=== PATIENT | female | born 1955 | race Caucasian/White ===

== ENCOUNTER 2024-07-10 20:58 | Inpatient (IN) | payer OTHER, SELFPAY ==
[2024-07-10 21:01] VITALS: BP 121/60; PULSE 105; RESP 25; TEMP 37.9; O2SAT 92; BMI 29.0
--- NOTE | 2024-07-10 21:21 | XRR_ITS ---
PROCEDURE INFORMATION: Exam: XR Chest Exam date and time: 07/10/2024 10:03 PM Age: 68 years old Clinical indication: Cough and fever; Patient HX: Cough with fever; Additional info: Cough fever TECHNIQUE: Imaging protocol: Radiologic exam of the chest. Views: 1 view. COMPARISON: No relevant prior studies available. FINDINGS: Lungs: There are symmetric subtle linear opacities in both lungs. The pattern suggests fibrosis. Calcified granuloma in the right mid lung. Pleural spaces: Unremarkable. No pleural effusion. No pneumothorax. Heart/Mediastinum: Unremarkable. No cardiomegaly. Bones/joints: chronic healed right rib fracture. XR/XR chest 1V portable [id number] IMPRESSION: 1. No acute findings 2. Probable mild pulmonary fibrosis
[2024-07-10 21:50] LABS: Basophils # 0.1 10^3/uL (0.0-0.1); Basophils % 0.6 %; Eosinophils % 0.1 %; Lymphocytes # 0.6 10^3/uL (0.8-4.8); Mean Corpuscular HGB Conc 29.1 g/dL (30-55); Mean Corpuscular Hemoglobin 23.5 pg (27-33); Mean Corpuscular Volume 80.6 fl (85-98); Monocytes # 0.8 10^3/uL (0.2-0.9); Neutrophils # 8.09 10^3/uL (1.8-7.7); Neutrophils % 84.7 %; Nucleated Red Blood Cells % 0.2 %; Platelet Count 338 10^3/cmm (157-399); Red Blood Count 2.47 10^6/uL (3.85-5.65); Red Cell Distribution Width 19.3 % (12.1-15.1); White Blood Count 9.55 10^3/uL (3.29-11.43)
[2024-07-10 21:55] LABS: Hematocrit 19.9 % (36-47)
--- NOTE | 2024-07-10 22:05 | W.ED.SOB ---
HPI - SOB/Dyspnea General: Chief Complaint: Shortness of Breath/Dyspnea Stated Complaint: SOB, headache, fever Time Seen by Provider: 07/10/24 22:01 History of Present Illness: HPI Narrative: Patient resents to the ER with complaints of shortness of breath and cough x 1 week. Patient been having a fever the last couple days. There is minimal sputum production. Patient been around no known sick contacts. Patient is on Plavix for history of stroke, has been anemic in the past. Is not actively losing any blood currently. Has had to have blood before in the past. Related Data Allergies Allergy/AdvReac Type Severity Reaction Status Date / Time Cephalosporins Allergy Unknown Verified 07/10/24 21:08 Penicillins Allergy ALGY-Anaphy Verified 07/10/24 21:08 laxis Sulfa (Sulfonamide Allergy Unknown Verified 07/10/24 21:08 Antibiotics) Review of Systems General: Reports: 10 or more systems reviewed and unremarkable except in HPI and below Physical Exam Const: COMMON NORMALS: no acute distress, average body habitus, patient oriented x3, no limitations, healthy appearing, alert and well nourished HENMT: COMMON NORMALS: normocephalic, atraumatic, hearing grossly normal bilaterally, external ears normal, Normal external nose present and moist oral mucous membranes HEAD & SCALP: normocephalic and atraumatic NOSE: Normal external nose present EXTERNAL EAR: Yes external ears normal Neck/C-Spine: COMMON NORMALS: full ROM, no lymphadenopathy, supple, no meningeal signs, no JVD and Thyroid normal THYROID: Thyroid normal Chest: COMMONS NORMALS: normal inspection of the chest and normal palpation of entire chest wall Resp: COMMON NORMALS: normal respiratory effort, No retractions, No use of accessory muscles and clear to auscultation bilaterally AUSCULTATION: clear to auscultation bilaterally Cardio: COMMON NORMALS: no JVD, regular rhythm, S1 normal heart sound present, S2 normal heart sound present, No gallops present (Cardio) and No clicks present (Cardio); negative for regular rate (Slightly tachycardic) and negative for No murmurs present (Cardio) (2/6 systolic ejection murmur) RATE: abnormal rate (Slightly tachycardic) RHYTHM: regular rhythm HEART SOUNDS: S1 normal heart sound present and S2 normal heart sound present GI: COMMON NORMALS: Normal to inspection, nondistended, normoactive bowel sounds present, Soft to palpation, non-tender, No hepatosplenomegaly present and no masses PALPATION: Yes Soft to palpation and Yes No hepatosplenomegaly present Neuro: COMMON NORMALS: patient oriented x3 SENSORIUM/ORIENTATION: Yes alert MENINGEAL SIGNS: Yes no meningeal signs Course Vital Signs: Vital signs: Vital Signs Temperature 100.3 F H 07/10/24 21:01 Pulse Rate 105 H 07/10/24 21:01 Respiratory Rate 25 H 07/10/24 21:01 Blood Pressure 121/60 07/10/24 21:01 Pulse Oximetry 92 07/10/24 21:01 Oxygen Delivery Me thod Room Air 07/10/24 21:01 MDM - SOB/Dyspnea Medical Decision Making Lab work showed patient's hemoglobin is 5.8, chest x-ray showed no acute findings, negative for COVID RSV and influenza, these results was discussed with the patient. Dr. Kerns was consulted who agreed to place patient in observation for blood transfusion. Lab Data I reviewed the patient's lab results. 07/10/24 21:44 07/10/24 21:44 Labs/Radiology: Radiology Impressions Chest X-Ray 07/10/24 21:21 IMPRESSION: 1. No acute findings 2. Probable mild pulmonary fibrosis Laboratory Results WBC 9.55 10^3/uL (3.29-11.43) 07/10/24 21:44 RBC 2.47 10^6/uL (3.85-5.65) L 07/10/24 21:44 Hgb 5.80 g/dL (11.27-16.99) L* 07/10/24 21:44 Hct 19.9 % (36-47) L* 07/10/24 21:44 MCV 80.6 fl (85-98) L 07/10/24 21:44 MCH 23.5 pg (27-33) L 07/10/24 21:44 MCHC 29.1 g/dL (30-55) L 07/10/24 21:44 RDW 19.3 % (12.1-15.1) H 07/10/24 21:44 Plt Count 338 10^3/cmm (157-399) 07/10/24 21:44 MPV 8.0 fL (7.4-10.4) 07/10/24 21:44 Neut % (Auto) 84.7 % 07/10/24 21:44 Lymph % (Auto) 6.0 % 07/10/24 21:44 [place] % (Auto) 8.0 % 07/10/24 21:44 Eos % (Auto) 0.1 % 07/10/24 21:44 Baso % (Auto) 0.6 % 07/10/24 21:44 Neut # (Auto) 8.09 10^3/uL (1.8-7.7) H 07/10/24 21:44 Lymph # (Auto) 0.6 10^3/uL (0.8-4.8) L 07/10/24 21:44 [place] # (Auto) 0.8 10^3/uL (0.2-0.9) 07/10/24 21:44 Eos # (Auto) 0.0 10^3/uL (0.0-0.8) 07/10/24 21:44 Baso # (Auto) 0.1 10^3/uL (0.0-0.1) 07/10/24 21:44 Nucleated RBC % (auto) 0.2 % 07/10/24 21:44 Nucleated RBCs # 0.0 /100WBC 07/10/24 21:44 PT 13.80 SECONDS (12.1-14.9) 07/10/24 21:44 INR 1.02 (0.8-1.2) 07/10/24 21:44 Sodium 136 mmol/L (136-145) 07/10/24 21:44 Potassium 4.5 mmol/L (3.5-5.1) 07/10/24 21:44 Chloride 102 mmol/L (98-107) 07/10/24 21:44 Carbon Dioxide 23 mmol/L (22-29) 07/10/24 21:44 Anion Gap 15.5 (5-19) 07/10/24 21:44 BUN 23 mg/dL (8-23) 07/10/24 21:44 Creatinine 0.9 mg/dL (0.5-0.9) 07/10/24 21:44 GFR Calculation 62.3 mL/min (90-130) L 07/10/24 21:44 Glucose 150 mg/dL (65-115) H 07/10/24 21:44 Calculated Osmolality 289 mOsm/kg (285-295) 07/10/24 21:44 Calcium 9.2 mg/dL (8.5-10.5) 07/10/24 21:44 Total Bilirubin 0.2 mg/dL (0.15-1.2) 07/10/24 21:44 AST 18 U/L (0-32) 07/10/24 21:44 ALT 17 U/L (0-33) 07/10/24 21:44 Alkaline Phosphatase 79 U/L (35-105) 07/10/24 21:44 Total Protein 6.6 g/dL (6.6-8.7) 07/10/24 21:44 Albumin 3.7 g/dL (3.5-5.2) 07/10/24 21:44 Globulin 2.9 g/dL (1.3-4.6) 07/10/24 21:44 Coronavirus (PCR) Negative (Negative) 07/10/24 22:15 Influenza A (PCR) Negative (Negative) 07/10/24 22:15 Influenza Type B (PCR) Negative (Negative) 07/10/24 22:15 RSV (PCR) Negative (Negative) 07/10/24 22:15 All radiology interpretation(s) finalized by discharge Discharge Plan Discharge Patient Disposition: Placed in Observation Clinical Impression: Anemia requiring transfusions Coding Level of Care Code ED Protection Analyst for Sarah Kat
[2024-07-10 22:09] LABS: Alanine Aminotransferase 17 U/L (0-33); Albumin Level 3.7 g/dL (3.5-5.2); Alkaline Phosphatase 79 U/L (35-105); Anion Gap 15.5 (5-19); Aspartate Amino Transferase 18 U/L (0-32); Blood Urea Nitrogen 23 mg/dL (8-23); Calcium 9.2 mg/dL (8.5-10.5); Carbon Dioxide 23 mmol/L (22-29); Chloride 102 mmol/L (98-107); Creatinine Clr Calc Pharmacy 64.4478; Globulin 2.9 g/dL (1.3-4.6); Glomerular Filtration Rate 62.3 mL/min (90-130); Glucose 150 mg/dL (65-115); Osmolality Calculated 289 mOsm/kg (285-295); Potassium 4.5 mmol/L (3.5-5.1); Sodium 136 mmol/L (136-145); Total Bilirubin 0.2 mg/dL (0.15-1.2); Total Protein 6.6 g/dL (6.6-8.7)
[2024-07-10] MEDS: acetaminophen 500 mg Tablet 1000 MG PO (22:30)
[2024-07-10 22:38] LABS: INR 1.02 (0.8-1.2)
[2024-07-10 23:16] LABS: Covid PCR NEGATIVE (Negative); Influenza A NEGATIVE (Negative); Influenza B NEGATIVE (Negative); Respiratory Syncytial Virus Ce NEGATIVE (Negative)
[2024-07-10 23:49] VITALS: BP 98/59; PULSE 96; RESP 24; O2SAT 94
--- NOTE | 2024-07-10 23:55 | P.HP_ITS ---
Providers/Chief Complaint 2 Admitting Physician: Olga Kerns MD Chief Complaint: SOB, headache, fever History of Present Illness Lela Crespo is a 68 year old female with history of chronic anemia requiring blood transfusion in the past had workup done 2021, takes lisinopril for hypertension, statins and Plavix for her previous stroke, ex-smoker, does not use oxygen, presented with chief complaint of cough shortness of breath and low- grade fever for last 2 to 3 days. Patient has been sick for last few weeks but symptoms got worse in last 2 to 3 days. She is endorsing shortness of breath on minimal exertion. She is not endorsing chest pain. No previous history of CHF or [place]. In the ER hemoglobin showed 5.8 BMP unremarkable requested iron level B12, respiratory panel negative, chest x-ray unremarkable. Patient is actively wheezing saturating 90% on room air I have requested RT to put her on 2 L nasal cannula. Patient's blood pressure is fluctuating between systolic 100 -107 mmHg Patient is not endorsing history of hemoptysis hematemesis, vaginal bleed, dark- colored stools, patient is stating that in the past extensive workup was done and no etiology was found, she never had bone marrow biopsy Review of Systems 2 Const: Denies: fever(s) Eyes: Denies: change in vision ENMT: Denies: throat pain Card: Reports: swelling of feet/ankles Resp: Reports: dyspnea and wheezing GI: Denies: abdominal pain Medications/Allergies Allergies Allergy/AdvReac Type Severity Reaction Status Date / Time Cephalosporins Allergy Unknown Verified 07/10/24 21:08 Penicillins Allergy ALGY-Anaphy Verified 07/10/24 21:08 laxis Sulfa (Sulfonamide Allergy Unknown Verified 07/10/24 21:08 Antibiotics) PFSH Acute 2 PFSH: Medical History CVA (cerebral vascular accident) Hypertension Surgical History H/O knee surgery Vitals/I&O/Wt Last Vital Signs Temp 98.2 F 07/11/24 01:16 Pulse 93 07/11/24 01:16 Resp 18 07/11/24 01:16 BP 96/64 07/11/24 01:16 Pulse Ox 95 07/11/24 01:16 O2 Del Method Room Air 07/11/24 00:36 07/10/24 07/10/24 07/11/24 14:59 22:59 06:59 Intake Total 0 / 0 Balance 0 / 0 Weight last 48 hrs Weight 81.647 kg Weight 81.647 kg Physical Exam 2 Narrative: Patient is awake and alert Currently wheezing, coughing, dry cough Systolic murmur Currently on room air saturating 90% Awake and alert Pleasant and cooperative No active chest pain Lower extremity 2+ edema Nonfocal neuroexam Right-sided weakness from previous stroke S1, S2 tachycardia Abdomen soft Data 07/10/24 21:44 07/10/24 21:44 A&P Assessment and plan (1) Anemia requiring transfusions: (2) New onset of congestive heart failure: (3) Hypoxia: Plan New onset CHF Acute on chronic anemia, does not have previous labs to compare As per the patient she had extensive workup done in 2021 at outside hospital, will request records As per the patient she had EGD which did not show any ulcers, no bone marrow biopsy was done 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 Not endorsing dark-colored stools, hematemesis hemoptysis Requested B12, iron level Getting 2 unit PRBC Acute hypoxia: Currently requiring 2 L active wheezing added steroids along DuoNeb treatment Resp panel negative, Patient is stating that she had a low-grade fever at home 100.5 Afebrile here, chest x-ray negative Never developed reaction to blood in the past Acute onset CHF: Request echo, no history of [place] or CHF Will give her Lasix in between blood transfusion, blood pressure is soft, closely monitor Cardiac diet Full code DVT prophylaxis: SCDs Patient is stating that she is not interested in another endoscopic workup since it was done 2 years ago Attestations 2 Medical Necessity Statement*: Anticipating discharge within 48 hours Diagnoses Anemia requiring transfusions D64.9 New onset of congestive heart failure I50.9 Hypoxia R09.02
[2024-07-11] VITALS (23 sets, daily range): BP systolic 90–130; BP diastolic 51–92; PULSE 88–109; RESP 16–21; TEMP 36.5–37; O2SAT 92–98; BMI 29.0
[2024-07-11 01:21] LABS: Bilirubin Urine Negative (Negative); Blood Urine Negative (Negative); Glucose Urine UA Negative (Normal); Ketones Urine Negative (Negative); Leukocyte Esterase Urine 1+ (Negative); Nitrate Urine Negative (Negative); Protein Urine Negative (Negative); Specific Gravity, Urine 1.021 (1.005-1.030); Urine Appearance Clear (CLEAR); Urine Color Yellow (Yellow)
[2024-07-11 01:26] LABS: Add Urine Microscopic? YES; Bacteria Urine 1+ /hpf; Hyaline Casts Urine 8.67 /lpf; RBC Urine 0-2 /hpf (0-2); Universal Test for UA Present (0)
[2024-07-11 01:42] LABS: Add Urine Culture? No; Mucus Urine TRACE /hpf; Renal Epithelial Cells Urine 0-4 /hpf
[2024-07-11] MEDS: ipratropium-albuterol 3 mL Neb INHALATION ×4 (02:18→20:35)
--- NOTE | 2024-07-11 02:35 | USCV_ITS ---
Zak Lela Age: 68 Gender: F : 1955 Exam Date: 07/11/2024 14:02 Ordering Phys: Olga Kerns MD Technologist: Lamonte Cohn Exam Location: [facility] [place] Indication: new onsest chf BP: 196 / 53 HR: 89 Rhythm: Sinus Technical Quality: Adequate MEASUREMENTS (Male / Female) Normal Values 2D ECHO LV Diastolic Diameter PLAX 5.4 cm 4.2 - 5.9 / 3.9 - 5.3 cm IVS Diastolic Thickness 1.2 cm 0.6 - 1.0 / 0.6 - 0.9 cm IVS Systolic Thickness 2.0 cm LVPW Diastolic Thickness 1.5 cm 0.6 - 1.0 / 0.6 - 0.9 cm LVPW Systolic Thickness 1.9 cm LVOT Diameter 2.0 cm LV Ejection Fraction 2D Teich 81.0 % LV Ejection Fraction MOD 4C 67.4 % LV Ejection Fraction MOD 2C 65.8 % LV Ejection Fraction 2C AL 65.8 % LA Diameter 4.9 cm RA Systolic Volume 4C AL 49.0 ml RA Systolic Volume 4C MOD 48.6 ml LA Sys Volume AL 48.5 cm cubed LA Sys Volume Index AL 23.5 cm cubed/m squared Aorta at Sinotubular Diameter 2.2 cm IVC Diameter 1.8 cm M-MODE LA Ao Ratio MM 1.6 AV Cusp Separation MM 0.9 cm DOPPLER AV Peak Velocity 118.0 cm/s LVOT Peak Velocity 111.0 cm/s AV Area Cont Eq vti 2.8 cm squared AV Area Cont Eq pk 3.0 cm squared MV Peak Velocity 144.0 cm/s MV Area PHT 5.8 cm squared Mitral E to A Ratio 1.1 TR Peak Velocity 322.0 cm/s TR Peak Gradient 41.5 mmHg TR Mean Velocity 241.0 cm/s TR Mean Gradient 26.6 mmHg TR Velocity Time Integral 87.8 cm PV Peak Velocity 107.0 cm/s RV Ejection Time 0.3 s FINDINGS Left Ventricle Normal left ventricular size and systolic function, EF 66%. No regional wall motion abnormalities. Grade III/IV diastolic dysfunction (restrictive filling pattern), severely elevated filling pressures. Right Ventricle The right ventricle is normal in size and function. Right Atrium The right atrium is normal in size. Left Atrium Mildly increased left atrial size. Mitral Valve Trace mitral valve regurgitation. Aortic Valve Thickened aortic valve. Tricuspid Valve Trace tricuspid valve regurgitation. Estimated pulmonary artery peak systolic pressure 30 mmHg Pulmonic Valve Pulmonic valve not well visualized. Pericardium Normal pericardium without effusion. Aorta Normal ascending aorta dimension. IVC Inferior vena cava not visualized. CONCLUSIONS Normal left ventricular size and systolic function, EF 66%. No regional wall motion abnormalities. Grade III/IV diastolic dysfunction (restrictive filling pattern), severely elevated filling pressures. Mildly increased left atrial size. Trace mitral valve regurgitation. Thickened aortic valve. Trace tricuspid valve regurgitation. Estimated pulmonary artery peak systolic pressure 30 mmHg. There is no pericardial effusion. No similar previous studies are available for comparison Dr Chasity Marina MD FACC (Electronically Signed) Final Date: 12 July 2024 09:57 S
[2024-07-11] MEDS: acetaminophen 500 mg Tablet PO (02:48)
[2024-07-11] MEDS: guaiFENesin 100 mg/5 mL UDC 10 mL 200 MG PO ×4 (02:48→21:31)
[2024-07-11 02:54] LABS: Reticulocyte % 2.8 % (0.5-2.0)
[2024-07-11] MEDS: benzonatate 100 mg Capsule 200 MG PO ×4 (03:35→21:31)
[2024-07-11 03:39] LABS: Ferritin 26 ng/mL (15-150); Folate Level 11.5 ng/mL (4.8-37.3); Iron 14 ug/dL (37-145); Lactate Dehydrogenase 197 U/L (135-214); NT Pro B Type Natriuretic Pept 1223 pg/mL (0-125); Percent Saturation 4.1 % (20-50); Total Iron Binding Capacity 339 mcg/dl; Unsaturated Iron Binding 325 ug/dL (112-347); Vitamin B12 498 pg/mL (232-1245)
[2024-07-11 04:53] LABS: Basophils # 0.1 10^3/uL (0.0-0.1); Basophils % 0.7 %; Eosinophils % 0.4 %; Lymphocytes % 9.6 %; Mean Corpuscular HGB Conc 29.6 g/dL (30-55); Mean Corpuscular Hemoglobin 24.6 pg (27-33); Mean Platelet Volume 8.2 fL (7.4-10.4); Monocytes # 1.1 10^3/uL (0.2-0.9); Monocytes % 10.5 %; Neutrophils # 7.79 10^3/uL (1.8-7.7); Neutrophils % 78.2 %; Nucleated Red Blood Cells % 0.2 %; Platelet Count 310 10^3/cmm (157-399); Red Blood Count 2.89 10^6/uL (3.85-5.65); Red Cell Distribution Width 18.6 % (12.1-15.1); White Blood Count 9.97 10^3/uL (3.29-11.43)
[2024-07-11] MEDS: methylPREDNISolone sod succ 40 mg/mL INJ 30 MG IVP ×2 (05:08→15:31)
[2024-07-11] MEDS: FUROsemide 10 mg/mL SDV 2mL 20 MG IVP (05:08)
[2024-07-11 05:18] LABS: Anion Gap 15.2 (5-19); Blood Urea Nitrogen 26 mg/dL (8-23); Carbon Dioxide 21 mmol/L (22-29); Chloride 105 mmol/L (98-107); Creatinine Clr Calc Pharmacy 60.4799; Glomerular Filtration Rate 55.1 mL/min (90-130); Glucose 127 mg/dL (65-115); Magnesium 1.9 mg/dL (1.7-2.3); Osmolality Calculated 290 mOsm/kg (285-295); Potassium 4.2 mmol/L (3.5-5.1); Sodium 137 mmol/L (136-145)
--- NOTE | 2024-07-11 05:31 | XRR_ITS ---
PROCEDURE INFORMATION: Exam: XR Chest Exam date and time: 07/11/2024 5:36 AM Age: 68 years old Clinical indication: Cough and wheezing; Patient HX: Worsening cough with new onset of audible rales. ; Additional info: New onset crackles TECHNIQUE: Imaging protocol: Radiologic exam of the chest. Views: 1 view. COMPARISON: CR (CHEST, ) 07/10/2024 10:03 PM FINDINGS: Lungs: Mild interstitial prominence. This is accentuated today by a poor inspiratory effort. Pleural spaces: Unremarkable. No pleural effusion. No pneumothorax. Heart/Mediastinum: See Vasculature finding. Vasculature: Mild cardiomegaly and uncoiling of the thoracic aorta. Bones/joints: Unremarkable. XR/XR chest 1V portable [id number] IMPRESSION: No acute findings. Stable chronic findings.
--- NOTE | 2024-07-11 06:23 | PC.NURSE ---
After first unit of blood finished infusing at 0430 this nurse auscultated lung sounds and a new onset of crackles were present. Notified NOC hospitalist Dr Kerns who advised to hold off on second unit of blood and order a chest x-ray.
[2024-07-11 06:53] LABS: Basophils # 0.1 10^3/uL (0.0-0.1); Basophils % 0.8 %; Eosinophils % 0.3 %; Hematocrit 24.7 % (36-47); Lymphocytes # 0.6 10^3/uL (0.8-4.8); Lymphocytes % 5.1 %; Mean Corpuscular HGB Conc 29.6 g/dL (30-55); Mean Corpuscular Hemoglobin 24.3 pg (27-33); Mean Corpuscular Volume 82.1 fl (85-98); Mean Platelet Volume 8.4 fL (7.4-10.4); Monocytes # 0.8 10^3/uL (0.2-0.9); Monocytes % 7.6 %; Neutrophils # 9.25 10^3/uL (1.8-7.7); Neutrophils % 85.6 %; Nucleated Red Blood Cells % 0 %; Platelet Count 342 10^3/cmm (157-399); Red Blood Count 3.01 10^6/uL (3.85-5.65); Red Cell Distribution Width 18.6 % (12.1-15.1)
--- NOTE | 2024-07-11 07:55 | PC.PHAR ---
Pt is a transplant from [facility]. Pt does take medications and fills at [facility] [phone]. They open at 9am-will follow up with them as soon as they open.
[2024-07-11] MEDS: budesonide 0.5 mg/2 mL Neb INHALATION ×2 (08:08→20:35)
--- NOTE | 2024-07-11 09:07 | PC.PHAR ---
Addendum entered by Radha Raya 07/11/24 09:11: Verified with Janice Rodríguez. Original Note: [facility] [place]. [address] . Pharmacy states pt also had Rosuvastatin 40mg but last fill was in December. Pt states she did take her medications yesterday 07/10/24.
[2024-07-11] MEDS: pantoprazole 40 mg SDV IVP ×2 (09:19→17:34)
[2024-07-11] MEDS: sennosides-docusate Tablet 1 TAB PO (09:19)
--- NOTE | 2024-07-11 15:14 | P.PN_ITS ---
Vitals/I&O/Wt Last Vital Signs Temp 98.0 F 07/11/24 11:33 Pulse 99 07/11/24 11:33 Resp 16 07/11/24 11:33 BP 109/53 07/11/24 11:33 Pulse Ox 97 07/11/24 11:33 O2 Del Method Room Air 07/11/24 11:33 O2 Flow Rate 1.5 07/11/24 09:12 07/11/24 07/11/24 07/11/24 06:59 14:59 22:59 Intake Total 350 / 350 420 / 420 Balance 350 / 350 420 / 420 Weight last 48 hrs Weight 88.932 kg Weight 81.647 kg Weight 81.647 kg Data 07/11/24 06:48 07/11/24 04:42 A&P Assessment and plan (1) Anemia requiring transfusions: (2) New onset of congestive heart failure: (3) Hypoxia: Plan New onset CHF Acute on chronic anemia, does not have previous labs to compare As per the patient she had extensive workup done in 2021 at outside hospital, will request records As per the patient she had EGD which did not show any ulcers, no bone marrow biopsy was done 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 Not endorsing dark-colored stools, hematemesis hemoptysis Requested B12, iron level Getting 2 unit PRBC Acute hypoxia: Currently requiring 2 L active wheezing added steroids along DuoNeb treatment Resp panel negative, Patient is stating that she had a low-grade fever at home 100.5 Afebrile here, chest x-ray negative Never developed reaction to blood in the past Acute onset CHF: Request echo, no history of [place] or CHF Will give her Lasix in between blood transfusion, blood pressure is soft, closely monitor Cardiac diet Full code DVT prophylaxis: SCDs Patient is stating that she is not interested in another endoscopic workup since it was done 2 years ago July 11, 2024. Received blood transfusion overnight. Hemoglobin at 7.3 this morning. Low iron level at 14, low transferrin saturation, normal TIBC. Will check ferritin level with a.m. labs. Normal T. bili and LDH, less likely to be hemolytic anemia. Patient states she has previously had endoscopic evaluation with upper and GI endoscopy 2 years ago. No obvious abnormalities were found. Normal B12 and folate levels currently she has never had a capsule endoscopy in the past. She has never had a bone marrow biopsy results. At the time of discharge will refer her to see hematology as an outpatient to further evaluate the cause of her severe anemia. Tmax 100.3 Fahrenheit overnight. She is currently tachypneic, unable to have a conversation. Noted to have diffuse bilateral wheezing. Patient is currently on scheduled DuoNeb budesonide inhalation and IV steroids which we will continue. Echocardiogram is being done currently at bedside. Increase Lasix from 20 mg IV daily to 40 mg IV daily. Chest x-ray taken this morning showing some interval worsening in bilateral infiltrates likely pulmonary edema. Will check extended respiratory panel as cannot rule out acute viral versus infectious infiltrates. Start levofloxacin 750 mg p.o. daily given interval development of failure. Routine is not a clean-catch. Multiple squamous epithelial cells. Will repeat a clean-catch specimen for liver evaluation. Check blood cultures. Patient states fever was not during blood transfusion. Changed to inpatient admission as requires further evaluation for fever, pending echocardiogram, and ongoing need for IV diuresis and IV steroids. Patient is recently moved here from [facility]. Chest x-ray per radiology report raises concern for possible ILD. Will need serial reassessment in a few weeks with repeat chest x-rays to ascertain chronicity of the issue. This documentation was created by [employer] weight loss centre manager software. Every effort was made to ensure accuracy of weight loss centre manager. Any obvious errors or omissions should be clarified with the author of the document. Attestations 2 Medical Necessity Statement*: Repeat H&H, continue IV steroids, start abx, pending echo Coding Level of Care Code Acute Code for Chg Fwd Diagnoses Anemia requiring transfusions D64.9 New onset of congestive heart failure I50.9 Hypoxia R09.02
--- NOTE | 2024-07-11 15:29 | ECG_ITS ---
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 Measurements Intervals [place] Rate: 94 P: -89 UT: 148 QRS: 53 QRSD: 91 T: -3 QT: 323 QTc: 406 Interpretive Statements ECTOPIC ATRIAL RHYTHM MINIMAL VOLTAGE CRITERIA FOR LVH, CONSIDER NORMAL VARIANT [MEETS CRITERIA IN ONE OF: R(aVL), S(V1), R(V5), R(V5/V6)+S(V1)] NONSPECIFIC ST & T-WAVE ABNORMALITY ABNORMAL RHYTHM ECG No previous ECG available for comparison Electronically Signed On 07-12-2024 22:36:55 WEB UI SOFTWARE ENGINEER by Chasity Marina M.D. [id number]
[2024-07-11] MEDS: FUROsemide 10 mg/mL SDV 4mL 40 MG IVP (15:31)
[2024-07-11 16:14] LABS: Hematocrit 25.4 % (36-47)
[2024-07-11 16:31] LABS: Troponin(5th) Baseline 22 ng/L (0-10)
--- NOTE | 2024-07-11 17:31 | ECG_ITS ---
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 Measurements Intervals [place] Rate: 103 P: 0 PA: 0 QRS: 52 QRSD: 95 T: -4 QT: 322 QTc: 423 Interpretive Statements ATRIAL FIBRILLATION WITH RAPID VENTRICULAR RESPONSE NONSPECIFIC ST & T-WAVE ABNORMALITY ABNORMAL RHYTHM ECG Compared to ECG 07/11/2024 15:29:17 Ectopic atrial rhythm no longer present T-wave abnormality still present Electronically Signed On 07-12-2024 22:43:11 RELIABILITY TECHNOLOGIST by Chasity Marina M.D. [id number]
[2024-07-11 18:07] LABS: Adenovirus Not Detected (NOT DETECT); Chlamydia Pneumoniae Not Detected (NOT DETECT); Coronavirus 229E,HKU1,NL63,OC4 Not Detected (NOT DETECT); Human Metapneumovirus Not Detected (NOT DETECT); Human Rhinovirus/Enterovirus Not Detected (NOT DETECT); Influenza A Not Detected (NOT DETECT); Influenza A H1 Not Detected (NOT DETECT); Influenza A H1-2009 Not Detected (NOT DETECT); Influenza A H3 Not Detected (NOT DETECT); Influenza B Not Detected (NOT DETECT); Mycoplasma Pneumoniae Not Detected (NOT DETECT); Parainfluenza Virus Type 1 Not Detected (NOT DETECT); Parainfluenza Virus Type 2 Not Detected (NOT DETECT); Parainfluenza Virus Type 3 Not Detected (NOT DETECT); Parainfluenza Virus Type 4 Detected (NOT DETECT); Respiratory Syncytial Virus A Not Detected (NOT DETECT); Respiratory Syncytial Virus B Not Detected (NOT DETECT); SARS-COV-2 Not Detected (NOT DETECT)
[2024-07-11 18:53] LABS: Troponin 5 2HR 25.06 ng/L (0-10); Troponin 5 2HR Delta 3.06 ABS# (0-10)
--- NOTE | 2024-07-11 21:19 | ECG_ITS ---
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 Measurements Intervals [place] Rate: 96 P: 37 [place]: 153 QRS: 53 QRSD: 98 T: 28 QT: 333 QTc: 422 Interpretive Statements SINUS RHYTHM WITH OCCASIONAL SUPRAVENTRICULAR PREMATURE COMPLEXES LEFT VENTRICULAR HYPERTROPHY AND ST-T CHANGE [VOLTAGE CRITERIA PLUS ST/T ABNORMALITY] Compared to ECG 07/11/2024 17:31:56 Left ventricular hypertrophy now present ST (T wave) deviation now present Atrial fibrillation no longer present T-wave abnormality no longer present Electronically Signed On 07-12-2024 22:43:25 CLINIC MANAGER by Chasity Marina M.D. [id number]
[2024-07-11 22:24] LABS: Troponin 5 6HR 24.82 ng/L (0-10); Troponin 5 6HR Delta 2.82 ng/L (0-12)
[2024-07-12] VITALS (19 sets, daily range): BP systolic 102–147; BP diastolic 47–69; PULSE 86–107; RESP 16–20; TEMP 36.5–37.2; O2SAT 93–99
[2024-07-12] MEDS: ipratropium-albuterol 3 mL Neb INHALATION ×4 (02:34→21:01)
[2024-07-12 03:32] LABS: Basophils # 0.1 10^3/uL (0.0-0.1); Basophils % 0.5 %; Eosinophils % 0.1 %; Hematocrit 24.1 % (36-47); Mean Corpuscular HGB Conc 29.9 g/dL (30-55); Mean Corpuscular Hemoglobin 24.4 pg (27-33); Mean Corpuscular Volume 81.7 fl (85-98); Mean Platelet Volume 9.2 fL (7.4-10.4); Monocytes # 1.1 10^3/uL (0.2-0.9); Monocytes % 10.4 %; Neutrophils # 8.12 10^3/uL (1.8-7.7); Neutrophils % 78.5 %; Nucleated Red Blood Cells % 0 %; Platelet Count 278 10^3/cmm (157-399); Red Blood Count 2.95 10^6/uL (3.85-5.65); Red Cell Distribution Width 18.7 % (12.1-15.1); White Blood Count 10.33 10^3/uL (3.29-11.43)
[2024-07-12] MEDS: methylPREDNISolone sod succ 40 mg/mL INJ 30 MG IVP (03:41)
[2024-07-12] MEDS: benzonatate 100 mg Capsule 200 MG PO ×3 (03:41→22:26)
[2024-07-12] MEDS: guaiFENesin 100 mg/5 mL UDC 10 mL 200 MG PO ×4 (03:41→20:58)
[2024-07-12 04:01] LABS: Alanine Aminotransferase 23 U/L (0-33); Albumin Level 3.8 g/dL (3.5-5.2); Alkaline Phosphatase 84 U/L (35-105); Aspartate Amino Transferase 21 U/L (0-32); Blood Urea Nitrogen 30 mg/dL (8-23); Carbon Dioxide 24 mmol/L (22-29); Chloride 104 mmol/L (98-107); Creatinine Clr Calc Pharmacy 54.9817; Globulin 2.7 g/dL (1.3-4.6); Glomerular Filtration Rate 49.4 mL/min (90-130); Glucose 100 mg/dL (65-115); Osmolality Calculated 298 mOsm/kg (285-295); Sodium 141 mmol/L (136-145); Total Bilirubin 0.3 mg/dL (0.15-1.2); Total Protein 6.5 g/dL (6.6-8.7)
[2024-07-12] MEDS: budesonide 0.5 mg/2 mL Neb INHALATION ×2 (08:39→21:02)
[2024-07-12] MEDS: sennosides-docusate Tablet 1 TAB PO (09:28)
[2024-07-12] MEDS: levoFLOXacin 750 mg Tablet PO (09:28)
[2024-07-12] MEDS: pantoprazole 40 mg SDV IVP (09:29)
[2024-07-12 13:03] LABS: D Dimer 0.89 ug/mLFEU (0-0.59)
[2024-07-12] MEDS: methylPREDNISolone sod succ 40 mg/mL INJ IVP ×2 (13:54→21:00)
--- NOTE | 2024-07-12 15:53 | PM.PN ---
Subjective Subjective: Hemoglobin 7.2 today. Continues to have diffuse severe wheezing bilaterally. Tested positive for parainfluenza. Vitals/I&O/Wt Last Vital Signs Temp 98.0 F 07/12/24 14:59 Pulse 97 07/12/24 14:59 Resp 20 H 07/12/24 14:59 BP 107/69 07/12/24 14:59 Pulse Ox 97 07/12/24 14:59 O2 Del Method Room Air 07/12/24 13:57 O2 Flow Rate 2 07/12/24 09:36 07/12/24 07/12/24 07/12/24 06:59 14:59 22:59 Intake Total 360 / 1380 840 / 840 Balance 360 / 1380 840 / 840 Weight last 48 hrs Weight 89.176 kg Weight 88.932 kg Weight 81.647 kg Weight 81.647 kg Physical Exam Narrative: General: No acute distress, AO x3 HEENT: PERRLA, pupils bilaterally equal and reactive, pallors not present Chest: Normal vesicular breath sounds, no added sounds, equal good air entry bilaterally CVS: S1-S2 regular, no murmurs, no tachycardia, no gallops, no rubs Abdomen: Soft, nontender, no organomegaly, bowel sounds present Neuro: No focal deficits, no facial deformity, AO x3, power 5/5 in all limbs Data 07/12/24 02:31 07/12/24 02:31 Micro: Microbiology 07/11/24 15:45 Blood Culture - Preliminary Blood SPECIMEN COLLECTED 07/11/24 15:43 Blood Culture - Preliminary Blood SPECIMEN COLLECTED A&P Assessment and plan (1) Anemia requiring transfusions: (2) New onset of congestive heart failure: (3) Hypoxia: Plan New onset CHF Acute on chronic anemia, does not have previous labs to compare As per the patient she had extensive workup done in 2021 at outside hospital, will request records As per the patient she had EGD which did not show any ulcers, no bone marrow biopsy was done she 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 seen a public 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 instructor Not endorsing dark-colored stools, hematemesis hemoptysis Requested B12, iron level Getting 2 unit PRBC Acute hypoxia: Currently requiring 2 L active wheezing added steroids along DuoNeb treatment Resp panel negative, Patient is stating that she had a low-grade fever at home 100.5 Afebrile here, chest x-ray negative Never developed reaction to blood in the past Acute onset CHF: Request echo, no history of OH or CHF Will give her Lasix in between blood transfusion, blood pressure is soft, closely monitor Cardiac diet Full code DVT prophylaxis: SCDs Patient is stating that she is not interested in another endoscopic workup since it was done 2 years ago July 11, 2024. Received blood transfusion overnight. Hemoglobin at 7.3 this morning. Low iron level at 14, low transferrin saturation, normal TIBC. Will check ferritin level with a.m. labs. Normal T. bili and LDH, less likely to be hemolytic anemia. Patient states she has previously had endoscopic evaluation with upper and GI endoscopy 2 years ago. No obvious abnormalities were found. Normal B12 and folate levels currently she has never had a capsule endoscopy in the past. She has never had a bone marrow biopsy results. At the time of discharge will refer her to see hematology as an outpatient to further evaluate the cause of her severe anemia. Tmax 100.3 Fahrenheit overnight. She is currently tachypneic, unable to have a conversation. Noted to have diffuse bilateral wheezing. Patient is currently on scheduled DuoNeb budesonide inhalation and IV steroids which we will continue. Echocardiogram is being done currently at bedside. Increase Lasix from 20 mg IV daily to 40 mg IV daily. Chest x-ray taken this morning showing some interval worsening in bilateral infiltrates likely pulmonary edema. Will check extended respiratory panel as cannot rule out acute viral versus infectious infiltrates. Start levofloxacin 750 mg p.o. daily given interval development of failure. Routine is not a clean-catch. Multiple squamous epithelial cells. Will repeat a clean-catch specimen for liver evaluation. Check blood cultures. Patient states fever was not during blood transfusion. Changed to inpatient admission as requires further evaluation for fever, pending echocardiogram, and ongoing need for IV diuresis and IV steroids. Patient is recently moved here from [facility]. Chest x-ray per radiology report raises concern for possible ILD. Will need serial reassessment in a few weeks with repeat chest x-rays to ascertain chronicity of the issue. This documentation was created by [email or web address] java oracle developer software. Every effort was made to ensure accuracy of java oracle developer. Any obvious errors or omissions should be clarified with the author of the document. July 12, 2024. Hemoglobin at 7.2 today. Echocardiogram was completed which showed grade 3 diastolic dysfunction. Patient denies any known past history of heart failure. CTA was negative for PE. Diffuse bilateral wheezing bilaterally. Tested positive for parainfluenza. Chest x-ray showing bilateral prominent interstitial marking, per radiology interpretation may be interstitial lung disease. Patient states she has never been diagnosed with COPD or ILD before. Has a past history of asthma for which she used to take inhalers but has not taken any in over 10 years. Possible that she may be experiencing an asthma exacerbation related to acute viral infection with parainfluenza. Continue DuoNeb and budesonide scheduled nebulization. Increase steroids to 40 mg IV every 8 hours for asthma exacerbation. Given grade 3 diastolic heart failure noted on echocardiogram, will transfuse with a goal to keep hemoglobin close to 9. Unclear etiology of heart failure at this present time. Will likely need an outpatient stress test to assess for underlying ischemia. Unlikely that patient will be able to tolerate a stress test currently given severe bronchospasm. Continue Lasix 40 mg IV every 24 hours. Urine output is not accurately charted. Screening D-dimer to evaluate for possible PE. Saturating better on room air today therefore less likely. Alternate explanation by way of parainfluenza positive. Attestations Medical Necessity Statement*: Asthma exacerbation, increase IV steroids, continue scheduled nebs, needs further blood transfusion with a goal to keep hemoglobin close to 9. Coding Level of Care Code Acute Code for Chg Fwd High MDM includes number and complexity of problems actively addressed during encounter, amount and/or complexity of data reviewed/ordered and described risk of complication, morbidity or mortality of management as documented Diagnoses Anemia requiring transfusions D64.9 New onset of congestive heart failure I50.9 Hypoxia R09.02
[2024-07-12 20:32] LABS: Hematocrit 30.6 % (36-47)
[2024-07-12] MEDS: hyDROXYzine 25 mg Capsule 100 MG PO (20:59)
[2024-07-12] MEDS: FUROsemide 10 mg/mL SDV 4mL 40 MG IVP (20:59)
[2024-07-13] VITALS (8 sets, daily range): BP systolic 105–158; BP diastolic 48–72; PULSE 81–125; RESP 17–20; TEMP 36.6–37.1; O2SAT 93–97
[2024-07-13] MEDS: ipratropium-albuterol 3 mL Neb INHALATION ×3 (01:13→14:38)
[2024-07-13] MEDS: methylPREDNISolone sod succ 40 mg/mL INJ IVP (05:44)
[2024-07-13 06:41] LABS: Basophils % 0.4 %; Eosinophils % 0.1 %; Hematocrit 32.2 % (36-47); Lymphocytes % 9.3 %; Mean Corpuscular HGB Conc 30.7 g/dL (30-55); Mean Corpuscular Hemoglobin 25.5 pg (27-33); Mean Platelet Volume 8.6 fL (7.4-10.4); Monocytes % 8.8 %; Neutrophils # 8.98 10^3/uL (1.8-7.7); Neutrophils % 80.2 %; Nucleated Red Blood Cells % 0.2 %; Platelet Count 363 10^3/cmm (157-399); Red Blood Count 3.88 10^6/uL (3.85-5.65); Red Cell Distribution Width 18.5 % (12.1-15.1); White Blood Count 11.19 10^3/uL (3.29-11.43)
[2024-07-13] MEDS: guaiFENesin 100 mg/5 mL UDC 10 mL 200 MG PO ×2 (06:51→11:05)
[2024-07-13 07:03] LABS: Alanine Aminotransferase 30 U/L (0-33); Alkaline Phosphatase 94 U/L (35-105); Anion Gap 18.6 (5-19); Aspartate Amino Transferase 26 U/L (0-32); Blood Urea Nitrogen 30 mg/dL (8-23); Calcium 9.8 mg/dL (8.5-10.5); Carbon Dioxide 23 mmol/L (22-29); Chloride 102 mmol/L (98-107); Creatinine Clr Calc Pharmacy 50.5076; Globulin 3.2 g/dL (1.3-4.6); Glomerular Filtration Rate 44.7 mL/min (90-130); Glucose 127 mg/dL (65-115); Osmolality Calculated 296 mOsm/kg (285-295); Potassium 4.6 mmol/L (3.5-5.1); Sodium 139 mmol/L (136-145); Total Bilirubin 0.4 mg/dL (0.15-1.2); Total Protein 7.2 g/dL (6.6-8.7)
[2024-07-13] MEDS: budesonide 0.5 mg/2 mL Neb INHALATION (07:21)
[2024-07-13] MEDS: sennosides-docusate Tablet 1 TAB PO (07:57)
[2024-07-13] MEDS: citalopram 20 mg Tablet PO (07:57)
[2024-07-13] MEDS: levoFLOXacin 750 mg Tablet PO (07:57)
[2024-07-13] MEDS: benzonatate 100 mg Capsule 200 MG PO (07:57)
[2024-07-13] MEDS: pantoprazole DR 40 mg Tablet PO (07:57)
[2024-07-13] MEDS: ezetimibe 10 mg Tablet PO (07:57)
--- NOTE | 2024-07-13 14:46 | PM.DCS ---
Discharge Providers Date of Admission: 07/11/24 15:18 Date of Discharge: July 13, 2024 Attending Provider at Admission: Olga Kerns MD Attending Provider at Discharge: Lorelei Mason MD Diagnoses at Discharge Discharge Diagnosis (1) Anemia requiring transfusions: Status: Acute (2) New onset of congestive heart failure: Status: Acute (3) Hypoxia: Status: Acute (4) Parainfluenza: Status: Acute (5) COPD exacerbation: Status: Acute Reason for Visit Reason for Visit: SOB, headache, fever Hospital Course Hospital Course Patient is a 68-year-old lady with a past history of chronic anemia requiring blood transfusion in the past, hypertension, presented to the hospital with several weeks of worsening shortness of breath. She had increasing lower extremity edema additionally. Her hemoglobin showed a low number of 5.8. Patient has recently moved here from [facility]. She had an extensive workup done in 2021 at an outside hospital with a EGD and colonoscopy which were within normal limits per her description. She has never had a capsule endoscopy before. He had low iron levels, will be added on supplementation at discharge. She has never previously seen hematology. Will provide referral for the same. During the course of admission she had a fever of 100.3 and was also tachypneic. He had severe wheezing to auscultation bilaterally. Patient has a past history of asthma, was on inhalers 20 years ago. She has not formally been diagnosed with COPD, however on review of chest x-ray there was suspicion for possible interstitial lung disease versus COPD. She was diagnosed with a parainfluenza 4 viral infection. Instructed to undergo a chest x-ray with primary care physician in 3 weeks. If continues to have persistent x-ray findings, ILD versus COPD may be a consideration, will need further PFTs. Clinical impression was that of COPD exacerbation as triggered by an acute viral illness. She received high-dose steroids methylprednisolone 40 mg IV every 8 hours and is being discharged with a steroid taper. Protonix and Carafate have been added at discharge for PUD prophylaxis. Additionally echocardiogram was performed which had showngrade 3 diastolic heart failure. She was transfused during this admission with a goal to keep hemoglobin between 8-9 given heart failure. Hemoglobin at the time of discharge is 9.9. She feels much better today and is being discharged in a stable condition. Recommended to undergo a stress test 2 to 3 weeks after having recovered from the acute viral illness. She states she has had a stress test over 24 years ago which was reportedly normal. Physical Exam Narrative: General: No acute distress, AO x3 HEENT: PERRLA, pupils bilaterally equal and reactive, pallors not present Chest: scattered wheezing to auscultation b/L CVS: S1-S2 regular, no murmurs, no tachycardia, no gallops, no rubs Abdomen: Soft, nontender, no organomegaly, bowel sounds present Neuro: No focal deficits, no facial deformity, AO x3, power 5/5 in all limbs Discharge Data Studies Completed and Pending Completed Studies During Hospitalization Category Date Time Status XR chest 1V portable [id number] Stat Exams 07/10/24 21:21 Completed XR chest 1V portable [id number] Stat Exams 07/11/24 05:31 Completed CV. echo complete* [id number] Routine Ultrasound 07/11/24 02:35 Completed Pending at discharge Category Date Time Status Blood Culture Stat Lab 07/11/24 15:45 Results Leukocyte Reduced RBC Stat Lab 07/10/24 22:30 Results Occult Blood Stool [Immunochemical Fecal OCB] Routine Lab 07/11/24 01:49 Uncollected Type and Screen Routine Lab 07/10/24 22:30 Results Radiology Impressions Chest X-Ray 07/11/24 05:31 IMPRESSION: No acute findings. Stable chronic findings. Laboratory Results WBC 11.19 10^3/uL (3.29-11.43) 07/13/24 06:31 RBC 3.88 10^6/uL (3.85-5.65) 07/13/24 06:31 Hgb 9.90 g/dL (11.27-16.99) L 07/13/24 06:31 Hct 32.2 % (36-47) L 07/13/24 06:31 MCV 83.0 fl (85-98) L 07/13/24 06:31 MCH 25.5 pg (27-33) L 07/13/24 06:31 MCHC 30.7 g/dL (30-55) 07/13/24 06:31 RDW 18.5 % (12.1-15.1) H 07/13/24 06:31 Plt Count 363 10^3/cmm (157-399) D 07/13/24 06:31 MPV 8.6 fL (7.4-10.4) 07/13/24 06:31 Neut % (Auto) 80.2 % 07/13/24 06:31 Lymph % (Auto) 9.3 % 07/13/24 06:31 [place] % (Auto) 8.8 % 07/13/24 06:31 Eos % (Auto) 0.1 % 07/13/24 06:31 Baso % (Auto) 0.4 % 07/13/24 06:31 Reticulocyte % (Auto) 2.8 % (0.5-2.0) H 07/10/24 21:44 Neut # (Auto) 8.98 10^3/uL (1.8-7.7) H 07/13/24 06:31 Lymph # (Auto) 1.0 10^3/uL (0.8-4.8) 07/13/24 06:31 [place] # (Auto) 1.0 10^3/uL (0.2-0.9) H 07/13/24 06:31 Eos # (Auto) 0.0 10^3/uL (0.0-0.8) 07/13/24 06:31 Baso # (Auto) 0.0 10^3/uL (0.0-0.1) 07/13/24 06:31 Nucleated RBC % (auto) 0.2 % 07/13/24 06:31 Nucleated RBCs # 0.0 /100WBC 07/13/24 06:31 PT 13.80 SECONDS (12.1-14.9) 07/10/24 21:44 INR 1.02 (0.8-1.2) 07/10/24 21:44 D-Dimer 0.89 ug/mLFEU (0-0.59) H 07/12/24 12:06 Sodium 139 mmol/L (136-145) 07/13/24 06:31 Potassium 4.6 mmol/L (3.5-5.1) 07/13/24 06:31 Chloride 102 mmol/L (98-107) 07/13/24 06:31 Carbon Dioxide 23 mmol/L (22-29) 07/13/24 06:31 Anion Gap 18.6 (5-19) 07/13/24 06:31 BUN 30 mg/dL (8-23) H 07/13/24 06:31 Creatinine 1.2 mg/dL (0.5-0.9) H 07/13/24 06:31 GFR Calculation 44.7 mL/min (90-130) L 07/13/24 06:31 Glucose 127 mg/dL (65-115) H 07/13/24 06:31 Calculated Osmolality 296 mOsm/kg (285-295) H 07/13/24 06:31 Calcium 9.8 mg/dL (8.5-10.5) 07/13/24 06:31 Magnesium 1.9 mg/dL (1.7-2.3) 07/11/24 04:42 Iron 14 ug/dL (37-145) L 07/10/24 21:44 TIBC 339 mcg/dl 07/10/24 21:44 % Saturation 4.1 % (20-50) L 07/10/24 21:44 Unsat Iron Binding 325 ug/dL (112-347) 07/10/24 21:44 Ferritin 26 ng/mL (15-150) 07/10/24 21:44 Total Bilirubin 0.4 mg/dL (0.15-1.2) 07/13/24 06:31 AST 26 U/L (0-32) 07/13/24 06:31 ALT 30 U/L (0-33) 07/13/24 06:31 Alkaline Phosphatase 94 U/L (35-105) 07/13/24 06:31 Lactate Dehydrogenase 197 U/L (135-214) 07/10/24 21:44 Troponin T Baseline 22 ng/L (0-10) H 07/11/24 15:43 Troponin T 120 Minute 25.06 ng/L (0-10) H 07/11/24 17:56 Delta Troponin T 3.06 ABS# (0-10) 07/11/24 17:56 Troponin T Hi Sens 6Hr 24.82 ng/L (0-10) H 07/11/24 21:46 Troponin T Hi Sens 6Hr Delta 2.82 ng/L (0-12) 07/11/24 21:46 NT-Pro-B Natriuret Pep 1223 pg/mL (0-125) H 07/10/24 21:44 Total Protein 7.2 g/dL (6.6-8.7) 07/13/24 06:31 Albumin 4.0 g/dL (3.5-5.2) 07/13/24 06:31 Globulin 3.2 g/dL (1.3-4.6) 07/13/24 06:31 Vitamin B12 498 pg/mL (232-1245) 07/10/24 21:44 Folate 11.5 ng/mL (4.8-37.3) 07/10/24 21:44 Urine Color Yellow (Yellow) 07/11/24 00:47 Urine Appearance Clear (CLEAR) 07/11/24 00:47 Urine pH 5.0 (5-7) 07/11/24 00:47 Ur Specific [place] 1.021 (1.005-1.030) 07/11/24 00:47 Urine Protein Negative (Negative) 07/11/24 00:47 Urine Glucose (UA) Negative (Normal) 07/11/24 00:47 Urine Ketones Negative (Negative) 07/11/24 00:47 Urine Blood Negative (Negative) 07/11/24 00:47 Urine Nitrate Negative (Negative) 07/11/24 00:47 Urine Bilirubin Negative (Negative) 07/11/24 00:47 Urine Urobilinogen 1.0 mg/dL (Negative) 07/11/24 00:47 Ur Leukocyte Esterase 1+ (Negative) A 07/11/24 00:47 Urine RBC 0-2 /hpf (0-2) 07/11/24 00:47 Urine WBC 6-10 /hpf (0-5) 07/11/24 00:47 Ur Squamous Epith Cells 10-15 /hpf (0-5) H 07/11/24 00:47 Ur Renal Epithelial Cell 0-4 /hpf 07/11/24 00:47 Amorphous Sediment Not Reportable 07/11/24 00:47 Urine Bacteria 1+ /hpf (NONE) H 07/11/24 00:47 Hyaline Casts 8.67 /lpf 07/11/24 00:47 Urine Mucus Trace /hpf 07/11/24 00:47 Adenovirus (PCR) Not detected (NOT DETECT) 07/11/24 15:50 C. pneumoniae DNA (PCR) Not detected (NOT DETECT) 07/11/24 15:50 Coronavirus (PCR) Negative (Negative) 07/10/24 22:15 Coronavirus 229E (PCR) Not detected (NOT DETECT) 07/11/24 15:50 Human Metapneumovir PCR Not detected (NOT DETECT) 07/11/24 15:50 Influenza A (H1) PCR Not detected (NOT DETECT) 07/11/24 15:50 Influenza A (PCR) Negative (Negative) 07/10/24 22:15 Influ A (H1/09) PCR Not detected (NOT DETECT) 07/11/24 15:50 Influenza A (H3) PCR Not detected (NOT DETECT) 07/11/24 15:50 Influenza Type A (PCR) Not detected (NOT DETECT) 07/11/24 15:50 Influenza Type B (PCR) Not detected (NOT DETECT) 07/11/24 15:50 M. pneumoniae (PCR) Not detected (NOT DETECT) 07/11/24 15:50 Parainfluenza 1 (PCR) Not detected (NOT DETECT) 07/11/24 15:50 Parainfluenza 2 (PCR) Not detected (NOT DETECT) 07/11/24 15:50 Parainfluenza 3 (PCR) Not detected (NOT DETECT) 07/11/24 15:50 Parainfluenza 4 (PCR) Detected (NOT DETECT) A 07/11/24 15:50 RSV (PCR) Negative (Negative) 07/10/24 22:15 RSV Type A (PCR) Not detected (NOT DETECT) 07/11/24 15:50 RSV Type B (PCR) Not detected (NOT DETECT) 07/11/24 15:50 Entero/Rhino (PCR) Not detected (NOT DETECT) 07/11/24 15:50 SARS-CoV-2 (PCR) Not detected (NOT DETECT) 07/11/24 15:50 Blood Type O Negative 07/10/24 22:30 Rho(D) Type Rh negative 07/10/24 22:30 Antibody Screen Negative 07/10/24 22:30 Crossmatch See Detail 07/10/24 22:30 Vitals Last Vital Signs Temp 97.8 F 07/13/24 11:06 Pulse 99 07/13/24 14:39 Resp 20 H 07/13/24 14:39 BP 134/48 07/13/24 11:06 Pulse Ox 96 07/13/24 14:39 O2 Del Method Room Air 07/13/24 14:39 O2 Flow Rate 2 07/12/24 09:36 Discharge Plan Discharge Patient Disposition: Home Condition: Stable Prescriptions: New benzonatate 100 mg Capsule 200 mg PO Q8H PRN (Reason: Cough) 5 Days Qty: 15 0RF tiotropium bromide [Spiriva with HandiHaler] 18 mcg capsule, w/inhalation device 1 cap inhalation DAILY 30 Days Qty: 30 0RF Rx Instructions: puncture 1 cap using device; one dose = 2 inhalations furosemide [Lasix] 20 mg tablet 20 mg PO QAM 7 Days Qty: 7 0RF sucralfate [Carafate] 1 gram tablet 1 g PO BID 28 Days Qty: 56 0RF tiotropium bromide [Spiriva with HandiHaler] 18 mcg capsule, w/inhalation device 1 cap inhalation DAILY 30 Days Qty: 30 0RF Rx Instructions: puncture 1 cap using device; one dose = 2 inhalations levofloxacin 750 mg Tablet 750 mg PO DAILY 3 Days Qty: 3 0RF fluticasone propion-salmeterol [Advair Diskus] 500-50 mcg/dose blister with device 1 inh inhalation BID 30 Days Qty: 60 0RF prednisone 10 mg tablet See Taper PO BID Qty: 42 0RF Taper: predniSONE 60-10 60 mg Daily for 2 Days and 0 Hour 50 mg Daily for 2 Days and 0 Hour 40 mg Daily for 2 Days and 0 Hour 30 mg Daily for 2 Days and 0 Hour 20 mg Daily for 2 Days and 0 Hour 10 mg Daily for 2 Days and 0 Hour ferrous sulfate 325 mg (65 mg iron) tablet 325 mg PO DAILY 30 Days Qty: 30 0RF Continued hydroxyzine HCl 50 mg Tablet 100 mg PO BEDTIME citalopram [Celexa] 20 mg Tablet 20 mg PO DAILY ezetimibe [Zetia] 10 mg Tablet 10 mg PO DAILY Changed pantoprazole 40 mg Tablet,Delayed Release (Dr/Ec) 40 mg PO BID 30 Days Qty: 60 0RF Discontinued lisinopril 40 mg Tablet 40 mg PO DAILY Discharge Orders: Discharge Order (Routine); Ordered 07/13/24 Ordered By: Lorelei Mason Referrals: Yasmeen Navarro MD [Hospitalist] - (recurrent severe anemia) Discharge Diet: Usual diet Discharge Activity: Resume usual activity Patient Instructions: Opioid Safety Discharge Attestations Time Spent in Discharge Care*: greater than 30 min Quality Metrics Clinical Quality Measures [ No reported AMI, CVA or VTE this stay] Coding Level of Care Code Acute Code for Chg Fwd Diagnoses Anemia requiring transfusions D64.9 New onset of congestive heart failure I50.9 Hypoxia R09.02 Parainfluenza B34.8 COPD exacerbation J44.1
--- NOTE | 2024-07-13 16:51 | PC.NURSE ---
Prescriptions printed and delivered to [facility] in [facility] [place] [facility] pharmacy.
== END 2024-07-13 15:55 | disposition home or self-care (01) | DRG 811 ==
LOC: ER 23:40 → MEDSURG 23:50
PROVIDERS: Admitting Provider Internal Medicine; Emergency Provider Emergency Medicine; Visit Provider Student in an Organized Health Care Education/Training Program
DX: D64.9 Anemia, unspecified (principal); I50.31 Acute diastolic (congestive) heart failure; J44.1 Chronic obstructive pulmonary disease with (acute) exacerbation; I69.951 Hemiplegia and hemiparesis following unspecified cerebrovascular disease affecting right dominant side; I11.0 Hypertensive heart disease with heart failure; R09.02 Hypoxemia; B34.8 Other viral infections of unspecified site; Z79.02 Long term (current) use of antithrombotics/antiplatelets; Z87.891 Personal history of nicotine dependence
CPT/HCPCS: 0241U; 36415; 36430; 71045; 80048; 80053; 81001; 82607; 82728; 82746; 83540; 83550; 83615; 83735; 83880; 84484; 85014; 85018; 85025; 85045; 85378; 85610; 86850; 86900; 86920; 87040; 87486; 87581; 87633; 93005; 93306; 94640; 94664; 99285; G0378; J1940; J2470; J2919; J7626; P9016

== ENCOUNTER 2024-08-26 15:14 | Outpatient (CLI) | payer OTHER, SELFPAY ==
--- NOTE | 2024-08-26 15:15 | MM_ITS ---
WS: [id number] BILATERAL 3D TOMOSYNTHESIS DIGITAL SCREENING MAMMOGRAPHY WITH CAD CLINICAL INFORMATION: SCREENING HISTORY: Screening mammogram. No current complaints. COMPARISON: None. TECHNIQUE: Bilateral CC and MLO views. FINDINGS: Scattered fibroglandular densities bilaterally. No suspicious focal mass, asymmetry, calcifications, or architectural distortion. No evidence of malignancy. A few tiny incidental punctate calcifications . MM/MM scr tomosynthesis [id number] IMPRESSION: DENSITY: There are scattered areas of fibroglandular density. BI-RADS: 2 - Benign. FOLLOW UP: 1 Year Follow-up Recommend return to annual screening mammography.
== END 2024-08-26 15:15 | disposition home or self-care (01) ==
LOC: RAD 15:15
PROVIDERS: PCP Family Medicine; Visit Provider Family Medicine
DX: Z12.31 Encounter for screening mammogram for malignant neoplasm of breast (principal); R92.323 Mammographic fibroglandular density, bilateral breasts
CPT/HCPCS: 77063; 77067

== ENCOUNTER 2024-09-03 15:35 | Oncology outpatient (recurring) (ONCR) | payer OTHER, SELFPAY ==
[2024-09-03 17:02] LABS: Basophils # 0.1 10^3/uL (0.0-0.1); Basophils % 1.1 %; Eosinophils # 0.3 10^3/uL (0.0-0.8); Eosinophils % 2.8 %; Hematocrit 33.8 % (36-47); Lymphocytes # 2.1 10^3/uL (0.8-4.8); Lymphocytes % 22.9 %; Mean Corpuscular HGB Conc 30.8 g/dL (30-55); Mean Corpuscular Hemoglobin 24.1 pg (27-33); Mean Corpuscular Volume 78.2 fl (85-98); Mean Platelet Volume 9.1 fL (7.4-10.4); Monocytes # 0.7 10^3/uL (0.2-0.9); Neutrophils # 6.14 10^3/uL (1.8-7.7); Neutrophils % 65.8 %; Nucleated Red Blood Cells % 0 %; Platelet Count 454 10^3/cmm (157-399); Red Blood Count 4.32 10^6/uL (3.85-5.65); Red Cell Distribution Width 17.4 % (12.1-15.1); Reticulocyte % 1.5 % (0.5-2.0); White Blood Count 9.32 10^3/uL (3.29-11.43)
[2024-09-03 17:04] LABS: Erythrocyte Sedimentation Rate 23 mm/hr (0-15)
[2024-09-03 17:28] LABS: Alanine Aminotransferase 21 U/L (0-33); Albumin Level 4.4 g/dL (3.5-5.2); Alkaline Phosphatase 92 U/L (35-105); Anion Gap 14.3 (5-19); Aspartate Amino Transferase 23 U/L (0-32); Blood Urea Nitrogen 19 mg/dL (8-23); Calcium 10.3 mg/dL (8.5-10.5); Carbon Dioxide 27 mmol/L (22-29); Chloride 101 mmol/L (98-107); Creatinine Clr Calc Pharmacy 65.4112; Ferritin 13 ng/mL (15-150); Globulin 3.2 g/dL (1.3-4.6); Glomerular Filtration Rate 62.1 mL/min (90-130); Glucose 102 mg/dL (65-115); Iron 26 ug/dL (37-145); Lactate Dehydrogenase 177 U/L (135-214); Osmolality Calculated 288 mOsm/kg (285-295); Percent Saturation 6.1 % (20-50); Potassium 4.3 mmol/L (3.5-5.1); Sodium 138 mmol/L (136-145); Total Bilirubin 0.2 mg/dL (0.15-1.2); Total Iron Binding Capacity 421 mcg/dl; Total Protein 7.6 g/dL (6.6-8.7); Unsaturated Iron Binding 395 ug/dL (112-347)
[2024-09-03 17:43] LABS: Vitamin B12 678 pg/mL (232-1245)
[2024-09-03 17:50] LABS: Folate Level 9.4 ng/mL (4.8-37.3)
[2024-09-07 16:40] LABS: Tissue Transglutaminse AB IGA <1.0 U/mL; Tissue Transglutaminse AB IGG <1.0 U/mL
== END 2024-09-25 23:59 | disposition home or self-care (01) ==
PROVIDERS: PCP Family Medicine; Visit Provider Internal Medicine
DX: D64.9 Anemia, unspecified (principal); J44.1 Chronic obstructive pulmonary disease with (acute) exacerbation; R06.02 Shortness of breath; I50.9 Heart failure, unspecified
CPT/HCPCS: 36415; 80053; 82607; 82728; 82746; 83010; 83516; 83540; 83550; 83615; 85025; 85045; 85651; 86880

== ENCOUNTER 2024-09-08 15:33 | Outpatient (CLI) | payer OTHER, SELFPAY ==
--- NOTE | 2024-09-08 15:34 | CT_ITS ---
WS: [id number] LDCT LUNG CANCER SCREENING HISTORY: NICOTINE DEPENDENCE TECHNIQUE: Axial imaging performed from the apices to 1 cm below the costophrenic angles. Coronal and sagittal reformats are submitted with axial MIP series. All CT scans at [facility] use at least one of these dose optimization techniques: automated exposure control; mA and/or kV adjustment per patient size (includes targeted exams where dose is matched to clinical indication); or iterative reconstruction. DLP: 77.71 mGy.cm DIvol: Mean CTDIvol: 1.80 (mGy) COMPARISON: None available. Diagnostic quality: Satisfactory Lungs: Mild pulmonary hyperexpansion and centrilobular emphysema. Benign densely calcified granuloma RIGHT upper lobe. No pulmonary mass or nodule. No endobronchial lesions. Heart: Normal size heart with no pericardial effusion.. Other findings: Densely calcified aorta. Small mediastinal and hilar lymph nodes. Normal size pulmonary artery. No chest wall abnormality. Large hiatal hernia. Prior cholecystectomy. No adrenal mass. Moderate increase in thoracic kyphosis. CT/CT lung screening [id number] IMPRESSION: LUNG-RADS: 1-Negative FOLLOW UP: 12 Month: Continue annual screening with LDCT OTHER FINDINGS (S MODIFIER): None.
== END 2024-09-08 15:34 | disposition home or self-care (01) ==
PROVIDERS: PCP Family Medicine; Visit Provider Family Medicine
DX: Z12.2 Encounter for screening for malignant neoplasm of respiratory organs (principal); F17.210 Nicotine dependence, cigarettes, uncomplicated; R91.8 Other nonspecific abnormal finding of lung field; J43.2 Centrilobular emphysema; J84.10 Pulmonary fibrosis, unspecified; I70.0 Atherosclerosis of aorta; R59.0 Localized enlarged lymph nodes; K44.9 Diaphragmatic hernia without obstruction or gangrene; Z90.49 Acquired absence of other specified parts of digestive tract; M40.294 Other kyphosis, thoracic region
CPT/HCPCS: 71271

== ENCOUNTER 2024-10-29 14:45 | Outpatient (CLI) | payer OTHER, SELFPAY ==
--- NOTE | 2024-10-29 14:51 | XR_ITS ---
WS: [id number] XR chest 2V* [id number] REASON FOR EXAM: COUGH FINDINGS: Mild tortuosity thoracic aorta with moderate aortic arch calcification. Mild cardiomegaly. Compared with the most recent examination of 07/11/2024 there is mild blunting of the right costophrenic angle. Equivocally increase in the reticular interstitial density in in the right lower lung. Moderate degenerative spondylosis in the thoracic spine. XR/XR chest 2V* [id number] IMPRESSION: Apparent new blunting of the right costophrenic angle and equivocal changes in the right lower lung. Potential for early congestive heart failure.
[2024-10-29 15:39] LABS: Basophils # 0.1 10^3/uL (0.0-0.1); Basophils % 0.5 %; Eosinophils # 0.2 10^3/uL (0.0-0.8); Eosinophils % 1.2 %; Lymphocytes # 1.5 10^3/uL (0.8-4.8); Lymphocytes % 11.9 %; Mean Corpuscular Hemoglobin 22.2 pg (27-33); Mean Corpuscular Volume 76.6 fl (85-98); Mean Platelet Volume 8.5 fL (7.4-10.4); Monocytes # 1.1 10^3/uL (0.2-0.9); Monocytes % 8.8 %; Neutrophils # 9.87 10^3/uL (1.8-7.7); Neutrophils % 76.8 %; Nucleated Red Blood Cells # 0.1 /100WBC; Nucleated Red Blood Cells % 0.4 %; Platelet Count 449 10^3/cmm (157-399); Red Blood Count 2.61 10^6/uL (3.85-5.65); Red Cell Distribution Width 16.3 % (12.1-15.1); White Blood Count 12.85 10^3/uL (3.29-11.43)
[2024-10-29 15:58] LABS: Alanine Aminotransferase 17 U/L (0-33); Albumin Level 4.1 g/dL (3.5-5.2); Alkaline Phosphatase 85 U/L (35-105); Anion Gap 18.2 (5-19); Aspartate Amino Transferase 16 U/L (0-32); Blood Urea Nitrogen 22 mg/dL (8-23); Carbon Dioxide 20 mmol/L (22-29); Chloride 102 mmol/L (98-107); Globulin 2.8 g/dL (1.3-4.6); Glucose 135 mg/dL (65-115); Osmolality Calculated 287 mOsm/kg (285-295); Potassium 4.2 mmol/L (3.5-5.1); Sodium 136 mmol/L (136-145); Total Bilirubin 0.2 mg/dL (0.15-1.2); Total Protein 6.9 g/dL (6.6-8.7)
== END 2024-10-29 14:46 | disposition home or self-care (01) ==
LOC: LAB 14:47
PROVIDERS: PCP Family Medicine; Visit Provider Family Medicine
DX: R53.83 Other fatigue (principal); D64.9 Anemia, unspecified; R91.8 Other nonspecific abnormal finding of lung field; I70.0 Atherosclerosis of aorta; I51.7 Cardiomegaly; M47.894 Other spondylosis, thoracic region
CPT/HCPCS: 36415; 71046; 80053; 85025

== ENCOUNTER 2024-10-29 17:25 | Emergency (ER) | payer OTHER, SELFPAY ==
[2024-10-29] VITALS (51 sets, daily range): BP systolic 110–150; BP diastolic 46–99; PULSE 90–111; RESP 14–35; TEMP 36.5–37.1; O2SAT 86–99; BMI 30.7
--- NOTE | 2024-10-29 17:47 | W.ED.RECABL ---
HPI - Recheck/Abnormal Lab/Rx General: Chief Complaint: Recheck/Abnormal Lab/Rx Stated Complaint: Dr Hazel sent for low blood Time Seen by Provider: 10/29/24 17:43 Source: patient and family Mode of arrival: ambulatory Limitations: no limitations History of Present Illness: Patient is a 69-year-old female who was sent to the emergency department by Dr. Hazel due to patient's low hemoglobin of 5.8. This has been a longstanding issue for the patient, requiring numerous blood transfusions in the past. Today patient notes increased fatigue/weakness. Patient notes that she has attempted PO iron in the past, but is unable to tolerate this. Patient states she has previously had endoscopy/colonoscopy in 2021 which were reportedly normal. She has followed up with [facility] hematology Aug 2024 for evaluation as well. complaint: abnormal lab Returns today for: called because of abnormal lab/test Symptoms since prior visit: no new symptoms Context: called for abnormal lab result Associated symptoms: none Related Data Home Medications ?Medication ?Instructions ?Recorded ?Confirmed citalopram 20 mg tablet (Celexa) 20 mg PO DAILY 07/11/24 09/03/24 ezetimibe 10 mg tablet (Zetia) 10 mg PO DAILY 07/11/24 09/03/24 hydroxyzine HCl 50 mg tablet 100 mg PO BEDTIME 07/11/24 09/03/24 Previous Rx's ?Medication ?Instructions ?Recorded pantoprazole 40 mg tablet,delayed 40 mg PO BID 30 days #60 tabs 07/13/24 release Allergies Allergy/AdvReac Type Severity Reaction Status Date / Time Cephalosporins Allergy Unknown Verified 10/29/24 17:34 Penicillins Allergy ALGY-Anaphy Verified 10/29/24 17:34 laxis Sulfa (Sulfonamide Allergy Unknown Verified 10/29/24 17:34 Antibiotics) Review of Systems Const: Reports: fatigue; Denies: fever(s), chills or body aches Card: Denies: chest pain Resp: Reports: productive cough (somewhat chronic-daily smoker), wheezing, chest congestion and other (reports chronic smoker ); Denies: dyspnea GI: Denies: abdominal pain, vomiting, diarrhea, constipation, hematochezia or melena : Denies: flank pain, difficulty voiding, dysuria, urinary frequency, urinary urgency or urinary hesitancy Musc: Denies: neck pain, back pain, extremity pain, extremity swelling, joint swelling or joint redness Skin/Breast: Denies: rash Neuro: Denies: headache(s), numbness in extremities, weakness in extremities, sensory changes or dizziness [facility] PFSH: Medical History CVA (cerebral vascular accident) Hypertension Surgical History H/O knee surgery Social History Smoking and tobacco/nicotine status: current some day tobacco/nicotine user Physical Exam Const: COMMON NORMALS: no acute distress, average body habitus, patient oriented x3, no limitations, healthy appearing, alert and well nourished GENERAL APPEARANCE: cooperative ORIENTATION/CONSCIOUSNESS: Yes awake, Yes oriented to person, Yes oriented to place and Yes oriented to time HENMT: COMMON NORMALS: normocephalic and atraumatic HEAD & SCALP: normal to inspection, normocephalic and atraumatic Eye: COMMON NORMALS: no scleral icterus Neck/C-Spine: COMMON NORMALS: full ROM, no lymphadenopathy, supple and no meningeal signs Chest: COMMONS NORMALS: normal inspection of the chest Resp: COMMON NORMALS: normal respiratory effort OTHER: course lung sounds that improve with coughing Cardio: COMMON NORMALS: regular rate and regular rhythm RATE: regular rate RHYTHM: regular rhythm GI: COMMON NORMALS: Normal to inspection, nondistended, normoactive bowel sounds present, Soft to palpation, non-tender, No hepatosplenomegaly present and no masses PALPATION: Yes Soft to palpation and Yes No hepatosplenomegaly present RECTAL EXAM: heme positive stool and External hemorrhoid(s) present : COMMON NORMALS: Yes no CVA tenderness BLADDER/KIDNEY EXAM: Yes no CVA tenderness Back/Pelvis: COMMON NORMALS: no CVA tenderness and thoracic and lumbar spine normal to inspection Extremity: COMMON NORMALS: normal to inspection Neuro: COMMON NORMALS: patient oriented x3 SENSORIUM/ORIENTATION: Yes alert, Yes oriented to person, Yes oriented to place and Yes oriented to time MENINGEAL SIGNS: Yes no meningeal signs Skin: COMMON NORMALS: no rashes or lesions noted GENERAL SKIN EXAM: no rashes or lesions noted Course Consultations: Consultation #1: Dr. Roberto-given chronicity and history of transfusions and endo/colonoscopy in 2021 he would attempt to see her outpatient and assess; did not feel she needed admission and emergent scope Vital Signs: Vital signs: Vital Signs Temperature 98.5 F 10/29/24 22:55 Pulse Rate 92 10/29/24 23:05 Respiratory Rate 21 H 10/29/24 23:05 Blood Pressure 123/51 10/29/24 23:05 Pulse Oximetry 95 10/29/24 23:05 Oxygen Delivery Me thod Room Air 10/29/24 20:03 MDM - Recheck/Abnormal Lab/Rx Medical Decision Making Patient is a very nice 69-year-old female here after she was told to come here by her primary care provider who had performed labs and called her to inform her that her hemoglobin was 5.8. Patient states she has a longstanding history of anemia and has required multiple previous blood transfusions in the past. She does complain of feeling weak and fatigued. Patient has not had any episodes of hematemesis. She has not noted any dark or tarry stools. Hemoccult was performed here and was faintly positive. I did speak to general surgeon, Dr. Roberto who felt we could transfuse her here and he could see her as an outpatient for further evaluation and possible need for endoscopy/colonoscopy. She has reportedly had these done back in 2021. Patient was transfused 2 units of PRBCs. Recommend she follow-up with her primary care provider tomorrow/early next week to have her hemoglobin rechecked. Strict return to ED precautions discussed. Medical Records I reviewed the patient's medical records. Lab Data I reviewed the patient's lab results. 10/29/24 17:43 10/29/24 17:43 Laboratory Results WBC 13.30 10^3/uL (3.29-11.43) H 10/29/24 17:43 RBC 2.64 10^6/uL (3.85-5.65) L 10/29/24 17:43 Hgb 5.80 g/dL (11.27-16.99) L* 10/29/24 17:43 Hct 19.8 % (36-47) L* 10/29/24 17:43 MCV 75.0 fl (85-98) L 10/29/24 17:43 MCH 22.0 pg (27-33) L 10/29/24 17:43 MCHC 29.3 g/dL (30-55) L 10/29/24 17:43 RDW 16.4 % (12.1-15.1) H 10/29/24 17:43 Plt Count 436 10^3/cmm (157-399) H 10/29/24 17:43 MPV 8.8 fL (7.4-10.4) 10/29/24 17:43 Neut % (Auto) 79.0 % 10/29/24 17:43 Lymph % (Auto) 12.5 % 10/29/24 17:43 [place] % (Auto) 6.5 % 10/29/24 17:43 Eos % (Auto) 0.6 % 10/29/24 17:43 Baso % (Auto) 0.7 % 10/29/24 17:43 Neut # (Auto) 10.51 10^3/uL (1.8-7.7) H 10/29/24 17:43 Lymph # (Auto) 1.7 10^3/uL (0.8-4.8) 10/29/24 17:43 [place] # (Auto) 0.9 10^3/uL (0.2-0.9) 10/29/24 17:43 Eos # (Auto) 0.1 10^3/uL (0.0-0.8) 10/29/24 17:43 Baso # (Auto) 0.1 10^3/uL (0.0-0.1) 10/29/24 17:43 Nucleated RBC % (auto) 0.3 % 10/29/24 17:43 Nucleated RBCs # 0.0 /100WBC 10/29/24 17:43 Sodium 138 mmol/L (136-145) 10/29/24 17:43 Potassium 4.3 mmol/L (3.5-5.1) 10/29/24 17:43 Chloride 102 mmol/L (98-107) 10/29/24 17:43 Carbon Dioxide 20 mmol/L (22-29) L 10/29/24 17:43 Anion Gap 20.3 (5-19) H 10/29/24 17:43 BUN 22 mg/dL (8-23) 10/29/24 17:43 Creatinine 1.0 mg/dL (0.5-0.9) H 10/29/24 17:43 GFR Calculation 55.0 mL/min (90-130) L 10/29/24 17:43 Glucose 208 mg/dL (65-115) H 10/29/24 17:43 Calculated Osmolality 295 mOsm/kg (285-295) 10/29/24 17:43 Calcium 8.8 mg/dL (8.5-10.5) 10/29/24 17:43 Total Bilirubin 0.3 mg/dL (0.15-1.2) 10/29/24 17:43 AST 15 U/L (0-32) 10/29/24 17:43 ALT 16 U/L (0-33) 10/29/24 17:43 Alkaline Phosphatase 86 U/L (35-105) 10/29/24 17:43 Total Protein 6.8 g/dL (6.6-8.7) 10/29/24 17:43 Albumin 4.2 g/dL (3.5-5.2) 10/29/24 17:43 Globulin 2.6 g/dL (1.3-4.6) 10/29/24 17:43 Urine Color Yellow (Yellow) 10/29/24 20:20 Urine Appearance Clear (CLEAR) 10/29/24 20:20 Urine pH 5 (5-7) 10/29/24 20:20 Ur Specific [place] 1.020 (1.005-1.030) 10/29/24 20:20 Urine Protein Neg (Negative) 10/29/24 20:20 Urine Glucose (UA) Norm (Normal) 10/29/24 20:20 Urine Ketones Negative (Negative) 10/29/24 20:20 Urine Blood Neg (Negative) 10/29/24 20:20 Urine Nitrate Negative (Negative) 10/29/24 20:20 Urine Bilirubin Neg (Negative) 10/29/24 20:20 Urine Urobilinogen Norm mg/dL (Negative) 10/29/24 20:20 Ur Leukocyte Esterase Trace (Negative) H 10/29/24 20:20 Urine RBC 0-2 /hpf (0-2) 10/29/24 20:20 Urine WBC 0-5 /hpf (0-5) 10/29/24 20:20 Ur Squamous Epith Cells 0-5 /hpf (0-5) 10/29/24 20:20 Amorphous Sediment Not Reportable 10/29/24 20:20 Urine Bacteria None seen /hpf (NONE) 10/29/24 20:20 Hyaline Casts 1.21 /lpf 10/29/24 20:20 Blood Type O Negative 10/29/24 17:51 Rho(D) Type Rh negative 10/29/24 17:51 Antibody Screen Negative 10/29/24 17:51 Crossmatch See Detail 10/29/24 17:51 No radiology studies performed this visit Discharge Plan Discharge Patient Disposition: Home Clinical Impression: Anemia requiring transfusions Condition: Stable Prescriptions: No Action hydroxyzine HCl 50 mg Tablet 100 mg PO BEDTIME citalopram [Celexa] 20 mg Tablet 20 mg PO DAILY ezetimibe [Zetia] 10 mg Tablet 10 mg PO DAILY pantoprazole 40 mg Tablet,Delayed Release (Dr/Ec) 40 mg PO BID 30 Days Qty: 60 0RF Discharge Orders: Discharge ED (Routine); Ordered 10/29/24 Ordered By: Deepika Mathew Referrals: Sejal Hazel DO [Primary Care Provider] - Activity Restrictions/Additional Instructions: As we discussed, I consulted with general surgery here and they would like to see you as an outpatient for further evaluation and consult for possible need for repeat endoscopy/colonoscopy. Case management should reach out to you shortly to help set you up with this appointment. I would like you to follow-up with your primary care provider tomorrow or early next week to have your hemoglobin rechecked. You need to return to the emergency department for worsening weakness, shortness of breath, difficulty breathing, dizziness, racing heart rate, palpitations, passing out episodes, severe fatigue, or any other concerns you may have.. Print Language: Khmer Coding Level of Care Code ED Group Captain for Sarah Kat
[2024-10-29 18:02] LABS: Basophils # 0.1 10^3/uL (0.0-0.1); Basophils % 0.7 %; Eosinophils # 0.1 10^3/uL (0.0-0.8); Eosinophils % 0.6 %; Lymphocytes # 1.7 10^3/uL (0.8-4.8); Lymphocytes % 12.5 %; Mean Corpuscular HGB Conc 29.3 g/dL (30-55); Mean Platelet Volume 8.8 fL (7.4-10.4); Monocytes # 0.9 10^3/uL (0.2-0.9); Monocytes % 6.5 %; Neutrophils # 10.51 10^3/uL (1.8-7.7); Nucleated Red Blood Cells % 0.3 %; Platelet Count 436 10^3/cmm (157-399); Red Blood Count 2.64 10^6/uL (3.85-5.65); Red Cell Distribution Width 16.4 % (12.1-15.1)
[2024-10-29 18:06] LABS: Hematocrit 19.8 % (36-47)
[2024-10-29 18:17] LABS: Alanine Aminotransferase 16 U/L (0-33); Albumin Level 4.2 g/dL (3.5-5.2); Alkaline Phosphatase 86 U/L (35-105); Anion Gap 20.3 (5-19); Aspartate Amino Transferase 15 U/L (0-32); Blood Urea Nitrogen 22 mg/dL (8-23); Calcium 8.8 mg/dL (8.5-10.5); Carbon Dioxide 20 mmol/L (22-29); Chloride 102 mmol/L (98-107); Creatinine Clr Calc Pharmacy 58.7182; Globulin 2.6 g/dL (1.3-4.6); Glucose 208 mg/dL (65-115); Osmolality Calculated 295 mOsm/kg (285-295); Potassium 4.3 mmol/L (3.5-5.1); Sodium 138 mmol/L (136-145); Total Bilirubin 0.3 mg/dL (0.15-1.2); Total Protein 6.8 g/dL (6.6-8.7)
[2024-10-29] MEDS: sodium chloride 0.9% 100 mL Bag 50 ML IV ×2 (18:59→22:30)
[2024-10-29 20:28] LABS: Bacteria Urine None Seen /hpf; Hyaline Casts Urine 1.21 /lpf; RBC Urine 0-2 /hpf (0-2); Squamous Epithelial Cell Urine 0-5 /hpf (0-5); WBC Urine 0-5 /hpf (0-5)
[2024-10-29 20:30] LABS: Add Urine Microscopic? YES; Bilirubin Urine Neg (Negative); Blood Urine Neg (Negative); Glucose Urine UA Norm (Normal); Ketones Urine Negative (Negative); Leukocyte Esterase Urine Trace (Negative); Nitrate Urine Negative (Negative); Protein Urine Neg (Negative); Urine Appearance Clear (CLEAR); Urine Color Yellow (Yellow); Urobilinogen Urine Norm (Negative); pH Urine 5 (5-7)
[2024-10-30] VITALS (23 sets, daily range): BP systolic 128–157; BP diastolic 49–101; PULSE 90–108; RESP 14–28; TEMP 36.8–37; O2SAT 88–94
--- NOTE | 2024-10-30 07:10 | DCPLANNER ---
messaged gen surg for er f/u
== END 2024-10-30 01:54 | disposition home or self-care (01) ==
PROVIDERS: Emergency Provider Physician Assistant; PCP Family Medicine
DX: D64.9 Anemia, unspecified (principal); Z72.0 Tobacco use; I10 Essential (primary) hypertension; Z86.73 Personal history of transient ischemic attack (TIA), and cerebral infarction without residual deficits
CPT/HCPCS: 36415; 36430; 80053; 81001; 85025; 86850; 86900; 86920; 99284; P9016

== ENCOUNTER 2024-11-29 21:26 | Emergency (ER) | payer OTHER, SELFPAY ==
[2024-11-29 21:30] VITALS: BP 137/81; PULSE 119; RESP 20; TEMP 36.8; O2SAT 96; BMI 30.7
--- NOTE | 2024-11-29 21:35 | XRR_ITS ---
PROCEDURE INFORMATION: Exam: XR Left Knee Exam date and time: 11/29/2024 10:08 PM Age: 69 years old Clinical indication: Pain; Knee; Left; Additional info: Knee pain TECHNIQUE: Imaging protocol: Radiologic exam of the left knee. Views: 3 views. COMPARISON: No relevant prior studies available. FINDINGS: Bones/joints: Diffuse osteopenia. Degenerative changes with narrowing of tricompartmental joint spaces and marginal no osteophyte formation. No acute displaced fracture or dislocation.No significant joint effusion. Soft tissues: Normal. XR/XR knee LT 3V* [id number] IMPRESSION: 1. No acute displaced fracture or dislocation. 2. Moderate osteoarthritis with extensive marginal osteophyte formation.
[2024-11-29 21:48] LABS: Basophils # 0.1 10^3/uL (0.0-0.1); Eosinophils # 0.1 10^3/uL (0.0-0.8); Eosinophils % 0.8 %; Hematocrit 25.2 % (36-47); Lymphocytes # 1.2 10^3/uL (0.8-4.8); Lymphocytes % 9.6 %; Mean Corpuscular Hemoglobin 22.9 pg (27-33); Mean Corpuscular Volume 74.1 fl (85-98); Mean Platelet Volume 9.4 fL (7.4-10.4); Monocytes # 0.8 10^3/uL (0.2-0.9); Monocytes % 6.3 %; Neutrophils # 9.82 10^3/uL (1.8-7.7); Neutrophils % 81.9 %; Nucleated Red Blood Cells % 0.3 %; Platelet Count 573 10^3/cmm (157-399); Red Cell Distribution Width 19.9 % (12.1-15.1); White Blood Count 11.99 10^3/uL (3.29-11.43)
[2024-11-29 22:09] LABS: Alanine Aminotransferase 46 U/L (0-33); Albumin Level 3.7 g/dL (3.5-5.2); Alkaline Phosphatase 126 U/L (35-105); Aspartate Amino Transferase 46 U/L (0-32); Blood Urea Nitrogen 22 mg/dL (8-23); Calcium 9.2 mg/dL (8.5-10.5); Carbon Dioxide 18 mmol/L (22-29); Chloride 102 mmol/L (98-107); Creatinine Clr Calc Pharmacy 58.7182; Globulin 3.4 g/dL (1.3-4.6); Glucose 213 mg/dL (65-115); Osmolality Calculated 294 mOsm/kg (285-295); Sodium 137 mmol/L (136-145); Total Bilirubin 0.6 mg/dL (0.15-1.2); Total Protein 7.1 g/dL (6.6-8.7)
[2024-11-29 22:13] LABS: Anion Gap 21.6 (5-19); Potassium 4.6 mmol/L (3.5-5.1)
--- NOTE | 2024-11-29 22:38 | XRR_ITS ---
PROCEDURE INFORMATION: Exam: XR Chest Exam date and time: 11/29/2024 10:40 PM Age: 69 years old Clinical indication: Shortness of breath; Additional info: SOB TECHNIQUE: Imaging protocol: Radiologic exam of the chest. Views: 1 view. COMPARISON: CR XR chest 2V* [id number] 10/29/2024 3:13 PM FINDINGS: Lungs: No focal consolidation. Pleural spaces: Persistent mild blunting of right costophrenic angle. Heart/Mediastinum: Mild cardiomegaly, stable. Vasculature: Moderate aortic arch calcifications. Bones/joints: Unremarkable. XR/XR chest 1V portable [id number] IMPRESSION: Stable mild cardiomegaly and persistent blunting of right costophrenic angle which may represent atelectasis versus trace pleural effusion.
[2024-11-29 22:46] VITALS: RESP 19; O2SAT 95
[2024-11-29] MEDS: ondansetron 2 mg/ML SDV 2 mL 4 MG IVP (22:46)
[2024-11-29] MEDS: morphine 4 mg/mL SDV 1 mL IVP (22:46)
[2024-11-29] MEDS: methylPREDNISolone sod succ 125 mg/2 mL INJ IVP (22:46)
[2024-11-29 23:04] LABS: Troponin(5th) Baseline 39 ng/L (0-10)
[2024-11-29 23:09] LABS: NT Pro B Type Natriuretic Pept 5907 pg/mL (0-125)
[2024-11-29] MEDS: ipratropium-albuterol 3 mL Neb INHALATION (23:28)
[2024-11-29 23:29] VITALS: O2SAT 99
[2024-11-29 23:31] VITALS: RESP 114; O2SAT 98
--- NOTE | 2024-11-29 23:38 | ED_ITS ---
HPI - SOB/Dyspnea 2 General: Chief Complaint: Shortness of Breath/Dyspnea Stated Complaint: Knee Pain Time Seen by Provider: 11/29/24 21:47 History of Present Illness: HPI Narrative: 69-year-old female with shortness of chip ath, some dizziness, worsening over the last couple of weeks. No cough, no fever. She states that she gets like this when her blood gets low . She has received transfusions in the past... She is also complaining of left knee pain. She says the pain has been keeping her up at night, and it has been hard to get around. Related Data Home Medications ?Medication ?Instructions ?Recorded ?Confirmed citalopram 20 mg tablet (Celexa) 20 mg PO DAILY 11/17/24 ezetimibe 10 mg tablet (Zetia) 10 mg PO DAILY 07/11/24 11/17/24 hydroxyzine HCl 50 mg tablet 100 mg PO BEDTIME 4 11/17/24 clopidogrel 75 mg tablet (Plavix) 75 mg PO DAILY 11/1711/17/24 Previous Rx's ?Medication ?Instructions ?Recorded pantoprazole 40 mg tablet,delayed 40 mg PO BID 30 days #60 tabs 07/13/24 release prednisone 20 mg tablet 20 mg PO DAILY 5 days #5 tab s 11/08/24 furosemide 40 mg tablet 40 mg PO DAILY #7 tabs 11/30 hydrocodone 5 mg-acetaminophen 325 1 tab PO Q8H PRN pa in #7 tabs 25 mg tablet Allergies Allergy/AdvReac Type Severity Reaction Status Date / Time Cephalosporins Allergy Unknown Verified 11/17/24 14:50 Penicillins Allergy ALGY-Anaphy Verified 11/17/24 14:50 laxis Sulfa (Sulfonamide Allergy Unknown Verified 11/17/24 14:50 Antibiotics) PFSH ED 2 PFSH: Medical History CVA (cerebral vascular accident) Hypertension Surgical History H/O knee surgery Social History Smoking and tobacco/nicotine status: current every day tobacco/nicotine user Physical Exam 2 Const: COMMON NORMALS: no acute distress GENERAL APPEARANCE: cooperative; not ill appearing and not frail appearing HENMT: COMMON NORMALS: normocephalic, atraumatic and Normal external nose present HEAD & SCALP: normocephalic and atraumatic FACE & SINUS: normal facial exam and face symmetric NOSE: Normal external nose present Eye: COMMON NORMALS: Equal, round and reactive pupils present and EOMs intact bilaterally PUPIL: Yes Equal, round and reactive pupils present Neck/C-Spine: GENERAL: Yes trachea midline Chest: CHEST: Yes Symmetrical chest wall rise Resp: EFFORT & INSPECTION: Yes symmetric chest movement and Yes tachypneic AUSCULTATION: wheezes and diminished lung sounds Cardio: COMMON NORMALS: regular rhythm RATE: tachycardic RHYTHM: regular rhythm GI: COMMON NORMALS: Normal to inspection, nondistended, normoactive bowel sounds present Extremity: GENERAL: Yes edema Neuro: AALIYAH COMA SCALE: document GCS findings Aaliyah coma scale eye opening: Spontaneous Bluford coma scale verbal response: Orientated [place]ord coma scale motor response: Obey commands Bluford coma scale total score: 15 S ENSORY EXAM: Yes extremities (intact) Psych: COMMON NORMALS: speech normal SPEECH: Yes normal speech Skin: COMMON NORMALS: no rashes or lesions noted GENERAL SKIN EXAM: no rashes or lesions noted Course 2 Vital Signs: Vital signs: Vital Signs Temperature 98.0 F 11/30/24 02:15 Pulse Rate 118 H 11/30/24 02:15 Respiratory Rate 20 H 11/30/24 02:15 Blood Pressure 113/97 11/30/24 02:15 Pulse Oximetry 94 11/30/24 02:15 Oxygen Delivery Me thod Nasal Cannula 11/30/24 01:38 Oxygen Flow Rate 93 11/30/24 01:38 MDM - SOB/Dyspnea Medical Decision Making 69-year-old female. She is significantly short of breath, mildly tachycardic. She is afebrile. Hemoglobin is 7.8. White blood cell 12. Chest x-ray shows cardiomegaly and persistent blunting of the right costophrenic angle which is likely pleural effusion. There is some pulmonary edema changes as well. She is crossmatched and transfused a unit of blood. Her BNP is 5900. She is given Lasix as well and is starting to diurese. Saturations of remain normal on room air. She would like to go home. She will be discharged to outpatient follow- up. Repeat hemoglobin in a couple of days. As for the knee, she has significant osteoarthritic changes of the right knee. She will be treated with a short course of pain medication until she can follow-up for this. Lab Data 11/29/24 21:44 11/29/24 21:44 Labs/Radiology: Radiology Impressions Knee X-Ray 11/29/24 21:35 IMPRESSION: 1. No acute displaced fracture or dislocation. 2. Moderate osteoarthritis with extensive marginal osteophyte formation. Chest X-Ray 11/29/24 22:38 IMPRESSION: Stable mild cardiomegaly and persistent blunting of right costophrenic angle which may represent atelectasis versus trace pleural effusion. Laboratory Results WBC 11.99 10^3/uL (3.29-11.43) H 11/29/24 21:44 RBC 3.40 10^6/uL (3.85-5.65) L 11/29/24 21:44 Hgb 7.80 g/dL (11.27-16.99) L 11/29/24 21:44 Hct 25.2 % (36-47) L 11/29/24 21:44 MCV 74.1 fl (85-98) L 11/29/24 21:44 MCH 22.9 pg (27-33) L 11/29/24 21:44 MCHC 31.0 g/dL (30-55) 11/29/24 21:44 RDW 19.9 % (12.1-15.1) H 11/29/24 21:44 Plt Count 573 10^3/cmm (157-399) H 11/29/24 21:44 MPV 9.4 fL (7.4-10.4) 11/29/24 21:44 Neut % (Auto) 81.9 % 11/29/24 21:44 Lymph % (Auto) 9.6 % 11/29/24 21:44 [place] % (Auto) 6.3 % 11/29/24 21:44 Eos % (Auto) 0.8 % 11/29/24 21:44 Baso % (Auto) 1.0 % 11/29/24 21:44 Neut # (Auto) 9.82 10^3/uL (1.8-7.7) H 11/29/24 21:44 Lymph # (Auto) 1.2 10^3/uL (0.8-4.8) 11/29/24 21:44 [place] # (Auto) 0.8 10^3/uL (0.2-0.9) 11/29/24 21:44 Eos # (Auto) 0.1 10^3/uL (0.0-0.8) 11/29/24 21:44 Baso # (Auto) 0.1 10^3/uL (0.0-0.1) 11/29/24 21:44 Nucleated RBC % (auto) 0.3 % 11/29/24 21:44 Nucleated RBCs # 0.0 /100WBC 11/29/24 21:44 Sodium 137 mmol/L (136-145) 11/29/24 21:44 Potassium 4.6 mmol/L (3.5-5.1) 11/29/24 21:44 Chloride 102 mmol/L (98-107) 11/29/24 21:44 Carbon Dioxide 18 mmol/L (22-29) L 11/29/24 21:44 Anion Gap 21.6 (5-19) H 11/29/24 21:44 BUN 22 mg/dL (8-23) 11/29/24 21:44 Creatinine 1.0 mg/dL (0.5-0.9) H 11/29/24 21:44 GFR Calculation 55.0 mL/min (90-130) L 11/29/24 21:44 Glucose 213 mg/dL (65-115) H 11/29/24 21:44 Calculated Osmolality 294 mOsm/kg (285-295) 11/29/24 21:44 Calcium 9.2 mg/dL (8.5-10.5) 11/29/24 21:44 Total Bilirubin 0.6 mg/dL (0.15-1.2) 11/29/24 21:44 AST 46 U/L (0-32) H 11/29/24 21:44 ALT 46 U/L (0-33) H 11/29/24 21:44 Alkaline Phosphatase 126 U/L (35-105) H 11/29/24 21:44 Troponin T Baseline 39 ng/L (0-10) H 11/29/24 21:44 Troponin T 120 Minute 43.75 ng/L (0-10) H 11/30/24 00:34 Delta Troponin T 4.75 ABS# (0-10) 11/30/24 00:34 NT-Pro-B Natriuret Pep 5907 pg/mL (0-125) H 11/29/24 21:44 Total Protein 7.1 g/dL (6.6-8.7) 11/29/24 21:44 Albumin 3.7 g/dL (3.5-5.2) 11/29/24 21:44 Globulin 3.4 g/dL (1.3-4.6) 11/29/24 21:44 Blood Type O Negative 11/29/24 22:28 Rho(D) Type Rh negative 11/29/24 22:28 Antibody Screen Negative 11/29/24 22:28 Crossmatch See Detail 11/29/24 22:28 All radiology interpretation(s) finalized by discharge Discharge Plan Discharge Patient Disposition: Home Clinical Impression: Anemia requiring transfusions, Pulmonary edema, Osteoarthritis of left knee Condition: Stable Prescriptions: New furosemide 40 mg tablet 40 mg PO DAILY Qty: 7 0RF hydrocodone-acetaminophen 5-325 mg tablet 1 tab PO Q8H PRN (Reason: pain) Qty: 7 0RF No Action prednisone 20 mg tablet 20 mg PO DAILY 5 Days Qty: 5 0RF clopidogrel [Plavix] 75 mg tablet 75 mg PO DAILY hydroxyzine HCl 50 mg Tablet 100 mg PO BEDTIME citalopram [Celexa] 20 mg Tablet 20 mg PO DAILY ezetimibe [Zetia] 10 mg Tablet 10 mg PO DAILY pantoprazole 40 mg Tablet,Delayed Release (Dr/Ec) 40 mg PO BID 30 Days Qty: 60 0RF Discharge Orders: Discharge ED (Routine); Ordered 11/30/24 Ordered By: Gary Peña Referrals: Sejal Hazel DO [Primary Care Provider, INSURANCE FOLLOW UP REPRESENTATIVE] - 1-3 days Patient Instructions: Pulmonary Edema (ED), Osteoarthritis (ED), Anemia (ED), Opioid Safety, Pain Management Activity Restrictions/Additional Instructions: Take the furosemide daily for the next 3 days. Return for worsening shortness of breath despite treatment, fever, cough, chest pain, other concerning symptoms. See your doctor this week. Call in the morning for an appointment. You need to have your blood count rechecked at some point later in the week. Print Language: Upper Sorbian Coding Level of Care Code ED Impregnating Tank Operator for Sarah Kat
[2024-11-30] VITALS (7 sets, daily range): BP systolic 104–128; BP diastolic 75–97; PULSE 113–118; RESP 20–24; TEMP 36.6–36.8; O2SAT 94–96
[2024-11-30 00:56] LABS: Troponin 5 2HR 43.75 ng/L (0-10); Troponin 5 2HR Delta 4.75 ABS# (0-10)
[2024-11-30] MEDS: ipratropium-albuterol 3 mL Neb INHALATION (01:34)
[2024-11-30] MEDS: FUROsemide 10 mg/mL SDV 10mL 60 MG IVP (02:31)
== END 2024-11-30 04:37 | disposition home or self-care (01) ==
PROVIDERS: Emergency Provider Emergency Medicine; PCP Family Medicine
DX: D64.9 Anemia, unspecified (principal); J81.1 Chronic pulmonary edema; M17.11 Unilateral primary osteoarthritis, right knee; Z72.0 Tobacco use; I10 Essential (primary) hypertension; Z86.73 Personal history of transient ischemic attack (TIA), and cerebral infarction without residual deficits
CPT/HCPCS: 36415; 36430; 71045; 73562; 80053; 83880; 84484; 85025; 86850; 86900; 86920; 94640; 96374; 96375; 99285; J1938; J2270; J2405; J2919; J9999; P9058

== ENCOUNTER 2024-12-12 08:52 | Inpatient (IN) | payer OTHER, SELFPAY ==
[2024-12-12] VITALS (14 sets, daily range): BP systolic 93–131; BP diastolic 50–103; PULSE 98–112; RESP 18–26; TEMP 36.6–36.8; O2SAT 91–97; BMI 31.6; BMI 33.6
--- NOTE | 2024-12-12 09:12 | ECG_ITS ---
[facility]: 2024-12[facility]12 Pat Name: eLla Crespo Department: Room: Gender: Female [employer] Mounter: : 1955 Requested By: Yanick Llanos Order Number: [id number] Gerry MD: Kayy Rodriguez M.D. Measurements Intervals [place] Rate: 113 P: 68 ME: 165 QRS: 64 QRSD: 101 T: -19 QT: 328 QTc: 451 Interpretive Statements SINUS TACHYCARDIA NONSPECIFIC ST & T-WAVE ABNORMALITY Compared to ECG 07/11/2024 20:48:11 T-wave abnormality now present Electronically Signed On 12-12-2024 11:51:54 CDT by Kayy Rodriguez M.D. [email or web address]
--- NOTE | 2024-12-12 09:12 | XRR_ITS ---
PROCEDURE INFORMATION: Exam: XR Chest Exam date and time: 12/12/2024 9:34 AM Age: 69 years old Clinical indication: Shortness of breath; Additional info: Chest pain TECHNIQUE: Imaging protocol: Radiologic exam of the chest. Views: 1 view. COMPARISON: CR (CHEST, ) 11/29/2024 10:40 PM FINDINGS: Lungs: Lung volumes are decreased, unchanged. Mild interstitial lung changes present peripherally along the mid to lower lung zones some of which may be secondary to idiopathic interstitial lung disease as well as mild residual interstitial CHF pattern that is overall improved from prior study. There is a stable 1 cm nodule right mid lung zone unchanged demonstrated on prior CT to represent a calcified granuloma. Pleural spaces: Unremarkable. No pleural effusion. No pneumothorax. Heart/Mediastinum: Heart is mildly enlarged, unchanged. Bones/joints: No acute bony abnormalities detected. XR/XR chest 1V portable [id number] IMPRESSION: Mild cardiomegaly with mild residual interstitial markings along the lung periphery overall improved from previous exam as discussed above.
[2024-12-12] MEDS: aspirin 81 mg Chew Tablet 324 MG PO (09:33)
--- NOTE | 2024-12-12 09:34 | USR_ITS ---
PROCEDURE INFORMATION: Exam: US Duplex Left Lower Extremity Veins, Limited Exam date and time: 12/12/2024 10:18 AM Age: 69 years old Clinical indication: Lymphedema; Lower extremity, left; Additional info: Pain swelling, dyspnea TECHNIQUE: Imaging protocol: Real-time duplex ultrasound of the left extremity with 2-D reis scale, color Doppler flow and spectral waveform analysis including responses to compression and other maneuvers (when performed) with image documentation. Limited exam focused on the left lower extremity veins. COMPARISON: CR (LOW EXM, ) 11/29/2024 10:08 PM FINDINGS: Left deep veins: Unremarkable. The common femoral, femoral, proximal profunda femoral and popliteal veins are patent without thrombus. Normal Doppler waveforms. Normal compressibility and/or augmentation response. Superficial veins: Greater saphenous vein at the saphenofemoral junction is patent without thrombus. Soft tissues: Unremarkable. US/[place] [id number] IMPRESSION: No evidence of deep vein thrombosis.
--- NOTE | 2024-12-12 09:36 | W.ED.SOB ---
HPI - SOB/Dyspnea General: Chief Complaint: Shortness of Breath/Dyspnea Stated Complaint: chest conjestion, retaining fluid Time Seen by Provider: 12/12/24 09:12 History of Present Illness: HPI Narrative: 69-year-old female presents to the emergency room with complaints of leg pain and shortness of breath. She is mildly tachypneic and tachycardic on arrival she is also mildly hypotensive. She is complaining of pain in her left knee for couple of weeks she was seen on November 29 had a knee x-ray that was unremarkable chest x-ray on that same day did show some mild congestive heart failure. She has been evaluated for GI bleed she came in with profound anemia With hemoglobin as low as 5.8 in June 2024 and then again in early October 2024. Patient denies any recent medic's melena hematemesis coffee-ground emesis. She is on Plavix she is not on any anticoagulants. Associated symptoms: Reports chest congestion; Deny abdominal pain, chest pain or fever(s) Related Data Home Medications ?Medication ?Instructions ?Recorded ?Confirmed citalopram 20 mg tablet (Celexa) 20 mg PO DAILY 07/11/24 12/12/24 hydroxyzine HCl 50 mg tablet 100 mg PO BEDTIME 07/11/24 12/12/24 clopidogrel 75 mg tablet (Plavix) 75 mg PO DAILY 11/17/24 12/12/24 albuterol sulfate 2.5 mg/3 mL See Rx Instructions .Route .COMPLEX 12/12/24 12/12/24 (0.083 %) solution for nebulization cetirizine 10 mg tablet (Zyrtec) 10 mg PO DAILY 12/12/24 12/12/24 fluticasone 500 mcg-salmeterol 50 1 ea inhalation BID 12/12/24 12/12/24 mcg/dose blistr powdr for inhalation (Wixela Inhub) fluticasone propionate 50 1 spray intranasal BID 12/12/24 12/12/24 mcg/actuation nasal spray,suspension tiotropium bromide 18 mcg capsule See Rx Instructions .Route .COMPLEX 12/12/24 12/12/24 with inhalation device (Spiriva with HandiHaler) tramadol 50 mg tablet 50 mg PO TID 12/12/24 12/12/24 Previous Rx's ?Medication ?Instructions ?Recorded furosemide 40 mg tablet 40 mg PO DAILY #7 tabs 11/30/24 Allergies Allergy/AdvReac Type Severity Reaction Status Date / Time Cephalosporins Allergy Unknown Verified 11/17/24 14:50 Penicillins Allergy ALGY-Anaphy Verified 11/17/24 14:50 laxis Sulfa (Sulfonamide Allergy Unknown Verified 11/17/24 14:50 Antibiotics) Review of Systems Const: Denies: fever(s) or chills Card: Denies: chest pain Resp: Reports: dyspnea, non-productive cough, wheezing and chest congestion GI: Denies: abdominal pain : Denies: dysuria, urinary frequency or urinary urgency Musc: Denies: neck pain or back pain Skin/Breast: Denies: rash PFSH ED PFSH: Medical History CVA (cerebral vascular accident) Hypertension Surgical History H/O knee surgery Social History Smoking and tobacco/nicotine status: current every day tobacco/nicotine user Physical Exam Const: GENERAL APPEARANCE: cooperative ORIENTATION/CONSCIOUSNESS: Yes awake, Yes oriented to person, Yes oriented to place and Yes oriented to time HENMT: COMMON NORMALS: normocephalic, atraumatic and hearing grossly normal bilaterally HEAD & SCALP: normocephalic and atraumatic Resp: AUSCULTATION: rales, wheezes and diminished lung sounds Cardio: COMMON NORMALS: regular rhythm and No murmurs present (Cardio) RATE: tachycardic RHYTHM: regular rhythm GI: COMMON NORMALS: Soft to palpation and No hepatosplenomegaly present AUSCULTATION: Yes normoactive bowel sounds PALPATION: Yes Soft to palpation, No Tenderness to palpation present (GI), No Guarding due to palpation present (GI) and Yes No hepatosplenomegaly present Extremity: COMMON NORMALS: normal to inspection, capillary refill normal, no clubbing, cyanosis or edema, no calf tenderness and no pedal edema Neuro: SENSORIUM/ORIENTATION: Yes oriented to person, Yes oriented to place and Yes oriented to time Skin: COMMON NORMALS: no rashes or lesions noted GENERAL SKIN EXAM: no rashes or lesions noted Course Vital Signs: Vital signs: Vital Signs Temperature 97.9 F 12/12/24 09:05 Pulse Rate 106 H 12/12/24 14:01 Respiratory Rate 26 H 12/12/24 09:05 Blood Pressure 131/62 12/12/24 14:01 Pulse Oximetry 96 12/12/24 14:01 Oxygen Delivery Me thod Nasal Cannula 12/12/24 14:01 Oxygen Flow Rate 1 12/12/24 14:01 MDM - SOB/Dyspnea Medical Decision Making Initial presentation patient was tachycardic and a little bit tachypneic she is not requiring 2 L by nasal cannula is concerned she did have a PE venous duplex was negative and CT of the chest was negative for PE she does both lungs her chest x-ray and your CTA of the chest signs of congestive heart failure with right-sided heart failure also appears to be causing hepatic congestion her liver enzymes are markedly elevated white count is elevated but on ultrasound of the liver there is no sign of dilation in the common bile duct intrahepatic ducts lipase is normal. Urine did not show significant signs of infection she does have some leukocytosis. She was cultured, lactic elevated at 2.9 she has been started on Cipro and Flagyl. Discussed with hospitalist will admit for heart failure leukocytosis elevated liver enzymes. She has not developed a fever to this point. Orders written to CSU. Patient also has lactic acidosis she did have a transient drop in her blood pressure we did not give her the full 30 mL/kg fluid bolus because she is in congestive heart failure and this will be harmful for her. We did give her a small amount of fluid to meet criteria. Medical Records I reviewed the patient's medical records. Lab Data I reviewed the patient's lab results. 12/12/24 09:23 12/12/24 09:23 Labs/Radiology: Radiology Impressions Chest X-Ray 12/12/24 09:12 IMPRESSION: Mild cardiomegaly with mild residual interstitial markings along the lung periphery overall improved from previous exam as discussed above. Venous Duplex 12/12/24 09:34 IMPRESSION: No evidence of deep vein thrombosis. Chest CTA 12/12/24 10:32 IMPRESSION: 1. Technically limited but negative CT angiogram of the chest. No evidence of acute pulmonary embolism to major branches of the pulmonary vascular tree. 2. Cardiomegaly with evidence of right-sided cardiac decompensation and mild CHF. Liver Ultrasound 12/12/24 11:26 IMPRESSION: 1. Borderline hepatomegaly. 2. Limited assessment of the pancreas. 3. Small right renal cyst. 4. Prior cholecystectomy. Laboratory Results WBC 18.10 10^3/uL (3.29-11.43) H 12/12/24 09:23 RBC 4.57 10^6/uL (3.85-5.65) 12/12/24 09:23 Hgb 9.90 g/dL (11.27-16.99) L 12/12/24 09:23 Hct 34.4 % (36-47) L 12/12/24 09:23 MCV 75.3 fl (85-98) L 12/12/24 09:23 MCH 21.7 pg (27-33) L 12/12/24 09: MCHC 28.8 g/dL (30-55) L 12/12/24 09:23 RDW 22.5 % (12.1-15.1) H 12/12/24 09:23 Plt Count 387 10^3/cmm (157-399) 12/12/24 09:23 MPV 9.9 fL (7.4-10.4) 12/12/24 09:23 Neut % (Auto) 85.9 % 12/12/24 09:23 Lymph % (Auto) 5.1 % 12/12/24 09:23 [place] % (Auto) 7.5 % 12/12/24 09:23 Eos % (Auto) 0.1 % 12/12/24 09: Baso % (Auto) 0.4 % 12/12/24 09:23 Neut # (Auto) 15.55 10^3/uL (1.8-7.7) H 12/12/24 09:23 Lymph # (Auto) 0.9 10^3/uL (0.8-4.8) 12/12/24 09:23 [place] # (Auto) 1.4 10^3/uL (0.2-0.9) H 12/12/24 09:23 Eos # (Auto) 0.0 10^3/uL (0.0-0.8) 12/12/24 09:23 Baso # (Auto) 0.1 10^3/uL (0.0-0.1) 05/17/25 09:23 Nucleated RBC % (auto) 0.7 % 12/12/24 09:23 Nucleated RBCs # 0.1 /100WBC 12/12/24 09:23 Sodium 135 mmol/L (136-145) L 12/12/24 09:23 Potassium 4.5 mmol/L (3.5-5.1) 12/12/24 09:23 Chloride 97 mmol/L (98-107) L 12/12/24 09:23 Carbon Dioxide 17 mmol/L (22-29) L 12/12/24 09:23 Anion Gap 25.5 (5-19) H 12/12/24 09:23 BUN 57 mg/dL (8-23) H 12/12/24 09:23 Creatinine 1.3 mg/dL (0.5-0.9) H 12/12/24 09:23 GFR Calculation 40.6 mL/min (90-130) L 12/12/24 09:23 Glucose 180 mg/dL (65-115) H 12/12/24 09:23 Calculated Osmolality 300 mOsm/kg (285-295) H 12/12/24 09:23 Lactic Acid 2.9 mmol/L (0.5-2.2) H 12/12/24 11:24 Calcium 9.4 mg/dL (8.5-10.5) 12/12/24 09:23 Total Bilirubin 2.4 mg/dL (0.15-1.2) H 12/12/24 09:23 AST 1333 U/L (0-32) H 12/12/24 09:23 ALT 1109 U/L (0-33) H 12/12/24 09:23 Alkaline Phosphatase 186 U/L (35-105) H 12/12/24 09:23 Troponin T Baseline 56 ng/L (0-10) H 12/12/24 09:23 Troponin T 120 Minute 48.04 ng/L (0-10) H 12/12/24 11:24 Delta Troponin T -7.96 ABS# (0-10) L 12/12/24 11:24 C-Reactive Protein 116.8 mg/L (0.0-4.9) H 12/12/24 09:23 NT-Pro-B Natriuret Pep 5934 pg/mL (0-125) H 12/12/24 09:23 Total Protein 6.3 g/dL (6.6-8.7) L 12/12/24 09:23 Albumin 3.8 g/dL (3.5-5.2) 12/12/24 09:23 Globulin 2.5 g/dL (1.3-4.6) 12/12/24 09:23 Lipase 25 U/L (13-60) 12/12/24 09:23 Urine Color Yellow (Yellow) 12/12/24 13:57 Urine Appearance Clear (CLEAR) 12/12/24 13:57 Urine pH 5.0 (5-7) 12/12/24 13:57 Ur Specific [place] 1.023 (1.005-1.030) 12/12/24 13:57 Urine Protein Trace (Negative) A 12/12/24 13:57 Urine Glucose (UA) Negative (Normal) 12/12/24 13:57 Urine Ketones Negative (Negative) 12/12/24 13:57 Urine Blood Negative (Negative) 12/12/24 13:57 Urine Nitrate Negative (Negative) 12/12/24 13:57 Urine Bilirubin Negative (Negative) 12/12/24 13:57 Urine Urobilinogen 1.0 mg/dL (Negative) 12/12/24 13:57 Ur Leukocyte Esterase 1+ (Negative) A 12/12/24 13:57 Urine RBC 0-2 /hpf (0-2) 12/12/24 13:57 Urine WBC 0-5 /hpf (0-5) 12/12/24 13:57 Ur Squamous Epith Cells 0-5 /hpf (0-5) 12/12/24 13:57 Amorphous Sediment Not Reportable 12/12/24 13:57 Urine Bacteria 1+ /hpf (NONE) H 12/12/24 13:57 Hyaline Casts 21.48 /lpf 12/12/24 13:57 All radiology interpretation(s) finalized by discharge Discharge Plan Discharge Patient Disposition: Admitted As Inpatient Clinical Impression: Congestive heart failure, Anemia, Leukocytosis, Sepsis Condition: Stable Coding Level of Care Code 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
[2024-12-12 09:44] LABS: Basophils # 0.1 10^3/uL (0.0-0.1); Basophils % 0.4 %; Eosinophils % 0.1 %; Hematocrit 34.4 % (36-47); Lymphocytes # 0.9 10^3/uL (0.8-4.8); Lymphocytes % 5.1 %; Mean Corpuscular HGB Conc 28.8 g/dL (30-55); Mean Corpuscular Hemoglobin 21.7 pg (27-33); Mean Corpuscular Volume 75.3 fl (85-98); Mean Platelet Volume 9.9 fL (7.4-10.4); Monocytes # 1.4 10^3/uL (0.2-0.9); Monocytes % 7.5 %; Neutrophils # 15.55 10^3/uL (1.8-7.7); Neutrophils % 85.9 %; Nucleated Red Blood Cells # 0.1 /100WBC; Nucleated Red Blood Cells % 0.7 %; Platelet Count 387 10^3/cmm (157-399); Red Blood Count 4.57 10^6/uL (3.85-5.65); Red Cell Distribution Width 22.5 % (12.1-15.1)
[2024-12-12 09:58] LABS: Troponin(5th) Baseline 56 ng/L (0-10)
[2024-12-12 10:06] LABS: Albumin Level 3.8 g/dL (3.5-5.2); Alkaline Phosphatase 186 U/L (35-105); Anion Gap 25.5 (5-19); Blood Urea Nitrogen 57 mg/dL (8-23); Calcium 9.4 mg/dL (8.5-10.5); Carbon Dioxide 17 mmol/L (22-29); Chloride 97 mmol/L (98-107); Creatinine Clr Calc Pharmacy 45.8696; Globulin 2.5 g/dL (1.3-4.6); Glomerular Filtration Rate 40.6 mL/min (90-130); Glucose 180 mg/dL (65-115); NT Pro B Type Natriuretic Pept 5934 pg/mL (0-125); Osmolality Calculated 300 mOsm/kg (285-295); Potassium 4.5 mmol/L (3.5-5.1); Sodium 135 mmol/L (136-145); Total Bilirubin 2.4 mg/dL (0.15-1.2); Total Protein 6.3 g/dL (6.6-8.7)
[2024-12-12 10:17] LABS: Alanine Aminotransferase 1109 U/L (0-33)
[2024-12-12 10:19] LABS: Aspartate Amino Transferase 1333 U/L (0-32)
--- NOTE | 2024-12-12 10:32 | CTR_ITS ---
PROCEDURE INFORMATION: Exam: CTA Chest With Contrast Exam date and time: 12/12/2024 10:57 AM Age: 69 years old Clinical indication: Shortness of breath; Additional info: Dypsnea, tachycardia TECHNIQUE: Imaging protocol: Computed tomographic angiography of the chest with contrast. Exam focused on the arteries. 3D rendering (Not supervised by radiologist): MIP and/or 3D reconstructed images were created by the technologist. Radiation optimization: All CT scans at this facility use at least one of these dose optimization techniques: automated exposure control; mA and/or kV adjustment per patient size (includes targeted exams where dose is matched to clinical indication); or iterative reconstruction. Contrast material: OMNI 350; Contrast volume: 68 ml; Contrast route: INTRAVENOUS (IV); COMPARISON: CT lung screening [id number] 09/08/2024 3:37 PM RADIATION DOSE METRICS: Total DLP (mGy-cm): 484.92 FINDINGS: Limitations: Study is technically limited due to motion artifact. Pulmonary arteries: Main pulmonary trunk, right and left pulmonary arteries, interlobar branches and 1st order segmental branches are adequately opacified without filling defects or other evidence of acute pulmonary embolism. However more distal subsegmental branches cannot be adequately assessed due to technical limitations of the study. Aorta: There are diffuse atherosclerotic changes throughout the thoracic aorta. There is no aortic aneurysm. Lungs: There are some scattered ground-glass opacities in dependent portions of the lower lung zones with mild thickening of interlobular septa likely secondary to CHF. Scattered minor atelectatic changes both lung ansari. There is a large calcified granuloma right midlung zone. Pleural spaces: Small bibasilar pleural effusions extending into the fissures that may be cardiogenic in nature. Heart: Heart is mildly enlarged no coronary artery calcifications or pericardial effusion. There is reflux of contrast into the hepatic veins indicating right-sided cardiac decompensation. Lymph nodes: Unremarkable. No enlarged lymph nodes. Bones/joints: Multilevel degenerative changes of the thoracic spine.. No acute fracture. Soft tissues: Unremarkable. CT/CT angio chest PE protcl [id number] IMPRESSION: 1. Technically limited but negative CT angiogram of the chest. No evidence of acute pulmonary embolism to major branches of the pulmonary vascular tree. 2. Cardiomegaly with evidence of right-sided cardiac decompensation and mild CHF.
[2024-12-12 10:51] LABS: C Reactive Protein 116.8 mg/L (0.0-4.9); Lipase 25 U/L (13-60)
[2024-12-12] MEDS: iohexol 350 mg/mL 500 mL Btl (per mL) IV (11:01)
--- NOTE | 2024-12-12 11:12 | ECG_ITS ---
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 Measurements Intervals [place] Rate: 106 P: 70 AR: 167 QRS: 61 QRSD: 104 T: -16 QT: 345 QTc: 458 Interpretive Statements SINUS TACHYCARDIA NONSPECIFIC T-WAVE ABNORMALITY Compared to ECG 12/12/2024 09:00:28 No significant changes Electronically Signed On 12-13-2024 12:42:17 CDT by Kayy Rodriguez M.D. [email or web address]
--- NOTE | 2024-12-12 11:26 | USR_ITS ---
PROCEDURE INFORMATION: Exam: US Abdomen, Limited; Right Upper Quadrant Exam date and time: 12/12/2024 12:18 PM Age: 69 years old Clinical indication: Abnormal findings; Abnormal lab test; Elevated liver enzymes; Prior surgery; Surgery date: 6+ months; Surgery type: Unsure of dates but patient has gb and appendix removed; Additional info: Elevated lfts TECHNIQUE: Imaging protocol: Real time ultrasound of the abdomen with image documentation. Limited exam focused on the right upper quadrant. COMPARISON: CT angio chest PE protcl [id number] 12/12/2024 10:57 AM FINDINGS: Liver: Liver is borderline enlarged.. No masses detected. Gallbladder: Gallbladder has been removed. Bile ducts are not dilated. Biliary ducts: See Gallbladder finding. Pancreas: Pancreas is not well visualized due to obscuring bowel gas. Right kidney: 1.2 cm right renal cyst otherwise right kidney is unremarkable. US/US liver [id number] IMPRESSION: 1. Borderline hepatomegaly. 2. Limited assessment of the pancreas. 3. Small right renal cyst. 4. Prior cholecystectomy.
[2024-12-12] MEDS: FUROsemide 10 mg/mL SDV 10mL 60 MG IVP (11:31)
[2024-12-12 11:45] LABS: Lactic Sepsis W/Reflex 2.9 mmol/L (0.5-2.2)
[2024-12-12 11:47] LABS: Troponin 5 2HR 48.04 ng/L (0-10)
[2024-12-12 11:48] LABS: Troponin 5 2HR Delta -7.96 ABS# (0-10)
[2024-12-12 11:57] LABS: Reflex Lactate Order REFLEX LACTIC ORDERD
--- NOTE | 2024-12-12 12:06 | PC.PHAR ---
Patient states she takes Rosuvastatin but not sure the strength. I do not see it on her fill history for last fill . Patient states she had it mail ordered adn has a lot of it at home and the plavix 75mg.
[2024-12-12] MEDS: morphine 4 mg/mL SDV 1 mL IVP (12:29)
[2024-12-12] MEDS: ondansetron 2 mg/ML SDV 2 mL 4 MG IVP (12:29)
[2024-12-12] MEDS: ciprofloxacin 400 MG/200 ML PREMIX 200 MG IV (13:18)
[2024-12-12] MEDS: sodium chloride 0.9% 250 ML IV (13:20)
--- NOTE | 2024-12-12 14:02 | PC.NURSE ---
PATIENT O2 DROPPED TO 88% ROOM AIR AFTER GIVING PAIN MEDS. PLACED PATIENT ON 1 L NC FOR SHORT TERM USE.
[2024-12-12 14:09] LABS: Bilirubin Urine Negative (Negative); Blood Urine Negative (Negative); Glucose Urine UA Negative (Normal); Ketones Urine Negative (Negative); Leukocyte Esterase Urine 1+ (Negative); Nitrate Urine Negative (Negative); Protein Urine Trace (Negative); Specific Gravity, Urine 1.023 (1.005-1.030); Urine Appearance Clear (CLEAR); Urine Color Yellow (Yellow)
[2024-12-12 14:14] LABS: Add Urine Microscopic? YES; Hyaline Casts Urine 21.48 /lpf; RBC Urine 0-2 /hpf (0-2); Squamous Epithelial Cell Urine 0-5 /hpf (0-5); WBC Urine 0-5 /hpf (0-5)
[2024-12-12 14:25] LABS: Bacteria Urine 1+ /hpf; UA Slide Review UA Slide Review Perf
[2024-12-12] MEDS: metroNIDAZOLE IV 500 MG/100 ML PREMIX 100 MG IV (14:33)
[2024-12-12 14:51] LABS: Lactic Acid level (Lactate) 2.7 mmol/L (0.5-2.2)
[2024-12-12 14:53] LABS: Troponin 5 6HR 54.56 ng/L (0-10)
[2024-12-12 14:55] LABS: Troponin 5 6HR Delta -1.44 ng/L (0-12)
--- NOTE | 2024-12-12 15:12 | ECG_ITS ---
[facility]: 2024-12[facility]12 Pat Name: Lela Crespo Department: Room: EDIP Gender: Female Director Operating Room: : 1955 Requested By: Yanick Llanos Order Number: [id number] Reading MD: Kayy Rodriguez M.D. Measurements Intervals [place] Rate: 105 P: 68 MI: 165 QRS: 56 QRSD: 106 T: -17 QT: 339 QTc: 449 Interpretive Statements SINUS TACHYCARDIA NONSPECIFIC T-WAVE ABNORMALITY Compared to ECG 12/12/2024 13:52:34 No significant changes Electronically Signed On 12-13-2024 12:41:35 CDT by Kayy Rodriguez M.D. [email or web address]
--- NOTE | 2024-12-12 16:10 | PM.HP ---
Providers/Chief Complaint Admitting Physician: Lorelei Mason MD Primary Care Provider: Sejal Hazel DO Chief Complaint: chest conjestion, retaining fluid History of Present Illness Lela Crespo is a 69 year old female 68-year-old lady with a past history of chronic anemia requiring blood transfusion in the past without an obvious cause, hypertension, COPD, history of diastolic CHF Who presented to the hospital with several days of worsening pain over her left knee and shortness of breath. Patient was noted to be tachypneic and tachycardic on arrival and mildly hypotensive. CTA ruled out a PE. There was no DVT on lower extremity Doppler. Chest x-ray showed changes consistent with pulmonary edema. Patient started diuresis with Lasix. On a previous admission in June 2024 she was diagnosed with diastolic CHF, it appears she was unable to make it to her cardiology appointment. In the last admission in June 2024 patient had symptomatic anemia with hemoglobin down to 5.8. Her hemoglobin is currently much better. There is no reported GI losses. Patient reports she has had endoscopy colonoscopy and a capsule endoscopy years ago in [place]. She visited outpatient with heme-onc for evaluation of anemia and was recommended to undergo repeat endoscopic evaluations. She was additionally noted to have deranged LFTs. Liver ultrasound showed borderline hepatomegaly, prior cholecystectomy and no obvious dilatation of the biliary ducts. Pancreas was unable to be visualized due to obscuring bowel gas. Review of Systems General: Reports: 10 or more systems reviewed and unremarkable except in HPI and below Const: Denies: fever(s), chills or body aches Eyes: Denies: change in vision, blurry vision or photophobia ENMT: Reports: hoarseness; Denies: throat pain, enlarged tonsils, odynophagia or nasal congestion Card: Denies: chest pain, palpitations, irregular heart rhythm, edema, swelling of feet/ankles, lightheadedness, pre-syncope, dyspnea on exertion or orthopnea Resp: Denies: dyspnea, productive cough, non-productive cough, wheezing, stridor, pain on inspiration, change in phlegm color, hemoptysis or chest congestion GI: Denies: abdominal pain, nausea, vomiting, hematemesis, coffee ground emesis, dysphagia, heartburn, diarrhea, constipation, GI cramping, change in stool character, hematochezia or melena : Denies: flank pain, difficulty voiding, dysuria, urinary frequency, urinary urgency, urinary hesitancy or hematuria Musc: Denies: neck pain, back pain, extremity pain, joint swelling, joint warmth or deformity Neuro: Denies: headache(s), numbness in extremities, weakness in extremities, sensory changes, difficulty walking, frequent falls, dizziness, vertigo, behavioral changes, Slurred speech present or seizure-like activity Psych: Denies: anxiety, depression, suicidal ideation or homicidal ideation Endo: Denies: polyuria, polydipsia, tired all the time, cold intolerance or hot flashes Gt/Lymph: Denies: easy bruising or easy bleeding Medications/Allergies Home Medications ?Medication ?Instructions ?Recorded ?Confirmed ?Last Taken ?Type citalopram 20 mg tablet (Celexa) 20 mg PO DAILY 07/11/24 12/12/24 12/11/24 History hydroxyzine HCl 50 mg tablet 100 mg PO BEDTIME 07/11/24 12/12/24 12/11/24 History clopidogrel 75 mg tablet (Plavix) 75 mg PO DAILY 11/17/24 12/12/24 12/11/24 History furosemide 40 mg tablet 40 mg PO DAILY #7 tabs 11/30/24 12/12/24 12/11/24 Rx albuterol sulfate 2.5 mg/3 mL See Rx Instructions .Route .COMPLEX 12/12/24 12/12/24 Unknown History (0.083 %) solution for nebulization cetirizine 10 mg tablet (Zyrtec) 10 mg PO DAILY 12/12/24 12/12/24 12/11/24 History fluticasone 500 mcg-salmeterol 50 1 ea inhalation BID 12/12/24 12/12/24 Unknown History mcg/dose blistr powdr for inhalation (Desxela Inhub) fluticasone propionate 50 1 spray intranasal BID 12/12/24 12/12/24 12/11/24 History mcg/actuation nasal spray,suspension tiotropium bromide 18 mcg capsule See Rx Instructions .Route .COMPLEX 12/12/24 12/12/24 12/11/24 History with inhalation device (Spiriva with HandiHaler) tramadol 50 mg tablet 50 mg PO TID 12/12/24 12/12/24 12/11/24 History Allergies Allergy/AdvReac Type Severity Reaction Status Date / Time Cephalosporins Allergy Unknown Verified 11/17/24 14:50 Penicillins Allergy ALGY-Anaphy Verified 11/17/24 14:50 laxis Sulfa (Sulfonamide Allergy Unknown Verified 11/17/24 14:50 Antibiotics) PFSH Acute PFSH: Medical History CVA (cerebral vascular accident) Hypertension Surgical History H/O knee surgery Social History Smoking and tobacco/nicotine status: current every day tobacco/nicotine user Vitals/I&O/Wt Last Vital Signs Temp 97.9 F 12/12/24 09:05 Pulse 102 H 12/12/24 16:01 Resp 26 H 12/12/24 09:05 BP 118/55 12/12/24 16:01 Pulse Ox 93 12/12/24 16:01 O2 Del Method Room Air 12/12/24 16:01 O2 Flow Rate 1 12/12/24 14:01 12/12/24 12/12/24 12/12/24 06:59 14:59 22:59 Intake Total 450 / 450 Balance 450 / 450 Weight last 48 hrs Weight 88.904 kg Physical Exam Narrative: General: No acute distress, AO x3 HEENT: PERRLA, pupils bilaterally equal and reactive, pallors not present Chest: crackles to auscultation B/L CVS: S1-S2 regular, no murmurs, no tachycardia, no gallops, no rubs Abdomen: Soft, nontender, no organomegaly, bowel sounds present Neuro: No focal deficits, no facial deformity, AO x3, power 5/5 in all limbs Data 12/13/24 05:23 12/13/24 05:23 Micro: Microbiology 12/12/24 10:42 Blood Culture - Preliminary Blood SPECIMEN COLLECTED 12/12/24 09:23 Blood Culture - Preliminary Blood SPECIMEN COLLECTED A&P Assessment and plan (1) Congestive heart failure: 69-year-old lady presenting today with shortness of breath. Over several weeks. She has noted to have CTA chest showing cardiomegaly with evidence of right-sided cardiac decompensation and mild CHF. No signs of PE. BNP elevated at 5900. Bilateral lower extremity pitting edema. Overall clinical picture concerning for acute on chronic diastolic CHF exacerbation. Reviewed echocardiogram from June 2024 which had shown grade 3 diastolic dysfunction. LVEF 60%. There was evidence of pulmonary hypertension with estimated PASP of 30 mmHg at that time with trace tricuspid regurgitation. Patient was recommended to follow-up with cardiology however it appears she was unable to make this appointment. Troponins today mildly elevated in the 40s range without significant delta at 2 or 6 hours. EKG without any significant ST-T wave changes. Patient denies any current chest pain. Overall clinical picture consistent with acute on chronic diastolic CHF exacerbation. Admit to CSU Lasix 40 mg IV every 12 hours Closely monitor urine output and kidney function with initiation of IV diuresis (2) Transaminitis: Noted to have elevated liver enzymes today. AST at 1400, up from 46 on 04/01/2025. ALT at 1100, up from 46 on November 29, 2024. Alkaline phosphatase mildly elevated at 186, up from 126. T. bili at 2.4. Check hepatitis serology Check salicylate and acetaminophen level No history of alcohol consumption. Medication list reviewed for hepatotoxic medications, no obvious medication noted to be a culprit of the hepatotoxicity. Liver ultrasound was performed in the emergency room which showed borderline hepatomegaly. Status post prior cholecystectomy. Bile ducts were not noted to be dilated. Pancreas was not well-visualized due to obscuring bowel gas. Lipase was normal. Potentially transaminitis may be related to hepatic congestion from CHF. Will trend with serial labs and assess if improving with IV diuresis. Check INR Other differentials to consider include autoimmune hepatitis, check LAWANDA screen, dsDNA screen. (3) Acute kidney injury: Acute kidney injury, creatinine at 1.3 today, previous baseline is between 0.9-1.2. Check UA, urine protein and urine creatinine. Lasix 40 mg IV every 12 hours for now. Closely monitor renal function with aggressive diuresis Given the constellation of renal dysfunction, persisting leukocytosis since October 2024, and chronic anemia, concerned about unifying process such as multiple myeloma. Will check serum and urine protein electrophoresis. (4) Anemia: Hemoglobin today is at 9.7. Patient has a known history of iron deficiency anemia for which she is on oral iron supplementation. Previously in June 2024 hemoglobin was at 5.8. Currently the hemoglobin is improved over previous. (5) Leukocytosis: Reviewed that patient has had mild leukocytosis slowly trending up since at least October 2024. On October 29, 2024 white blood cell count was at 12.8, currently trending up to 18,000 on this current admission. Will check peripheral smear. Blood culture ordered from the emergency room. PDMP PDMP Reviewed: Not Reviewed Attestations Medical Necessity Statement*: Greater than 2 midnight stays currently anticipated. Coding Level of Care Code Acute Code for Chg Fwd High MDM includes number and complexity of problems actively addressed during encounter, amount and/or complexity of data reviewed/ordered and described risk of complication, morbidity or mortality of management as documented Diagnoses Acute on chronic diastolic congestive heart failure I50.33 Heart failure type: diastolic Heart failure chronicity: acute on chronic Transaminitis R74.01 Acute kidney injury N17.9 Anemia, unspecified type D64.9 Anemia type: unspecified type Leukocytosis D72.829
[2024-12-12 16:22] LABS: INR 1.57 (0.8-1.2)
[2024-12-12 16:30] LABS: Acetaminophen < 5.0 ug/mL (10-30); Salicylate < 0.3 mg/dL (3-10)
[2024-12-12 16:47] LABS: Hepatitis A Antibody IgM Non-Reactive (Nonreactive); Hepatitis B Core AB, Total Non-Reactive (Nonreactive); Hepatitis B Surface AB 8.8 (11.5-1000); Hepatitis B Surface Antigen Non-Reactive (Nonreactive); Hepatitis C Virus Antibody Non-Reactive (Nonreactive)
[2024-12-12] MEDS: TRAMadol 50 mg Tablet PO (19:07)
[2024-12-12 20:27] LABS: Thyroid Stimulating Hormone 2.79 uIU/mL (0.27-4.20)
[2024-12-12] MEDS: hyDROXYzine 25 mg Capsule 100 MG PO (20:47)
[2024-12-12] MEDS: enoxaparin 30 mg/0.3 mL Syringe SUBCUT (20:49)
[2024-12-12] MEDS: FUROsemide 10 mg/mL SDV 4mL 40 MG IVP (20:49)
[2024-12-12] MEDS: ipratropium-albuterol 3 mL Neb INHALATION (22:10)
[2024-12-13] VITALS (16 sets, daily range): BP systolic 113–127; BP diastolic 47–87; PULSE 83–112; RESP 15–26; TEMP 36.1–36.9; O2SAT 92–98
[2024-12-13] MEDS: ipratropium-albuterol 3 mL Neb INHALATION ×4 (02:17→21:02)
[2024-12-13 06:06] LABS: Basophils # 0.1 10^3/uL (0.0-0.1); Basophils % 0.3 %; Hematocrit 33.8 % (36-47); Lymphocytes # 0.8 10^3/uL (0.8-4.8); Lymphocytes % 3.4 %; Mean Corpuscular HGB Conc 28.7 g/dL (30-55); Mean Corpuscular Hemoglobin 21.7 pg (27-33); Mean Corpuscular Volume 75.6 fl (85-98); Mean Platelet Volume 9.9 fL (7.4-10.4); Monocytes # 1.6 10^3/uL (0.2-0.9); Monocytes % 7.1 %; Neutrophils # 19.94 10^3/uL (1.8-7.7); Neutrophils % 87.5 %; Nucleated Red Blood Cells # 0.1 /100WBC; Nucleated Red Blood Cells % 0.4 %; Platelet Count 376 10^3/cmm (157-399); Red Blood Count 4.47 10^6/uL (3.85-5.65); Red Cell Distribution Width 22.5 % (12.1-15.1); White Blood Count 22.79 10^3/uL (3.29-11.43)
[2024-12-13 06:27] LABS: Albumin Level 3.7 g/dL (3.5-5.2); Alkaline Phosphatase 209 U/L (35-105); Anion Gap 23.6 (5-19); Blood Urea Nitrogen 74 mg/dL (8-23); Calcium 8.9 mg/dL (8.5-10.5); Carbon Dioxide 20 mmol/L (22-29); Chloride 96 mmol/L (98-107); Creatinine Clr Calc Pharmacy 34.0067; Glomerular Filtration Rate 27.9 mL/min (90-130); Glucose 154 mg/dL (65-115); Osmolality Calculated 305 mOsm/kg (285-295); Potassium 4.6 mmol/L (3.5-5.1); Sodium 135 mmol/L (136-145); Total Bilirubin 2.5 mg/dL (0.15-1.2); Total Protein 6.7 g/dL (6.6-8.7)
[2024-12-13] MEDS: morphine 4 mg/mL SDV 1 mL 2 MG IVP (07:22)
[2024-12-13] MEDS: citalopram 20 mg Tablet PO (07:23)
[2024-12-13] MEDS: clopidogrel 75 mg Tablet PO (07:23)
[2024-12-13] MEDS: pantoprazole DR 40 mg Tablet PO (07:23)
[2024-12-13] MEDS: FUROsemide 10 mg/mL SDV 4mL 40 MG IVP (07:23)
[2024-12-13 08:48] LABS: Alanine Aminotransferase 2047 U/L (0-33)
[2024-12-13 08:49] LABS: Aspartate Amino Transferase > 2499 U/L (0-32)
--- NOTE | 2024-12-13 11:44 | MRR_ITS ---
PROCEDURE INFORMATION: Exam: MR Abdomen Without Contrast, Biliary System Exam date and time: 12/13/2024 2:26 PM Age: 69 years old Clinical indication: Condition or disease; Bile duct condition; Other: Cholangitis; Prior surgery; Surgery date: 6+ months; Surgery type: Gallbladder, appendectomy, hysterectomy; Additional info: Assess for cholangitis TECHNIQUE: Imaging protocol: MR of the abdomen without contrast. Exam focused on the biliary system and pancreatic ducts. Routine 3D-MRCP images were acquired and processed without radiologist supervision. COMPARISON: [place] liver [id number] 12/12/2024 12:18 PM FINDINGS: Limitations: Significant respiratory motion artifact on exam which limits fine detailed evaluation of the abdominal viscera. Liver: Hepatic steatosis. No evident mass. Gallbladder and biliary ducts: Cholecystectomy. No ductal dilation. No filling defects seen within the common bile duct. Pancreas: Unremarkable. No ductal dilation. Kidneys: A couple small cysts noted in the right kidney measuring up to 1.4 cm in size. Intraperitoneal space: No fluid collection. MR/MR MRCP [id number] IMPRESSION: 1. Motion limited examination. No signs of biliary obstruction. 2. Hepatic steatosis. COMMENTS: Consistent with the [employer]'s Incidental Findings Committee white paper (J Am Emmanuel Radiol 2018): Any incidental renal lesion less than 1 cm or classified as too small to characterize, or any incidental cystic renal lesion characterized as simple-appearing, is likely benign. No follow-up imaging is recommended for these lesions per consensus recommendations based on imaging criteria.
[2024-12-13] MEDS: methylPREDNISolone sod succ 40 mg/mL INJ IVP ×2 (11:55→20:21)
[2024-12-13] MEDS: ciprofloxacin 400 MG/200 ML PREMIX 200 MG IV ×2 (11:56→23:15)
--- NOTE | 2024-12-13 12:01 | P.PN_ITS ---
Subjective 2 Subjective: Patient is mainly complaining of pain in her lower extremity, particularly around the knee on the left osteoarthritic left knee joint. Medications: Reviewed: Yes Vitals/I&O/Wt Last Vital Signs Temp 97.4 F L 12/13/24 11:55 Pulse 105 H 12/13/24 11:55 Resp 20 H 12/13/24 11:55 BP 122/69 12/13/24 11:55 Pulse Ox 96 12/13/24 11:55 O2 Del Method Room Air 12/13/24 11:55 O2 Flow Rate 1 12/12/24 14:01 12/12/24 12/13/24 12/13/24 22:59 06:59 14:59 Intake Total 200 / 650 480 / 1130 120 / 120 Balance 200 / 650 480 / 1130 120 / 120 Weight last 48 hrs Weight 93.621 kg Weight 94.619 kg Weight 94.574 kg Weight 88.904 kg Physical Exam 2 Narrative: General: No acute distress, AO x3 HEENT: PERRLA, pupils bilaterally equal and reactive, pallors not present Chest: crackles to auscultation B/L CVS: S1-S2 regular, no murmurs, no tachycardia, no gallops, no rubs Abdomen: Soft, nontender, no organomegaly, bowel sounds present Neuro: No focal deficits, no facial deformity, AO x3, power 5/5 in all limbs Data 12/13/24 05:23 12/13/24 05:23 Micro: Microbiology 12/12/24 10:42 Blood Culture - Preliminary Blood NEGATIVE TO DATE 12/12/24 09:23 Blood Culture - Preliminary Blood NEGATIVE TO DATE A&P Assessment and plan (1) Congestive heart failure: 69-year-old lady presenting today with shortness of breath. Over several weeks. She has noted to have CTA chest showing cardiomegaly with evidence of right- sided cardiac decompensation and mild CHF. No signs of PE. BNP elevated at 5900. Bilateral lower extremity pitting edema. Overall clinical picture concerning for acute on chronic diastolic CHF exacerbation. Reviewed echocardiogram from June 2024 which had shown grade 3 diastolic dysfunction. LVEF 60%. There was evidence of pulmonary hypertension with estimated PASP of 30 mmHg at that time with trace tricuspid regurgitation. Patient was recommended to follow-up with cardiology however it appears she was unable to make this appointment. Troponins today mildly elevated in the 40s range without significant delta at 2 or 6 hours. EKG without any significant ST-T wave changes. Patient denies any current chest pain. Overall clinical picture consistent with acute on chronic diastolic CHF exacerbation. Admit to CSU Lasix 40 mg IV every 12 hours Closely monitor urine output and kidney function with initiation of IV diuresis (2) Transaminitis: Noted to have elevated liver enzymes today. AST at 1400, up from 46 on 04/01/2025. ALT at 1100, up from 46 on November 29, 2024. Alkaline phosphatase mildly elevated at 186, up from 126. T. bili at 2.4. Check hepatitis serology Check salicylate and acetaminophen level No history of alcohol consumption. Medication list reviewed for hepatotoxic medications, no obvious medication noted to be a culprit of the hepatotoxicity. Liver ultrasound was performed in the emergency room which showed borderline hepatomegaly. Status post prior cholecystectomy. Bile ducts were not noted to be dilated. Pancreas was not well-visualized due to obscuring bowel gas. Lipase was normal. Potentially transaminitis may be related to hepatic congestion from CHF. Will trend with serial labs and assess if improving with IV diuresis. Check INR Other differentials to consider include autoimmune hepatitis, check LAWANDA screen, dsDNA screen. (3) Acute kidney injury: Acute kidney injury, creatinine at 1.3 today, previous baseline is between 0.9- 1.2. Check UA, urine protein and urine creatinine. Lasix 40 mg IV every 12 hours for now. Closely monitor renal function with aggressive diuresis Given the constellation of renal dysfunction, persisting leukocytosis since October 2024, and chronic anemia, concerned about unifying process such as multiple myeloma. Will check serum and urine protein electrophoresis. (4) Anemia: Hemoglobin today is at 9.7. Patient has a known history of iron deficiency anemia for which she is on oral iron supplementation. Previously in June 2024 hemoglobin was at 5.8. Currently the hemoglobin is improved over previous. (5) Leukocytosis: Reviewed that patient has had mild leukocytosis slowly trending up since at least October 2024. On October 29, 2024 white blood cell count was at 12.8, currently trending up to 18,000 on this current admission. Will check peripheral smear. Blood culture ordered from the emergency room. Plan DVT prophylaxis: Lovenox 30 mg subcutaneously daily Full code 12/13/2024 Worsening transaminitis today. AST now up to greater than 2500, ALT 2000, alkaline phosphatase 219, T. bili at 2.5. Leukocytosis additionally going up to 22,000. She is afebrile today. Start ciprofloxacin and metronidazole due to possibility of cholangitis. Stat MRCP ordered to further assess. TSH returned within normal limit at 2.79. Salicylate and acetaminophen level within range. INR noted to be elevated at 1.57. Concern for acute liver failure. Uncertain etiology at this point. Workup pending as ordered yesterday.Check Ammonia level. Noted to have wheezing over left chest diffusely. Add steroids for, COPD exacerbation, possible autoimmune hepatitis. Creatinine trending up to 1.8 today. Hold Lasix. PDMP PDMP Reviewed: Not Reviewed Attestations 2 Medical Necessity Statement*: Needs MRCP today for worsening liver function. Start antibiotics for suspected cholangitis. Evaluation ongoing for acute liver failure. Coding Level of Care Code Acute Code for Chg Fwd Diagnoses Acute on chronic diastolic congestive heart failure I50.33 Heart failure chronicity: acute on chronic Heart failure type: diastolic Transaminitis R74.01 Acute kidney injury N17.9 Anemia, unspecified type D64.9 Anemia type: unspecified type Leukocytosis D72.829
[2024-12-13 12:33] LABS: Gamma Glutamyl Transferase 180 U/L (5-36)
[2024-12-13 12:39] LABS: HIV 1 & 2 Antibody Non-Reactive (Non-Reactiv); HIV 1 & 2 Antigen Non-Reactive (Non-Reactiv)
[2024-12-13 12:45] LABS: Lactate Dehydrogenase 2186 U/L (135-214)
[2024-12-13] MEDS: ondansetron 2 mg/ML SDV 2 mL 4 MG IVP ×2 (13:24→21:33)
[2024-12-13] MEDS: metroNIDAZOLE IV 500 MG/100 ML PREMIX 100 MG IV ×2 (13:24→20:21)
[2024-12-13 14:01] LABS: LAB Peripheral Smear Sent for Review
[2024-12-13 14:13] LABS: Ammonia 19 umol/L (11-51)
--- NOTE | 2024-12-13 14:20 | PC.NURSE ---
patient refused, says it doesn't work.
[2024-12-13 17:16] LABS: Creatine Phosphokinase 108 U/L (26-192)
[2024-12-13] MEDS: diclofenac 1% Topical Gel 100 gm 1 APPLIC TOPICAL (17:23)
[2024-12-13 18:41] LABS: Adenovirus Not Detected (NOT DETECT); Chlamydia Pneumoniae Not Detected (NOT DETECT); Coronavirus 229E,HKU1,NL63,OC4 Not Detected (NOT DETECT); Human Metapneumovirus Not Detected (NOT DETECT); Human Rhinovirus/Enterovirus Detected (NOT DETECT); Influenza A Not Detected (NOT DETECT); Influenza A H1 Not Detected (NOT DETECT); Influenza A H1-2009 Not Detected (NOT DETECT); Influenza A H3 Not Detected (NOT DETECT); Influenza B Not Detected (NOT DETECT); Mycoplasma Pneumoniae Not Detected (NOT DETECT); Parainfluenza Virus Type 1 Not Detected (NOT DETECT); Parainfluenza Virus Type 2 Not Detected (NOT DETECT); Parainfluenza Virus Type 3 Not Detected (NOT DETECT); Parainfluenza Virus Type 4 Not Detected (NOT DETECT); Respiratory Syncytial Virus A Not Detected (NOT DETECT); Respiratory Syncytial Virus B Not Detected (NOT DETECT); SARS-COV-2 Not Detected (NOT DETECT)
--- NOTE | 2024-12-13 19:39 | USCV_ITS ---
Lela Crespo Age: 69 Gender: F : 1955 Exam Date: 12/13/2024 09:13 Ordering Phys: Lorelei Mason MD Technologist: Lamonte Cohn [place] [facility] [place]: chf suspected BP: 118 / 73 HR: 102 Rhythm: Sinus Technical Quality: Adequate MEASUREMENTS (Male / Female) Normal Values 2D ECHO LV Diastolic Diameter PLAX 5.0 cm 4.2 - 5.9 / 3.9 - 5.3 cm IVS Diastolic Thickness 1.2 cm 0.6 - 1.0 / 0.6 - 0.9 cm IVS Systolic Thickness 1.1 cm LVPW Diastolic Thickness 1.3 cm 0.6 - 1.0 / 0.6 - 0.9 cm LVPW Systolic Thickness 1.4 cm LVOT Diameter 2.0 cm LV Ejection Fraction 2D Teich 37.2 % LV Ejection Fraction MOD 4C 26.4 % LV Ejection Fraction MOD 2C 37.6 % LV Ejection Fraction 2C AL 37.0 % LA Diameter 3.9 cm RA Systolic Volume 4C AL 45.4 ml RA Systolic Volume 4C MOD 43.9 ml LA Sys Volume AL 53.0 cm cubed LA Sys Volume Index AL 25.0 cm cubed/m squared Aorta at Sinotubular Diameter 1.7 cm IVC Diameter 2.0 cm M-MODE LA Ao Ratio MM 1.6 AV Cusp Separation MM 0.8 cm DOPPLER AV Peak Velocity 354.0 cm/s LVOT Peak Velocity 75.0 cm/s AV Area Cont Eq vti 0.7 cm squared AV Area Cont Eq pk 0.7 cm squared MV Peak Velocity 133.0 cm/s MV Area PHT 5.2 cm squared Mitral E to A Ratio 1.4 TV Peak Velocity 313.5 cm/s TR Peak Velocity 317.0 cm/s TR Peak Gradient 40.2 mmHg TR Mean Velocity 223.0 cm/s TR Mean Gradient 23.4 mmHg TR Velocity Time Integral 84.2 cm PV Peak Velocity 87.0 cm/s RV Ejection Time 0.3 s FINDINGS Left Ventricle Severe global hypokinesis with severely reduced LV systolic function. Estimated LVEF 30%. Grade 2 diastolic dysfunction. Right Ventricle Normal right ventricular size withfair RV systolic function. Right Atrium Normal right atrial size. Left Atrium Moderately increased left atrial size. Mitral Valve Mildly thickened mitral valve. Moderate mitral regurgitation. Aortic Valve Thickened calcified aortic valve with reduced opening. Mild aortic regurgitation. There is at moderate aortic stenosis (AV max >3 m/sec, Mean gradient 30 mmHg, and peak gradient 55 mmHg). Tricuspid Valve Structurally normal tricuspid valve. Trace tricuspid valve regurgitation. Peak TR gradient 35 mmHg. Pulmonic Valve Pulmonic valve not well visualized. Trace pulmonary valve regurgitation. Pericardium No pericardial effusion. Aorta Normal size aortic root and proximal ascending aorta. IVC Mildly dilated IVC with blunt respiratory response CONCLUSIONS Severe global hypokinesis with severely reduced LV systolic function. Estimated LVEF 30%. Moderately dilated left atrium with moderate mitral regurgitation. Thickened calcified aortic valve with reduced opening. Mild aortic regurgitation and moderate aortic stenosis. Elevated right heart and pulmonary pressure 40-45 mmHg. Compared to last echo report (07/21), LVEF has significantly reduced. Kayy Rodriguez MD (Electronically Signed) Final Date: 13 Dec 2024 12:21 S
[2024-12-13] MEDS: hyDROXYzine 25 mg Capsule 100 MG PO (20:22)
[2024-12-13] MEDS: enoxaparin 30 mg/0.3 mL Syringe SUBCUT (20:22)
[2024-12-13] MEDS: TRAMadol 50 mg Tablet PO (20:30)
[2024-12-13] MEDS: budesonide 0.5 mg/2 mL Neb INHALATION (21:03)
[2024-12-14] VITALS (13 sets, daily range): BP systolic 105–127; BP diastolic 52–92; PULSE 89–100; RESP 14–20; TEMP 36.3–37.2; O2SAT 93–99
[2024-12-14] MEDS: ipratropium-albuterol 3 mL Neb INHALATION ×4 (02:03→21:24)
[2024-12-14] MEDS: methylPREDNISolone sod succ 40 mg/mL INJ IVP ×3 (03:07→20:34)
[2024-12-14] MEDS: metroNIDAZOLE IV 500 MG/100 ML PREMIX 100 MG IV ×2 (03:07→20:34)
[2024-12-14 05:59] LABS: Basophils % 0.2 %; Hematocrit 33.7 % (36-47); Lymphocytes # 0.2 10^3/uL (0.8-4.8); Lymphocytes % 1.5 %; Mean Corpuscular HGB Conc 28.8 g/dL (30-55); Mean Corpuscular Hemoglobin 21.4 pg (27-33); Mean Corpuscular Volume 74.4 fl (85-98); Mean Platelet Volume 9.9 fL (7.4-10.4); Monocytes # 0.7 10^3/uL (0.2-0.9); Monocytes % 5.2 %; Nucleated Red Blood Cells # 0.3 /100WBC; Nucleated Red Blood Cells % 2.4 %; Platelet Count 299 10^3/cmm (157-399); Red Blood Count 4.53 10^6/uL (3.85-5.65); Red Cell Distribution Width 22.5 % (12.1-15.1); White Blood Count 13.19 10^3/uL (3.29-11.43)
[2024-12-14 06:09] LABS: INR 2.22 (0.8-1.2)
[2024-12-14 06:22] LABS: Albumin Level 3.6 g/dL (3.5-5.2); Alkaline Phosphatase 235 U/L (35-105); Anion Gap 27.9 (5-19); Calcium 7.9 mg/dL (8.5-10.5); Carbon Dioxide 16 mmol/L (22-29); Chloride 94 mmol/L (98-107); Creatinine Clr Calc Pharmacy 22.5642; Globulin 2.9 g/dL (1.3-4.6); Glomerular Filtration Rate 17.5 mL/min (90-130); Glucose 193 mg/dL (65-115); Osmolality Calculated 309 mOsm/kg (285-295); Potassium 4.9 mmol/L (3.5-5.1); Sodium 133 mmol/L (136-145); Total Bilirubin 2.3 mg/dL (0.15-1.2); Total Protein 6.5 g/dL (6.6-8.7)
[2024-12-14 06:34] LABS: Alanine Aminotransferase 2450 U/L (0-33)
[2024-12-14 06:48] LABS: Aspartate Amino Transferase 2426 U/L (0-32); Blood Urea Nitrogen 90 mg/dL (8-23)
[2024-12-14] MEDS: clopidogrel 75 mg Tablet PO (07:14)
[2024-12-14] MEDS: ondansetron 2 mg/ML SDV 2 mL 4 MG IVP ×3 (07:14→20:35)
[2024-12-14] MEDS: pantoprazole DR 40 mg Tablet PO (07:14)
[2024-12-14] MEDS: citalopram 20 mg Tablet PO (07:15)
[2024-12-14] MEDS: budesonide 0.5 mg/2 mL Neb INHALATION ×2 (07:57→21:24)
--- NOTE | 2024-12-14 10:05 | PC.CHAP ---
Pastoral Care Encounter/Spiritual Assessment Type of Contact [] Declined inclusion specialist visit [] Patient/Family/Request visit [] Outpatient visit [] Follow-up visit [] Physician referral [] Code/Alert [x] Routine visit [] Staff referral [] Actively dying [] Patient sleeping [] Family support [] [] Out of room [] Palliative care [] [] Receiving care in room [] Pre-surgical visit [] Trauma [] Long length of stay [] ICU visit [] Other: Relational/Emotional Strength [] Patient feels connected with others/family/visitors/staff [] Distress [] Loneliness/isolation [] Abandonment Spirituality of Patient [x] Person of Keyla [] Attends Scientologist of their Keyla [x] Believes in Prayer [] Reads Bible or Sabianist materials [] There are Spiritual issues to be addressed Neon Installer Interventions [x] Prayer [x] Active listening [] Non-anxious presence [] Spiritual/emotional support [] Crisis/trauma care [] Spiritual counseling [] Bereavement support [] Provided bereavement packet [x] Provided Bible/devotional materials [] Provided toy/stuffed animal, coloring book to patient or family member [] Provided Communion [] Anointing/[place] [] Salvation [x] Completed spiritual assessment [] Other: Impact on Illness or Injury [] Angry [] Fearful [] Anxious [] Often cries [] Exhaustion [] Unable to work [] Unable to attend hindu [] Unable to walk/stand [] Unable to read [] Unable to drive [] Unable to eat/drink [] Unable to sleep [] Unable to be with family [] Patient intubated [] Other: Summary Time spent with patient 10 min
[2024-12-14] MEDS: HYDROmorphone 0.5 MG/0.5 ML INJ IVP ×2 (10:08→20:35)
--- NOTE | 2024-12-14 11:14 | P.PN_ITS ---
Subjective 2 Subjective: Worsening creatinine at 2.7. Liver enzymes elevated at AST ALT of 2400, increasing alkaline phosphatase. T. bili is stable. Increasing INR to 2.2. Medications: Reviewed: Yes Vitals/I&O/Wt Last Vital Signs Temp 97.3 F L 12/14/24 08:00 Pulse 92 12/14/24 08:00 Resp 16 12/14/24 08:00 BP 105/82 12/14/24 08:00 Pulse Ox 97 12/14/24 08:00 O2 Del Method Room Air 12/14/24 08:00 O2 Flow Rate 2 12/13/24 13:33 12/13/24 12/14/24 12/14/24 22:59 06:59 14:59 Intake Total 320 / 640 300 / 940 240 / 240 Balance 320 / 640 300 / 940 240 / 240 Weight last 48 hrs Weight 92.76 kg Weight 92.76 kg Weight 93.621 kg Weight 94.619 kg Weight 94.574 kg Physical Exam 2 Narrative: General: No acute distress, AO x3 HEENT: PERRLA, pupils bilaterally equal and reactive, pallors not present Chest: crackles to auscultation B/L CVS: S1-S2 regular, no murmurs, no tachycardia, no gallops, no rubs Abdomen: Soft, nontender, no organomegaly, bowel sounds present Neuro: No focal deficits, no facial deformity, AO x3, power 5/5 in all limbs Data 12/14/24 05:17 12/14/24 05:17 Micro: Microbiology 12/12/24 10:42 Blood Culture - Preliminary Blood NEGATIVE TO DATE 12/12/24 09:23 Blood Culture - Preliminary Blood NEGATIVE TO DATE A&P Assessment and plan (1) Congestive heart failure: 69-year-old lady presenting today with shortness of breath. Over several weeks. She has noted to have CTA chest showing cardiomegaly with evidence of right- sided cardiac decompensation and mild CHF. No signs of PE. BNP elevated at 5900. Bilateral lower extremity pitting edema. Overall clinical picture concerning for acute on chronic diastolic CHF exacerbation. Reviewed echocardiogram from June 2024 which had shown grade 3 diastolic dysfunction. LVEF 60%. There was evidence of pulmonary hypertension with estimated PASP of 30 mmHg at that time with trace tricuspid regurgitation. Patient was recommended to follow-up with cardiology however it appears she was unable to make this appointment. Troponins today mildly elevated in the 40s range without significant delta at 2 or 6 hours. EKG without any significant ST-T wave changes. Patient denies any current chest pain. Overall clinical picture consistent with acute on chronic diastolic CHF exacerbation. Admit to [facility]SU Lasix 40 mg IV every 12 hours Closely monitor urine output and kidney function with initiation of IV diuresis (2) Transaminitis: Noted to have elevated liver enzymes today. AST at 1400, up from 46 on 04/01/2025. ALT at 1100, up from 46 on November 29, 2024. Alkaline phosphatase mildly elevated at 186, up from 126. T. bili at 2.4. Check hepatitis serology Check salicylate and acetaminophen level No history of alcohol consumption. Medication list reviewed for hepatotoxic medications, no obvious medication noted to be a culprit of the hepatotoxicity. Liver ultrasound was performed in the emergency room which showed borderline hepatomegaly. Status post prior cholecystectomy. Bile ducts were not noted to be dilated. Pancreas was not well-visualized due to obscuring bowel gas. Lipase was normal. Potentially transaminitis may be related to hepatic congestion from CHF. Will trend with serial labs and assess if improving with IV diuresis. Check INR Other differentials to consider include autoimmune hepatitis, check LAWANDA screen, dsDNA screen. (3) Acute kidney injury: Acute kidney injury, creatinine at 1.3 today, previous baseline is between 0.9- 1.2. Check UA, urine protein and urine creatinine. Lasix 40 mg IV every 12 hours for now. Closely monitor renal function with aggressive diuresis Given the constellation of renal dysfunction, persisting leukocytosis since October 2024, and chronic anemia, concerned about unifying process such as multiple myeloma. Will check serum and urine protein electrophoresis. (4) Anemia: Hemoglobin today is at 9.7. Patient has a known history of iron deficiency anemia for which she is on oral iron supplementation. Previously in June 2024 hemoglobin was at 5.8. Currently the hemoglobin is improved over previous. (5) Leukocytosis: Reviewed that patient has had mild leukocytosis slowly trending up since at least October 2024. On October 29, 2024 white blood cell count was at 12.8, currently trending up to 18,000 on this current admission. Will check peripheral smear. Blood culture ordered from the emergency room. Plan DVT prophylaxis: Lovenox 30 mg subcutaneously daily Full code 12/13/2024 Worsening transaminitis today. AST now up to greater than 2500, ALT 2000, alkaline phosphatase 219, T. bili at 2.5. Leukocytosis additionally going up to 22,000. She is afebrile today. Start ciprofloxacin and metronidazole due to possibility of cholangitis. Stat MRCP ordered to further assess. TSH returned within normal limit at 2.79. Salicylate and acetaminophen level within range. INR noted to be elevated at 1.57. Concern for acute liver failure. Uncertain etiology at this point. Workup pending as ordered yesterday.Check Ammonia level. Noted to have wheezing over left chest diffusely. Add steroids for, COPD exacerbation, possible autoimmune hepatitis. Creatinine trending up to 1.8 today. Hold Lasix. December 14, 2024 Patient showing signs of acute liver failure with AST ALT now climbing up to 2400 range, alkaline phosphatase increased, T. bili stable, elevated LDH and elevated GGT. INR also increasing up to 2.2 today. Differentials for the acute liver failure include acute viral hepatitis from rhinovirus/enterovirus positivity as seen on respiratory viral panel. MRCP was negative for any ductal dilatation or overt biliary obstruction. Autoimmune hepatitis remains a consideration for which patient was started on methylprednisolone 40 mg IV every 8 hours Consulting with [facility] hepatology service today for additional recommendations. Awaiting callback. Concern for hepatorenal syndrome possibly, however patient does not have known cirrhosis or portal hypertension previously. Liver imaging on this current admission shows hepatomegaly and hepatic steatosis without any overt signs of cirrhosis. Will wait to discuss case with hepatology prior to initiating midodrine and octreotide Ultimately deranged LFTs may be related to hepatic congestion from CHF vs ?heptorenal syndrome. Echocardiogram showing an ejection fraction of 30% with global LV hypokinesia. This is a drop from previously known ejection fraction of 65% in June 2024. Acute viral nonischemic cardiomyopathy may be the culprit here however patient would likely eventually need ischemic evaluation, perhaps with a stress test since her creatinine is on an uptrend and angiogram is not feasible at this time. Cardiology service has been consulted. Creatinine trending up to 2.7. Again this may be related to CHF, however patient today is not showing any signs of worsening decompensation with holding the Lasix over the last 24 hours. She continues to have mild lower extremity edema, however not tachypneic, saturating 97% on room air. No crackles on exam, scattered wheezing is encountered for which she is continuing on scheduled nebs and systemic steroids. Consult nephrology for worsening creatinine. Ordred renal US. Bladder scan reveals no residual urine. urine output charted at 200 cc last 24 hrs PDMP PDMP Reviewed: Not Reviewed Attestations 2 Medical Necessity Statement*: worsening creat and liver enzymes, evaluation ongoing Coding Level of Care Code Acute Code for [facility] Fwd Diagnoses Acute on chronic diastolic congestive heart failure I50.33 Heart failure chronicity: acute on chronic Heart failure type: diastolic Transaminitis R74.01 Acute kidney injury N17.9 Anemia, unspecified type D64.9 Anemia type: unspecified type Leukocytosis D72.829
[2024-12-14] MEDS: ciprofloxacin 400 MG/200 ML PREMIX 200 MG IV (11:47)
[2024-12-14] MEDS: sodium chloride 0.9% 1,000 ML 50 ML IV (11:52)
--- NOTE | 2024-12-14 12:03 | PM.CONSULT ---
Providers/Reason For Consult Consulting Physician/Specialty*: yolie cox md / telenephrology Reason for Consult*: [employer] Requesting Physician: Dr Mason Attending Physician: Lorelei Mason MD Primary Care Provider: Sejal Hazel DO History of Present Illness History of Present Illness Lela Crespo is a 69 year old female with a past history of chronic anemia requiring blood transfusion, hypertension, COPD, diastolic CHF. she was admitted on 12/12/24 with several days of worsening pain over her left knee and shortness of breath. Patient was noted to be tachypneic and tachycardic on arrival and mildly hypotensive. CTA ruled out a PE. There was no DVT on lower extremity Doppler. Chest x-ray showed changes consistent with pulmonary edema. Patient started diuresis with Lasix. She was noted to have elevated LFTs. ast, alt and ldh all over 1999. her Echo revleaed grade 2/4 diastolic dysfunction and new low EF of 30 % on admission she was in [employer]. baseline cr is 1 mg/dl. on 12/12 her cr was 1.3 mg/dl, on 12/13 cr was 1.8 mg/dl and today cr is 2.7 mg/dl Liver ultrasound showed borderline hepatomegaly, prior cholecystectomy and no obvious dilatation of the biliary ducts. Pancreas was unable to be visualized due to obscuring bowel gas. MRI revealed fatty liver. imaging revealed no hydronephrosis. renal consult called for [employer], and poor uop Review of Systems Narrative: The patient states that she has been weak for the last couple weeks. The patient states she has had knee pains denies taking NSAIDs. Patient has some confusion. The patient states she has seen a urologist over 40 years ago when she had a hysterectomy and then she had a problem with her kidney. The patient had nausea not eating well no headaches no chest pain. Positive shortness of breath no diarrhea no constipation no significant edema. Medications/Allergies Home Medications ?Medication ?Instructions ?Recorded ?Confirmed ?Last Taken ?Type citalopram 20 mg tablet (Celexa) 20 mg PO DAILY 07/11/24 12/12/24 12/11/24 History hydroxyzine HCl 50 mg tablet 100 mg PO BEDTIME 07/11/24 12/12/24 12/11/24 History clopidogrel 75 mg tablet (Plavix) 75 mg PO DAILY 11/17/24 12/12/24 12/11/24 History furosemide 40 mg tablet 40 mg PO DAILY #7 tabs 11/30/24 12/12/24 12/11/24 Rx albuterol sulfate 2.5 mg/3 mL See Rx Instructions .Route .COMPLEX 12/12/24 12/12/24 Unknown History (0.083 %) solution for nebulization cetirizine 10 mg tablet (Zyrtec) 10 mg PO DAILY 12/12/24 12/12/24 12/11/24 History fluticasone 500 mcg-salmeterol 50 1 ea inhalation BID 12/12/24 12/12/24 Unknown History mcg/dose blistr powdr for inhalation (Ailin Inhandrew) fluticasone propionate 50 1 spray intranasal BID 12/12/24 12/12/24 12/11/24 History mcg/actuation nasal spray,suspension tiotropium bromide 18 mcg capsule See Rx Instructions .Route .COMPLEX 12/12/24 12/12/24 12/11/24 History with inhalation device (Spiriva with HandiHaler) tramadol 50 mg tablet 50 mg PO TID 12/12/24 12/12/24 12/11/24 History Allergies Allergy/AdvReac Type Severity Reaction Status Date / Time Cephalosporins Allergy Unknown Verified 11/17/24 14:50 Penicillins Allergy ALGY-Anaphy Verified 11/17/24 14:50 laxis Sulfa (Sulfonamide Allergy Unknown Verified 11/17/24 14:50 Antibiotics) Current Medications Generic Name Dose Route Start Last Admin Trade Name Freq PRN Reason Stop Dose Admin Albuterol/Ipratropium 3 ml 12/12/24 20:00 12/14/24 07:57 Ipratropium-Albuterol 3 Ml Neb INHALATION 3 ml Q6H.RESP SABINO Administration Budesonide 0.5 mg 12/13/24 20:00 12/14/24 07:57 Budesonide 0.5 Mg/2 Ml Neb INHALATION 0.5 mg BID.RESPIRATORY SABINO Administration Citalopram Hydrobromide 20 mg 12/13/24 09:00 12/14/24 07:15 Citalopram 20 Mg Tablet PO 20 mg DAILY SABINO Administration Clopidogrel Bisulfate 75 mg 12/13/24 09:00 12/14/24 07:14 Clopidogrel 75 Mg Tablet PO 75 mg DAILY SABINO Administration Diclofenac Sodium 1 applic 12/13/24 13:00 12/14/24 07:16 Diclofenac 1% Topical Gel 100 Gm TOPICAL Not Given QID SABINO Enoxaparin Sodium 30 mg 12/12/24 21:00 12/13/24 20:22 Enoxaparin 30 Mg/0.3 Ml Syringe SUBCUT 30 mg Q24H SABINO Administration Hydromorphone HCl 0.5 mg 12/13/24 11:32 12/14/24 10:08 Hydromorphone 0.5 Mg/0.5 Ml Inj IVP 0.5 mg Q4H PRN Administration PAIN Hydroxyzine Pamoate 100 mg 12/12/24 21:00 12/13/24 20:22 Hydroxyzine 25 Mg Capsule PO 100 mg BEDTIME SABINO Administration Ciprofloxacin/Dextrose 400 mg in 200 mls @ 200 mls/hr 12/13/24 11:30 12/14/24 11:47 Cipro IV 200 mls/hr Q12H [facility] Administration Protocol Metronidazole 500 mg in 100 mls @ 100 mls/hr 12/13/24 11:30 12/14/24 04:56 Flagyl Iv IV Infused Q8H [facility] Infusion Protocol Sodium Chloride 1,000 mls @ 50 mls/hr 12/14/24 11:30 12/14/24 11:52 Sodium Chloride 0.9% IV 50 mls/hr .Q20H SABINO Administration Methylprednisolone Sodium Succinate 40 mg 12/13/24 11:30 12/14/24 03:07 Methylprednisolone Sod Succ 40 Mg/Ml Inj IVP 40 mg Q8H SABINO Administration Ondansetron HCl 4 mg 12/12/24 19:39 12/14/24 07:14 Ondansetron 2 Mg/Ml Sdv 2 Ml IVP 4 mg Q8H PRN Administration vomiting, or N/V if npo Pantoprazole Sodium 40 mg 12/13/24 09:00 12/14/24 07:[address] 40 Mg Tablet PO 40 mg DAILY SABINO Administration Tramadol HCl 50 mg 12/12/24 17:04 12/13/24 20:30 Tramadol 50 Mg Tablet PO 50 mg TID PRN Administration pain PFSH Acute PFSH: Medical History CVA (cerebral vascular accident) Hypertension Surgical History H/O knee surgery Social History Smoking and tobacco/nicotine status: current every day tobacco/nicotine user Vitals/I&O/Wt Last Vital Signs Temp 97.3 F L 12/14/24 08:00 Pulse 92 12/14/24 08:00 Resp 16 12/14/24 08:00 BP 105/82 12/14/24 08:00 Pulse Ox 97 12/14/24 08:00 O2 Del Method Room Air 12/14/24 08:00 O2 Flow Rate 2 12/13/24 13:33 12/13/24 12/14/24 12/14/24 22:59 06:59 14:59 Intake Total 320 / 640 300 / 940 240 / 240 Output Total 80 / 80 Balance 320 / 640 300 / 940 160 / 160 Weight last 48 hrs Weight 92.76 kg Weight 92.76 kg Weight 93.621 kg Weight 94.619 kg Weight 94.574 kg Physical Exam Narrative: The patient is sitting up comfortably. Vital signs noted. Patient is oxygenating well on room air. HEENT normocephalic atraumatic. She is not icteric. Neck is supple without JVP. Lungs have some basal dullness. Heart regular positive S1-S2. Soft positive bowel sounds. Extremities no edema. Neuro awake alert oriented x 2+ follows commands and interactive. Data 12/14/24 05:17 12/14/24 05:17 Micro: Microbiology 12/12/24 10:42 Blood Culture - Preliminary Blood NEGATIVE TO DATE 12/12/24 09:23 Blood Culture - Preliminary Blood NEGATIVE TO DATE A&P Assessment and plan (1) Acute kidney injury: Plan 69-year-old lady history of hypertension COPD obesity anemia and heart failure preserved EF. Patient presents with weakness new increased LFTs, decreased EF of 30%, chronic diastolic dysfunction. Patient also has acute kidney injury and increased anion gap metabolic acidosis. 1. Acute kidney injury will send urine electrolytes. The patient received furosemide yesterday. Differential diagnosis is prerenal azotemia versus ATN versus cardiorenal syndrome versus hepatorenal syndrome. At this time blood pressure stable. Can use midodrine for hypotension. Patient is getting IV fluids from medicine. Will check blood gas. Would consider changing fluids to bicarbonate as patient has an increase in negative metabolic acidosis most likely from poor perfusion. Will check lactic acid. Also renal failure, requesting metabolic acidosis. Patient salicylate levels was negative. -Viral induced or Q ischemis or takostsubo casrdiomyopthy agree w/ amyloid evaluation Mild hyponatremia will check electrolytes and free water restrict. Patient does not have hydronephrosis on any imaging. Normal TSH. Will repeat CPK. Renal dose medications. Monitor urine output monitor chemistries. The patient was seen and examined using audiovisual cart with the aid of a nurse. The patient consented to telehealth. Will follow the patient along with you. Chart reviewed. Regarding anemia send iron studies B12 folate and agree with sending SPEP and immunofixation. Hospitalist was called with these recommendations. PDMP PDMP Reviewed: Not Reviewed Consult Attestations Medical Necessity Statement: Acute kidney injury, increased LFTs, new acute systolic heart failure in the setting of chronic diastolic dysfunction. Increased anion gap metabolic acidosis, mild hyponatremia Time Spent in Patient Care: Greater than 35 minutes (>than 50% of time spent in counselling and/or direct pt care on unit). Coding Level of Care Code Acute Code for [facility] Diagnoses Acute kidney injury N17.9
[2024-12-14 12:55] LABS: Complement C3 58 mg/dL (90-180)
[2024-12-14 13:15] LABS: Hepatitis B Core AB, Total Non-Reactive (Nonreactive); Hepatitis B Surface AB 8.5 (11.5-1000); Hepatitis B Surface Antigen Non-Reactive (Nonreactive)
[2024-12-14] MEDS: sodium bicarbonate 150 MEQ in dextrose 5% 1,000 ML 60 MEQ IV (13:20)
[2024-12-14] MEDS: metroNIDAZOLE IV 500 MG/100 ML PREMIX 200 MG IV (13:21)
[2024-12-14 13:24] LABS: Blood Gas Sample Site LR; Blood Gas Sample Type VENOUS
[2024-12-14 13:25] LABS: Base Excess VBG -12.2 mmol/L (-3.0-3.0); Blood Gas Drawn By MONRO; Blood Gas Operator Identificat MONRO; HCO3 VBG 14.5 mmol/L (24-28); Oxygen Device RA; PCO2 VBG 35.1 mmHg (41-51); PO2 VBG 44.7 mmHg (25-40); pH VBG 7.23 (7.32-7.42)
[2024-12-14 13:36] LABS: Hepatitis C Virus Antibody Non-Reactive (Nonreactive)
--- NOTE | 2024-12-14 13:39 | PM.CONSULT ---
Providers/Reason For Consult Consulting Physician/Specialty*: CHINTAN Marina MD/ cardiology Reason for Consult*: patient with congestive heart failure and drop in the LV ejection fraction Requesting Physician: Dr Netta Mason Attending Physician: Lorelei Mason MD Primary Care Provider: Sejal Hazel DO History of Present Illness History of Present Illness Lela Crespo is a 69 year old female is admitted to hospital through the emergency room, where she presented with complaints of progressive shortness of breath and a cough. Bilateral lower extremity swelling. She was found to have features of congestive heart failure and echocardiograph evidence of cardiomyopathy with an ejection fraction around 30%. She also was found to have markedly elevated liver enzymes and abnormal kidney functions. Cardiology consult is requested for further cardiac evaluation and recommendations. This patient has a history of hypertension, chronic anemia, diastolic heart failure and COPD. She required multiple blood transfusions in the past. She also has a history of CVA for which she is taking Plavix. Apparently she has been in her baseline state of health up until a week ago when she started getting progressively short of breath. Prior to this, she been having a cough for a week or so. Denies any fever or chills. No abdominal pain or dysuria. No significant chest pain, palpitations or syncopal episode. She also has been noticing swelling of the lower extremities for the last more than a week. She been having episodes of dizziness for a while. Most of her symptoms were thought to be related to the anemia. Her dizziness, weakness and shortness of breath usually improves with the blood transfusion. Her LV ejection fraction was found to be in the normal range in June of last year. But the echocardiogram during this hospital admission revealed ejection fraction around 30%. She has no previous history of coronary coronary disease or myocardial infarction. She had episodes of decompensated diastolic heart failure thought to be related to the severe anemia. The etiology of anemia has not been found out yet. She has no relevant family history. Remote history of smoking, less than half pack a day for 15 years or so. No alcohol abuse or any other substance abuse. Review of Systems Narrative: CONSTITUTIONAL: No fever or chills. EYES: No blurring of vision or other visual disturbances lately. ENT: No hoarseness of voice, auditory disturbances or sore throat. CARDIOVASCULAR: As mentioned above. RESPIRATORY: History of COPD GASTROINTESTINAL: No hematemesis or melena. GENITOURINARY: No dysuria or hematuria. INTEGUMENTARY: No skin rashes or history of skin cancer. NEURO: History of CVA PSYCHIATRIC: No history of psychosis or major depression. HEMATOLOGIC: Chronic anemia requiring multiple blood transfusion ENDOCRINE: No history of polyuria or polydipsia. MUSCULOSKELETAL: No recent joint pain or swelling. ALLERGY/IMMUNOLOGY: As mentioned above. Medications/Allergies Home Medications ?Medication ?Instructions ?Recorded ?Confirmed ?Last Taken ?Type citalopram 20 mg tablet (Celexa) 20 mg PO DAILY 07/11/24 12/12/24 12/11/24 History hydroxyzine HCl 50 mg tablet 100 mg PO BEDTIME 07/11/24 12/12/24 12/11/24 History clopidogrel 75 mg tablet (Plavix) 75 mg PO DAILY 11/17/24 12/12/24 12/11/24 History furosemide 40 mg tablet 40 mg PO DAILY #7 tabs 11/30/24 12/12/24 12/11/24 Rx albuterol sulfate 2.5 mg/3 mL See Rx Instructions .Route .COMPLEX 12/12/24 12/12/24 Unknown History (0.083 %) solution for nebulization cetirizine 10 mg tablet (Zyrtec) 10 mg PO DAILY 12/12/24 12/12/24 12/11/24 History fluticasone 500 mcg-salmeterol 50 1 ea inhalation BID 12/12/24 12/12/24 Unknown History mcg/dose blistr powdr for inhalation (Sumanthela Inhub) fluticasone propionate 50 1 spray intranasal BID 12/12/24 12/12/24 12/11/24 History mcg/actuation nasal spray,suspension tiotropium bromide 18 mcg capsule See Rx Instructions .Route .COMPLEX 12/12/24 12/12/24 12/11/24 History with inhalation device (Spiriva with HandiHaler) tramadol 50 mg tablet 50 mg PO TID 12/12/24 12/12/24 12/11/24 History Allergies Allergy/AdvReac Type Severity Reaction Status Date / Time Cephalosporins Allergy Unknown Verified 11/17/24 14:50 Penicillins Allergy ALGY-Anaphy Verified 11/17/24 14:50 laxis Sulfa (Sulfonamide Allergy Unknown Verified 11/17/24 14:50 Antibiotics) Current Medications Generic Name Dose Route Start Last Admin Trade Name Freq PRN Reason Stop Dose Admin Albuterol/Ipratropium 3 ml 12/12/24 20:00 12/14/24 07:57 Ipratropium-Albuterol 3 Ml Neb INHALATION 3 ml Q6H.RESP SABINO Administration Budesonide 0.5 mg 12/13/24 20:00 12/14/24 07:57 Budesonide 0.5 Mg/2 Ml Neb INHALATION 0.5 mg BID.RESPIRATORY SABINO Administration Citalopram Hydrobromide 20 mg 12/13/24 09:00 12/14/24 07:15 Citalopram 20 Mg Tablet PO 20 mg DAILY SABINO Administration Clopidogrel Bisulfate 75 mg 12/13/24 09:00 12/14/24 07:14 Clopidogrel 75 Mg Tablet PO 75 mg DAILY SABINO Administration Diclofenac Sodium 1 applic 12/13/24 13:00 12/14/24 07:16 Diclofenac 1% Topical Gel 100 Gm TOPICAL Not Given QID SABINO Enoxaparin Sodium 30 mg 12/12/24 21:00 12/13/24 20:22 Enoxaparin 30 Mg/0.3 Ml Syringe SUBCUT 30 mg Q24H SABINO Administration Hydromorphone HCl 0.5 mg 12/13/24 11:32 12/14/24 10:08 Hydromorphone 0.5 Mg/0.5 Ml Inj IVP 0.5 mg Q4H PRN Administration PAIN Hydroxyzine Pamoate 100 mg 12/12/24 21:00 12/13/24 20:22 Hydroxyzine 25 Mg Capsule PO 100 mg BEDTIME SABINO Administration Ciprofloxacin/Dextrose 400 mg in 200 mls @ 200 mls/hr 12/13/24 11:30 12/14/24 11:47 Cipro IV 200 mls/hr Q12H SABINO Administration Protocol Metronidazole 500 mg in 100 mls @ 100 mls/hr 12/13/24 11:30 12/14/24 13:21 Flagyl Iv IV 200 mls/hr Q8H SABINO Administration Protocol Sodium Bicarbonate 150 meq/ 1,150 mls @ 60 mls/hr 12/14/24 12:30 12/14/24 13:20 Dextrose IV 60 mls/hr .[id number] SABINO Administration Methylprednisolone Sodium Succinate 40 mg 12/13/24 11:30 12/14/24 13:21 Methylprednisolone Sod Succ 40 Mg/Ml Inj IVP 40 mg Q8H SABINO Administration Ondansetron HCl 4 mg 12/12/24 19:39 12/14/24 07:14 Ondansetron 2 Mg/Ml Sdv 2 Ml IVP 4 mg Q8H PRN Administration vomiting, or N/V if npo Pantoprazole Sodium 40 mg 12/13/24 09:00 12/14/24 07:[address] 40 Mg Tablet PO 40 mg DAILY SABINO Administration Tramadol HCl 50 mg 12/12/24 17:04 12/13/24 20:30 Tramadol 50 Mg Tablet PO 50 mg TID PRN Administration pain PFSH Acute PFSH: Medical History CVA (cerebral vascular accident) Hypertension Surgical History H/O knee surgery Social History Smoking and tobacco/nicotine status: current every day tobacco/nicotine user Vitals/I&O/Wt Last Vital Signs Temp 97.7 F 12/14/24 12:00 Pulse 95 12/14/24 12:00 Resp 18 12/14/24 12:00 BP 122/52 12/14/24 12:00 Pulse Ox 96 12/14/24 12:00 O2 Del Method Room Air 12/14/24 12:00 O2 Flow Rate 2 12/13/24 13:33 12/13/24 12/14/24 12/14/24 22:59 06:59 14:59 Intake Total 320 / 640 300 / 940 360 / 360 Output Total 80 / 80 Balance 320 / 640 300 / 940 280 / 280 Weight last 48 hrs Weight 204 lb 8 oz Weight 204 lb 8 oz Weight 206 lb 6.4 oz Weight 208 lb 9.6 oz Weight 208 lb 8 oz Physical Exam Narrative: GENERAL: The patient is alert and oriented times three. Not in any acute distress. HEENT: No significant pallor, icterus or lymphadenopathy.Oral cavity: There are no mucous membrane lesions. NECK: Trachea appears to be central. No masses noted. No JVD or thyromegaly appreciated. RESPIRATORY: Chest is symmetrical. No intercostals muscle retraction or any accessory muscle activation. There is no chest wall tenderness. Breath sounds are heard bilaterally. Bilateral expiratory wheezing. No evidence of consolidation. BREASTS: Deferred. HEART: The heart sounds are normal. No S3 or S4. No significant murmurs. No pericardial rub ABDOMEN: No vessel pulsations or distention. No tenderness. No organomegaly appreciated. Bowel sounds are normally heard. : Deferred. RECTAL: Deferred. LYMPHATIC: No lymphadenopathy noted in the neck. EXTREMITIES: No edema or cyanosis. No clubbing. MUSCULOSKELETAL: No acute joint deformities or swelling SKIN: There are no significant rashes or ecchymosis NEUROPSYCHIATRIC: The patient is alert and oriented x3. Appears to be in a good mood. No tremors or rigidity noted. Data 12/14/24 05:17 12/14/24 05:17 Other Labs: Laboratory Last Values WBC 13.19 10^3/uL (3.29-11.43) H 12/14/24 05:17 RBC 4.53 10^6/uL (3.85-5.65) 12/14/24 05:17 Hgb 9.70 g/dL (11.27-16.99) L 12/14/24 05:17 Hct 33.7 % (36-47) L 12/14/24 05:17 MCV 74.4 fl (85-98) L 12/14/24 05:17 MCH 21.4 pg (27-33) L 12/14/24 05:17 MCHC 28.8 g/dL (30-55) L 12/14/24 05:17 RDW 22.5 % (12.1-15.1) H 12/14/24 05:17 Plt Count 299 10^3/cmm (157-399) 12/14/24 05:17 MPV 9.9 fL (7.4-10.4) 12/14/24 05:17 Neut % (Auto) 91.0 % 12/14/24 05:17 Lymph % (Auto) 1.5 % 12/14/24 05:17 Crisp % (Auto) 5.2 % 12/14/24 05:17 Eos % (Auto) 0.0 % 12/14/24 05:17 Baso % (Auto) 0.2 % 12/14/24 05:17 Neut # (Auto) 12.00 10^3/uL (1.8-7.7) H 12/14/24 05:17 Lymph # (Auto) 0.2 10^3/uL (0.8-4.8) L 12/14/24 05:17 Crisp # (Auto) 0.7 10^3/uL (0.2-0.9) 12/14/24 05:17 Eos # (Auto) 0.0 10^3/uL (0.0-0.8) 12/14/24 05:17 Baso # (Auto) 0.0 10^3/uL (0.0-0.1) 12/14/24 05:17 Nucleated RBC % (auto) 2.4 % 12/14/24 05:17 Nucleated RBCs # 0.3 /100WBC 12/14/24 05:17 Peripher Smr Path Cons Sent for review 12/13/24 05:23 PT 25.90 SECONDS (12.1-14.9) H 12/14/24 05:17 INR 2.22 (0.8-1.2) H 12/14/24 05:17 Specimen Type Venous 12/14/24 12:25 Sample Site Lr 12/14/24 12:25 Arnaldo Test Na 12/14/24 12:25 VBG pH 7.23 (7.32-7.42) L 12/14/24 12:25 VBG pCO2 35.1 mmHg (41-51) L 12/14/24 12:25 VBG pO2 44.7 mmHg (25-40) H 12/14/24 12:25 VBG HCO3 14.5 mmol/L (24-28) L 12/14/24 12:25 VBG Base Excess -12.2 mmol/L (-3.0-3.0) L 12/14/24 12:25 O2 Delivery Device Ra 12/14/24 12:25 FiO2 21.0 % 12/14/24 12:25 Specimen Drawn By Jonathan 12/14/24 12:25 Pressure Testing Technician ID Jonathan 12/14/24 12:25 Sodium 133 mmol/L (136-145) L 12/14/24 05:17 Potassium 4.9 mmol/L (3.5-5.1) 12/14/24 05:17 Chloride 94 mmol/L (98-107) L 12/14/24 05:17 Carbon Dioxide 16 mmol/L (22-29) L 12/14/24 05:17 Anion Gap 27.9 (5-19) H 12/14/24 05:17 BUN 90 mg/dL (8-23) H* 12/14/24 05:17 Creatinine 2.7 mg/dL (0.5-0.9) H 12/14/24 05:17 GFR Calculation 17.5 mL/min (90-130) L 12/14/24 05:17 Glucose 193 mg/dL (65-115) H 12/14/24 05:17 Calculated Osmolality 309 mOsm/kg (285-295) H 12/14/24 05:17 Lactic Acid 2.9 mmol/L (0.5-2.2) H 12/12/24 11:24 Lactic Acid (Sepsis) 2.7 mmol/L (0.5-2.2) H 12/12/24 14:30 Calcium 7.9 mg/dL (8.5-10.5) L 12/14/24 05:17 Total Bilirubin 2.3 mg/dL (0.15-1.2) H 12/14/24 05:17 GGT 180 U/L (5-36) H 12/13/24 05:29 AST 2426 U/L (0-32) H 12/14/24 05:17 ALT 2450 U/L (0-33) H 12/14/24 05:17 Alkaline Phosphatase 235 U/L (35-105) H 12/14/24 05:17 Ammonia 19 umol/L (11-51) 12/13/24 13:37 Lactate Dehydrogenase 2186 U/L (135-214) H 12/13/24 05:29 Creatine Kinase 108 U/L (26-192) 12/13/24 13:37 Troponin T Baseline 56 ng/L (0-10) H 12/12/24 09:23 Troponin T 120 Minute 48.04 ng/L (0-10) H 12/12/24 11:24 Delta Troponin T -7.96 ABS# (0-10) L 12/12/24 11:24 Troponin T Hi Sens 6Hr 54.56 ng/L (0-10) H 12/12/24 14:30 Troponin T Hi Sens 6Hr Delta -1.44 ng/L (0-12) L 12/12/24 14:30 C-Reactive Protein 116.8 mg/L (0.0-4.9) H 12/12/24 09:23 NT-Pro-B Natriuret Pep 5934 pg/mL (0-125) H 12/12/24 09:23 Total Protein 6.5 g/dL (6.6-8.7) L 12/14/24 05:17 Albumin 3.6 g/dL (3.5-5.2) 12/14/24 05:17 Globulin 2.9 g/dL (1.3-4.6) 12/14/24 05: Lipase 25 U/L (13-60) 12/12/24 09:23 TSH 2.79 uIU/mL (0.27-4.20) 12/12/24 14:30 Urine Color Yellow (Yellow) 12/12/24 13:57 Urine Appearance Clear (CLEAR) 12/12/24 13:57 Urine pH 5.0 (5-7) 12/12/24 13:57 Ur Specific [place] 1.023 (1.005-1.030) 12/12/24 13:57 Urine Protein Trace (Negative) A 12/12/24 13:57 Urine Glucose (UA) Negative (Normal) 12/12/24 13:57 Urine Ketones Negative (Negative) 12/12/24 13:57 Urine Blood Negative (Negative) 12/12/24 13:57 Urine Nitrate Negative (Negative) 12/12/24 13:57 Urine Bilirubin Negative (Negative) 12/12/24 13:57 Urine Urobilinogen 1.0 mg/dL (Negative) 12/12/24 13:57 Ur Leukocyte Esterase 1+ (Negative) A 12/12/24 13:57 Urine RBC 0-2 /hpf (0-2) 12/12/24 13:57 Urine WBC 0-5 /hpf (0-5) 12/12/24 13:57 Ur Squamous Epith Cells 0-5 /hpf (0-5) 12/12/24 13:57 Amorphous Sediment Not Reportable 12/12/24 13:57 Urine Bacteria 1+ /hpf (NONE) H 12/12/24 13:57 Hyaline Casts 21.48 /lpf 12/12/24 13:57 Salicylates < 0.3 mg/dL (3-10) L 12/12/24 09:23 Acetaminophen < 5.0 ug/mL (10-30) L 12/12/24 09:23 Complement C3 58 mg/dL (90-180) L 12/13/24 17:28 Complement C4 11 mg/dL (10-40) 12/13/24 17:28 Adenovirus (PCR) Not detected (NOT DETECT) 12/13/24 16:24 C. pneumoniae DNA (PCR) Not detected (NOT DETECT) 12/13/24 16:24 Coronavirus 229E (PCR) Not detected (NOT DETECT) 12/13/24 16:24 Hepatitis A IgM Ab Non-reactive (Nonreactive) 12/12/24 09:23 Hep Bs Antigen Non-reactive (Nonreactive) 12/13/24 17:28 Hep Bs Antibody 8.5 (11.5-1000) L 12/13/24 17:28 Hep B Core Total Ab Non-reactive (Nonreactive) 12/13/24 17:28 Hepatitis C Antibody Non-reactive (Nonreactive) 12/13/24 17:28 HIV 1&2 Ab & HIV 1 Ag Non-reactive (Non-Reactiv) 12/13/24 05:29 HIV 1&2 Antibody Non-reactive (Non-Reactiv) 12/13/24 05:29 Human Metapneumovir PCR Not detected (NOT DETECT) 12/13/24 16:24 Influenza A (H1) PCR Not detected (NOT DETECT) 12/13/24 16:24 Influ A (H1/09) PCR Not detected (NOT DETECT) 12/13/24 16:24 Influenza A (H3) PCR Not detected (NOT DETECT) 12/13/24 16:24 Influenza Type A (PCR) Not detected (NOT DETECT) 12/13/24 16:24 Influenza Type B (PCR) Not detected (NOT DETECT) 12/13/24 16:24 M. pneumoniae (PCR) Not detected (NOT DETECT) 12/13/24 16:24 Parainfluenza 1 (PCR) Not detected (NOT DETECT) 12/13/24 16:24 Parainfluenza 2 (PCR) Not detected (NOT DETECT) 12/13/24 16:24 Parainfluenza 3 (PCR) Not detected (NOT DETECT) 12/13/24 16:24 Parainfluenza 4 (PCR) Not detected (NOT DETECT) 12/13/24 16:24 RSV Type A (PCR) Not detected (NOT DETECT) 12/13/24 16:24 RSV Type B (PCR) Not detected (NOT DETECT) 12/13/24 16:24 Entero/Rhino (PCR) Detected (NOT DETECT) A 12/13/24 16:24 SARS-CoV-2 (PCR) Not detected (NOT DETECT) 12/13/24 16:24 TREY, Poly Interpret Negative 12/13/24 05:23 Micro: Microbiology 12/12/24 10:42 Blood Culture - Preliminary Blood NEGATIVE TO DATE 12/12/24 09:23 Blood Culture - Preliminary Blood NEGATIVE TO DATE EKG 1: My Interpretation: The EKG showed a sinus tachycardia with a rate of 108 bpm. Diffuse nonspecific T wave changes. Nonspecific ST changes in the leads V2 and V3 Other data: Echocardiogram on 12/13/2024 Severe global hypokinesis with severely reduced LV systolic function. Estimated LVEF 30%. Moderately dilated left atrium with moderate mitral regurgitation. Thickened calcified aortic valve with reduced opening. Mild aortic regurgitation and moderate aortic stenosis. Elevated right heart and pulmonary pressure 40-45 mmHg. Compared to last echo report (07/21), LVEF has significantly reduced. Chest CTA 1. Technically limited but negative CT angiogram of the chest. No evidence of acute pulmonary embolism to major branches of the pulmonary vascular tree. 2. Cardiomegaly with evidence of right-sided cardiac decompensation and mild CHF. A&P Assessment and plan (1) New onset of congestive heart failure: The heart failure seems to be getting compensated. Patient seems to have significant wheezing in the lung. Need to optimize a bronchodilator treatment. Considering the possibility of a low output failure, it might be appropriate to try IV Dobutrex for 48 hours. I may start with the 2.5 mics per KG per minute and go to 5 mics per KG per minute (2) Cardiomyopathy: The etiology of the cardiomyopathy is not clear. Possibility of underlying coronary artery disease causes cannot be excluded. To further evaluate , a myocardial perfusion imaging would be appropriate (3) Acute kidney injury: The etiology is not clear. Possibility of hypotension induced hepatorenal injury is a consideration. Possibility of sepsis causing this also need to be considered (4) Transaminitis: As mentioned above. Ischemic liver injury versus infective etiology are considerations. (5) Parainfluenza: Clinically seems to be improving. Management as per the primary (6) Iron deficiency: He is on iron supplements. (7) Anemia requiring transfusions: Hemoglobin seems to be stable. Plan Consider Myocardial perfusion imaging to further evaluate the coronary status, once the kidney function and the liver functions are stable Optimize the bronchodilator therapy Based on the clinical progress on the results of the above, further recommendations will be made. Thank you for the opportunity to evaluate this patient and make these recommendations PDMP PDMP Reviewed: Not Reviewed Consult Attestations Medical Necessity Statement: Referred to the primary Coding Level of Care Code 51266 Diagnoses New onset of congestive heart failure I50.9 Cardiomyopathy, unspecified type I42.9 Cardiomyopathy type: unspecified Acute kidney injury N17.9 Transaminitis R74.01 Parainfluenza B34.8 Iron deficiency E61.1 Anemia requiring transfusions D64.9
[2024-12-14 13:43] LABS: Ferritin 86 ng/mL (15-150); Iron 13 ug/dL (37-145)
[2024-12-14 17:51] LABS: Bilirubin Urine 1+ (Negative); Blood Urine Negative (Negative); Glucose Urine UA Negative (Normal); Ketones Urine Negative (Negative); Leukocyte Esterase Urine 2+ (Negative); Nitrate Urine Negative (Negative); Protein Urine 1+ (Negative); Specific Gravity, Urine 1.026 (1.005-1.030); Urine Appearance Cloudy (CLEAR); Urine Color Dark Yellow (Yellow)
[2024-12-14 17:56] LABS: Bacteria Urine 2+ /hpf; Hyaline Casts Urine 36.39 /lpf; RBC Urine 0-2 /hpf (0-2); Squamous Epithelial Cell Urine 21-50 /hpf (0-5); WBC Urine 51-100 /hpf (0-5)
[2024-12-14 18:11] LABS: Creatinine Urine, Random 91 mg/dL (28-217); Microalbumin Random Urine 25 ug/dL (0-20); Potassium, Radom Urine 49 mmol/L; Urine Creatinine 93 mg/dL (28-217)
[2024-12-14 18:12] LABS: Microalbum Creatinine Ratio Ur 275 mg/dL (0-20); Urine Protein Random 46 mg/dL; Urine Random Chloride 10 mmol/L
[2024-12-14 18:44] LABS: Urine Random Sodium < 10 mmol/L
[2024-12-14] MEDS: hyDROXYzine 25 mg Capsule 100 MG PO (20:34)
[2024-12-14] MEDS: enoxaparin 30 mg/0.3 mL Syringe SUBCUT (20:35)
[2024-12-14] MEDS: DOBUTamine drip 500 MG/250 ML PREMIX 7 MG IV (23:08)
[2024-12-15] VITALS (134 sets, daily range): BP systolic 67–127; BP diastolic 34–93; PULSE 89–105; RESP 6–22; TEMP 35.5–37.2; O2SAT 74–98
[2024-12-15] MEDS: ipratropium-albuterol 3 mL Neb INHALATION ×4 (01:51→20:45)
[2024-12-15] MEDS: HYDROmorphone 0.5 MG/0.5 ML INJ IVP ×3 (03:18→20:11)
[2024-12-15] MEDS: methylPREDNISolone sod succ 40 mg/mL INJ IVP ×3 (03:18→20:09)
[2024-12-15 07:54] LABS: Smith Antibody <1.0 NEG AI (<1.0 NEG)
[2024-12-15] MEDS: clopidogrel 75 mg Tablet PO ×2 (08:04→08:05)
[2024-12-15] MEDS: pantoprazole DR 40 mg Tablet PO ×2 (08:04→08:05)
[2024-12-15] MEDS: citalopram 20 mg Tablet PO ×2 (08:04→08:05)
[2024-12-15 08:43] LABS: Basophils % 0.2 %; Hematocrit 32.7 % (36-47); Lymphocytes # 0.3 10^3/uL (0.8-4.8); Lymphocytes % 1.5 %; Mean Corpuscular HGB Conc 28.7 g/dL (30-55); Mean Corpuscular Hemoglobin 21.3 pg (27-33); Mean Platelet Volume 9.9 fL (7.4-10.4); Monocytes # 1.3 10^3/uL (0.2-0.9); Monocytes % 7.3 %; Neutrophils # 16.21 10^3/uL (1.8-7.7); Neutrophils % 88.3 %; Nucleated Red Blood Cells # 0.5 /100WBC; Nucleated Red Blood Cells % 2.9 %; Platelet Count 354 10^3/cmm (157-399); Red Blood Count 4.42 10^6/uL (3.85-5.65); Red Cell Distribution Width 22.6 % (12.1-15.1); White Blood Count 18.34 10^3/uL (3.29-11.43)
[2024-12-15 08:55] LABS: EBV IGG TEST >750.00 U/mL
--- NOTE | 2024-12-15 09:05 | PM.PN ---
Subjective Subjective: The patient was seen and examined. The patient has no shortness of breath at rest. The patient has significant edema. Patient is oliguric. Episodes of confusion. No nausea vomiting or diarrhea. Positive leg pains. Anxious and concerned about her situation. Medications: Reviewed: Yes Medication Review Details: Current Medications Albuterol Sulfate (Albuterol 2.5 Mg/3 Ml Neb) 2.5 mg INHALATION Q4H PRN PRN Reason: SHORTNESS OF BREATH Albuterol/Ipratropium (Ipratropium-Albuterol 3 Ml Neb) 3 ml INHALATION Q6H.RESP SABINO Last Admin: 12/15/24 09:05 Dose: 3 ml Budesonide (Budesonide 0.5 Mg/2 Ml Neb) 0.5 mg INHALATION BID.RESPIRATORY [facility] Last Admin: 12/15/24 09:06 Dose: 0.5 mg Citalopram Hydrobromide (Citalopram 20 Mg Tablet) 20 mg PO DAILY [facility] Last Admin: 12/15/24 08:05 Dose: 20 mg Clopidogrel Bisulfate (Clopidogrel 75 Mg Tablet) 75 mg PO DAILY [facility] Last Admin: 12/15/24 08:05 Dose: 75 mg Diclofenac Sodium (Diclofenac 1% Topical Gel 100 Gm) 1 applic TOPICAL QID [facility] Last Admin: 12/15/24 08:04 Dose: Not Given Enoxaparin Sodium (Enoxaparin 30 Mg/0.3 Ml Syringe) 30 mg SUBCUT Q24H [facility] Last Admin: 12/14/24 20:35 Dose: 30 mg Hydromorphone HCl (Hydromorphone 0.5 Mg/0.5 Ml Inj) 0.5 mg IVP Q4H PRN PRN Reason: PAIN Last Admin: 12/15/24 03:18 Dose: 0.5 mg Hydroxyzine Pamoate (Hydroxyzine 25 Mg Capsule) 100 mg PO BEDTIME [facility] Last Admin: 12/14/24 20:34 Dose: 100 mg Sodium Bicarbonate 150 meq/ (Dextrose) 1,150 mls @ 60 mls/hr IV .[id number] [facility] Last Titration: 12/15/24 09:05 Dose: 0 mls/hr Dobutamine HCl/Dextrose (Dobutamine Drip) 500 mg in 250 mls @ 6.957 mls/hr IV .Q24H [facility] Last Admin: 12/14/24 23:08 Dose: 2.52 mcg/kg/min, 7 mls/hr Methylprednisolone Sodium Succinate (Methylprednisolone Sod Succ 40 Mg/Ml Inj) 40 mg IVP Q8H [facility] Last Admin: 12/15/24 03:18 Dose: 40 mg Naloxone HCl (Naloxone 0.4 Mg/Ml Sdv) 0.1 mg IVP Q2M PRN PRN Reason: OPIATERV Ondansetron HCl (Ondansetron 2 Mg/Ml Sdv 2 Ml) 4 mg IVP Q8H PRN PRN Reason: vomiting, or N/V if npo Last Admin: 12/14/24 20:35 Dose: 4 mg Pantoprazole Sodium (Pantoprazole Dr 40 Mg Tablet) 40 mg PO DAILY [facility] Last Admin: 12/15/24 08:05 Dose: 40 mg Vitals/I&O/Wt Last Vital Signs Temp 98.3 F 12/15/24 07:40 Pulse 95 12/15/24 07:40 Resp 12 12/15/24 07:40 BP 100/68 12/15/24 07:40 Pulse Ox 97 12/15/24 07:40 O2 Del Method Room Air 12/15/24 07:40 O2 Flow Rate 2 12/13/24 13:33 12/14/24 12/15/24 12/15/24 22:59 06:59 14:59 Intake Total 686.667 / 1346.667 0 / 1346.667 Output Total 80 / 160 125 / 285 Balance 606.667 / 1186.667 -125 / 1061.667 Weight last 48 hrs Weight 95.345 kg Weight 92.76 kg Weight 92.76 kg Physical Exam Narrative: The patient is sitting up comfortably in bed. Vital signs noted. Patient is oxygenating well on room air. HEENT normocephalic atraumatic. She is not icteric. Neck is supple without JVP. Lungs have wheezing and dullness. Heart regular positive S1-S2. Soft positive bowel sounds. Extremities 2+ bilateral leg edema. Neuro awake alert oriented x 3, moves all extremities follows commands and interactive. Data 12/15/24 08:15 12/14/24 05:17 A&P Assessment and plan (1) Acute kidney injury: Plan 69-year-old lady history of hypertension COPD obesity anemia and heart failure preserved EF. Patient presents with weakness new increased LFTs, decreased EF of 30%, chronic diastolic dysfunction. Patient also has acute kidney injury and increased anion gap metabolic acidosis. 1. Acute kidney injury in the setting of diastolic dysfunction with new acute decreased EF. The patient was started on Dobutrex yesterday. -Renal ultrasound reviewed without any hemodynamically significant renal artery stenosis no hydronephrosis in either kidney. -Urinalysis reviewed dark yellow cloudy 1+ protein 1+ bilirubin 2+ leuk esterase no ketones no blood. Of note she has 51-100 white cells with squamous epis 21-50. Urine bacteria 2+. Looking at her urine electrolytes urine sodium is low with a value of 110. Urine chloride is low at 10 urine microalbumin 25 microalbumin creatinine ratio was 375 urine proteins pending. Today's blood tests are pending. Yes his creatinine was 2.7 -Patient's urine output did not improve with fluids. Current differential diagnosis is ATN versus cardiorenal syndrome versus hepatorenal syndrome. Blood pressure is at low side. Albumin is okay. -Will stop IV fluids. Will give furosemide. Low C3 Depending on how patient does renal biopsy may be considered however I am more concerned that this is due to cardiorenal or hepatorenal. 1B. Enterra rhinovirus as per hospitalist. 2. Patient venous blood gas with significant metabolic acidosis Salicylate levels were negative. Will check lactic acid. 3. Patient has decreased EF which can be viral induced. 4. Agree with amyloid evaluation. 5. Mild hyponatremia with a low urine sodium likely due to heart failure exacerbation. Will monitor repeat electrolytes. Will start diuretics again - free water restrict. Normal TSH. 6. Combined diastolic dysfunction and new acute systolic heart failure. As per cardiology 7. Monitor increased transaminitis. 8. Leukocytosis. 9. Full anemia evaluation. Please note that hemoglobin was as low as 5.8 last month. Consider may be right heart catheter will help with her care. Strict I's and O's Renal dose medications. Monitor urine output monitor chemistries. The patient was seen and examined using audiovisual cart with the aid of a nurse. The patient consented to telehealth. Will follow the patient along with you. Chart reviewed. PDMP PDMP Reviewed: Not Reviewed Attestations Medical Necessity Statement*: Anemia acute kidney injury. Heart failure reduced EF diastolic dysfunction. viral syndrome. Time Spent in Patient Care: Greater than 35 minutes (>than 50% of time spent in counselling and/or direct pt care on unit). Coding Level of Care Code Acute Code for Chg Fwd Diagnoses Acute kidney injury N17.9
[2024-12-15] MEDS: budesonide 0.5 mg/2 mL Neb INHALATION ×2 (09:06→20:45)
--- NOTE | 2024-12-15 09:13 | PM.PN ---
Subjective Subjective: Patient seems to be tolerating the Dobutrex so far well. She is currently on 2.5 mics per KG per minute. No side effect so far. The urine output is still low. Denies any chest pain or palpitations. No fever, chills or cough. Medications: Medication Review Details: Current Medications Albuterol Sulfate (Albuterol 2.5 Mg/3 Ml Neb) 2.5 mg INHALATION Q4H PRN PRN Reason: SHORTNESS OF BREATH Albuterol/Ipratropium (Ipratropium-Albuterol 3 Ml Neb) 3 ml INHALATION Q6H.RESP SABINO Last Admin: 12/15/24 09:05 Dose: 3 ml Budesonide (Budesonide 0.5 Mg/2 Ml Neb) 0.5 mg INHALATION BID.RESPIRATORY [facility] Last Admin: 12/15/24 09:06 Dose: 0.5 mg Citalopram Hydrobromide (Citalopram 20 Mg Tablet) 20 mg PO DAILY [facility] Last Admin: 12/15/24 08:05 Dose: 20 mg Clopidogrel Bisulfate (Clopidogrel 75 Mg Tablet) 75 mg PO DAILY [facility] Last Admin: 12/15/24 08:05 Dose: 75 mg Diclofenac Sodium (Diclofenac 1% Topical Gel 100 Gm) 1 applic TOPICAL QID [facility] Last Admin: 12/15/24 08:04 Dose: Not Given Enoxaparin Sodium (Enoxaparin 30 Mg/0.3 Ml Syringe) 30 mg SUBCUT Q24H [facility] Last Admin: 12/14/24 20:35 Dose: 30 mg Hydromorphone HCl (Hydromorphone 0.5 Mg/0.5 Ml Inj) 0.5 mg IVP Q4H PRN PRN Reason: PAIN Last Admin: 12/15/24 03:18 Dose: 0.5 mg Hydroxyzine Pamoate (Hydroxyzine 25 Mg Capsule) 100 mg PO BEDTIME [facility] Last Admin: 12/14/24 20:34 Dose: 100 mg Sodium Bicarbonate 150 meq/ (Dextrose) 1,150 mls @ 60 mls/hr IV .[id number] [facility] Last Infusion: 12/15/24 09:05 Dose: Infused Dobutamine HCl/Dextrose (Dobutamine Drip) 500 mg in 250 mls @ 6.957 mls/hr IV .Q24H [facility] Last Admin: 12/14/24 23:08 Dose: 2.52 mcg/kg/min, 7 mls/hr Methylprednisolone Sodium Succinate (Methylprednisolone Sod Succ 40 Mg/Ml Inj) 40 mg IVP Q8H [facility] Last Admin: 12/15/24 03:18 Dose: 40 mg Naloxone HCl (Naloxone 0.4 Mg/Ml Sdv) 0.1 mg IVP Q2M PRN PRN Reason: OPIATERV Ondansetron HCl (Ondansetron 2 Mg/Ml Sdv 2 Ml) 4 mg IVP Q8H PRN PRN Reason: vomiting, or N/V if npo Last Admin: 12/14/24 20:35 Dose: 4 mg Pantoprazole Sodium (Pantoprazole Dr 40 Mg Tablet) 40 mg PO DAILY [facility] Last Admin: 12/15/24 08:05 Dose: 40 mg Vitals/I&O/Wt Last Vital Signs Temp 98.3 F 12/15/24 07:40 Pulse 95 12/15/24 07:40 Resp 12 12/15/24 07:40 BP 100/68 12/15/24 07:40 Pulse Ox 97 12/15/24 07:40 O2 Del Method Room Air 12/15/24 07:40 O2 Flow Rate 2 12/13/24 13:33 12/14/24 12/15/24 12/15/24 22:59 06:59 14:59 Intake Total 686.667 / 1346.667 0 / 1895.848 8254 / 1150 Output Total 80 / 160 125 / 285 Balance 606.667 / 1186.667 -125 / 1469.372 8513 / 1150 Weight last 48 hrs Weight 210 lb 3.2 oz Weight 204 lb 8 oz Weight 204 lb 8 oz Physical Exam Narrative: GENERAL: The patient is alert and oriented times three. Not in any acute distress. HEENT: No significant pallor, icterus or lymphadenopathy.Oral cavity: There are no mucous membrane lesions. NECK: Trachea appears to be central. No masses noted. No JVD or thyromegaly appreciated. RESPIRATORY: Chest is symmetrical. No intercostals muscle retraction or any accessory muscle activation. There is no chest wall tenderness. Breath sounds are heard bilaterally. Bilateral expiratory wheezing. No evidence of consolidation. BREASTS: Deferred. HEART: The heart sounds are normal. No S3 or S4. No significant murmurs. No pericardial rub ABDOMEN: No vessel pulsations or distention. No tenderness. No organomegaly appreciated. Bowel sounds are normally heard. : Deferred. RECTAL: Deferred. LYMPHATIC: No lymphadenopathy noted in the neck. EXTREMITIES: 2-3+ edema bilaterally MUSCULOSKELETAL: No acute joint deformities or swelling SKIN: There are no significant rashes or ecchymosis NEUROPSYCHIATRIC: The patient is alert and oriented x3. Appears to be in a good mood. No tremors or rigidity noted. Data 12/15/24 08:15 12/15/24 08:15 Other Labs: Laboratory Last Values WBC 18.34 10^3/uL (3.29-11.43) H 12/15/24 08:15 RBC 4.42 10^6/uL (3.85-5.65) 12/15/24 08:15 Hgb 9.40 g/dL (11.27-16.99) L 12/15/24 08:15 Hct 32.7 % (36-47) L 12/15/24 08:15 MCV 74.0 fl (85-98) L 12/15/24 08:15 MCH 21.3 pg (27-33) L 12/15/24 08:15 MCHC 28.7 g/dL (30-55) L 12/15/24 08:15 RDW 22.6 % (12.1-15.1) H 12/15/24 08:15 Plt Count 354 10^3/cmm (157-399) 12/15/24 08:15 MPV 9.9 fL (7.4-10.4) 12/15/24 08:15 Neut % (Auto) 88.3 % 12/15/24 08:15 Lymph % (Auto) 1.5 % 12/15/24 08:15 [place] % (Auto) 7.3 % 12/15/24 08:15 Eos % (Auto) 0.0 % 12/15/24 08:15 Baso % (Auto) 0.2 % 12/15/24 08:15 Neut # (Auto) 16.21 10^3/uL (1.8-7.7) H 12/15/24 08:15 Lymph # (Auto) 0.3 10^3/uL (0.8-4.8) L 12/15/24 08:15 [place] # (Auto) 1.3 10^3/uL (0.2-0.9) H 12/15/24 08:15 Eos # (Auto) 0.0 10^3/uL (0.0-0.8) 12/15/24 08:15 Baso # (Auto) 0.0 10^3/uL (0.0-0.1) 12/15/24 08:15 Nucleated RBC % (auto) 2.9 % 12/15/24 08:15 Nucleated RBCs # 0.5 /100WBC 12/15/24 08:15 Peripher Smr Path Cons Sent for review 12/13/24 05:23 PT 25.90 SECONDS (12.1-14.9) H 12/14/24 05:17 INR 2.22 (0.8-1.2) H 12/14/24 05:17 Specimen Type Venous 12/14/24 12:25 Sample Site Lr 12/14/24 12:25 Arnaldo Test Na 12/14/24 12:25 VBG pH 7.23 (7.32-7.42) L 12/14/24 12:25 VBG pCO2 35.1 mmHg (41-51) L 12/14/24 12:25 VBG pO2 44.7 mmHg (25-40) H 12/14/24 12:25 VBG HCO3 14.5 mmol/L (24-28) L 12/14/24 12:25 VBG Base Excess -12.2 mmol/L (-3.0-3.0) L 12/14/24 12:25 O2 Delivery Device Ra 12/14/24 12:25 FiO2 21.0 % 12/14/24 12:25 Specimen Drawn By Jonathan 12/14/24 12:25 Sexologist ID Jonathan 12/14/24 12:25 Sodium Cancelled 12/15/24 08:15 Potassium Cancelled 12/15/24 08:15 Chloride Cancelled 12/15/24 08:15 Carbon Dioxide Cancelled 12/15/24 08:15 Anion Gap Cancelled 12/15/24 08:15 BUN Cancelled 12/15/24 08:15 Creatinine Cancelled 12/15/24 08:15 GFR Calculation Cancelled 12/15/24 08:15 Glucose Cancelled 12/15/24 08:15 Calculated Osmolality Cancelled 12/15/24 08:15 Lactic Acid 2.9 mmol/L (0.5-2.2) H 12/12/24 11:24 Lactic Acid (Sepsis) 2.7 mmol/L (0.5-2.2) H 12/12/24 14:30 Calcium Cancelled 12/15/24 08:15 Iron 13 ug/dL (37-145) L 12/13/24 17:28 Ferritin 86 ng/mL (15-150) 12/13/24 17:28 Total Bilirubin Cancelled 12/15/24 08:15 GGT 180 U/L (5-36) H 12/13/24 05:29 AST Cancelled 12/15/24 08:15 ALT Cancelled 12/15/24 08:15 Alkaline Phosphatase Cancelled 12/15/24 08:15 Ammonia 19 umol/L (11-51) 12/13/24 13:37 Lactate Dehydrogenase 2186 U/L (135-214) H 12/13/24 05:29 Creatine Kinase 108 U/L (26-192) 12/13/24 13:37 Troponin T Baseline 56 ng/L (0-10) H 12/12/24 09:23 Troponin T 120 Minute 48.04 ng/L (0-10) H 12/12/24 11:24 Delta Troponin T -7.96 ABS# (0-10) L 12/12/24 11:24 Troponin T Hi Sens 6Hr 54.56 ng/L (0-10) H 12/12/24 14:30 Troponin T Hi Sens 6Hr Delta -1.44 ng/L (0-12) L 12/12/24 14:30 C-Reactive Protein 116.8 mg/L (0.0-4.9) H 12/12/24 09:23 NT-Pro-B Natriuret Pep 5934 pg/mL (0-125) H 12/12/24 09:23 Total Protein Cancelled 12/15/24 08:15 Albumin Cancelled 12/15/24 08:15 Globulin Cancelled 12/15/24 08:15 Lipase 25 U/L (13-60) 12/12/24 09:23 TSH 2.79 uIU/mL (0.27-4.20) 12/12/24 14:30 Urine Color Dark yellow (Yellow) A 12/14/24 17:39 Urine Appearance Cloudy (CLEAR) A 12/14/24 17:39 Urine pH 5.0 (5-7) 12/14/24 17:39 Ur Specific [place] 1.026 (1.005-1.030) 12/14/24 17:39 Urine Protein 1+ (Negative) A 12/14/24 17:39 Urine Glucose (UA) Negative (Normal) 12/14/24 17:39 Urine Ketones Negative (Negative) 12/14/24 17:39 Urine Blood Negative (Negative) 12/14/24 17:39 Urine Nitrate Negative (Negative) 12/14/24 17:39 Urine Bilirubin 1+ (Negative) H 12/14/24 17:39 Urine Urobilinogen 1.0 mg/dL (Negative) 12/14/24 17:39 Ur Leukocyte Esterase 2+ (Negative) A 12/14/24 17:39 Urine RBC 0-2 /hpf (0-2) 12/14/24 17:39 Urine WBC 51-100 /hpf (0-5) H 12/14/24 17:39 Ur Squamous Epith Cells 21-50 /hpf (0-5) H 12/14/24 17:39 Amorphous Sediment Not Reportable 12/14/24 17:39 Urine Bacteria 2+ /hpf (NONE) H 12/14/24 17:39 Hyaline Casts 36.39 /lpf 12/14/24 17:39 Ur Random Microalbumin 25 ug/dL (0-20) H 12/14/24 17:39 U Random Total Protein 46 mg/dL 12/14/24 17:39 Ur Random Sodium < 10 mmol/L 12/14/24 17:39 Ur Random Potassium 49 mmol/L 12/14/24 17:39 Ur Random Chloride 10 mmol/L 12/14/24 17:39 Urine Creatinine 91 mg/dL (28-217) 12/14/24 17:39 Urine Creatinine 93 mg/dL (28-217) 12/14/24 17:39 Microalb/Creat Ratio 275 mg/dL (0-20) H 12/14/24 17:39 Salicylates < 0.3 mg/dL (3-10) L 12/12/24 09:23 Acetaminophen < 5.0 ug/mL (10-30) L 12/12/24 09:23 Sm ([place]) Antibody <1.0 neg AI (<1.0 NEG) 12/13/24 17:28 Complement C3 58 mg/dL (90-180) L 12/13/24 17:28 Complement C4 11 mg/dL (10-40) 12/13/24 17:28 Adenovirus (PCR) Not detected (NOT DETECT) 12/13/24 16:24 C. pneumoniae DNA (PCR) Not detected (NOT DETECT) 12/13/24 16:24 Coronavirus 229E (PCR) Not detected (NOT DETECT) 12/13/24 16:24 EBV IgG Ab >750.00 U/mL H 12/13/24 17:28 EBV IgM Ab 46.10 U/mL H 12/13/24 17:28 EBV Nuclear Antigen 238.00 U/mL H 12/13/24 17:28 EBV Interpretation See note 12/13/24 17:28 Hepatitis A IgM Ab Non-reactive (Nonreactive) 12/12/24 09:23 Hep Bs Antigen Non-reactive (Nonreactive) 12/13/24 17:28 Hep Bs Antibody 8.5 (11.5-1000) L 12/13/24 17:28 Hep B Core Total Ab Non-reactive (Nonreactive) 12/13/24 17:28 Hepatitis C Antibody Non-reactive (Nonreactive) 12/13/24 17:28 HIV 1&2 Ab & HIV 1 Ag Non-reactive (Non-Reactiv) 12/13/24 05:29 HIV 1&2 Antibody Non-reactive (Non-Reactiv) 12/13/24 05:29 Human Metapneumovir PCR Not detected (NOT DETECT) 12/13/24 16:24 Influenza A (H1) PCR Not detected (NOT DETECT) 12/13/24 16:24 Influ A (H1/09) PCR Not detected (NOT DETECT) 12/13/24 16:24 Influenza A (H3) PCR Not detected (NOT DETECT) 12/13/24 16:24 Influenza Type A (PCR) Not detected (NOT DETECT) 12/13/24 16:24 Influenza Type B (PCR) Not detected (NOT DETECT) 12/13/24 16:24 M. pneumoniae (PCR) Not detected (NOT DETECT) 12/13/24 16:24 Parainfluenza 1 (PCR) Not detected (NOT DETECT) 12/13/24 16:24 Parainfluenza 2 (PCR) Not detected (NOT DETECT) 12/13/24 16:24 Parainfluenza 3 (PCR) Not detected (NOT DETECT) 12/13/24 16:24 Parainfluenza 4 (PCR) Not detected (NOT DETECT) 12/13/24 16:24 RSV Type A (PCR) Not detected (NOT DETECT) 12/13/24 16:24 RSV Type B (PCR) Not detected (NOT DETECT) 12/13/24 16:24 Entero/Rhino (PCR) Detected (NOT DETECT) A 12/13/24 16:24 SARS-CoV-2 (PCR) Not detected (NOT DETECT) 12/13/24 16:24 TREY, Poly Interpret Negative 12/13/24 05:23 A&P Assessment and plan (1) New onset of congestive heart failure: The heart failure seems to be getting compensated. Patient seems to have significant wheezing in the lung. Need to optimize a bronchodilator treatment. Considering the possibility of a low output failure, it might be appropriate to try IV Dobutrex for 48 hours. I may go up on the dose to 5 mics per KG per minute. The intake output will be closely monitored. Also will be watching for any arrhythmia. (2) Cardiomyopathy: The etiology of the cardiomyopathy is not clear. Possibility of underlying coronary artery disease causes cannot be excluded. To further evaluate , a myocardial perfusion imaging would be appropriate. However we may hold off on this for the time till the liver and the kidney functions are stabilized. (3) Acute kidney injury: The etiology is not clear. Possibility of hypotension induced hepatorenal injury is a consideration. Possibility of sepsis causing this also need to be considered (4) Transaminitis: As mentioned above. Ischemic liver injury versus infective etiology are considerations. (5) Parainfluenza: Clinically seems to be improving. Management as per the primary (6) Iron deficiency: He is on iron supplements. (7) Anemia requiring transfusions: Hemoglobin seems to be stable. Plan Based on the clinical progress, further recommendations will be made. I discussed the patient's condition with the her cousin, as per patient's request she is apprised of the patient's current cardiovascular status and the further treatment options. All her questions were answered to her satisfaction. PDMP PDMP Reviewed: Not Reviewed Attestations Medical Necessity Statement*: Patient requires continued hospital stay for close monitoring and further management Coding Level of Care Code 21441 Diagnoses New onset of congestive heart failure I50.9 Cardiomyopathy, unspecified type I42.9 Cardiomyopathy type: unspecified Acute kidney injury N17.9 Transaminitis R74.01 Parainfluenza B34.8 Iron deficiency E61.1 Anemia requiring transfusions D64.9
[2024-12-15 09:15] LABS: Albumin Level 3.5 g/dL (3.5-5.2); Alkaline Phosphatase 253 U/L (35-105); Anion Gap 29.1 (5-19); Calcium 7.1 mg/dL (8.5-10.5); Carbon Dioxide 16 mmol/L (22-29); Chloride 89 mmol/L (98-107); Cortisol Random 48.13 ug/dL (2.47-19.5); Creatinine Clr Calc Pharmacy 15.4475; Globulin 2.9 g/dL (1.3-4.6); Glomerular Filtration Rate 11.1 mL/min (90-130); Glucose 249 mg/dL (65-115); Magnesium 2.3 mg/dL (1.7-2.3); Potassium 6.1 mmol/L (3.5-5.1); Sodium 128 mmol/L (136-145); Total Bilirubin 2.5 mg/dL (0.15-1.2); Total Protein 6.4 g/dL (6.6-8.7)
[2024-12-15 09:26] LABS: Alanine Aminotransferase 2211 U/L (0-33)
[2024-12-15 09:31] LABS: Aspartate Amino Transferase 1420 U/L (0-32); Blood Urea Nitrogen 119 mg/dL (8-23); Osmolality Calculated 312 mOsm/kg (285-295); Phosphorus 9.7 mg/dL (2.5-4.5)
[2024-12-15] MEDS: bumetanide 0.25 mg/mL SDV 4 mL 1 MG IVP ×2 (09:33→21:51)
--- NOTE | 2024-12-15 09:34 | ECG_ITS ---
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 Measurements Intervals [place] Rate: 99 P: 37 [place]: 172 QRS: 30 QRSD: 110 T: 88 QT: 359 QTc: 462 Interpretive Statements SINUS RHYTHM NONSPECIFIC T-WAVE ABNORMALITY Compared to ECG 12/12/2024 15:49:57 Sinus tachycardia no longer present T-wave abnormality still present Electronically Signed On 12-15-2024 17:44:51 CDT by Chasity Marina M.D. [email or web address]
[2024-12-15 09:44] LABS: Ferritin 99 ng/mL (15-150); Iron 14 ug/dL (37-145); Percent Saturation 3.8 % (20-50); Total Iron Binding Capacity 363 mcg/dl; Unsaturated Iron Binding 349 ug/dL (112-347)
[2024-12-15 09:59] LABS: LAB Peripheral Smear Sent for Review
[2024-12-15 10:03] LABS: Erythrocyte Sedimentation Rate 8 mm/hr (0-15)
[2024-12-15 10:12] LABS: NT Pro B Type Natriuretic Pept 7597 pg/mL (0-125); Procalcitonin 1.34 ng/mL (0-0.5)
[2024-12-15 10:22] LABS: C Reactive Protein 91.3 mg/L (0.0-4.9); Creatine Phosphokinase 185 U/L (26-192)
[2024-12-15 10:39] LABS: Estmated Average Glucose 163; Hemoglobin A1C 7.3 % (4.0-6.0)
--- NOTE | 2024-12-15 11:23 | US_ITS ---
WS: [id number] Complete ABDOMINAL ULTRASOUND HISTORY: worsening creat and liver enzymes COMPARISON: Liver ultrasound 12/12/2024 Liver: 15.2 cm in length. Liver is normal size. Coarse echotexture throughout the liver. No masses identified. No abnormality was noted on the recent MRCP. Portal Vein: Normal hepatopetal flow with monophasic waveform. Gallbladder: Prior cholecystectomy. CBD: Not visualized. Pancreas: Not visualized. Right kidney: 9.9 cm x 4.1 x 3.8 cm. Cortex:1.3 cm. Limited by body habitus. No obstruction. Left kidney: 10.8 cm x 5.2 cm x 5.3 cm. Cortex: 1.4 cm. Limited by body habitus. No obstruction. Spleen: 8.6 cm. Normal size and echogenicity. Aorta and IVC: Limited. US/US abdomen complete* [id number] Impression: 1. Technically very difficult and limited abdominal ultrasound. 2. Prior cholecystectomy. 3. Normal size liver but poorly visualized in its entirety. 4. No renal obstruction. 5. Common bile duct is not identified.
[2024-12-15] MEDS: insulin regular-human 100 units/1 mL 10 UNIT IVP (11:38)
[2024-12-15] MEDS: ciprofloxacin 400 MG/200 ML PREMIX 200 MG IV (11:38)
[2024-12-15] MEDS: calcium gluconate 0.9% NaCL 1 GM/50 ML PREMIX IV (11:39)
[2024-12-15] MEDS: dextrose 10% 125 ML 750 ML IV (11:39)
--- NOTE | 2024-12-15 11:55 | PM.CONSULT ---
Providers/Reason For Consult Consulting Physician/Specialty*: Dr. Jones general surgery Reason for Consult*: Temporary dialysis access Attending Physician: Jerman Carbajal MD Primary Care Provider: Sejal Hazel DO History of Present Illness History of Present Illness Lela Crespo is a 69 year old female who presents in acute renal failure. Multiple other medical problems. Hospitalist consulted for placement of temporary dialysis catheter. Medications/Allergies Home Medications ?Medication ?Instructions ?Recorded ?Confirmed ?Last Taken ?Type citalopram 20 mg tablet (Celexa) 20 mg PO DAILY 07/11/24 12/12/24 12/11/24 History hydroxyzine HCl 50 mg tablet 100 mg PO BEDTIME 07/11/24 12/12/24 12/11/24 History clopidogrel 75 mg tablet (Plavix) 75 mg PO DAILY 11/17/24 12/12/24 12/11/24 History furosemide 40 mg tablet 40 mg PO DAILY #7 tabs 11/30/24 12/12/24 12/11/24 Rx albuterol sulfate 2.5 mg/3 mL See Rx Instructions .Route .COMPLEX 12/12/24 12/12/24 Unknown History (0.083 %) solution for nebulization cetirizine 10 mg tablet (Zyrtec) 10 mg PO DAILY 12/12/24 12/12/24 12/11/24 History fluticasone 500 mcg-salmeterol 50 1 ea inhalation BID 12/12/24 12/12/24 Unknown History mcg/dose blistr powdr for inhalation (Wixela Inhub) fluticasone propionate 50 1 spray intranasal BID 12/12/24 12/12/24 12/11/24 History mcg/actuation nasal spray,suspension tiotropium bromide 18 mcg capsule See Rx Instructions .Route .COMPLEX 12/12/24 12/12/24 12/11/24 History with inhalation device (Spiriva with HandiHaler) tramadol 50 mg tablet 50 mg PO TID 12/12/24 12/12/24 12/11/24 History Allergies Allergy/AdvReac Type Severity Reaction Status Date / Time Cephalosporins Allergy Unknown Verified 11/17/24 14:50 Penicillins Allergy ALGY-Anaphy Verified 11/17/24 14:50 laxis Sulfa (Sulfonamide Allergy Unknown Verified 11/17/24 14:50 Antibiotics) Current Medications Generic Name Dose Route Start Last Admin Trade Name Freq PRN Reason Stop Dose Admin Albuterol/Ipratropium 3 ml 12/12/24 20:00 12/15/24 09:05 Ipratropium-Albuterol 3 Ml Neb INHALATION 3 ml Q6H.RESP SABINO Administration Budesonide 0.5 mg 12/13/24 20:00 12/15/24 09:06 Budesonide 0.5 Mg/2 Ml Neb INHALATION 0.5 mg BID.RESPIRATORY SABINO Administration Bumetanide 1 mg 12/15/24 09:30 12/15/24 09:33 Bumetanide 0.25 Mg/Ml Sdv 4 Ml IVP 1 mg Q12H SABINO Administration Citalopram Hydrobromide 20 mg 12/13/24 09:00 12/15/24 08:05 Citalopram 20 Mg Tablet PO 20 mg DAILY SABINO Administration Clopidogrel Bisulfate 75 mg 12/13/24 09:00 12/15/24 08:05 Clopidogrel 75 Mg Tablet PO 75 mg DAILY SABINO Administration Enoxaparin Sodium 30 mg 12/12/24 21:00 12/14/24 20:35 Enoxaparin 30 Mg/0.3 Ml Syringe SUBCUT 30 mg Q24H SABINO Administration Hydromorphone HCl 0.5 mg 12/13/24 11:32 12/15/24 09:33 Hydromorphone 0.5 Mg/0.5 Ml Inj IVP 0.5 mg Q4H PRN Administration PAIN Hydroxyzine Pamoate 100 mg 12/12/24 21:00 12/14/24 20:34 Hydroxyzine 25 Mg Capsule PO 100 mg BEDTIME SABINO Administration Dobutamine HCl/Dextrose 500 mg in 250 mls @ 6.957 mls/hr 12/14/24 21:45 12/15/24 09:48 Dobutamine Drip IV 5 mcg/kg/min .Q24H SABINO 13.91 mls/hr 2.5 MCG/KG/MIN Infusion Ciprofloxacin/Dextrose 400 mg in 200 mls @ 200 mls/hr 12/15/24 09:30 12/15/24 11:38 Cipro IV 200 mls/hr Q12H SABINO Administration Protocol Methylprednisolone Sodium Succinate 40 mg 12/13/24 11:30 12/15/24 11:49 Methylprednisolone Sod Succ 40 Mg/Ml Inj IVP 40 mg Q8H SABINO Administration Ondansetron HCl 4 mg 12/12/24 19:39 12/14/24 20:35 Ondansetron 2 Mg/Ml Sdv 2 Ml IVP 4 mg Q8H PRN Administration vomiting, or N/V if npo Pantoprazole Sodium 40 mg 12/13/24 09:00 12/15/24 08:[address] 40 Mg Tablet PO 40 mg DAILY SABINO Administration PFSH Acute PFSH: Medical History CVA (cerebral vascular accident) Hypertension Surgical History H/O knee surgery Social History Smoking and tobacco/nicotine status: current every day tobacco/nicotine user Vitals/I&O/Wt Last Vital Signs Temp 98.3 F 12/15/24 07:40 Pulse 94 12/15/24 09:07 Resp 16 12/15/24 09:07 BP 100/68 12/15/24 07:40 Pulse Ox 96 12/15/24 09:07 O2 Del Method Room Air 12/15/24 09:07 O2 Flow Rate 2 12/13/24 13:33 12/14/24 12/15/24 12/15/24 22:59 06:59 14:59 Intake Total 686.667 / 1346.667 0 / 9699.519 4661.667 / 1224.667 Output Total 80 / 160 125 / 285 Balance 606.667 / 1186.667 -125 / 2059.626 9330.667 / 1224.667 Weight last 48 hrs Weight 210 lb 3.2 oz Weight 204 lb 8 oz Weight 204 lb 8 oz Physical Exam Narrative: Chest: Unlabored breathing room air. No lymphadenopathy. Heart: Regular rate and rhythm. Abdomen: Soft, nontender, nondistended. No masses or lymphadenopathy. Palpable pulses bilateral groins Data 12/15/24 08:15 12/15/24 08:15 A&P Assessment and plan (1) Acute renal failure: Plan 69-year-old female who presents in acute renal failure. Discussed risk and benefits and patient's POA agreed to proceed with temporary dialysis catheter placement. PDMP PDMP Reviewed: Not Reviewed Coding Level of Care Code 92035 Diagnoses Acute renal failure N17.9
[2024-12-15 12:05] LABS: PROTEIN, TOTAL 6.3 g/dL (6.1-8.1)
--- NOTE | 2024-12-15 12:33 | PC.NURSE ---
Patient arrived to ICU at 1230.
--- NOTE | 2024-12-15 13:01 | XR_ITS ---
WS: [id number] PORTABLE CHEST HISTORY: Post PICC insertion, LEFT COMPARISON: 12/12/2024 Left-sided PICC line is been placed with tip terminating near the cavoatrial junction. No complications. Diffuse interstitial edema is mild and unchanged. The interstitial thickening may also be from pulmonary fibrosis. Calcified pulmonary nodule RIGHT upper lobe. No pleural effusion or pneumothorax. Cardiac size: Mildly enlarged cardiac silhouette. Mediastinum/Aorta: Normal mediastinum. No osseous abnormality seen. XR/XR chest 1V portable [id number] IMPRESSION: Satisfactory placement left-sided PICC line.
[2024-12-15 13:20] LABS: Reflex Lactate Order REFLEX LACTIC ORDERD
[2024-12-15 13:29] LABS: Anti-streptolysin O <20 IU/mL (<200)
[2024-12-15 13:29] LABS: COMPLEMENT COMPONENT C3C 71 mg/dL (83-193); COMPLEMENT COMPONENT C4C 15 mg/dL (15-57)
[2024-12-15] MEDS: aztreonam 1,000 MG in sodium chloride 0.9% (plus) 50 ML 100 MG IV (13:45)
--- NOTE | 2024-12-15 14:05 | PICC.NOTE ---
Triple lumen PICC placed to left brachial vein. Referred to vascular access nurse for PICC placement due to poor access and transfer to ICU. Risks and benefits discussed with pt and cousin and informed consent obtained from cousin at bedside. Left arm assessed with left brachial vein measuring 4.4 mm, straight, and apparent best choice for placement. Using sterile technique and MST, left brachial vein accessed x 1 stick. Mid-arm circumference measured 10 cm from left AC 33 cm. Trimmed cath 40 cm with 0 cm external length noted. CXR shows tip in cavoatrial junction, in good position for use per radiologist. Line secured with stat-lock. Insertion site covered with Biopatch and TSM. Report given to bedside nurse, EDWIGE Pacheco.
--- NOTE | 2024-12-15 14:17 | USCV_ITS ---
Lela Crespo Age: 69 Gender: F : 1955 Exam Date: 12/15/2024 06:28 Ordering Phys: Lorelei Mason MD Technologist: Exam Location: [facility] [place] Indication: abnormal renal labs Aortic Velocity @ SMA (cm/s) 44.9 RIGHT KIDNEY LEFT KIDNEY Velocity (cm/s) Velocity (cm/s) Sys/Zavala Sys/Zavala Resistive Index Resistive Index 35.0 / 6.0 0.82 Proximal Renal Artery 55.0 / 18.0 0.66 34.0 / 8.0 0.71 Mid Renal Artery 52.0 / 12.0 0.76 39.0 / 10.0 0.64 Distal Renal Artery 48.0 / 13.0 0.71 18.0 / 8.0 0.64 Hilar 56.0 / 22.0 0.60 14.0 / 5.0 0.64 Upper Pole 54.0 / 22.0 0.60 11.0 / 3.0 0.71 Mid Pole 59.0 / 12.0 0.79 16.0 / 6.0 0.64 Lower Pole 39.0 / 11.0 0.71 0.90 Renal Aortic Ratio 1.10 10.3 Kidney Length (cm) 10.0 FINDINGS ? resistive inter renal arteries very difficult exam CONCLUSIONS Technically difficult study due to bowel gas and body habitus No sonographic evidence of hemodynamically significant renal artery stenosis bilaterally. Slightly increased RI bilaterally can be seen with medical renal disease No hydronephrosis in either kidney Ajith Amin MD (Electronically Signed) Final Date: 15 Dec 2024 08:41 S
[2024-12-15 14:43] LABS: COMPLEMENT, TOTAL (CH50) 36 U/mL (31-60)
[2024-12-15 15:40] LABS: Cytomegalovirus Antibody (IGM) <30.00 AU/mL
--- NOTE | 2024-12-15 16:01 | P.PN_ITS ---
Subjective 2 Subjective: - Patient was examined this morning - She is alert oriented x 3, follows all commands, her family member, who is patient's cousin is at bedside, who helps in the decision making - She does report edema, shortness of br eath, no cough, no abdominal pain, no diarrhea, no lightheadedness, dizziness, no chest pain - I had a detailed discussion with gricelda taylor and her cousin about her multiorgan failure - Discussed her acute heart failure, car diology consultation, medical management for now, but consideration of further investigative testing to determine etiology, currently on a dobutamine drip - Discussed patient's acute liver failur e - Discussed patient's acute renal failur e, with hyperkalemia, discussed possible need for dialysis due to worsening uremia, decreasing urine output, evidence of respiratory failure, fluid overload - Discussed with patient the risks and b enefits of dialysis, patient voiced understanding, all questions answered, - Agreed to proceed - Discussed dialysis catheter placement, discussed risk and benefits, she voiced understanding, all questions answered, agreed to proceed - Spoke to nephrology, spoke to general surgery about dialysis catheter placement - Will move patient to ICU - Patient's lactic acid is 4, elevated C RP, Pro-Black with evidence of UTI - Antibiotic coverage expanded to vancom ycin, aztreonam patient has anaphylactic allergy to penicillins Vitals/I&O/Wt Last Vital Signs Temp 97.7 F 12/15/24 12:30 Pulse 98 12/15/24 14:00 Resp 14 12/15/24 13:00 BP 110/71 12/15/24 12:30 Pulse Ox 95 12/15/24 13:00 O2 Del Method Room Air 12/15/24 13:00 O2 Flow Rate 2 12/13/24 13:33 12/15/24 12/15/24 12/15/24 06:59 14:59 22:59 Intake Total 0 / 8040.906 2973.667 / 1649.667 Output Total 125 / 285 Balance -125 / 4523.319 5059.667 / 1624.667 Weight last 48 hrs Weight 95.345 kg Weight 92.76 kg Weight 92.76 kg Physical Exam 2 Const: COMMON NORMALS: no acute distress and patient oriented x3 Resp: COMMON NORMALS: normal respiratory effort, No retractions, No use of accessory muscles and clear to auscultation bilaterally AUSCULTATION: clear to auscultation bilaterally Cardio: COMMON NORMALS: regular rate, regular rhythm, S1 normal heart sound present and S2 normal heart sound present RATE: regular rate RHYTHM: r egular rhythm HEART SOUNDS: S1 normal heart sound present and S2 normal heart sound present GI: COMMON NORMALS: Normal to inspection, nondistended, normoactive bowel sounds present and non-tender Neuro: COMMON NORMALS: patient oriented x3 Psych: COMMON NORMALS: mental status grossly normal Skin: NARRATIVE SKIN EXAM: Sepsis examination, DP PT pulses palpable, cap refill greater than 2 seconds, no mottling, time done 9 AM 12/15/2024 Urinary Catheter Management: Martin: Cath Placed During This Visit: yes Urinary Catheter Date of Insertion: 12/15/24 Data 12/15/24 08:15 12/15/24 08:15 Micro: Microbiology 12/12/24 10:42 Blood Culture - Final Blood A&P Assessment and plan (1) New onset of congestive heart failure: (2) Cardiomyopathy: (3) Acute liver failure: (4) Acute renal failure: (5) Sepsis: (6) Parainfluenza: (7) Anemia: (8) Transaminitis: Plan Acute renal failure -Urine output lackluster - Etiology unclear? - Potentially component of cardiogenic shock - Component of septic shock - Renal ultrasound no acute findings Plan - Currently on dobutamine drip - Was on bicarb drip, switched to Bumex - Nephrology consulted - General Surgery consulted on dialysis today, - Dialysis catheter placement Increased anion gap metabolic acidosis - Likely secondary to acute renal failure Hyperkalemia - Insulin, D10,, calcium gluconate, EKG - Recheck BMP at 11 AM Hyperglycemia, possible type 2 diabetes mellitus - A1c - Low-dose sliding scale Pseudohyponatremia, secondary to hyperglycemia Urinary tract infection, with sepsis -Sepsis features met given leukocytosis, elevated CRP, elevated Pro-Black, elevated lactic acid - Elevated lactic acid, lactic acidosis - Follow blood cultures - Follow urine cultures - Vancomycin, aztreonam Acute liver failure - Acute hep panel within normal limits - Tylenol levels within normal limits - Ferritin within normal limits -Liver ultrasound within normal limits - Potentially congestive hepatopathy - Monitor LFTs closely Acute systolic heart failure CONCLUSIONS Severe global hypokinesis with severely reduced LV systolic function. Estimated LVEF 30%. Moderately dilated left atrium with moderate mitral regurgitation. Thickened calcified aortic valve with reduced opening. Mild aortic regurgitation and moderate aortic stenosis. Elevated right heart and pulmonary pressure 40-45 mmHg. Compared to last echo report (07/21), LVEF has significantly reduced. -Potentially stress-induced cardiomyopathy, associated with rhinovirus - Currently on dobutamine drip - Cardiology consulted - Continue to medically manage PDMP PDMP Reviewed: Not Reviewed Attestations 2 Medical Necessity Statement*: Patient requires hospitalization, inpatient, greater than 2 midnights for acute renal failure, acute liver failure, acute heart failure, UTI, sepsis, lactic acidosis, metabolic acidosis Diagnoses New onset of congestive heart failure I50.9 Cardiomyopathy, unspecified type I42.9 Cardiomyopathy type: unspecified Acute liver failure K72.00 Acute renal failure N17.9 Sepsis A41.9 Parainfluenza B34.8 Anemia, unspecified type D64.9 Anemia type: unspecified type Transaminitis R74.01
--- NOTE | 2024-12-15 16:17 | PM.ACPR ---
Procedure/Consent Consent: Consent for Procedure: Consent obtained from other (indicate) (POA Sister) Procedure Narrative: Left groin was prepped and draped in the usual sterile fashion. The left common femoral vein was identified using ultrasound. Local infiltration with 5 cc of 1% lidocaine was carried out. Under ultrasound guidance the left common femoral vein was accessed using a finder needle. I was able to draw venous blood. I threaded a guidewire through the finder needle into the left common femoral vein. Finder needle was removed. Placement of wire was confirmed in the common femoral vein using ultrasound. The tract was dilated in a serial fashion. A 20 cm temporary dialysis catheter dual-lumen was placed using the Seldinger technique. I was able to draw blood and flush both lumens easily. Caps were applied. Dialysis catheter was sutured in place. A sterile dressing was applied. Catheter is ready for immediate use.
[2024-12-15 17:31] LABS: Glucose Point of Care 188 mg/dL (70-110)
--- NOTE | 2024-12-15 17:44 | PC.NURSE ---
1800 insulin not given to due patients declining condition and unable to keep up oral intake, currently receiving dialysis as well.
[2024-12-15] MEDS: vancomycin 2,000 MG/400 ML PIGGYBACK 200 MG IV (20:09)
[2024-12-15] MEDS: enoxaparin 30 mg/0.3 mL Syringe SUBCUT (20:12)
[2024-12-15] MEDS: DOBUTamine drip 500 MG/250 ML PREMIX 13.91 MG IV (21:51)
[2024-12-16] VITALS (102 sets, daily range): BP systolic 92–130; BP diastolic 43–94; PULSE 80–107; RESP 6–27; TEMP 36.2–37.2; O2SAT 91–99
[2024-12-16] MEDS: ipratropium-albuterol 3 mL Neb INHALATION ×4 (01:03→19:52)
[2024-12-16] MEDS: aztreonam 1,000 MG in sodium chloride 0.9% (plus) 50 ML 100 MG IV ×2 (02:43→16:10)
[2024-12-16] MEDS: methylPREDNISolone sod succ 40 mg/mL INJ IVP ×3 (02:43→20:47)
[2024-12-16 03:26] LABS: Basophils % 0.1 %; Hematocrit 28.5 % (36-47); Lymphocytes # 0.2 10^3/uL (0.8-4.8); Lymphocytes % 0.9 %; Mean Corpuscular HGB Conc 28.4 g/dL (30-55); Mean Corpuscular Hemoglobin 21.5 pg (27-33); Mean Corpuscular Volume 75.8 fl (85-98); Mean Platelet Volume 10.1 fL (7.4-10.4); Monocytes # 1.3 10^3/uL (0.2-0.9); Monocytes % 6.6 %; Neutrophils # 18.24 10^3/uL (1.8-7.7); Neutrophils % 89.6 %; Nucleated Red Blood Cells # 0.3 /100WBC; Nucleated Red Blood Cells % 1.5 %; Platelet Count 832 10^3/cmm (157-399); Red Blood Count 3.76 10^6/uL (3.85-5.65); Red Cell Distribution Width 22.9 % (12.1-15.1); White Blood Count 20.38 10^3/uL (3.29-11.43)
[2024-12-16 03:45] LABS: C Reactive Protein 68.7 mg/L (0.0-4.9); Lactate (Lactic Acid level) 1.6 mmol/L (0.5-2.2)
[2024-12-16 03:56] LABS: NT Pro B Type Natriuretic Pept 6035 pg/mL (0-125); Procalcitonin 1.41 ng/mL (0-0.5)
[2024-12-16 03:57] LABS: Hepatitis B Surface AB 10.4 (11.5-1000); Hepatitis B Surface Antigen Non-Reactive (Nonreactive)
[2024-12-16 03:58] LABS: Hepatitis C Virus Antibody Non-Reactive (Nonreactive)
[2024-12-16 03:59] LABS: CENTROMERE B ANTIBODY <1.0 NEG AI (<1.0 NEG); JO-1 ANTIBODY <1.0 NEG AI (<1.0 NEG); RNP ANTIBODY <1.0 NEG AI (<1.0 NEG); SCL-70 ANTIBODY <1.0 NEG AI (<1.0 NEG); SJOGREN'S ANTIBODY (SS-A) <1.0 NEG AI (<1.0 NEG); SM ANTIBODY <1.0 NEG AI (<1.0 NEG); SS-B <1.0 NEG AI (<1.0 NEG)
[2024-12-16 04:03] LABS: Sm/RNP Antibody <1.0 NEG AI (<1.0 NEG)
[2024-12-16 04:03] LABS: Anti-Double Strand DNA AB <1 IU/mL
[2024-12-16 04:05] LABS: Slide Review Slide Review Perform
[2024-12-16 04:06] LABS: Albumin Level 3.1 g/dL (3.5-5.2); Alkaline Phosphatase 234 U/L (35-105); Calcium 7.3 mg/dL (8.5-10.5); Carbon Dioxide 16 mmol/L (22-29); Chloride 90 mmol/L (98-107); Creatinine Clr Calc Pharmacy 17.9817; Globulin 2.7 g/dL (1.3-4.6); Glomerular Filtration Rate 13.4 mL/min (90-130); Glucose 234 mg/dL (65-115); Magnesium 2.2 mg/dL (1.7-2.3); Osmolality Calculated 304 mOsm/kg (285-295); Sodium 128 mmol/L (136-145); Total Bilirubin 2.9 mg/dL (0.15-1.2); Total Protein 5.8 g/dL (6.6-8.7)
[2024-12-16 04:18] LABS: Alanine Aminotransferase 1666 U/L (0-33)
[2024-12-16 04:27] LABS: Anion Gap 27.8 (5-19); Aspartate Amino Transferase 631 U/L (0-32); Potassium 5.8 mmol/L (3.5-5.1)
[2024-12-16 04:29] LABS: Blood Urea Nitrogen 97 mg/dL (8-23); Phosphorus 8.7 mg/dL (2.5-4.5)
--- NOTE | 2024-12-16 06:29 | PC.NURSE ---
EDWIGE oliver notified DR. Maite Caballero about patients potassium level 5.8 and morning labs. RN awaiting for response on voalte
--- NOTE | 2024-12-16 06:59 | P.PN_ITS ---
Subjective 2 Subjective: Dialysis catheter working Vitals/I&O/Wt Last Vital Signs Temp 98.4 F 12/16/24 04:00 Pulse 99 12/16/24 06:45 Resp 10 L 12/16/24 06:45 BP 117/53 12/16/24 06:45 Pulse Ox 97 12/16/24 06:45 O2 Del Method Nasal Cannula 12/16/24 01:03 O2 Flow Rate 2 12/16/24 01:03 FiO2 2 12/15/24 20:00 12/15/24 12/15/24 12/16/24 14:59 22:59 06:59 Intake Total 1649.667 / 7874.994 7322.616 / 2717.283 50 / 2767.283 Output Total 1750 / 1775 125 / 1900 Balance 1624.667 / 1624.667 -682.384 / 942.283 -75 / 867.283 Weight last 48 hrs Weight 205 lb 6.4 oz Weight 205 lb 14.588 oz Weight 210 lb 3.2 oz Physical Exam 2 Narrative: Chest: Unlabored breathing room air. No lymphadenopathy. Heart: Regular rate and rhythm. Abdomen: Soft, nontender, nondistended. No masses or lymphadenopathy. Dialysis catheter is working Urinary Catheter Management: Martin: Cath Placed During This Visit: yes Reason for Continuing Indwelling Catheter: Accurate Measurement of Urinary Output in Critically Ill Patients Urinary Catheter Date of Insertion: 12/15/24 Data 12/19/24 04:17 12/19/24 04:17 Micro: Microbiology 12/16/24 03:16 Blood Culture - Preliminary Blood SPECIMEN COLLECTED 12/16/24 03:14 Blood Culture - Preliminary Blood SPECIMEN COLLECTED 12/12/24 10:42 Blood Culture - Final Blood A&P Assessment and plan (1) Acute renal failure: Plan 69-year-old female who required a dialysis catheter. Dialysis catheter is working. PDMP PDMP Reviewed: Not Reviewed Attestations 2 Medical Necessity Statement*: N/A Coding Level of Care Code 91953 Diagnoses Acute renal failure N17.9
[2024-12-16 07:24] LABS: Glucose Point of Care 227 mg/dL (70-110)
[2024-12-16 07:24] LABS: Glucose Point of Care 269 mg/dL (70-110)
[2024-12-16] MEDS: insulin lispro 100 unit/1 mL SUBCUT (07:38)
[2024-12-16 08:04] LABS: Creatinine, Random Urine 88 mg/dL (20-275); Protein, Total, Random 59 mg/dL (5-24); Protein/Creatinine Ratio 670 mg/g creat (24-184)
[2024-12-16] MEDS: budesonide 0.5 mg/2 mL Neb INHALATION ×2 (08:14→19:51)
[2024-12-16] MEDS: HYDROmorphone 0.5 MG/0.5 ML INJ IVP (08:47)
[2024-12-16] MEDS: bumetanide 0.25 mg/mL SDV 4 mL 1 MG IVP ×2 (08:50→20:47)
--- NOTE | 2024-12-16 11:25 | PHA.VACGOAL ---
Vancomycin Goal - Goal Vancomycin Goal:: 15-20 mg/L Vancomycin Indication:: Other (SEPSIS) - Therapy Current therapy:: Other Antibiotic (AZTREONAM) Day of therpy:: Day []of [] . Actual body weight (kg): 93.168 kg - Data Labs: WBC 20.38 10^3/uL (3.29-11.43) H 12/16/24 03:14 RBC 3.76 10^6/uL (3.85-5.65) L 12/16/24 03:14 Hgb 8.10 g/dL (11.27-16.99) L 12/16/24 03:14 Hct 28.5 % (36-47) L 12/16/24 03:14 MCV 75.8 fl (85-98) L 12/16/24 03:14 MCH 21.5 pg (27-33) L 12/16/24 03:14 MCHC 28.4 g/dL (30-55) L 12/16/24 03:14 RDW 22.9 % (12.1-15.1) H 12/16/24 03:14 Sodium 128 mmol/L (136-145) L 12/16/24 03:14 Potassium 5.8 mmol/L (3.5-5.1) H 12/16/24 03:14 Chloride 90 mmol/L (98-107) L 12/16/24 03:14 Carbon Dioxide 16 mmol/L (22-29) L 12/16/24 03:14 Anion Gap 27.8 (5-19) H 12/16/24 03:14 BUN 97 mg/dL (8-23) H* 12/16/24 03:14 Creatinine 3.4 mg/dL (0.5-0.9) H 12/16/24 03:14 GFR Calculation 13.4 mL/min (90-130) L 12/16/24 03:14 Treatment plan:: new consult Regimen:: New start vancomycin for sepsis. Load dose of 2000 mg given yesterday 12/15. Patient receiving dialysis today 12/16. 500 mg dose ordered x1.
[2024-12-16] MEDS: heparin, porcine 1,000 unit/mL INJ 10 mL 1000 UNIT IV (12:09)
--- NOTE | 2024-12-16 12:50 | PM.PN ---
Subjective Subjective: Patient was started on hemodialysis last evening. She was getting oliguric with no significant urine output with IV Lasix. Got 1 L of fluid yesterday at the dialysis. Planning to take on the 3 L today. So far she seems to be doing okay. Denies any chest pain or shortness of breath. No fever, chills or cough. Still on a dobutamine drip of 5 mics per KG per minute the blood pressure seems to be Medications: Medication Review Details: Current Medications Albuterol Sulfate (Albuterol 2.5 Mg/3 Ml Neb) 2.5 mg INHALATION Q4H PRN PRN Reason: SHORTNESS OF BREATH Albuterol/Ipratropium (Ipratropium-Albuterol 3 Ml Neb) 3 ml INHALATION Q6H.RESP SABINO Last Admin: 12/16/24 08:14 Dose: 3 ml Budesonide (Budesonide 0.5 Mg/2 Ml Neb) 0.5 mg INHALATION BID.RESPIRATORY SABINO Last Admin: 12/16/24 08:14 Dose: 0.5 mg Bumetanide (Bumetanide 0.25 Mg/Ml Sdv 4 Ml) 1 mg IVP Q12H SABINO Last Admin: 12/16/24 08:50 Dose: 1 mg Citalopram Hydrobromide (Citalopram 20 Mg Tablet) 20 mg PO DAILY SABINO Last Admin: 12/15/24 08:05 Dose: 20 mg Clopidogrel Bisulfate (Clopidogrel 75 Mg Tablet) 75 mg PO DAILY SABINO Last Admin: 12/15/24 08:05 Dose: 75 mg Enoxaparin Sodium (Enoxaparin 30 Mg/0.3 Ml Syringe) 30 mg SUBCUT Q24H SABINO Last Admin: 12/15/24 20:12 Dose: 30 mg Glucagon (Glucagon 1 Mg/Ml Kit 1 Ml) 1 mg IM ONCE PRN; Protocol PRN Reason: Adult Acute Hypoglycemia Nursing Prot. Glucagon (Glucagon 1 Mg/Ml Kit 1 Ml) 1 mg IM ONCE PRN; Protocol PRN Reason: Adult Acute Hypoglycemia Nursing Prot. Hydromorphone HCl (Hydromorphone 0.5 Mg/0.5 Ml Inj) 0.5 mg IVP Q4H PRN PRN Reason: PAIN Last Admin: 12/16/24 08:47 Dose: 0.5 mg Hydroxyzine Pamoate (Hydroxyzine 25 Mg Capsule) 100 mg PO BEDTIME [facility] [place] Last Admin: 12/15/24 23:07 Dose: Not Given Dobutamine HCl/Dextrose (Dobutamine Drip) 500 mg in 250 mls @ 6.957 mls/hr IV .Q24H SABINO Last Admin: 12/15/24 21:51 Dose: 5 mcg/kg/min, 13.91 mls/hr Dextrose (D5w) 500 mls @ 0 mls/hr IV ONCE PRN; Protocol PRN Reason: Adult Acute Hypoglycemia Prot Dextrose (D10w) 125 mls @ 750 mls/hr IV PRN PRN; Protocol PRN Reason: Adult Acute Hypoglycemia Nursing Protocol Dextrose (D10w) 250 mls @ 1,000 mls/hr IV PRN PRN; Protocol PRN Reason: Adult Acute Hypoglycemia Nursing Protocol Aztreonam 1,000 mg/ Sodium (Chloride) 50 mls @ 100 mls/hr IV Q12H [facility] [place]; Protocol Last Infusion: 12/16/24 03:13 Dose: Infused Dextrose (D5w) 500 mls @ 0 mls/hr IV ONCE PRN; Protocol PRN Reason: Adult Acute Hypoglycemia Prot Dextrose (D10w) 125 mls @ 750 mls/hr IV PRN PRN; Protocol PRN Reason: Adult Acute Hypoglycemia Nursing Protocol Dextrose (D10w) 250 mls @ 1,000 mls/hr IV PRN PRN; Protocol PRN Reason: Adult Acute Hypoglycemia Nursing Protocol Sodium Chloride (Sodium Chloride 0.9%) 1,000 mls @ 0 mls/hr IV .Q0M PRN PRN Reason: hypotension or symptomatic Albumin Human (Albumin) 12.5 gm in 50 mls @ 60 mls/hr IV PRN PRN PRN Reason: Hypotension and/or symptomatic Vancomycin HCl 500 mg/ Sodium (Chloride) 100 mls @ 200 mls/hr IV ONCE ONE Stop: 12/16/24 20:29 Insulin Human Lispro (Insulin Lispro 100 Unit/1 Ml) 0 unit SUBCUT TIDWM [facility] [place]; Protocol Last Admin: 12/16/24 12:41 Dose: Not Given Methylprednisolone Sodium Succinate (Methylprednisolone Sod Succ 40 Mg/Ml Inj) 40 mg IVP Q8H [facility] [place] Last Admin: 12/16/24 10:46 Dose: 40 mg Naloxone HCl (Naloxone 0.4 Mg/Ml Sdv) 0.1 mg IVP Q2M PRN PRN Reason: OPIATERV Ondansetron HCl (Ondansetron 2 Mg/Ml Sdv 2 Ml) 4 mg IVP Q8H PRN PRN Reason: vomiting, or N/V if npo Last Admin: 12/14/24 20:35 Dose: 4 mg Pantoprazole Sodium (Pantoprazole Dr 40 Mg Tablet) 40 mg PO DAILY SABINO Last Admin: 12/15/24 08:05 Dose: 40 mg Vancomycin HCl (Vancomycin 1,000 Mg Sdv (Pharmacy Mix)) 0 mg XX PRN PRN PRN Reason: Pharmacy to Dose Vitals/I&O/Wt Last Vital Signs Temp 98.4 F 12/16/24 12:21 Pulse 102 H 12/16/24 12:21 Resp 19 H 12/16/24 12:21 BP 92/48 12/16/24 12:21 Pulse Ox 97 12/16/24 12:00 O2 Del Method Nasal Cannula 12/16/24 08:14 O2 Flow Rate 2 12/16/24 08:14 FiO2 2 12/15/24 20:00 12/15/24 12/16/24 12/16/24 22:59 06:59 14:59 Intake Total 1067.616 / 2717.283 50 / 2767.283 100 / 100 Output Total 1750 / 1775 125 / 1900 Balance -682.384 / 942.283 -75 / 867.283 100 / 100 Weight last 48 hrs Weight 205 lb 6.4 oz Weight 205 lb 14.588 oz Weight 210 lb 3.2 oz Physical Exam Narrative: GENERAL: The patient is alert and oriented times three. Not in any acute distress. HEENT: No significant pallor, icterus or lymphadenopathy.Oral cavity: There are no mucous membrane lesions. NECK: Trachea appears to be central. No masses noted. No JVD or thyromegaly appreciated. RESPIRATORY: Chest is symmetrical. No intercostals muscle retraction or any accessory muscle activation. There is no chest wall tenderness. Breath sounds are heard bilaterally. Bilateral expiratory wheezing. No evidence of consolidation. BREASTS: Deferred. HEART: The heart sounds are normal. No S3 or S4. No significant murmurs. No pericardial rub ABDOMEN: No vessel pulsations or distention. No tenderness. No organomegaly appreciated. Bowel sounds are normally heard. : Deferred. RECTAL: Deferred. LYMPHATIC: No lymphadenopathy noted in the neck. EXTREMITIES: 2-3+ edema bilaterally MUSCULOSKELETAL: No acute joint deformities or swelling SKIN: There are no significant rashes or ecchymosis NEUROPSYCHIATRIC: The patient is alert and oriented x3. Appears to be in a good mood. No tremors or rigidity noted. Urinary Catheter Management: Martin: Cath Placed During This Visit: yes Reason for Continuing Indwelling Catheter: Accurate Measurement of Urinary Output in Critically Ill Patients Urinary Catheter Date of Insertion: 12/15/24 Data 12/16/24 03:14 12/16/24 03:14 Other Labs: Laboratory Last Values WBC 20.38 10^3/uL (3.29-11.43) H 12/16/24 03:14 RBC 3.76 10^6/uL (3.85-5.65) L 12/16/24 03:14 Hgb 8.10 g/dL (11.27-16.99) L 12/16/24 03:14 Hct 28.5 % (36-47) L 12/16/24 03:14 MCV 75.8 fl (85-98) L 12/16/24 03:14 MCH 21.5 pg (27-33) L 12/16/24 03:14 MCHC 28.4 g/dL (30-55) L 12/16/24 03:14 RDW 22.9 % (12.1-15.1) H 12/16/24 03:14 Plt Count 832 10^3/cmm (157-399) H D 12/16/24 03:14 MPV 10.1 fL (7.4-10.4) 12/16/24 03:14 Neut % (Auto) 89.6 % 12/16/24 03:14 Lymph % (Auto) 0.9 % 12/16/24 03:14 [place] % (Auto) 6.6 % 12/16/24 03:14 Eos % (Auto) 0.0 % 12/16/24 03:14 Baso % (Auto) 0.1 % 12/16/24 03:14 Neut # (Auto) 18.24 10^3/uL (1.8-7.7) H 12/16/24 03:14 Lymph # (Auto) 0.2 10^3/uL (0.8-4.8) L 12/16/24 03:14 [place] # (Auto) 1.3 10^3/uL (0.2-0.9) H 12/16/24 03:14 Eos # (Auto) 0.0 10^3/uL (0.0-0.8) 12/16/24 03:14 Baso # (Auto) 0.0 10^3/uL (0.0-0.1) 12/16/24 03:14 Nucleated RBC % (auto) 1.5 % 12/16/24 03:14 Nucleated RBCs # 0.3 /100WBC 12/16/24 03:14 Peripher Smr Path Cons Sent for review 12/15/24 08:15 ESR 8 mm/hr (0-15) 12/15/24 08:15 PT 25.90 SECONDS (12.1-14.9) H 12/14/24 05:17 INR 2.22 (0.8-1.2) H 12/14/24 05:17 Specimen Type Venous 12/14/24 12:25 Sample Site Lr 12/14/24 12:25 Arnaldo Test Na 12/14/24 12:25 VBG pH 7.23 (7.32-7.42) L 12/14/24 12:25 VBG pCO2 35.1 mmHg (41-51) L 12/14/24 12:25 VBG pO2 44.7 mmHg (25-40) H 12/14/24 12:25 VBG HCO3 14.5 mmol/L (24-28) L 12/14/24 12:25 VBG Base Excess -12.2 mmol/L (-3.0-3.0) L 12/14/24 12:25 O2 Delivery Device Ra 12/14/24 12:25 FiO2 21.0 % 12/14/24 12:25 Specimen Drawn By Jonathan 12/14/24 12:25 Captain Assistant ID Jonathan 12/14/24 12:25 Sodium 128 mmol/L (136-145) L 12/16/24 03:14 Potassium 5.8 mmol/L (3.5-5.1) H 12/16/24 03:14 Chloride 90 mmol/L (98-107) L 12/16/24 03:14 Carbon Dioxide 16 mmol/L (22-29) L 12/16/24 03:14 Anion Gap 27.8 (5-19) H 12/16/24 03:14 BUN 97 mg/dL (8-23) H* 12/16/24 03:14 Creatinine 3.4 mg/dL (0.5-0.9) H 12/16/24 03:14 GFR Calculation 13.4 mL/min (90-130) L 12/16/24 03:14 Glucose 234 mg/dL (65-115) H 12/16/24 03:14 POC Glucose 269 mg/dL (70-110) H 12/16/24 07:19 Estimat Average Glucose Cancelled 12/16/24 03:14 Hemoglobin A1c Cancelled 12/16/24 03:14 Calculated Osmolality 304 mOsm/kg (285-295) H 12/16/24 03:14 Lactic Acid 4.0 mmol/L (0.5-2.2) H 12/15/24 11:27 Lactic Acid (Sepsis) 2.7 mmol/L (0.5-2.2) H 12/12/24 14:30 Lactate 1.6 mmol/L (0.5-2.2) 12/16/24 03:14 Calcium 7.3 mg/dL (8.5-10.5) L 12/16/24 03:14 Phosphorus 8.7 mg/dL (2.5-4.5) H* 12/16/24 03:14 Magnesium 2.2 mg/dL (1.7-2.3) 12/16/24 03:14 Iron 14 ug/dL (37-145) L 12/15/24 08:15 TIBC 363 mcg/dl 12/15/24 08:15 % Saturation 3.8 % (20-50) L 12/15/24 08:15 Unsat Iron Binding 349 ug/dL (112-347) H 12/15/24 08:15 Ferritin 99 ng/mL (15-150) 12/15/24 08:15 Total Bilirubin 2.9 mg/dL (0.15-1.2) H 12/16/24 03:14 GGT 180 U/L (5-36) H 12/13/24 05:29 AST 631 U/L (0-32) H 12/16/24 03:14 ALT 1666 U/L (0-33) H 12/16/24 03:14 Alkaline Phosphatase 234 U/L (35-105) H 12/16/24 03:14 Ammonia 19 umol/L (11-51) 12/13/24 13:37 Lactate Dehydrogenase 2186 U/L (135-214) H 12/13/24 05:29 Creatine Kinase 185 U/L (26-192) 12/15/24 08:15 Troponin T Baseline 56 ng/L (0-10) H 12/12/24 09:23 Troponin T 120 Minute 48.04 ng/L (0-10) H 12/12/24 11:24 Delta Troponin T -7.96 ABS# (0-10) L 12/12/24 11:24 Troponin T Hi Sens 6Hr 54.56 ng/L (0-10) H 12/12/24 14:30 Troponin T Hi Sens 6Hr Delta -1.44 ng/L (0-12) L 12/12/24 14:30 C-Reactive Protein 68.7 mg/L (0.0-4.9) H 12/16/24 03:14 NT-Pro-B Natriuret Pep 6035 pg/mL (0-125) H 12/16/24 03:14 Total Protein 5.8 g/dL (6.6-8.7) L 12/16/24 03:14 Albumin 3.1 g/dL (3.5-5.2) L 12/16/24 03:14 Globulin 2.7 g/dL (1.3-4.6) 12/16/24 03:14 Lipase 25 U/L (13-60) 12/12/24 09:23 Procalcitonin 1.41 ng/mL (0-0.5) H 12/16/24 03:14 TSH 2.79 uIU/mL (0.27-4.20) 12/12/24 14:30 Random Cortisol 48.13 ug/dL (2.47-19.5) H 12/15/24 08:15 Urine Color Dark yellow (Yellow) A 12/14/24 17:39 Urine Appearance Cloudy (CLEAR) A 12/14/24 17:39 Urine pH 5.0 (5-7) 12/14/24 17:39 Ur Specific [place] 1.026 (1.005-1.030) 12/14/24 17:39 Urine Protein 1+ (Negative) A 12/14/24 17:39 Urine Glucose (UA) Negative (Normal) 12/14/24 17:39 Urine Ketones Negative (Negative) 12/14/24 17:39 Urine Blood Negative (Negative) 12/14/24 17:39 Urine Nitrate Negative (Negative) 12/14/24 17:39 Urine Bilirubin 1+ (Negative) H 12/14/24 17:39 Urine Urobilinogen 1.0 mg/dL (Negative) 12/14/24 17:39 Ur Leukocyte Esterase 2+ (Negative) A 12/14/24 17:39 Urine RBC 0-2 /hpf (0-2) 12/14/24 17:39 Urine WBC 51-100 /hpf (0-5) H 12/14/24 17:39 Ur Squamous Epith Cells 21-50 /hpf (0-5) H 12/14/24 17:39 Amorphous Sediment Not Reportable 12/14/24 17:39 Urine Bacteria 2+ /hpf (NONE) H 12/14/24 17:39 Hyaline Casts 36.39 /lpf 12/14/24 17:39 Ur Random Creatinine 88 mg/dL (20-275) 12/14/24 17:39 Ur Random Microalbumin 25 ug/dL (0-20) H 12/14/24 17:39 U Random Total Protein 46 mg/dL 12/14/24 17:39 U Random Total Protein 59 mg/dL (5-24) H 12/14/24 17:39 Ur Random Sodium < 10 mmol/L 12/14/24 17:39 Ur Random Potassium 49 mmol/L 12/14/24 17:39 Ur Random Chloride 10 mmol/L 12/14/24 17:39 Urine Creatinine 91 mg/dL (28-217) 12/14/24 17:39 Urine Creatinine 93 mg/dL (28-217) 12/14/24 17:39 Microalb/Creat Ratio 275 mg/dL (0-20) H 12/14/24 17:39 Protein/Creatinin Ratio 670 mg/g creat (24-184) H 12/14/24 17:39 Protein/Creat Ratio 24h 0.670 (0.024-0.184) H 12/14/24 17:39 Salicylates < 0.3 mg/dL (3-10) L 12/12/24 09:23 Acetaminophen < 5.0 ug/mL (10-30) L 12/12/24 09:23 MANUEL-1 Antibody <1.0 neg AI (<1.0 NEG) 12/13/24 05:23 SS-A Antibody <1.0 neg AI (<1.0 NEG) 12/13/24 05:23 SS-B Antibody <1.0 neg AI (<1.0 NEG) 12/13/24 05:23 Sm ([place]) Antibody <1.0 neg AI (<1.0 NEG) 12/13/24 17:28 S[employer]IOR [employer] Antibody <1.0 neg AI (<1.0 NEG) 12/13/24 05:23 SM/S[employer]IOR [employer] UI DEVELOPER IgG Antibody <1.0 neg AI (<1.0 NEG) 12/13/24 17:28 Scl-70 Antibody <1.0 neg AI (<1.0 NEG) 12/13/24 05:23 Anti-ds DNA IgG Ab <1 IU/mL 12/13/24 05:23 Centromere B Antibody <1.0 neg AI (<1.0 NEG) 12/13/24 05:23 Complement C3 58 mg/dL (90-180) L 12/13/24 17:28 Complement C3c 71 mg/dL (83-193) L 12/13/24 05:23 Complement C4 11 mg/dL (10-40) 12/13/24 17:28 Complement C4c 15 mg/dL (15-57) 12/13/24 05:23 CH50 Classical Pathway 36 U/mL (31-60) 12/13/24 05:23 Adenovirus (PCR) Not detected (NOT DETECT) 12/13/24 16:24 C. pneumoniae DNA (PCR) Not detected (NOT DETECT) 12/13/24 16:24 Coronavirus 229E (PCR) Not detected (NOT DETECT) 12/13/24 16:24 CMV IgG Ab 0.80 U/mL H 12/13/24 17:28 CMV IgM Ab <30.00 AU/mL 12/13/24 17:28 EBV IgG Ab >750.00 U/mL H 12/13/24 17:28 EBV IgM Ab 46.10 U/mL H 12/13/24 17:28 EBV Nuclear Antigen 238.00 U/mL H 12/13/24 17:28 EBV Interpretation See note 12/13/24 17:28 Hepatitis A IgM Ab Non-reactive (Nonreactive) 12/12/24 09:23 Hep Bs Antigen Non-reactive (Nonreactive) 12/16/24 03:14 Hep Bs Antibody 10.4 (11.5-1000) L 12/16/24 03:14 Hep B Core Total Ab Non-reactive (Nonreactive) 12/13/24 17:28 Hepatitis C Antibody Non-reactive (Nonreactive) 12/16/24 03:14 HIV 1&2 Ab & HIV 1 Ag Non-reactive (Non-Reactiv) 12/13/24 05:29 HIV 1&2 Antibody Non-reactive (Non-Reactiv) 12/13/24 05:29 Human Metapneumovir PCR Not detected (NOT DETECT) 12/13/24 16:24 Influenza A (H1) PCR Not detected (NOT DETECT) 12/13/24 16:24 Influ A (H1/09) PCR Not detected (NOT DETECT) 12/13/24 16:24 Influenza A (H3) PCR Not detected (NOT DETECT) 12/13/24 16:24 Influenza Type A (PCR) Not detected (NOT DETECT) 12/13/24 16:24 Influenza Type B (PCR) Not detected (NOT DETECT) 12/13/24 16:24 M. pneumoniae (PCR) Not detected (NOT DETECT) 12/13/24 16:24 Parainfluenza 1 (PCR) Not detected (NOT DETECT) 12/13/24 16:24 Parainfluenza 2 (PCR) Not detected (NOT DETECT) 12/13/24 16:24 Parainfluenza 3 (PCR) Not detected (NOT DETECT) 12/13/24 16:24 Parainfluenza 4 (PCR) Not detected (NOT DETECT) 12/13/24 16:24 RSV Type A (PCR) Not detected (NOT DETECT) 12/13/24 16:24 RSV Type B (PCR) Not detected (NOT DETECT) 12/13/24 16:24 Entero/Rhino (PCR) Detected (NOT DETECT) A 12/13/24 16:24 SARS-CoV-2 (PCR) Not detected (NOT DETECT) 12/13/24 16:24 Anti-Streptolysin O Ab <20 IU/mL (<200) 12/13/24 17:28 TREY, Poly Interpret Negative 12/13/24 05:23 Micro: Microbiology 12/16/24 03:16 Blood Culture - Preliminary Blood SPECIMEN COLLECTED 12/16/24 03:14 Blood Culture - Preliminary Blood SPECIMEN COLLECTED 12/12/24 10:42 Blood Culture - Final Blood A&P Assessment and plan (1) New onset of congestive heart failure: May continue the Dobutrex of 5 mics per KG per minute for a total of 48 hours. It may be discontinued in the morning (2) Cardiomyopathy: The etiology of the cardiomyopathy is not clear. Possibility of underlying coronary artery disease causes cannot be excluded. To further evaluate , a myocardial perfusion imaging would be appropriate. However we may hold off on this for the time being till the kidney function is stabilized. (3) Acute kidney injury: The etiology is not clear. Possibility of hypotension induced hepatorenal injury is a consideration. Possibility of sepsis causing this also need to be considered (4) Transaminitis: As mentioned above. Ischemic liver injury versus infective etiology are considerations. The liver enzymes are coming down. (5) Parainfluenza: Clinically seems to be improving. Management as per the primary (6) Iron deficiency: He is on iron supplements. (7) Anemia requiring transfusions: Hemoglobin seems to be stable. Plan May continue on the current management. Discontinue Dobutrex in the morning Consider afterload reducing agents, if the blood pressure tolerates PDMP PDMP Reviewed: Not Reviewed Attestations Medical Necessity Statement*: Patient requires continued hospital stay for close monitoring and further management Coding Level of Care Code 99230 Diagnoses New onset of congestive heart failure I50.9 Cardiomyopathy, unspecified type I42.9 Cardiomyopathy type: unspecified Acute kidney injury N17.9 Transaminitis R74.01 Parainfluenza B34.8 Iron deficiency E61.1 Anemia requiring transfusions D64.9
--- NOTE | 2024-12-16 13:30 | P.PN_ITS ---
Subjective 2 Subjective: no new complaints Medications: Reviewed: Yes Vitals/I&O/Wt Last Vital Signs Temp 98.4 F 12/16/24 12:21 Pulse 102 H 12/16/24 12:21 Resp 19 H 12/16/24 12:21 BP 92/48 12/16/24 12:21 Pulse Ox 97 12/16/24 12:00 O2 Del Method Nasal Cannula 12/16/24 08:14 O2 Flow Rate 2 12/16/24 08:14 FiO2 2 12/15/24 20:00 12/15/24 12/16/24 12/16/24 22:59 06:59 14:59 Intake Total 1067.616 / 2717.283 50 / 2767.283 100 / 100 Output Total 1750 / 1775 125 / 1900 Balance -682.384 / 942.283 -75 / 867.283 100 / 100 Weight last 48 hrs Weight 93.168 kg Weight 93.4 kg Weight 95.345 kg Physical Exam 2 Narrative: The patient is sitting up comfortably in bed. Vital signs noted. Patient is oxygenating well on room air. HEENT normocephalic atraumatic. She is not icteric. Neck is supple without JVP. Lungs have wheezing and dullness. Heart regular positive S1-S2. Soft positive bowel sounds. Extremities 2+ bilateral leg edema. Neuro awake alert oriented x 3, moves all extremities follows commands and interactive. Urinary Catheter Management: Martin: Cath Placed During This Visit: yes Reason for Continuing Indwelling Catheter: Accurate Measurement of Urinary Output in Critically Ill Patients Urinary Catheter Date of Insertion: 12/15/24 Data 12/16/24 03:14 12/16/24 03:14 Micro: Microbiology 12/16/24 03:16 Blood Culture - Preliminary Blood SPECIMEN COLLECTED 12/16/24 03:14 Blood Culture - Preliminary Blood SPECIMEN COLLECTED 12/12/24 10:42 Blood Culture - Final Blood A&P Assessment and plan (1) Acute kidney injury: Plan 69-year-old lady history of hypertension COPD obesity anemia and heart failure preserved EF. Patient presents with weakness new increased LFTs, decreased EF of 30%, chronic diastolic dysfunction. Patient also has acute kidney injury and increased anion gap metabolic acidosis. 1. Acute kidney injury in the setting of diastolic dysfunction with new acute decreased EF. The patient was started on Dobutrex -Renal ultrasound reviewed without any hemodynamically significant renal artery stenosis no hydronephrosis in either kidney. -Urinalysis reviewed dark yellow cloudy 1+ protein 1+ bilirubin 2+ leuk esterase no ketones no blood. Of note she has 51-100 white cells with squamous epis 21- 50. -Agree with amyloid evaluation. - HD started yesterday , hD again today 2. metabolic acidosis, HD as above 3. Mild hyponatremia with a low urine sodium likely due to heart failure exacerbation. 6. Combined diastolic dysfunction and new acute systolic heart failure. As per cardiology 7. Monitor increased transaminitis. Renal dose medications. Monitor urine output monitor chemistries. The patient was seen and examined using audiovisual cart with the aid of a nurse. The patient consented to telehealth. PDMP PDMP Reviewed: Not Reviewed Attestations 2 Medical Necessity Statement*: per margarita Coding Level of Care Code Acute Code for g Fwd Diagnoses Acute kidney injury N17.9
[2024-12-16] MEDS: DOBUTamine drip 500 MG/250 ML PREMIX 13.91 MG IV (13:33)
[2024-12-16 13:43] LABS: KAPPA/LAMBDA LIGHT CHAINS FREE 1.88 (0.26-1.65); LAMBDA LIGHT CHAIN, FREE, SERU 30.3 mg/L (5.7-26.3)
--- NOTE | 2024-12-16 17:25 | P.PN_ITS ---
Subjective 2 Subjective: - Patient was seen this morning - She is alert oriented x 3, following a ll commands - She tells me that she did well with di alysis yesterday, she is breathing better and her edema is improving - She continues to have generalized anas arca - We discussed her multiple organ failur e, her LFTs are improving, she has had about 300 urine output, remains afebrile, normotensive overnight on 2 L - I reviewed her records in detail she h as been complaining of left knee pain she was in the emergency room November 29, for left knee pain, had dizziness, had shortness of breath, at that time her BNP was noted to be 5900, hemoglobin 7.8, x-ray showed no fracture or dislocation but did show mildly osteoarthritis chest x-ray did show stable mild cardiomegaly - Thus I think she likely has been deali ng with his heart failure, but she has been also complaining of diffuse joint pains, especially left knee pain - Perhaps her acute heart failure could be viral in etiology, potentially stress-induced cardiomyopathy, resulting in cardiorenal syndrome, and congestive hepatopathy, and some component of hepatorenal syndrome - Nonetheless plan on PT OT today, dialy sis today - Also spoke to patient's cousin in [place], patient's family member from [facility] - Discussed with patient family the poss ibility of dialysis being short-term versus long-term, risks and benefits discussed, they voiced understanding, all questions answered Vitals/I&O/Wt Last Vital Signs Temp 97.9 F 12/16/24 16:15 Pulse 103 H 12/16/24 16:15 Resp 13 12/16/24 16:15 BP 101/52 12/16/24 16:15 Pulse Ox 93 12/16/24 16:00 O2 Del Method Nasal Cannula 12/16/24 13:30 O2 Flow Rate 2 12/16/24 13:30 FiO2 2 12/15/24 20:00 12/16/24 12/16/24 12/16/24 06:59 14:59 22:59 Intake Total 50 / 2767.283 318.387 / 318.387 650 / 968.387 Output Total 125 / 1900 3600 / 3600 Balance -75 / 867.283 318.387 / 318.387 -2950 / -2631.613 Weight last 48 hrs Weight 91.1 kg Weight 93.168 kg Weight 93.4 kg Weight 95.345 kg Physical Exam 2 Const: COMMON NORMALS: no acute distress and patient oriented x3 Resp: COMMON NORMALS: normal respiratory effort, No retractions and No use of accessory muscles AUSCULTATION: crackles and wheezes Cardio: COMMON NORMALS: regular rate, regular rhythm, S1 normal heart sound present and S2 normal heart sound present RATE: regular rate RHYTHM: r egular rhythm HEART SOUNDS: S1 normal heart sound present and S2 normal heart sound present GI: COMMON NORMALS: Normal to inspection, nondistended, normoactive bowel sounds present and non-tender Extremity: OTHER: 2+ pitting edema, generalized anasarca Neuro: COMMON NORMALS: patient oriented x3 Psych: COMMON NORMALS: mental status grossly normal Urinary Catheter Management: Martin: Cath Placed During This Visit: yes Reason for Continuing Indwelling Catheter: Accurate Measurement of Urinary Output in Critically Ill Patients Urinary Catheter Date of Insertion: 12/15/24 Data 12/16/24 03:14 12/16/24 03:14 Micro: Microbiology 12/16/24 03:16 Blood Culture - Preliminary Blood SPECIMEN COLLECTED 12/16/24 03:14 Blood Culture - Preliminary Blood SPECIMEN COLLECTED 12/12/24 10:42 Blood Culture - Final Blood A&P Assessment and plan (1) New onset of congestive heart failure: (2) Cardiomyopathy: (3) Acute liver failure: (4) Acute renal failure: (5) Sepsis: (6) Parainfluenza: (7) Anemia: (8) Transaminitis: Plan Acute renal failure -Urine output lackluster - Etiology unclear? - Potentially component of cardiogenic shock, cardiorenal syndrome, hepatorenal syndrome - Component of septic shock - Renal ultrasound no acute findings Plan - Currently on dobutamine drip - Currently on dialysis - Nephrology consulted Increased anion gap metabolic acidosis - Likely secondary to acute renal failure Hyperkalemia - Insulin, D10,, calcium gluconate, EKG - Received hemodialysis today Hyperglycemia, possible type 2 diabetes mellitus - A1c 7.3 - Low-dose sliding scale Pseudohyponatremia, secondary to hyperglycemia Urinary tract infection, with sepsis -Sepsis features met given leukocytosis, elevated CRP, elevated Pro-Black, elevated lactic acid - Elevated lactic acid, lactic acidosis - Follow blood cultures - Follow urine cultures - Vancomycin, aztreonam Acute liver failure - Acute hep panel within normal limits - Tylenol levels within normal limits - Ferritin within normal limits -Liver ultrasound within normal limits - Potentially congestive hepatopathy, - Monitor LFTs closely Acute systolic heart failure CONCLUSIONS Severe global hypokinesis with severely reduced LV systolic function. Estimated LVEF 30%. Moderately dilated left atrium with moderate mitral regurgitation. Thickened calcified aortic valve with reduced opening. Mild aortic regurgitation and moderate aortic stenosis. Elevated right heart and pulmonary pressure 40-45 mmHg. Compared to last echo report (07/21), LVEF has significantly reduced. -Potentially stress-induced cardiomyopathy, associated with rhinovirus, viral infection - Currently on dobutamine drip - Cardiology consulted - Continue to medically manage Has leukocytosis today, with thrombocytosis - Is on antibiotics as above - CRP 68.7, Pro-Black 1.41, lactic within normal limits - Peripheral smear shows leukocytosis with microcytic anemia, no blasts PDMP PDMP Reviewed: Not Reviewed Attestations 2 Medical Necessity Statement*: Patient requires hospitalization for acute renal failure, acute liver failure, acute heart failure, requiring dialysis,uti, sepsis, cardiogenic shock Diagnoses New onset of congestive heart failure I50.9 Cardiomyopathy, unspecified type I42.9 Cardiomyopathy type: unspecified Acute liver failure K72.00 Acute renal failure N17.9 Sepsis A41.9 Parainfluenza B34.8 Anemia, unspecified type D64.9 Anemia type: unspecified type Transaminitis R74.01
[2024-12-16 19:03] LABS: ANA SCREEN, IFA NEGATIVE (NEGATIVE)
[2024-12-16 20:09] LABS: Glomerular Bsmt Membrane IGG <1.0 AI
[2024-12-16] MEDS: enoxaparin 30 mg/0.3 mL Syringe SUBCUT (20:46)
[2024-12-16] MEDS: hyDROXYzine 25 mg Capsule 100 MG PO (20:47)
[2024-12-16] MEDS: vancomycin 500 MG in sodium chloride 0.9% (plus) 100 ML 200 MG IV (20:47)
[2024-12-17] VITALS (74 sets, daily range): BP systolic 86–129; BP diastolic 38–112; PULSE 96–112; RESP 10–28; TEMP 36.6–37.2; O2SAT 88–98
[2024-12-17] MEDS: aztreonam 1,000 MG in sodium chloride 0.9% (plus) 50 ML 100 MG IV ×3 (00:22→12:39)
[2024-12-17] MEDS: ipratropium-albuterol 3 mL Neb INHALATION ×4 (02:17→19:41)
[2024-12-17] MEDS: methylPREDNISolone sod succ 40 mg/mL INJ IVP (03:46)
[2024-12-17 05:19] LABS: Basophils % 0.1 %; Hematocrit 29.1 % (36-47); Lymphocytes # 0.2 10^3/uL (0.8-4.8); Lymphocytes % 1.2 %; Mean Corpuscular HGB Conc 29.6 g/dL (30-55); Mean Corpuscular Hemoglobin 21.1 pg (27-33); Mean Corpuscular Volume 71.5 fl (85-98); Mean Platelet Volume 10.2 fL (7.4-10.4); Monocytes # 0.6 10^3/uL (0.2-0.9); Monocytes % 4.7 %; Neutrophils # 11.43 10^3/uL (1.8-7.7); Neutrophils % 91.7 %; Nucleated Red Blood Cells # 0.1 /100WBC; Nucleated Red Blood Cells % 1.1 %; Platelet Count 192 10^3/cmm (157-399); Red Blood Count 4.07 10^6/uL (3.85-5.65); Red Cell Distribution Width 22.6 % (12.1-15.1); White Blood Count 12.47 10^3/uL (3.29-11.43)
[2024-12-17 05:33] LABS: Vancomycin Random 23.6 ug/mL (20.0-40.0)
[2024-12-17 05:34] LABS: C Reactive Protein 49.1 mg/L (0.0-4.9); Lactate (Lactic Acid level) 1.2 mmol/L (0.5-2.2)
[2024-12-17 05:41] LABS: Slide Review Slide Review Perform
[2024-12-17 05:44] LABS: NT Pro B Type Natriuretic Pept 8459 pg/mL (0-125); Procalcitonin 1.38 ng/mL (0-0.5)
[2024-12-17 05:55] LABS: Albumin Level 3.1 g/dL (3.5-5.2); Alkaline Phosphatase 255 U/L (35-105); Blood Urea Nitrogen 77 mg/dL (8-23); Calcium 7.8 mg/dL (8.5-10.5); Carbon Dioxide 21 mmol/L (22-29); Chloride 95 mmol/L (98-107); Creatinine Clr Calc Pharmacy 18.8009; Globulin 2.1 g/dL (1.3-4.6); Glomerular Filtration Rate 14.4 mL/min (90-130); Glucose 243 mg/dL (65-115); Magnesium 2.4 mg/dL (1.7-2.3); Osmolality Calculated 309 mOsm/kg (285-295); Phosphorus 7.5 mg/dL (2.5-4.5); Sodium 134 mmol/L (136-145); Total Bilirubin 2.6 mg/dL (0.15-1.2); Total Protein 5.2 g/dL (6.6-8.7)
[2024-12-17 06:09] LABS: Alanine Aminotransferase 1164 U/L (0-33); Anion Gap 23.2 (5-19); Potassium 5.2 mmol/L (3.5-5.1)
[2024-12-17 06:10] LABS: Aspartate Amino Transferase 291 U/L (0-32)
[2024-12-17] MEDS: HYDROmorphone 0.5 MG/0.5 ML INJ IVP ×3 (07:17→17:39)
[2024-12-17 07:37] LABS: Glucose Point of Care 203 mg/dL (70-110)
[2024-12-17 07:37] LABS: Glucose Point of Care 326 mg/dL (70-110)
[2024-12-17 07:55] LABS: Glucose Point of Care 265 mg/dL (70-110)
[2024-12-17] MEDS: budesonide 0.5 mg/2 mL Neb INHALATION ×2 (08:06→19:41)
[2024-12-17 08:21] LABS: Ceruloplasmin 42 mg/dL (14-48)
[2024-12-17 08:49] LABS: ALBUMIN 3.5 g/dL (3.8-4.8); ALPHA 1 GLOBULIN 0.5 g/dL (0.2-0.3); ALPHA 2 GLOBULIN 0.8 g/dL (0.5-0.9); BETA 1 GLOBULIN 0.4 g/dL (0.4-0.6); BETA 2 GLOBULIN 0.3 g/dL (0.2-0.5); GAMMA GLOBULIN 0.8 g/dL (0.8-1.7); THYROID PEROXIDASE ANTIBODIES 1 IU/mL (<9)
[2024-12-17] MEDS: citalopram 20 mg Tablet PO (09:09)
[2024-12-17] MEDS: bumetanide 0.25 mg/mL SDV 4 mL 1 MG IVP ×2 (09:09→20:52)
[2024-12-17] MEDS: pantoprazole DR 40 mg Tablet PO (09:09)
[2024-12-17] MEDS: clopidogrel 75 mg Tablet PO (09:09)
[2024-12-17] MEDS: insulin lispro 100 unit/1 mL SUBCUT ×3 (09:10→17:42)
--- NOTE | 2024-12-17 09:17 | PC.NURSE ---
Discussed patients pain level after dilaudid with Dr. Carbajal. Verbal order received for one time dose of 0.5 dilaudid.
[2024-12-17] MEDS: DOBUTamine drip 500 MG/250 ML PREMIX 13.91 MG IV (10:07)
[2024-12-17 12:46] LABS: ANCA Screen NEGATIVE (NEGATIVE)
--- NOTE | 2024-12-17 12:53 | P.PN_ITS ---
Subjective 2 Subjective: Patient was seen this morning, patient's cousin is at bedside, she is alert to person, to place, not to time she is a bit drowsy this morning, she can follow commands, she is tired and fatigued she tells me, she is especially tired after dialysis yesterday, she is received 2 sessions so far, does report poor appetite, does report decreased energy, her she does tell me her swelling and her shortness of breath is improving with dialysis, no nausea, no vomiting, no abdominal pain Vitals/I&O/Wt Last Vital Signs Temp 99 F 12/17/24 04:00 Pulse 108 H 12/17/24 12:00 Resp 15 12/17/24 12:00 BP 114/55 12/17/24 12:00 Pulse Ox 96 12/17/24 12:00 O2 Del Method Nasal Cannula 12/17/24 10:45 O2 Flow Rate 2 12/17/24 08:07 FiO2 2 12/15/24 20:00 12/16/24 12/17/24 12/17/24 22:59 06:59 14:59 Intake Total 750 / 1068.387 400 / 1468.387 450 / 450 Output Total 3600 / 3600 400 / 4000 Balance -2850 / -2531.613 0 / -2531.613 450 / 450 Weight last 48 hrs Weight 90.492 kg Weight 91.1 kg Weight 93.168 kg Weight 93.4 kg Physical Exam 2 Const: COMMON NORMALS: no acute distress ORIENTATION/CONSCIOUSNESS: Yes awake, Yes oriented to person and Yes oriented to place; not oriented to time Resp: COMMON NORMALS: normal respiratory effort, No retractions and No use of accessory muscles AUSCULTATION: crackles and wheezes Cardio: COMMON NORMALS: regular rate, regular rhythm, S1 normal heart sound present and S2 normal heart sound present RATE: regular rate RHYTHM: r egular rhythm HEART SOUNDS: S1 normal heart sound present and S2 normal heart sound present GI: COMMON NORMALS: Normal to inspection, nondistended, normoactive bowel sounds present and non-tender Extremity: NARRATIVE EXTREMITY EXAM: 1+edema, anasarca Neuro: SENSORIUM/ORIENTATION: Yes oriented to person, Yes oriented to place and No oriented to time Psych: COMMON NORMALS: mental status grossly normal Urinary Catheter Management: Martin: Cath Placed During This Visit: yes Reason for Continuing Indwelling Catheter: Accurate Measurement of Urinary Output in Critically Ill Patients Urinary Catheter Date of Insertion: 12/15/24 Data 12/17/24 04:55 12/17/24 04:55 Micro: Microbiology 12/12/24 09:23 Blood Culture - Final Blood NO GROWTH AFTER 5 DAYS 12/16/24 03:16 Blood Culture - Preliminary Blood NEGATIVE TO DATE 12/16/24 03:14 Blood Culture - Preliminary Blood NEGATIVE TO DATE A&P Assessment and plan (1) New onset of congestive heart failure: (2) Cardiomyopathy: (3) Acute liver failure: (4) Acute renal failure: (5) Sepsis: (6) Parainfluenza: (7) Anemia: (8) Transaminitis: Plan Acute renal failure -Status post 2 sessions of dialysis so far -Urine output 300 mL, dialysis 3600 mL urine output - Etiology unclear? - Potentially component of cardiogenic shock, cardiorenal syndrome, hepatorenal syndrome -Free kappa light chain 57 -Lambda light chain 30.3 -[place] lambda at 1.88 -SPEP and UPEP ordered for consideration of amyloidosis -Leukocytosis with mild microcytic anemia, no blasts -Calcium 7.8 - Component of septic shock - Renal ultrasound no acute findings Plan - Currently on dobutamine drip - Currently on dialysis - Nephrology consulted Increased anion gap metabolic acidosis - Likely secondary to acute renal failure Hyperkalemia - Insulin, D10,, calcium gluconate, EKG - Receiving hemodialysis today Hyperglycemia, possible type 2 diabetes mellitus - A1c 7.3 - Low-dose sliding scale Pseudohyponatremia, secondary to hyperglycemia Urinary tract infection, with sepsis -Sepsis features met given leukocytosis, elevated CRP, elevated Pro-Black, elevated lactic acid - Elevated lactic acid, lactic acidosis - Follow blood cultures - Follow urine cultures - Vancomycin, aztreonam Acute liver failure - Acute hep panel within normal limits - Tylenol levels within normal limits - Ferritin within normal limits -Liver ultrasound within normal limits - Potentially congestive hepatopathy, - Monitor LFTs closely Acute systolic heart failure CONCLUSIONS Severe global hypokinesis with severely reduced LV systolic function. Estimated LVEF 30%. Moderately dilated left atrium with moderate mitral regurgitation. Thickened calcified aortic valve with reduced opening. Mild aortic regurgitation and moderate aortic stenosis. Elevated right heart and pulmonary pressure 40-45 mmHg. Compared to last echo report (07/21), LVEF has significantly reduced. -Potentially stress-induced cardiomyopathy, associated with rhinovirus, viral infection -Could be a component of amyloidosis, patient's SPEP and UPEP pending - Currently on dobutamine drip - Cardiology consulted - Continue to medically manage Has leukocytosis today, with thrombocytosis, improving - Is on antibiotics as above - CRP 68.7, Pro-Black 1.41, lactic within normal limits - Peripheral smear shows leukocytosis with microcytic anemia, no blasts EBV - EBV IgM antibody 46.1 - EBV nuclear antigen 238 - DNA PCR pending - Etiology unclear - Could be a component of patient's transaminitis Positive rhinovirus PDMP PDMP Reviewed: Not Reviewed Attestations 2 Medical Necessity Statement*: Patient requires hospitalization for acute renal failure, acute liver failure, acute heart failure, requiring dialysis, dobutamine drip Diagnoses New onset of congestive heart failure I50.9 Cardiomyopathy, unspecified type I42.9 Cardiomyopathy type: unspecified Acute liver failure K72.00 Acute renal failure N17.9 Sepsis A41.9 Parainfluenza B34.8 Anemia, unspecified type D64.9 Anemia type: unspecified type Transaminitis R74.01
--- NOTE | 2024-12-17 14:29 | PM.PN ---
Subjective Subjective: remains anuric Medications: Reviewed: Yes Vitals/I&O/Wt Last Vital Signs Temp 97.9 F 12/17/24 13:45 Pulse 103 H 12/17/24 13:50 Resp 12 12/17/24 13:50 BP 107/50 12/17/24 13:45 Pulse Ox 97 12/17/24 13:50 O2 Del Method Nasal Cannula 12/17/24 13:50 O2 Flow Rate 2 12/17/24 13:50 FiO2 2 12/15/24 20:00 12/16/24 12/17/24 12/17/24 22:59 06:59 14:59 Intake Total 750 / 1068.387 400 / 1468.387 600 / 600 Output Total 3600 / 3600 400 / 4000 Balance -2850 / -2531.613 0 / -2531.613 600 / 600 Weight last 48 hrs Weight 90.492 kg Weight 91.1 kg Weight 93.168 kg Weight 93.4 kg Physical Exam Narrative: The patient is sitting up comfortably in bed. Vital signs noted. Patient is oxygenating well on room air. HEENT normocephalic atraumatic. She is not icteric. Neck is supple without JVP. Lungs have wheezing and dullness. Heart regular positive S1-S2. Soft positive bowel sounds. Extremities 2+ bilateral leg edema. Neuro awake alert oriented x 3, moves all extremities follows commands and interactive. Urinary Catheter Management: Martin: Cath Placed During This Visit: yes Reason for Continuing Indwelling Catheter: Accurate Measurement of Urinary Output in Critically Ill Patients Urinary Catheter Date of Insertion: 12/15/24 Data 12/17/24 04:55 12/17/24 04:55 Micro: Microbiology 12/12/24 09:23 Blood Culture - Final Blood NO GROWTH AFTER 5 DAYS 12/16/24 03:16 Blood Culture - Preliminary Blood NEGATIVE TO DATE 12/16/24 03:14 Blood Culture - Preliminary Blood NEGATIVE TO DATE A&P Assessment and plan (1) Acute kidney injury: Plan 69-year-old lady history of hypertension COPD obesity anemia and heart failure preserved EF. Patient presents with weakness new increased LFTs, decreased EF of 30%, chronic diastolic dysfunction. Patient also has acute kidney injury and increased anion gap metabolic acidosis. 1. Acute kidney injury in the setting of diastolic dysfunction with new acute decreased EF. The patient was started on Dobutrex -Renal ultrasound reviewed without any hemodynamically significant renal artery stenosis no hydronephrosis in either kidney. -Urinalysis reviewed dark yellow cloudy 1+ protein 1+ bilirubin 2+ leuk esterase no ketones no blood. Of note she has 51-100 white cells with squamous epis 21-50. -Agree with amyloid evaluation. - HD yesterday , hD again today , remains anuric 2. metabolic acidosis, HD as above 3. Mild hyponatremia with a low urine sodium likely due to heart failure exacerbation. 6. Combined diastolic dysfunction and new acute systolic heart failure. As per cardiology 7. Monitor increased transaminitis. Renal dose medications. Monitor urine output monitor chemistries. The patient was seen and examined using audiovisual cart with the aid of a nurse. The patient consented to telehealth. PDMP PDMP Reviewed: Not Reviewed Attestations Medical Necessity Statement*: per margarita Coding Level of Care Code Acute Code for [facility] Fwd Diagnoses Acute kidney injury N17.9
--- NOTE | 2024-12-17 16:08 | PM.PN ---
Subjective Subjective: Patient had a Myocardial perfusion imaging yesterday, taking out 3 L of fluid. She seems to be feeling better. No chest pain or palpitations. No unusual shortness of breath. The leg swelling seems to be improving. Medications: Medication Review Details: Current Medications Albuterol Sulfate (Albuterol 2.5 Mg/3 Ml Neb) 2.5 mg INHALATION Q4H PRN PRN Reason: SHORTNESS OF BREATH Albuterol/Ipratropium (Ipratropium-Albuterol 3 Ml Neb) 3 ml INHALATION Q6H.RESP SABINO Last Admin: 12/17/24 13:50 Dose: 3 ml Budesonide (Budesonide 0.5 Mg/2 Ml Neb) 0.5 mg INHALATION BID.RESPIRATORY [facility] Last Admin: 12/17/24 08:06 Dose: 0.5 mg Bumetanide (Bumetanide 0.25 Mg/Ml Sdv 4 Ml) 1 mg IVP Q12H [facility] Last Admin: 12/17/24 09:09 Dose: 1 mg Citalopram Hydrobromide (Citalopram 20 Mg Tablet) 20 mg PO DAILY SABINO Last Admin: 12/17/24 09:09 Dose: 20 mg Clopidogrel Bisulfate (Clopidogrel 75 Mg Tablet) 75 mg PO DAILY [facility] Last Admin: 12/17/24 09:09 Dose: 75 mg Enoxaparin Sodium (Enoxaparin 30 Mg/0.3 Ml Syringe) 30 mg SUBCUT Q24H [facility] Last Admin: 12/16/24 20:46 Dose: 30 mg Glucagon (Glucagon 1 Mg/Ml Kit 1 Ml) 1 mg IM ONCE PRN; Protocol PRN Reason: Adult Acute Hypoglycemia Nursing Prot. Hydromorphone HCl (Hydromorphone 0.5 Mg/0.5 Ml Inj) 0.5 mg IVP Q4H PRN PRN Reason: PAIN Last Admin: 12/17/24 07:17 Dose: 0.5 mg Hydroxyzine Pamoate (Hydroxyzine 25 Mg Capsule) 100 mg PO BEDTIME [facility] Last Admin: 12/16/24 20:47 Dose: 100 mg Dobutamine HCl/Dextrose (Dobutamine Drip) 500 mg in 250 mls @ 6.957 mls/hr IV .Q24H [facility] Last Admin: 12/17/24 10:07 Dose: 5 mcg/kg/min, 13.91 mls/hr Aztreonam 1,000 mg/ Sodium (Chloride) 50 mls @ 100 mls/hr IV Q12H [facility]; Protocol Last Infusion: 12/17/24 13:20 Dose: Infused Dextrose (D5w) 500 mls @ 0 mls/hr IV ONCE PRN; Protocol PRN Reason: Adult Acute Hypoglycemia Prot Dextrose (D10w) 125 mls @ 750 mls/hr IV PRN PRN; Protocol PRN Reason: Adult Acute Hypoglycemia Nursing Protocol Dextrose (D10w) 250 mls @ 1,000 mls/hr IV PRN PRN; Protocol PRN Reason: Adult Acute Hypoglycemia Nursing Protocol Sodium Chloride (Sodium Chloride 0.9%) 1,000 mls @ 0 mls/hr IV .Q0M PRN PRN Reason: hypotension or symptomatic Albumin Human (Albumin) 12.5 gm in 50 mls @ 60 mls/hr IV PRN PRN PRN Reason: Hypotension and/or symptomatic Vancomycin HCl 500 mg/ Sodium (Chloride) 100 mls @ 200 mls/hr IV ONCE ONE Stop: 12/17/24 21:29 Insulin Human Lispro (Insulin Lispro 100 Unit/1 Ml) 0 unit SUBCUT TIDWM SABINO; Protocol Last Admin: 12/17/24 12:39 Dose: 8 unit Naloxone HCl (Naloxone 0.4 Mg/Ml Sdv) 0.1 mg IVP Q2M PRN PRN Reason: OPIATERV Ondansetron HCl (Ondansetron 2 Mg/Ml Sdv 2 Ml) 4 mg IVP Q8H PRN PRN Reason: vomiting, or N/V if npo Last Admin: 12/14/24 20:35 Dose: 4 mg Pantoprazole Sodium (Pantoprazole Dr 40 Mg Tablet) 40 mg PO DAILY [facility] Last Admin: 12/17/24 09:09 Dose: 40 mg Prednisone (Prednisone 20 Mg Tablet) 40 mg PO DAILY SABINO Vancomycin HCl (Vancomycin 1,000 Mg Sdv (Pharmacy Mix)) 0 mg XX PRN PRN PRN Reason: Pharmacy to Dose Vitals/I&O/Wt Last Vital Signs Temp 97.9 F 12/17/24 13:45 Pulse 99 12/17/24 14:42 Resp 12 12/17/24 13:50 BP 107/50 12/17/24 13:45 Pulse Ox 97 12/17/24 13:50 O2 Del Method Nasal Cannula 12/17/24 13:50 O2 Flow Rate 2 12/17/24 13:50 FiO2 2 12/15/24 20:00 12/17/24 12/17/24 12/17/24 06:59 14:59 22:59 Intake Total 400 / 1468.387 600 / 600 Output Total 400 / 4000 Balance 0 / -2531.613 600 / 600 Weight last 48 hrs Weight 199 lb 8 oz Weight 200 lb 13.458 oz Weight 205 lb 6.4 oz Weight 205 lb 14.588 oz Physical Exam Narrative: GENERAL: The patient is alert and oriented times three. Not in any acute distress. Patient is somewhat drowsy HEENT: No significant pallor, icterus or lymphadenopathy.Oral cavity: There are no mucous membrane lesions. NECK: Trachea appears to be central. No masses noted. No JVD or thyromegaly appreciated. RESPIRATORY: Chest is symmetrical. No intercostals muscle retraction or any accessory muscle activation. There is no chest wall tenderness. Breath sounds are heard bilaterally. Bilateral expiratory wheezing. No evidence of consolidation. BREASTS: Deferred. HEART: The heart sounds are normal. No S3 or S4. No significant murmurs. No pericardial rub ABDOMEN: No vessel pulsations or distention. No tenderness. No organomegaly appreciated. Bowel sounds are normally heard. : Deferred. RECTAL: Deferred. LYMPHATIC: No lymphadenopathy noted in the neck. EXTREMITIES: 2-+ edema bilaterally MUSCULOSKELETAL: No acute joint deformities or swelling SKIN: There are no significant rashes or ecchymosis NEUROPSYCHIATRIC: The patient is alert and oriented x3. Appears to be in a good mood. No tremors or rigidity noted. Urinary Catheter Management: Martin: Cath Placed During This Visit: yes Reason for Continuing Indwelling Catheter: Accurate Measurement of Urinary Output in Critically Ill Patients Urinary Catheter Date of Insertion: 12/15/24 Data 12/17/24 04:55 12/17/24 04:55 Other Labs: Laboratory Last Values WBC 12.47 10^3/uL (3.29-11.43) H 12/17/24 04:55 RBC 4.07 10^6/uL (3.85-5.65) 12/17/24 04:55 Hgb 8.60 g/dL (11.27-16.99) L 12/17/24 04:55 Hct 29.1 % (36-47) L 12/17/24 04:55 MCV 71.5 fl (85-98) L 12/17/24 04:55 MCH 21.1 pg (27-33) L 12/17/24 04:55 MCHC 29.6 g/dL (30-55) L 12/17/24 04:55 RDW 22.6 % (12.1-15.1) H 12/17/24 04:55 Plt Count 192 10^3/cmm (157-399) D 12/17/24 04:55 MPV 10.2 fL (7.4-10.4) 12/17/24 04:55 Neut % (Auto) 91.7 % 12/17/24 04:55 Lymph % (Auto) 1.2 % 12/17/24 04:55 [place] % (Auto) 4.7 % 12/17/24 04:55 Eos % (Auto) 0.0 % 12/17/24 04:55 Baso % (Auto) 0.1 % 12/17/24 04:55 Neut # (Auto) 11.43 10^3/uL (1.8-7.7) H 12/17/24 04:55 Lymph # (Auto) 0.2 10^3/uL (0.8-4.8) L 12/17/24 04:55 [place] # (Auto) 0.6 10^3/uL (0.2-0.9) 12/17/24 04:55 Eos # (Auto) 0.0 10^3/uL (0.0-0.8) 12/17/24 04:55 Baso # (Auto) 0.0 10^3/uL (0.0-0.1) 12/17/24 04:55 Nucleated RBC % (auto) 1.1 % 12/17/24 04:55 Nucleated RBCs # 0.1 /100WBC 12/17/24 04:55 Peripher Smr Path Cons Sent for review 12/15/24 08:15 ESR 8 mm/hr (0-15) 12/15/24 08:15 PT 25.90 SECONDS (12.1-14.9) H 12/14/24 05:17 INR 2.22 (0.8-1.2) H 12/14/24 05:17 Specimen Type Venous 12/14/24 12:25 Sample Site Lr 12/14/24 12:25 Arnaldo Test Na 12/14/24 12:25 VBG pH 7.23 (7.32-7.42) L 12/14/24 12:25 VBG pCO2 35.1 mmHg (41-51) L 12/14/24 12:25 VBG pO2 44.7 mmHg (25-40) H 12/14/24 12:25 VBG HCO3 14.5 mmol/L (24-28) L 12/14/24 12:25 VBG Base Excess -12.2 mmol/L (-3.0-3.0) L 12/14/24 12:25 O2 Delivery Device Ra 12/14/24 12:25 FiO2 21.0 % 12/14/24 12:25 Specimen Drawn By Jonathan 12/14/24 12:25 Wheelchair Rental Clerk ID Jonathan 12/14/24 12:25 Sodium 134 mmol/L (136-145) L 12/17/24 04:55 Potassium 5.2 mmol/L (3.5-5.1) H 12/17/24 04:55 Chloride 95 mmol/L (98-107) L 12/17/24 04:55 Carbon Dioxide 21 mmol/L (22-29) L 12/17/24 04:55 Anion Gap 23.2 (5-19) H 12/17/24 04:55 BUN 77 mg/dL (8-23) H 12/17/24 04:55 Creatinine 3.2 mg/dL (0.5-0.9) H 12/17/24 04:55 GFR Calculation 14.4 mL/min (90-130) L 12/17/24 04:55 Glucose 243 mg/dL (65-115) H 12/17/24 04:55 POC Glucose 265 mg/dL (70-110) H 12/17/24 07:43 Estimat Average Glucose Cancelled 12/16/24 03:14 Hemoglobin A1c Cancelled 12/16/24 03:14 Calculated Osmolality 309 mOsm/kg (285-295) H 12/17/24 04:55 Lactic Acid 4.0 mmol/L (0.5-2.2) H 12/15/24 11:27 Lactic Acid (Sepsis) 2.7 mmol/L (0.5-2.2) H 12/12/24 14:30 Lactate 1.2 mmol/L (0.5-2.2) 12/17/24 04:55 Calcium 7.8 mg/dL (8.5-10.5) L 12/17/24 04:55 Phosphorus 7.5 mg/dL (2.5-4.5) H 12/17/24 04:55 Magnesium 2.4 mg/dL (1.7-2.3) H 12/17/24 04:55 Iron 14 ug/dL (37-145) L 12/15/24 08:15 TIBC 363 mcg/dl 12/15/24 08:15 % Saturation 3.8 % (20-50) L 12/15/24 08:15 Unsat Iron Binding 349 ug/dL (112-347) H 12/15/24 08:15 Ferritin 99 ng/mL (15-150) 12/15/24 08:15 Total Bilirubin 2.6 mg/dL (0.15-1.2) H 12/17/24 04:55 GGT 180 U/L (5-36) H 12/13/24 05:29 AST 291 U/L (0-32) H 12/17/24 04:55 ALT 1164 U/L (0-33) H 12/17/24 04:55 Alkaline Phosphatase 255 U/L (35-105) H 12/17/24 04:55 Ammonia 19 umol/L (11-51) 12/13/24 13:37 Lactate Dehydrogenase 2186 U/L (135-214) H 12/13/24 05:29 Creatine Kinase 185 U/L (26-192) 12/15/24 08:15 Troponin T Baseline 56 ng/L (0-10) H 12/12/24 09:23 Troponin T 120 Minute 48.04 ng/L (0-10) H 12/12/24 11:24 Delta Troponin T -7.96 ABS# (0-10) L 12/12/24 11:24 Troponin T Hi Sens 6Hr 54.56 ng/L (0-10) H 12/12/24 14:30 Troponin T Hi Sens 6Hr Delta -1.44 ng/L (0-12) L 12/12/24 14:30 C-Reactive Protein 49.1 mg/L (0.0-4.9) H 12/17/24 04:55 NT-Pro-B Natriuret Pep 8459 pg/mL (0-125) H 12/17/24 04:55 Total Protein 5.2 g/dL (6.6-8.7) L 12/17/24 04:55 Albumin 3.1 g/dL (3.5-5.2) L 12/17/24 04:55 Globulin 2.1 g/dL (1.3-4.6) 12/17/24 04:55 Swaxl-9-Xbxzhkgxk 0.5 g/dL (0.2-0.3) H 12/13/24 05:23 Dafwf-2-Uriopjuuy 0.8 g/dL (0.5-0.9) 12/13/24 05:23 Wrnp-4-Xoxbqfti 0.4 g/dL (0.4-0.6) 12/13/24 05:23 Ovhq-7-Ieopjego 0.3 g/dL (0.2-0.5) 12/13/24 05:23 Gamma Globulins 0.8 g/dL (0.8-1.7) 12/13/24 05:23 Abnorm Protein Band 1 Not Reportable 12/13/24 05:23 Ceruloplasmin 42 mg/dL (14-48) 12/16/24 03:14 Lipase 25 U/L (13-60) 12/12/24 09:23 Procalcitonin 1.38 ng/mL (0-0.5) H 12/17/24 04:55 TSH 2.79 uIU/mL (0.27-4.20) 12/12/24 14:30 Random Cortisol 48.13 ug/dL (2.47-19.5) H 12/15/24 08:15 Urine Color Dark yellow (Yellow) A 12/14/24 17:39 Urine Appearance Cloudy (CLEAR) A 12/14/24 17:39 Urine pH 5.0 (5-7) 12/14/24 17:39 Ur Specific [place] 1.026 (1.005-1.030) 12/14/24 17:39 Urine Protein 1+ (Negative) A 12/14/24 17:39 Urine Glucose (UA) Negative (Normal) 12/14/24 17:39 Urine Ketones Negative (Negative) 12/14/24 17:39 Urine Blood Negative (Negative) 12/14/24 17:39 Urine Nitrate Negative (Negative) 12/14/24 17:39 Urine Bilirubin 1+ (Negative) H 12/14/24 17:39 Urine Urobilinogen 1.0 mg/dL (Negative) 12/14/24 17:39 Ur Leukocyte Esterase 2+ (Negative) A 12/14/24 17:39 Urine RBC 0-2 /hpf (0-2) 12/14/24 17:39 Urine WBC 51-100 /hpf (0-5) H 12/14/24 17:39 Ur Squamous Epith Cells 21-50 /hpf (0-5) H 12/14/24 17:39 Amorphous Sediment Not Reportable 12/14/24 17:39 Urine Bacteria 2+ /hpf (NONE) H 12/14/24 17:39 Hyaline Casts 36.39 /lpf 12/14/24 17:39 Ur Random Creatinine 88 mg/dL (20-275) 12/14/24 17:39 Ur Random Microalbumin 25 ug/dL (0-20) H 12/14/24 17:39 U Random Total Protein 46 mg/dL 12/14/24 17:39 U Random Total Protein 59 mg/dL (5-24) H 12/14/24 17:39 Ur Random Sodium < 10 mmol/L 12/14/24 17:39 Ur Random Potassium 49 mmol/L 12/14/24 17:39 Ur Random Chloride 10 mmol/L 12/14/24 17:39 Urine Creatinine 91 mg/dL (28-217) 12/14/24 17:39 Urine Creatinine 93 mg/dL (28-217) 12/14/24 17:39 Microalb/Creat Ratio 275 mg/dL (0-20) H 12/14/24 17:39 Protein/Creatinin Ratio 670 mg/g creat (24-184) H 12/14/24 17:39 Protein/Creat Ratio 24h 0.670 (0.024-0.184) H 12/14/24 17:39 U Abnormal Prot Band 2 Not Reportable 12/13/24 05:23 U Abnormal Prot Band 3 Not Reportable 12/13/24 05:23 Random Vancomycin 23.6 ug/mL (20.0-40.0) 12/17/24 04:55 Salicylates < 0.3 mg/dL (3-10) L 12/12/24 09:23 Acetaminophen < 5.0 ug/mL (10-30) L 12/12/24 09:23 Pro Electrophoresis Int See note 12/13/24 05:23 LAWANDA IFA Animal Tis Res Negative (NEGATIVE) 12/13/24 05:23 ANCA Screen Negative (NEGATIVE) 12/13/24 17:28 ANCA Titer Not Reportable 12/13/24 17:28 MANUEL-1 Antibody <1.0 neg AI (<1.0 NEG) 12/13/24 05:23 SS-A Antibody <1.0 neg AI (<1.0 NEG) 12/13/24 05:23 SS-B Antibody <1.0 neg AI (<1.0 NEG) 12/13/24 05:23 Sm ([place]) Antibody <1.0 neg AI (<1.0 NEG) 12/13/24 17:28 CERTIFIED FAMILY MEDIATOR Antibody <1.0 neg AI (<1.0 NEG) 12/13/24 05:23 SM/CERTIFIED FAMILY MEDIATOR IgG Antibody <1.0 neg AI (<1.0 NEG) 12/13/24 17:28 Scl-70 Antibody <1.0 neg AI (<1.0 NEG) 12/13/24 05:23 Anti-ds DNA IgG Ab <1 IU/mL 12/13/24 05:23 Centromere B Antibody <1.0 neg AI (<1.0 NEG) 12/13/24 05:23 Thyroid Peroxidase Ab 1 IU/mL (<9) 12/13/24 05:23 Glomerular Base Mem IgG <1.0 AI 12/13/24 17:28 Complement C3 58 mg/dL (90-180) L 12/13/24 17:28 Complement C3c 71 mg/dL (83-193) L 12/13/24 05:23 Complement C4 11 mg/dL (10-40) 12/13/24 17: Complement C4c 15 mg/dL (15-57) 12/13/24 05:23 CH50 Classical Pathway 36 U/mL (31-60) 12/13/24 05:23 Free [place] Light Chains 57.0 mg/L (3.3-19.4) H 12/13/24 17:28 Free Lambda Light Chain 30.3 mg/L (5.7-26.3) H 12/13/24 17:28 Free [place]/Lambda Ratio 1.88 (0.26-1.65) H 12/13/24 17:28 Adenovirus (PCR) Not detected (NOT DETECT) 12/13/24 16:24 C. pneumoniae DNA (PCR) Not detected (NOT DETECT) 12/13/24 16:24 Coronavirus 229E (PCR) Not detected (NOT DETECT) 12/13/24 16:24 CMV IgG Ab 0.80 U/mL H 12/13/24 17:28 CMV IgM Ab <30.00 AU/mL 12/13/24 17:28 EBV IgG Ab >750.00 U/mL H 12/13/24 17:28 EBV IgM Ab 46.10 U/mL H 12/13/24 17:28 EBV Nuclear Antigen 238.00 U/mL H 12/13/24 17:28 EBV Interpretation See note 12/13/24 17:28 Hepatitis A IgM Ab Non-reactive (Nonreactive) 12/12/24 09:23 Hep Bs Antigen Non-reactive (Nonreactive) 12/16/24 03:14 Hep Bs Antibody 10.4 (11.5-1000) L 12/16/24 03:14 Hep B Core Total Ab Non-reactive (Nonreactive) 12/13/24 17:28 Hepatitis C Antibody Non-reactive (Nonreactive) 12/16/24 03:14 HIV 1&2 Ab & HIV 1 Ag Non-reactive (Non-Reactiv) 12/13/24 05:29 HIV 1&2 Antibody Non-reactive (Non-Reactiv) 12/13/24 05:29 Human Metapneumovir PCR Not detected (NOT DETECT) 12/13/24 16:24 Influenza A (H1) PCR Not detected (NOT DETECT) 12/13/24 16:24 Influ A (H1/09) PCR Not detected (NOT DETECT) 12/13/24 16:24 Influenza A (H3) PCR Not detected (NOT DETECT) 12/13/24 16:24 Influenza Type A (PCR) Not detected (NOT DETECT) 12/13/24 16:24 Influenza Type B (PCR) Not detected (NOT DETECT) 12/13/24 16:24 M. pneumoniae (PCR) Not detected (NOT DETECT) 12/13/24 16:24 Parainfluenza 1 (PCR) Not detected (NOT DETECT) 12/13/24 16:24 Parainfluenza 2 (PCR) Not detected (NOT DETECT) 12/13/24 16:24 Parainfluenza 3 (PCR) Not detected (NOT DETECT) 12/13/24 16:24 Parainfluenza 4 (PCR) Not detected (NOT DETECT) 12/13/24 16:24 RSV Type A (PCR) Not detected (NOT DETECT) 12/13/24 16:24 RSV Type B (PCR) Not detected (NOT DETECT) 12/13/24 16:24 Entero/Rhino (PCR) Detected (NOT DETECT) A 12/13/24 16:24 SARS-CoV-2 (PCR) Not detected (NOT DETECT) 12/13/24 16:24 Anti-Streptolysin O Ab <20 IU/mL (<200) 12/13/24 17:28 TREY, Poly Interpret Negative 12/13/24 05:23 Micro: Microbiology 12/12/24 09:23 Blood Culture - Final Blood NO GROWTH AFTER 5 DAYS 12/16/24 03:16 Blood Culture - Preliminary Blood NEGATIVE TO DATE 12/16/24 03:14 Blood Culture - Preliminary Blood NEGATIVE TO DATE A&P Assessment and plan (1) New onset of congestive heart failure: Taper off the Dobutrex (2) Cardiomyopathy: The etiology of the cardiomyopathy is not clear. Possibility of underlying coronary artery disease causes cannot be excluded. To further evaluate , a myocardial perfusion imaging would be appropriate. However we may hold off on this for the time being till the kidney function is stabilized. (3) Acute kidney injury: The etiology is not clear. Possibility of hypotension induced hepatorenal injury is a consideration. Possibility of sepsis causing this also need to be considered. BUN/creatinine levels are slowly coming down (4) Transaminitis: As mentioned above. Ischemic liver injury versus infective etiology are considerations. The liver enzymes are coming down. (5) Parainfluenza: Clinically seems to be improving. Management as per the primary (6) Iron deficiency: He is on iron supplements. (7) Anemia requiring transfusions: Hemoglobin seems to be stable. Plan Discontinue the Dobutrex today. Continue on the other treatment measures. Consider starting on hydralazine, if the blood pressure improves. Based on her clinical progress, further recommendations will be made PDMP PDMP Reviewed: Not Reviewed Attestations Medical Necessity Statement*: Deferred to the primary primary Coding Level of Care Code 26129 Diagnoses New onset of congestive heart failure I50.9 Cardiomyopathy, unspecified type I42.9 Cardiomyopathy type: unspecified Acute kidney injury N17.9 Transaminitis R74.01 Parainfluenza B34.8 Iron deficiency E61.1 Anemia requiring transfusions D64.9
--- NOTE | 2024-12-17 16:18 | PC.HD ---
Patient's BP dropped, with SBP in the 70s. Dialysate temperature lowered and UF goal reduced to 300 per hypotension dialysis orders. It was too late in the treatment to administer albumin in an attempt to support her BP. Contacted Dr. Santa and was instructed to terminate treatment early. Treatment terminated 36 minutes early, with a net fluid removal of 2077 mL (goal was 3000 mL0. Patient lying quietly with eyes open. Once HD terminated and blood was rinsed back to patient, BP uriah to 106/52.
[2024-12-17 17:32] LABS: Glucose Point of Care 198 mg/dL (70-110)
[2024-12-17] MEDS: vancomycin 500 MG in sodium chloride 0.9% (plus) 100 ML 200 MG IV (20:51)
[2024-12-17] MEDS: enoxaparin 30 mg/0.3 mL Syringe SUBCUT (20:51)
[2024-12-17] MEDS: hyDROXYzine 25 mg Capsule 100 MG PO (20:52)
[2024-12-17 21:08] LABS: Glucose Point of Care 329 mg/dL (70-110)
[2024-12-17] MEDS: insulin lispro 100 unit/1 mL 10 UNIT SUBCUT (21:38)
[2024-12-17 23:35] LABS: Immunofixation Serum Normal pattern.
[2024-12-18] VITALS (29 sets, daily range): BP systolic 108–133; BP diastolic 46–69; PULSE 90–112; RESP 11–24; TEMP 36.1–36.7; O2SAT 91–98
[2024-12-18] MEDS: ipratropium-albuterol 3 mL Neb INHALATION ×4 (01:05→19:53)
[2024-12-18] MEDS: DOBUTamine drip 500 MG/250 ML PREMIX 13.91 MG IV (01:51)
[2024-12-18] MEDS: aztreonam 1,000 MG in sodium chloride 0.9% (plus) 50 ML 100 MG IV ×2 (01:51→12:16)
[2024-12-18 04:48] LABS: Glucose Point of Care 269 mg/dL (70-110)
[2024-12-18 05:36] LABS: Basophils % 0.1 %; Hematocrit 29.4 % (36-47); Lymphocytes # 0.2 10^3/uL (0.8-4.8); Lymphocytes % 1.1 %; Mean Corpuscular HGB Conc 29.9 g/dL (30-55); Mean Corpuscular Hemoglobin 21.5 pg (27-33); Mean Corpuscular Volume 71.9 fl (85-98); Mean Platelet Volume 9.8 fL (7.4-10.4); Monocytes % 6.3 %; Neutrophils # 14.01 10^3/uL (1.8-7.7); Neutrophils % 89.4 %; Nucleated Red Blood Cells # 0.2 /100WBC; Nucleated Red Blood Cells % 1.1 %; Platelet Count 188 10^3/cmm (157-399); Red Blood Count 4.09 10^6/uL (3.85-5.65); Red Cell Distribution Width 22.5 % (12.1-15.1); White Blood Count 15.67 10^3/uL (3.29-11.43)
[2024-12-18 06:06] LABS: Albumin Level 3.1 g/dL (3.5-5.2); Alkaline Phosphatase 241 U/L (35-105); Anion Gap 18.8 (5-19); Aspartate Amino Transferase 171 U/L (0-32); Blood Urea Nitrogen 73 mg/dL (8-23); C Reactive Protein 26.4 mg/L (0.0-4.9); Carbon Dioxide 23 mmol/L (22-29); Chloride 97 mmol/L (98-107); Creatinine Clr Calc Pharmacy 19.2014; Globulin 2.5 g/dL (1.3-4.6); Glomerular Filtration Rate 14.9 mL/min (90-130); Glucose 212 mg/dL (65-115); Osmolality Calculated 306 mOsm/kg (285-295); Potassium 4.8 mmol/L (3.5-5.1); Sodium 134 mmol/L (136-145); Total Bilirubin 1.9 mg/dL (0.15-1.2); Total Protein 5.6 g/dL (6.6-8.7)
[2024-12-18 06:07] LABS: Lactate (Lactic Acid level) 1.5 mmol/L (0.5-2.2); NT Pro B Type Natriuretic Pept 12613 pg/mL (0-125); Procalcitonin 0.95 ng/mL (0-0.5)
[2024-12-18 06:19] LABS: Alanine Aminotransferase 855 U/L (0-33)
[2024-12-18 07:30] LABS: Glucose Point of Care 230 mg/dL (70-110)
[2024-12-18] MEDS: predniSONE 20 mg Tablet 40 MG PO (07:47)
[2024-12-18] MEDS: pantoprazole DR 40 mg Tablet PO (07:47)
[2024-12-18] MEDS: clopidogrel 75 mg Tablet PO (07:47)
[2024-12-18] MEDS: citalopram 20 mg Tablet PO (07:47)
[2024-12-18] MEDS: insulin lispro 100 unit/1 mL SUBCUT ×3 (07:48→16:59)
[2024-12-18] MEDS: bumetanide 0.25 mg/mL SDV 4 mL 1 MG IVP ×2 (07:48→21:07)
[2024-12-18] MEDS: budesonide 0.5 mg/2 mL Neb INHALATION ×2 (09:04→19:53)
--- NOTE | 2024-12-18 09:49 | P.PN_ITS ---
Subjective 2 Subjective: no new complaints Medications: Reviewed: Yes Vitals/I&O/Wt Last Vital Signs Temp 97.0 F L 12/18/24 04:00 Pulse 107 H 12/18/24 09:00 Resp 18 12/18/24 09:00 BP 108/54 12/18/24 08:00 Pulse Ox 97 12/18/24 09:00 O2 Del Method Nasal Cannula 12/18/24 09:00 O2 Flow Rate 2 12/18/24 09:00 FiO2 2 12/15/24 20:00 12/17/24 12/18/24 12/18/24 22:59 06:59 14:59 Intake Total 820 / 1420 468.851 / 1888.851 Output Total 2727 / 2727 125 / 2852 Balance -1907 / -1307 343.851 / -963.149 Weight last 48 hrs Weight 88.587 kg Weight 89.4 kg Weight 90.492 kg Weight 91.1 kg Physical Exam 2 Narrative: The patient is sitting up comfortably in bed. Vital signs noted. Patient is oxygenating well on room air. HEENT normocephalic atraumatic. She is not icteric. Neck is supple without JVP. Lungs have wheezing and dullness. Heart regular positive S1-S2. Soft positive bowel sounds. Extremities 2+ bilateral leg edema. Neuro awake alert oriented x 3, moves all extremities follows commands and interactive. Urinary Catheter Management: Martin: Cath Placed During This Visit: yes Reason for Continuing Indwelling Catheter: Accurate Measurement of Urinary Output in Critically Ill Patients Urinary Catheter Date of Insertion: 12/15/24 Data 12/18/24 05:06 12/18/24 05:06 Micro: Microbiology 12/12/24 09:23 Blood Culture - Final Blood NO GROWTH AFTER 5 DAYS A&P Assessment and plan (1) Acute kidney injury: Plan 69-year-old lady history of hypertension COPD obesity anemia and heart failure preserved EF. Patient presents with weakness new increased LFTs, decreased EF of 30%, chronic diastolic dysfunction. Patient also has acute kidney injury and increased anion gap metabolic acidosis. 1. Acute kidney injury in the setting of diastolic dysfunction with new acute decreased EF. The patient was started on Dobutrex - off now -Renal ultrasound reviewed without any hemodynamically significant renal artery stenosis no hydronephrosis in either kidney. -Urinalysis reviewed dark yellow cloudy 1+ protein 1+ bilirubin 2+ leuk esterase no ketones no blood. Of note she has 51-100 white cells with squamous epis 21- 50. -HD started , HD done yesterday - Hold off hD today 2. metabolic acidosis, HD as above 3. Mild hyponatremia with a low urine sodium likely due to heart failure exacerbation. 6. Combined diastolic dysfunction and new acute systolic heart failure. As per cardiology 7. Monitor increased transaminitis. Renal dose medications. Monitor urine output monitor chemistries. The patient was seen and examined using audiovisual cart with the aid of a nurse. The patient consented to telehealth. PDMP PDMP Reviewed: Not Reviewed Attestations 2 Medical Necessity Statement*: per [facility] Coding Level of Care Code Acute Code for [facility] Diagnoses Acute kidney injury N17.9
--- NOTE | 2024-12-18 10:19 | P.PN_ITS ---
Subjective 2 Subjective: Patient seems to be stable from a hemodynamic standpoint. Appears to be drowsy and weak. No chest pain or palpitations. Telemetry shows sinus tachycardia/sinus rhythm. Medications: Medication Review Details: Current Medications Albuterol Sulfate (Albuterol 2.5 Mg/3 Ml Neb) 2.5 mg INHALATION Q4H PRN PRN Reason: SHORTNESS OF BREATH Albuterol/Ipratropium (Ipratropium-Albuterol 3 Ml Neb) 3 ml INHALATION Q6H.RESP SABINO Last Admin: 12/18/24 09:04 Dose: 3 ml Budesonide (Budesonide 0.5 Mg/2 Ml Neb) 0.5 mg INHALATION BID.RESPIRATORY SABINO Last Admin: 12/18/24 09:04 Dose: 0.5 mg Bumetanide (Bumetanide 0.25 Mg/Ml Sdv 4 Ml) 1 mg IVP Q12H SABINO Last Admin: 12/18/24 07:48 Dose: 1 mg Citalopram Hydrobromide (Citalopram 20 Mg Tablet) 20 mg PO DAILY SABINO Last Admin: 12/18/24 07:47 Dose: 20 mg Clopidogrel Bisulfate (Clopidogrel 75 Mg Tablet) 75 mg PO DAILY SABINO Last Admin: 12/18/24 07:47 Dose: 75 mg Enoxaparin Sodium (Enoxaparin 30 Mg/0.3 Ml Syringe) 30 mg SUBCUT Q24H SABINO Last Admin: 12/17/24 20:51 Dose: 30 mg Glucagon (Glucagon 1 Mg/Ml Kit 1 Ml) 1 mg IM ONCE PRN; Protocol PRN Reason: Adult Acute Hypoglycemia Nursing Prot. Hydroxyzine Pamoate (Hydroxyzine 25 Mg Capsule) 100 mg PO BEDTIME SABINO Last Admin: 12/17/24 20:52 Dose: 100 mg Dobutamine HCl/Dextrose (Dobutamine Drip) 500 mg in 250 mls @ 6.957 mls/hr IV .Q24H [facility] Last Admin: 12/18/24 01:51 Dose: 5 mcg/kg/min, 13.91 mls/hr Aztreonam 1,000 mg/ Sodium (Chloride) 50 mls @ 100 mls/hr IV Q12H SABINO; Protocol Last Infusion: 12/18/24 02:23 Dose: Infused Dextrose (D5w) 500 mls @ 0 mls/hr IV ONCE PRN; Protocol PRN Reason: Adult Acute Hypoglycemia Prot Dextrose (D10w) 125 mls @ 750 mls/hr IV PRN PRN; Protocol PRN Reason: Adult Acute Hypoglycemia Nursing Protocol Dextrose (D10w) 250 mls @ 1,000 mls/hr IV PRN PRN; Protocol PRN Reason: Adult Acute Hypoglycemia Nursing Protocol Sodium Chloride (Sodium Chloride 0.9%) 1,000 mls @ 0 mls/hr IV .Q0M PRN PRN Reason: hypotension or symptomatic Albumin Human (Albumin) 12.5 gm in 50 mls @ 60 mls/hr IV PRN PRN PRN Reason: Hypotension and/or symptomatic Insulin Human Lispro (Insulin Lispro 100 Unit/1 Ml) 0 unit SUBCUT TIDWM SABINO; Protocol Last Admin: 12/18/24 07:48 Dose: 6 unit Morphine Sulfate (Morphine 4 Mg/Ml Sdv 1 Ml) 2 mg IVP Q4H PRN PRN Reason: SEVERE PAIN Naloxone HCl (Naloxone 0.4 Mg/Ml Sdv) 0.1 mg IVP Q2M PRN PRN Reason: OPIATERV Nystatin (Nystatin 100,000 Unit/Ml Udc 5 Ml) 100,000 unit PO QID SABINO Ondansetron HCl (Ondansetron 2 Mg/Ml Sdv 2 Ml) 4 mg IVP Q8H PRN PRN Reason: vomiting, or N/V if npo Last Admin: 12/14/24 20:35 Dose: 4 mg Pantoprazole Sodium (Pantoprazole Dr 40 Mg Tablet) 40 mg PO DAILY [facility] Last Admin: 12/18/24 07:47 Dose: 40 mg Prednisone (Prednisone 20 Mg Tablet) 40 mg PO DAILY [facility] Last Admin: 12/18/24 07:47 Dose: 40 mg Vancomycin HCl (Vancomycin 1,000 Mg Sdv (Pharmacy Mix)) 0 mg XX PRN PRN PRN Reason: Pharmacy to Dose Vitals/I&O/Wt Last Vital Signs Temp 97.0 F L 12/18/24 04:00 Pulse 107 H 12/18/24 09:00 Resp 18 12/18/24 09:00 BP 108/54 12/18/24 08:00 Pulse Ox 97 12/18/24 09:00 O2 Del Method Nasal Cannula 12/18/24 09:00 O2 Flow Rate 2 12/18/24 09:00 FiO2 2 12/15/24 20:00 12/17/24 12/18/24 12/18/24 22:59 06:59 14:59 Intake Total 820 / 1420 468.851 / 1888.851 Output Total 2727 / 2727 125 / 2852 Balance -1907 / -1307 343.851 / -963.149 Weight last 48 hrs Weight 195 lb 4.8 oz Weight 197 lb 1.492 oz Weight 199 lb 8 oz Weight 200 lb 13.458 oz Physical Exam 2 Narrative: GENERAL: The patient is alert and oriented times three. Not in any acute distress. Patient is somewhat drowsy HEENT: No significant pallor, icterus or lymphadenopathy.Oral cavity: There are no mucous membrane lesions. NECK: Trachea appears to be central. No masses noted. No JVD or thyromegaly appreciated. RESPIRATORY: Chest is symmetrical. No intercostals muscle retraction or any accessory muscle activation. There is no chest wall tenderness. Breath sounds are heard bilaterally. Bilateral expiratory wheezing. No evidence of consolidation. BREASTS: Deferred. HEART: The heart sounds are normal. No S3 or S4. Ejection systolic murmur of grade 4/6 in the aortic area. No pericardial rub ABDOMEN: No vessel pulsations or distention. No tenderness. No organomegaly appreciated. Bowel sounds are normally heard. : Deferred. RECTAL: Deferred. LYMPHATIC: No lymphadenopathy noted in the neck. EXTREMITIES: 2-+ edema bilaterally MUSCULOSKELETAL: No acute joint deformities or swelling SKIN: There are no significant rashes or ecchymosis NEUROPSYCHIATRIC: The patient is alert and oriented x3. Appears to be in a good mood. No tremors or rigidity noted. Urinary Catheter Management: Martin: Cath Placed During This Visit: yes Reason for Continuing Indwelling Catheter: Accurate Measurement of Urinary Output in Critically Ill Patients Urinary Catheter Date of Insertion: 12/15/24 Data 12/18/24 05:06 12/18/24 05:06 Other Labs: Laboratory Last Values WBC 15.67 10^3/uL (3.29-11.43) H 12/18/24 05:06 RBC 4.09 10^6/uL (3.85-5.65) 12/18/24 05:06 Hgb 8.80 g/dL (11.27-16.99) L 12/18/24 05:06 Hct 29.4 % (36-47) L 12/18/24 05:06 MCV 71.9 fl (85-98) L 12/18/24 05:06 MCH 21.5 pg (27-33) L 12/18/24 05:06 MCHC 29.9 g/dL (30-55) L 12/18/24 05:06 RDW 22.5 % (12.1-15.1) H 12/18/24 05:06 Plt Count 188 10^3/cmm (157-399) 12/18/24 05:06 MPV 9.8 fL (7.4-10.4) 12/18/24 05:06 Neut % (Auto) 89.4 % 12/18/24 05:06 Lymph % (Auto) 1.1 % 12/18/24 05:06 [place] % (Auto) 6.3 % 12/18/24 05:06 Eos % (Auto) 0.0 % 12/18/24 05:06 Baso % (Auto) 0.1 % 12/18/24 05:06 Neut # (Auto) 14.01 10^3/uL (1.8-7.7) H 12/18/24 05:06 Lymph # (Auto) 0.2 10^3/uL (0.8-4.8) L 12/18/24 05:06 [place] # (Auto) 1.0 10^3/uL (0.2-0.9) H 12/18/24 05:06 Eos # (Auto) 0.0 10^3/uL (0.0-0.8) 12/18/24 05:06 Baso # (Auto) 0.0 10^3/uL (0.0-0.1) 12/18/24 05:06 Nucleated RBC % (auto) 1.1 % 12/18/24 05:06 Nucleated RBCs # 0.2 /100WBC 12/18/24 05:06 Peripher Smr Path Cons Sent for review 12/15/24 08:15 ESR 8 mm/hr (0-15) 12/15/24 08:15 PT 25.90 SECONDS (12.1-14.9) H 12/14/24 05:17 INR 2.22 (0.8-1.2) H 12/14/24 05:17 Specimen Type Venous 12/14/24 12:25 Sample Site Lr 12/14/24 12:25 Arnaldo Test Na 12/14/24 12:25 VBG pH 7.23 (7.32-7.42) L 12/14/24 12:25 VBG pCO2 35.1 mmHg (41-51) L 12/14/24 12:25 VBG pO2 44.7 mmHg (25-40) H 12/14/24 12:25 VBG HCO3 14.5 mmol/L (24-28) L 12/14/24 12:25 VBG Base Excess -12.2 mmol/L (-3.0-3.0) L 12/14/24 12:25 O2 Delivery Device Ra 12/14/24 12:25 FiO2 21.0 % 12/14/24 12:25 Specimen Drawn By Jonathan 12/14/24 12:25 Sheet Metal Fabricator ID Jonathan 12/14/24 12:25 Sodium 134 mmol/L (136-145) L 12/18/24 05:06 Potassium 4.8 mmol/L (3.5-5.1) 12/18/24 05:06 Chloride 97 mmol/L (98-107) L 12/18/24 05:06 Carbon Dioxide 23 mmol/L (22-29) 12/18/24 05:06 Anion Gap 18.8 (5-19) 12/18/24 05:06 BUN 73 mg/dL (8-23) H 12/18/24 05:06 Creatinine 3.1 mg/dL (0.5-0.9) H 12/18/24 05:06 GFR Calculation 14.9 mL/min (90-130) L 12/18/24 05:06 Glucose 212 mg/dL (65-115) H 12/18/24 05:06 POC Glucose 230 mg/dL (70-110) H 12/18/24 07:26 Estimat Average Glucose Cancelled 12/16/24 03:14 Hemoglobin A1c Cancelled 12/16/24 03:14 Calculated Osmolality 306 mOsm/kg (285-295) H 12/18/24 05:06 Lactic Acid 4.0 mmol/L (0.5-2.2) H 12/15/24 11:27 Lactic Acid (Sepsis) 2.7 mmol/L (0.5-2.2) H 12/12/24 14:30 Lactate 1.5 mmol/L (0.5-2.2) 12/18/24 05:06 Calcium 8.0 mg/dL (8.5-10.5) L 12/18/24 05:06 Phosphorus 7.5 mg/dL (2.5-4.5) H 12/17/24 04:55 Magnesium 2.4 mg/dL (1.7-2.3) H 12/17/24 04:55 Iron 14 ug/dL (37-145) L 12/15/24 08:15 TIBC 363 mcg/dl 12/15/24 08:15 % Saturation 3.8 % (20-50) L 12/15/24 08:15 Unsat Iron Binding 349 ug/dL (112-347) H 12/15/24 08:15 Ferritin 99 ng/mL (15-150) 12/15/24 08:15 Total Bilirubin 1.9 mg/dL (0.15-1.2) H 12/18/24 05:06 GGT 180 U/L (5-36) H 12/13/24 05:29 AST 171 U/L (0-32) H 12/18/24 05:06 ALT 855 U/L (0-33) H 12/18/24 05:06 Alkaline Phosphatase 241 U/L (35-105) H 12/18/24 05:06 Ammonia 19 umol/L (11-51) 12/13/24 13:37 Lactate Dehydrogenase 2186 U/L (135-214) H 12/13/24 05:29 Creatine Kinase 185 U/L (26-192) 12/15/24 08:15 Troponin T Baseline 56 ng/L (0-10) H 12/12/24 09:23 Troponin T 120 Minute 48.04 ng/L (0-10) H 12/12/24 11:24 Delta Troponin T -7.96 ABS# (0-10) L 12/12/24 11:24 Troponin T Hi Sens 6Hr 54.56 ng/L (0-10) H 12/12/24 14:30 Troponin T Hi Sens 6Hr Delta -1.44 ng/L (0-12) L 12/12/24 14:30 C-Reactive Protein 26.4 mg/L (0.0-4.9) H 12/18/24 05:06 NT-Pro-B Natriuret Pep 55738 pg/mL (0-125) H 12/18/24 05:06 Total Protein 5.6 g/dL (6.6-8.7) L 12/18/24 05:06 Albumin 3.1 g/dL (3.5-5.2) L 12/18/24 05:06 Globulin 2.5 g/dL (1.3-4.6) 12/18/24 05:06 Teafq-7-Opfqemhyb 0.5 g/dL (0.2-0.3) H 12/13/24 05:23 Yreyr-3-Lenhsvnyn 0.8 g/dL (0.5-0.9) 12/13/24 05:23 Fvxh-2-Bgxumifl 0.4 g/dL (0.4-0.6) 12/13/24 05:23 Ejof-1-Npcgqqgb 0.3 g/dL (0.2-0.5) 12/13/24 05:23 Gamma Globulins 0.8 g/dL (0.8-1.7) 12/13/24 05:23 Abnorm Protein Band 1 Not Reportable 12/13/24 05:23 Ceruloplasmin 42 mg/dL (14-48) 12/16/24 03:14 Lipase 25 U/L (13-60) 12/12/24 09:23 Procalcitonin 0.95 ng/mL (0-0.5) H 12/18/24 05:06 TSH 2.79 uIU/mL (0.27-4.20) 12/12/24 14:30 Random Cortisol 48.13 ug/dL (2.47-19.5) H 12/15/24 08:15 Urine Color Dark yellow (Yellow) A 12/14/24 17:39 Urine Appearance Cloudy (CLEAR) A 12/14/24 17:39 Urine pH 5.0 (5-7) 12/14/24 17:39 Ur Specific [place] 1.026 (1.005-1.030) 12/14/24 17:39 Urine Protein 1+ (Negative) A 12/14/24 17:39 Urine Glucose (UA) Negative (Normal) 12/14/24 17:39 Urine Ketones Negative (Negative) 12/14/24 17:39 Urine Blood Negative (Negative) 12/14/24 17:39 Urine Nitrate Negative (Negative) 12/14/24 17:39 Urine Bilirubin 1+ (Negative) H 12/14/24 17:39 Urine Urobilinogen 1.0 mg/dL (Negative) 12/14/24 17:39 Ur Leukocyte Esterase 2+ (Negative) A 12/14/24 17:39 Urine RBC 0-2 /hpf (0-2) 12/14/24 17:39 Urine WBC 51-100 /hpf (0-5) H 12/14/24 17:39 Ur Squamous Epith Cells 21-50 /hpf (0-5) H 12/14/24 17:39 Amorphous Sediment Not Reportable 12/14/24 17:39 Urine Bacteria 2+ /hpf (NONE) H 12/14/24 17:39 Hyaline Casts 36.39 /lpf 12/14/24 17:39 Ur Random Creatinine 88 mg/dL (20-275) 12/14/24 17:39 Ur Random Microalbumin 25 ug/dL (0-20) H 12/14/24 17:39 U Random Total Protein 46 mg/dL 12/14/24 17:39 U Random Total Protein 59 mg/dL (5-24) H 12/14/24 17:39 Ur Random Sodium < 10 mmol/L 12/14/24 17:39 Ur Random Potassium 49 mmol/L 12/14/24 17:39 Ur Random Chloride 10 mmol/L 12/14/24 17:39 Urine Creatinine 91 mg/dL (28-217) 12/14/24 17:39 Urine Creatinine 93 mg/dL (28-217) 12/14/24 17:39 Microalb/Creat Ratio 275 mg/dL (0-20) H 12/14/24 17:39 Protein/Creatinin Ratio 670 mg/g creat (24-184) H 12/14/24 17:39 Protein/Creat Ratio 24h 0.670 (0.024-0.184) H 12/14/24 17:39 U Abnormal Prot Band 2 Not Reportable 12/13/24 05:23 U Abnormal Prot Band 3 Not Reportable 12/13/24 05:23 Random Vancomycin 23.6 ug/mL (20.0-40.0) 12/17/24 04:55 Salicylates < 0.3 mg/dL (3-10) L 12/12/24 09:23 Acetaminophen < 5.0 ug/mL (10-30) L 12/12/24 09:23 Pro Electrophoresis Int See note 12/13/24 05:23 Serum Immunofixation Normal pattern. 12/13/24 05:23 LAWANDA IFA Animal Tis Res Negative (NEGATIVE) 12/13/24 05:23 ANCA Screen Negative (NEGATIVE) 12/13/24 17:28 ANCA Titer Not Reportable 12/13/24 17:28 MANUEL-1 Antibody <1.0 neg AI (<1.0 NEG) 12/13/24 05:23 SS-A Antibody <1.0 neg AI (<1.0 NEG) 12/13/24 05:23 SS-B Antibody <1.0 neg AI (<1.0 NEG) 12/13/24 05:23 Sm ([place]) Antibody <1.0 neg AI (<1.0 NEG) 12/13/24 17:28 FLAT KNITTER HELPER Antibody <1.0 neg AI (<1.0 NEG) 12/13/24 05:23 SM/FLAT KNITTER HELPER IgG Antibody <1.0 neg AI (<1.0 NEG) 12/13/24 17:28 Scl-70 Antibody <1.0 neg AI (<1.0 NEG) 12/13/24 05:23 Anti-ds DNA IgG Ab <1 IU/mL 12/13/24 05:23 Centromere B Antibody <1.0 neg AI (<1.0 NEG) 12/13/24 05:23 Thyroid Peroxidase Ab 1 IU/mL (<9) 12/13/24 05:23 Glomerular Base Mem IgG <1.0 AI 12/13/24 17:28 Complement C3 58 mg/dL (90-180) L 12/13/24 17:28 Complement C3c 71 mg/dL (83-193) L 12/13/24 05:23 Complement C4 11 mg/dL (10-40) 12/13/24 17: Complement C4c 15 mg/dL (15-57) 12/13/24 05:23 CH50 Classical Pathway 36 U/mL (31-60) 12/13/24 05:23 Free [place] I[place] Light Chains 57.0 mg/L (3.3-19.4) H 12/13/24 17:28 Free Lambda Light Chain 30.3 mg/L (5.7-26.3) H 12/13/24 17:28 Free [place] Ii/Lambda Ratio 1.88 (0.26-1.65) H 12/13/24 17:28 Adenovirus (PCR) Not detected (NOT DETECT) 12/13/24 16:24 C. pneumoniae DNA (PCR) Not detected (NOT DETECT) 12/13/24 16:24 Coronavirus 229E (PCR) Not detected (NOT DETECT) 12/13/24 16:24 CMV IgG Ab 0.80 U/mL H 12/13/24 17:28 CMV IgM Ab <30.00 AU/mL 12/13/24 17:28 EBV IgG Ab >750.00 U/mL H 12/13/24 17:28 EBV IgM Ab 46.10 U/mL H 12/13/24 17:28 EBV Nuclear Antigen 238.00 U/mL H 12/13/24 17:28 EBV Interpretation See note 12/13/24 17:28 Hepatitis A IgM Ab Non-reactive (Nonreactive) 12/12/24 09:23 Hep Bs Antigen Non-reactive (Nonreactive) 12/16/24 03:14 Hep Bs Antibody 10.4 (11.5-1000) L 12/16/24 03:14 Hep B Core Total Ab Non-reactive (Nonreactive) 12/13/24 17:28 Hepatitis C Antibody Non-reactive (Nonreactive) 12/16/24 03:14 HIV 1&2 Ab & HIV 1 Ag Non-reactive (Non-Reactiv) 12/13/24 05:29 HIV 1&2 Antibody Non-reactive (Non-Reactiv) 12/13/24 05:29 Human Metapneumovir PCR Not detected (NOT DETECT) 12/13/24 16:24 Influenza A (H1) PCR Not detected (NOT DETECT) 12/13/24 16:24 Influ A (H1/09) PCR Not detected (NOT DETECT) 12/13/24 16:24 Influenza A (H3) PCR Not detected (NOT DETECT) 12/13/24 16:24 Influenza Type A (PCR) Not detected (NOT DETECT) 12/13/24 16:24 Influenza Type B (PCR) Not detected (NOT DETECT) 12/13/24 16:24 M. pneumoniae (PCR) Not detected (NOT DETECT) 12/13/24 16:24 Parainfluenza 1 (PCR) Not detected (NOT DETECT) 12/13/24 16:24 Parainfluenza 2 (PCR) Not detected (NOT DETECT) 12/13/24 16:24 Parainfluenza 3 (PCR) Not detected (NOT DETECT) 12/13/24 16:24 Parainfluenza 4 (PCR) Not detected (NOT DETECT) 12/13/24 16:24 RSV Type A (PCR) Not detected (NOT DETECT) 12/13/24 16:24 RSV Type B (PCR) Not detected (NOT DETECT) 12/13/24 16:24 Entero/Rhino (PCR) Detected (NOT DETECT) A 12/13/24 16:24 SARS-CoV-2 (PCR) Not detected (NOT DETECT) 12/13/24 16:24 Anti-Streptolysin O Ab <20 IU/mL (<200) 12/13/24 17:28 TREY, Poly Interpret Negative 12/13/24 05:23 Micro: Microbiology 12/12/24 09:23 Blood Culture - Final Blood NO GROWTH AFTER 5 DAYS A&P Assessment and plan (1) New onset of congestive heart failure: The IV Dobutrex is discontinued. May continue with all current measures. Consider starting hydralazine, small dose, once the blood pressure is stable (2) Cardiomyopathy: The etiology of the cardiomyopathy is not clear. Possibility of underlying coronary artery disease causes cannot be excluded. To further evaluate , a myocardial perfusion imaging would be appropriate. However we may hold off on this for the time being till the kidney function is stabilized. (3) Severe calcific aortic valve stenosis: Patient has features of a severe low gradient aortic valve stenosis. May need to do a dobutamine echocardiogram to rule out pseudo low gradient aortic valve stenosis (4) Acute kidney injury: Patient is on hemodialysis. Kidney function does not seem to be improving much. (5) Transaminitis: As mentioned above. Ischemic liver injury versus infective etiology are considerations. The liver enzymes are coming down. (6) Parainfluenza: Clinically seems to be improving. Management as per the primary (7) Iron deficiency: He is on iron supplements. (8) Anemia requiring transfusions: Hemoglobin seems to be stable. Plan Consider starting the patient on hydralazine at a low dose, when the blood pressure is stable Also consider dobutamine stress echo to rule out pseudo aortic valve stenosis, once the clinical status is stable Continue on the current measures PDMP PDMP Reviewed: Not Reviewed Attestations 2 Medical Necessity Statement*: Deferred to the primary Coding Level of Care Code 59489 Diagnoses New onset of congestive heart failure I50.9 Cardiomyopathy, unspecified type I42.9 Cardiomyopathy type: unspecified Severe calcific aortic valve stenosis I35.0 Acute kidney injury N17.9 Transaminitis R74.01 Parainfluenza B34.8 Iron deficiency E61.1 Anemia requiring transfusions D64.9
[2024-12-18 11:10] LABS: Glucose Point of Care 303 mg/dL (70-110)
[2024-12-18] MEDS: nystatin 100,000 unit/mL UDC 5 mL 100000 UNIT PO ×3 (12:16→21:07)
--- NOTE | 2024-12-18 13:58 | P.PN_ITS ---
Subjective 2 Subjective: - Patient was seen this morning, current ly alert oriented x 3, following all commands, she does report generalized weakness, fatigue, poor appetite, she reports she has a rubberytongue, Vitals/I&O/Wt Last Vital Signs Temp 97.0 F L 12/18/24 04:00 Pulse 99 12/18/24 13:23 Resp 18 12/18/24 13:20 BP 130/64 12/18/24 12:00 Pulse Ox 96 12/18/24 13:20 O2 Del Method Nasal Cannula 12/18/24 13:20 O2 Flow Rate 2 12/18/24 13:20 FiO2 2 12/15/24 20:00 12/17/24 12/18/24 12/18/24 22:59 06:59 14:59 Intake Total 820 / 1420 468.851 / 1888.851 120 / 120 Output Total 2727 / 2727 125 / 2852 Balance -1907 / -1307 343.851 / -963.149 120 / 120 Weight last 48 hrs Weight 88.587 kg Weight 89.4 kg Weight 90.492 kg Weight 91.1 kg Physical Exam 2 Const: COMMON NORMALS: no acute distress and patient oriented x3 Resp: COMMON NORMALS: normal respiratory effort, No retractions, No use of accessory muscles and clear to auscultation bilaterally AUSCULTATION: clear to auscultation bilaterally Cardio: COMMON NORMALS: regular rate, regular rhythm, S1 normal heart sound present and S2 normal heart sound present RATE: regular rate RHYTHM: r egular rhythm HEART SOUNDS: S1 normal heart sound present and S2 normal heart sound present GI: COMMON NORMALS: Normal to inspection, nondistended, normoactive bowel sounds present and non-tender Extremity: COMMON NORMALS: no pedal edema Neuro: COMMON NORMALS: patient oriented x3 Psych: COMMON NORMALS: mental status grossly normal Urinary Catheter Management: Martin: Cath Placed During This Visit: yes Reason for Continuing Indwelling Catheter: Accurate Measurement of Urinary Output in Critically Ill Patients Urinary Catheter Date of Insertion: 12/15/24 Data 12/18/24 05:06 12/18/24 05:06 Micro: Microbiology 12/12/24 09:23 Blood Culture - Final Blood NO GROWTH AFTER 5 DAYS A&P Assessment and plan (1) New onset of congestive heart failure: (2) Cardiomyopathy: (3) Acute liver failure: (4) Acute renal failure: (5) Sepsis: (6) Parainfluenza: (7) Anemia: (8) Transaminitis: Plan Acute renal failure -Status post 2 sessions of dialysis so far -Urine output 300 mL, dialysis 3600 mL urine output - Etiology unclear? - Potentially component of cardiogenic shock, cardiorenal syndrome, hepatorenal syndrome -Free kappa light chain 57 -Lambda light chain 30.3 -[place] lambda at 1.88 -SPEP and UPEP ordered for consideration of amyloidosis -Leukocytosis with mild microcytic anemia, no blasts -Calcium 7.8 - Component of septic shock - Renal ultrasound no acute findings Plan - Currently on dobutamine drip, will be weaned off today - Currently on dialysis, status post 3 sessions, will hold off for today - Nephrology consulted Increased anion gap metabolic acidosis - Likely secondary to acute renal failure Hyperkalemia - Insulin, D10,, calcium gluconate, EKG - Receiving hemodialysis today Hyperglycemia, possible type 2 diabetes mellitus - A1c 7.3 - Low-dose sliding scale Pseudohyponatremia, secondary to hyperglycemia Urinary tract infection, with sepsis -Sepsis features met given leukocytosis, elevated CRP, elevated Pro-Black, elevated lactic acid - Elevated lactic acid, lactic acidosis - Follow blood cultures - Follow urine cultures - Vancomycin, aztreonam Acute liver failure - Acute hep panel within normal limits - Tylenol levels within normal limits - Ferritin within normal limits -Liver ultrasound within normal limits - Potentially congestive hepatopathy, - Monitor LFTs closely Acute systolic heart failure CONCLUSIONS Severe global hypokinesis with severely reduced LV systolic function. Estimated LVEF 30%. Moderately dilated left atrium with moderate mitral regurgitation. Thickened calcified aortic valve with reduced opening. Mild aortic regurgitation and moderate aortic stenosis. Elevated right heart and pulmonary pressure 40-45 mmHg. Compared to last echo report (07/21), LVEF has significantly reduced. -Potentially stress-induced cardiomyopathy, associated with rhinovirus, viral infection -Could be a component of amyloidosis, patient's SPEP and UPEP pending - Currently on dobutamine drip - Cardiology consulted - Continue to medically manage Has leukocytosis today, with thrombocytosis, improving - Is on antibiotics as above - CRP 68.7, Pro-Black 1.41, lactic within normal limits - Peripheral smear shows leukocytosis with microcytic anemia, no blasts EBV - EBV IgM antibody 46.1 - EBV nuclear antigen 238 - DNA PCR pending - Etiology unclear - Could be a component of patient's transaminitis Positive rhinovirus Plan for today up out of bed, Miriam lift to a chair, start nystatin swish and swallow PDMP PDMP Reviewed: Not Reviewed Attestations 2 Medical Necessity Statement*: Patient requires hospitalization for acute heart failure, acute liver failure, acute renal failure Diagnoses New onset of congestive heart failure I50.9 Cardiomyopathy, unspecified type I42.9 Cardiomyopathy type: unspecified Acute liver failure K72.00 Acute renal failure N17.9 Sepsis A41.9 Parainfluenza B34.8 Anemia, unspecified type D64.9 Anemia type: unspecified type Transaminitis R74.01
[2024-12-18] MEDS: morphine 4 mg/mL SDV 1 mL 2 MG IVP (14:20)
[2024-12-18 16:19] LABS: Vit D 1,25 (Oh)2, Total 17 pg/mL (18-72); Vit D2 1,25 (Oh)2 <8 pg/mL; Vit D3 1,25 (Oh)2 17 pg/mL
[2024-12-18 16:57] LABS: Glucose Point of Care 195 mg/dL (70-110)
--- NOTE | 2024-12-18 18:40 | PC.NURSE ---
Received report from day shift patient's dobutamine turned off by day shift. Not infusing at shift change- instructed to leave off.
[2024-12-18 20:26] LABS: Epstein Barr Virus DNA PCR Not Detected log IU/mL (Not Detected); Epstein Barr Virus DNA QN PCR Not Detected (Not Detected)
[2024-12-18] MEDS: hyDROXYzine 25 mg Capsule 100 MG PO (21:07)
[2024-12-18] MEDS: enoxaparin 30 mg/0.3 mL Syringe SUBCUT (21:08)
[2024-12-18 21:28] LABS: Glucose Point of Care 186 mg/dL (70-110)
[2024-12-19] VITALS (29 sets, daily range): BP systolic 106–117; BP diastolic 45–63; PULSE 89–105; RESP 12–22; TEMP 36.3–37; O2SAT 91–95
[2024-12-19] MEDS: aztreonam 1,000 MG in sodium chloride 0.9% (plus) 50 ML 100 MG IV ×2 (01:06→12:37)
[2024-12-19] MEDS: ondansetron 2 mg/ML SDV 2 mL 4 MG IVP ×2 (01:06→09:07)
[2024-12-19 01:44] LABS: DNA AB (DS) CRITHIDIA,IFA NEGATIVE (NEGATIVE)
[2024-12-19 05:06] LABS: Basophils % 0.1 %; Eosinophils % 0.1 %; Hematocrit 30.6 % (36-47); Lymphocytes # 0.3 10^3/uL (0.8-4.8); Lymphocytes % 1.6 %; Mean Corpuscular HGB Conc 29.7 g/dL (30-55); Mean Corpuscular Hemoglobin 21.6 pg (27-33); Mean Corpuscular Volume 72.7 fl (85-98); Mean Platelet Volume 10.1 fL (7.4-10.4); Monocytes # 0.9 10^3/uL (0.2-0.9); Neutrophils # 15.95 10^3/uL (1.8-7.7); Neutrophils % 90.3 %; Nucleated Red Blood Cells # 0.2 /100WBC; Nucleated Red Blood Cells % 1.1 %; Platelet Count 186 10^3/cmm (157-399); Red Blood Count 4.21 10^6/uL (3.85-5.65); White Blood Count 17.67 10^3/uL (3.29-11.43)
[2024-12-19 05:29] LABS: Vancomycin Random 16.4 ug/mL (20.0-40.0)
[2024-12-19 05:30] LABS: Alanine Aminotransferase 601 U/L (0-33); Albumin Level 3.2 g/dL (3.5-5.2); Alkaline Phosphatase 243 U/L (35-105); Aspartate Amino Transferase 112 U/L (0-32); Carbon Dioxide 23 mmol/L (22-29); Chloride 95 mmol/L (98-107); Creatinine Clr Calc Pharmacy 18.5965; Globulin 2.2 g/dL (1.3-4.6); Glomerular Filtration Rate 14.4 mL/min (90-130); Glucose 164 mg/dL (65-115); Osmolality Calculated 311 mOsm/kg (285-295); Sodium 135 mmol/L (136-145); Total Protein 5.4 g/dL (6.6-8.7)
[2024-12-19 05:34] LABS: Blood Urea Nitrogen 89 mg/dL (8-23)
[2024-12-19 05:36] LABS: Anion Gap 21.7 (5-19); Potassium 4.7 mmol/L (3.5-5.1)
[2024-12-19 05:47] LABS: C Reactive Protein 15.5 mg/L (0.0-4.9); Magnesium 2.2 mg/dL (1.7-2.3); NT Pro B Type Natriuretic Pept 14311 pg/mL (0-125); Phosphorus 6.6 mg/dL (2.5-4.5)
[2024-12-19] MEDS: clopidogrel 75 mg Tablet PO (08:14)
[2024-12-19] MEDS: predniSONE 20 mg Tablet 40 MG PO (08:14)
[2024-12-19] MEDS: pantoprazole DR 40 mg Tablet PO (08:14)
[2024-12-19] MEDS: citalopram 20 mg Tablet PO (08:14)
[2024-12-19] MEDS: insulin lispro 100 unit/1 mL SUBCUT ×4 (08:30→21:20)
[2024-12-19] MEDS: nystatin 100,000 unit/mL UDC 5 mL 100000 UNIT PO ×4 (08:31→20:52)
[2024-12-19] MEDS: bumetanide 0.25 mg/mL SDV 4 mL 1 MG IVP ×2 (08:32→20:52)
[2024-12-19 08:41] LABS: Glucose Point of Care 233 mg/dL (70-110)
[2024-12-19] MEDS: morphine 4 mg/mL SDV 1 mL 2 MG IVP ×3 (11:09→21:16)
--- NOTE | 2024-12-19 12:27 | P.PN_ITS ---
Subjective 2 Subjective: No overnight event I am seeing patient for the first time for Dr. Marina as a cross coverage over the weekend. Patient says she is breathing better as compared to yesterday she is sitting in the recliner. She has 2+ edema though lungs are clear Medications: Reviewed: Yes Medication Review Details: Current Medications Albuterol Sulfate (Albuterol 2.5 Mg/3 Ml Neb) 2.5 mg INHALATION Q4H PRN PRN Reason: SHORTNESS OF BREATH Albuterol/Ipratropium (Ipratropium-Albuterol 3 Ml Neb) 3 ml INHALATION Q6H.RESP SABINO Last Admin: 12/18/24 09:04 Dose: 3 ml Budesonide (Budesonide 0.5 Mg/2 Ml Neb) 0.5 mg INHALATION BID.RESPIRATORY SABINO Last Admin: 12/18/24 09:04 Dose: 0.5 mg Bumetanide (Bumetanide 0.25 Mg/Ml Sdv 4 Ml) 1 mg IVP Q12H SABINO Last Admin: 12/18/24 07:48 Dose: 1 mg Citalopram Hydrobromide (Citalopram 20 Mg Tablet) 20 mg PO DAILY SABINO Last Admin: 12/18/24 07:47 Dose: 20 mg Clopidogrel Bisulfate (Clopidogrel 75 Mg Tablet) 75 mg PO DAILY SABINO Last Admin: 12/18/24 07:47 Dose: 75 mg Enoxaparin Sodium (Enoxaparin 30 Mg/0.3 Ml Syringe) 30 mg SUBCUT Q24H SABINO Last Admin: 12/17/24 20:51 Dose: 30 mg Glucagon (Glucagon 1 Mg/Ml Kit 1 Ml) 1 mg IM ONCE PRN; Protocol PRN Reason: Adult Acute Hypoglycemia Nursing Prot. Hydroxyzine Pamoate (Hydroxyzine 25 Mg Capsule) 100 mg PO BEDTIME SABINO Last Admin: 12/17/24 20:52 Dose: 100 mg Dobutamine HCl/Dextrose (Dobutamine Drip) 500 mg in 250 mls @ 6.957 mls/hr IV .Q24H SABINO Last Admin: 12/18/24 01:51 Dose: 5 mcg/kg/min, 13.91 mls/hr Aztreonam 1,000 mg/ Sodium (Chloride) 50 mls @ 100 mls/hr IV Q12H SABINO; Protocol Last Infusion: 12/18/24 02:23 Dose: Infused Dextrose (D5w) 500 mls @ 0 mls/hr IV ONCE PRN; Protocol PRN Reason: Adult Acute Hypoglycemia Prot Dextrose (D10w) 125 mls @ 750 mls/hr IV PRN PRN; Protocol PRN Reason: Adult Acute Hypoglycemia Nursing Protocol Dextrose (D10w) 250 mls @ 1,000 mls/hr IV PRN PRN; Protocol PRN Reason: Adult Acute Hypoglycemia Nursing Protocol Sodium Chloride (Sodium Chloride 0.9%) 1,000 mls @ 0 mls/hr IV .Q0M PRN PRN Reason: hypotension or symptomatic Albumin Human (Albumin) 12.5 gm in 50 mls @ 60 mls/hr IV PRN PRN PRN Reason: Hypotension and/or symptomatic Insulin Human Lispro (Insulin Lispro 100 Unit/1 Ml) 0 unit SUBCUT TIDWM SABINO; Protocol Last Admin: 12/18/24 07:48 Dose: 6 unit Morphine Sulfate (Morphine 4 Mg/Ml Sdv 1 Ml) 2 mg IVP Q4H PRN PRN Reason: SEVERE PAIN Naloxone HCl (Naloxone 0.4 Mg/Ml Sdv) 0.1 mg IVP Q2M PRN PRN Reason: OPIATERV Nystatin (Nystatin 100,000 Unit/Ml Udc 5 Ml) 100,000 unit PO QID SABINO Ondansetron HCl (Ondansetron 2 Mg/Ml Sdv 2 Ml) 4 mg IVP Q8H PRN PRN Reason: vomiting, or N/V if npo Last Admin: 12/14/24 20:35 Dose: 4 mg Pantoprazole Sodium (Pantoprazole Dr 40 Mg Tablet) 40 mg PO DAILY [facility] Last Admin: 12/18/24 07:47 Dose: 40 mg Prednisone (Prednisone 20 Mg Tablet) 40 mg PO DAILY [facility] Last Admin: 12/18/24 07:47 Dose: 40 mg Vancomycin HCl (Vancomycin 1,000 Mg Sdv (Pharmacy Mix)) 0 mg XX PRN PRN PRN Reason: Pharmacy to Dose Vitals/I&O/Wt Last Vital Signs Temp 98.6 F 12/19/24 08:00 Pulse 92 12/19/24 10:00 Resp 22 H 12/19/24 11:09 BP 106/47 12/19/24 10:00 Pulse Ox 95 12/19/24 11:09 O2 Del Method Room Air 05/24/25 08:00 O2 Flow Rate 2 12/18/24 13:20 FiO2 2 12/15/24 20:00 12/18/24 12/19/24 12/19/24 22:59 06:59 14:59 Intake Total 390 / 750 170 / 920 400 / 400 Output Total 400 / 400 500 / 900 250 / 250 Balance -10 / 350 -330 / 20 150 / 150 Weight last 48 hrs Weight 195 lb 3.2 oz Weight 195 lb 4.8 oz Weight 197 lb 1.492 oz Physical Exam 2 Const: OTHER: GENERAL: Patient is fatigued and lethargic but oriented x3. HEART: Regular S1 and S2. Faint [place] . LUNGS: Decreased breath sounds with basilar crackles bilaterally. CENTRAL NERVOUS SYSTEM: Grossly nonfocal. EXTREMITIES: Lower extremities with 2+ edema bilaterally. Urinary Catheter Management: Martin: Cath Placed During This Visit: yes Reason for Continuing Indwelling Catheter: Accurate Measurement of Urinary Output in Critically Ill Patients Urinary Catheter Date of Insertion: 12/15/24 Data 12/19/24 04:17 12/19/24 04:17 A&P Assessment and plan (1) New onset of congestive heart failure: Continue Bumex if drops blood pressure may can put back on dobutamine (2) Cardiomyopathy: Etiology is unknown once euvolemic and creatinine improve may can consider left heart cath otherwise dobutamine stress echo will be weight to go which will also rule out pseudo aortic stenosis versus true aortic valve stenosis (3) Severe calcific aortic valve stenosis: Cannot rule out pseudo aortic stenosis once euvolemic and requiring stress test May will dobutamine stress echo to rule out pseudo aortic versus true aortic stenosis (4) Acute kidney injury: Cardiorenal possible, continue to diurese if required may introduce dobutamine (5) Transaminitis: Possible due to decompensated CHF (6) Parainfluenza: Treatment as per primary team (7) Iron deficiency: Continue iron supplement (8) Anemia requiring transfusions: Appear to be stable Plan As above PDMP PDMP Reviewed: Not Reviewed Attestations 2 Medical Necessity Statement*: Patient require continuation of hospitalization for above defined care Coding Level of Care Code Acute Code for Chg Fwd Diagnoses New onset of congestive heart failure I50.9 Cardiomyopathy, unspecified type I42.9 Cardiomyopathy type: unspecified Severe calcific aortic valve stenosis I35.0 Acute kidney injury N17.9 Transaminitis R74.01 Parainfluenza B34.8 Iron deficiency E61.1 Anemia requiring transfusions D64.9
[2024-12-19 12:43] LABS: Glucose Point of Care 206 mg/dL (70-110)
--- NOTE | 2024-12-19 13:06 | PM.PN ---
Subjective Subjective: sitting in chair Medications: Reviewed: Yes Vitals/I&O/Wt Last Vital Signs Temp 98.1 F 12/19/24 12:00 Pulse 99 12/19/24 12:00 Resp 14 12/19/24 12:00 BP 117/53 12/19/24 12:00 Pulse Ox 92 12/19/24 12:00 O2 Del Method Room Air 12/19/24 12:00 O2 Flow Rate 2 12/18/24 13:20 FiO2 2 12/15/24 20:00 12/18/24 12/19/24 12/19/24 22:59 06:59 14:59 Intake Total 390 / 750 170 / 920 400 / 400 Output Total 400 / 400 500 / 900 250 / 250 Balance -10 / 350 -330 / 20 150 / 150 Weight last 48 hrs Weight 88.541 kg Weight 88.587 kg Weight 89.4 kg Physical Exam Narrative: The patient is sitting up comfortably in bed. Vital signs noted. Patient is oxygenating well on room air. HEENT normocephalic atraumatic. She is not icteric. Neck is supple without JVP. Lungs have wheezing and dullness. Heart regular positive S1-S2. Soft positive bowel sounds. Extremities 2+ bilateral leg edema. Neuro awake alert oriented x 3, moves all extremities follows commands and interactive. Urinary Catheter Management: Martin: Cath Placed During This Visit: yes Reason for Continuing Indwelling Catheter: Accurate Measurement of Urinary Output in Critically Ill Patients Urinary Catheter Date of Insertion: 12/15/24 Data 12/19/24 04:17 12/19/24 04:17 A&P Assessment and plan (1) Acute kidney injury: Plan 69-year-old lady history of hypertension COPD obesity anemia and heart failure preserved EF. Patient presents with weakness new increased LFTs, decreased EF of 30%, chronic diastolic dysfunction. Patient also has acute kidney injury and increased anion gap metabolic acidosis. 1. Acute kidney injury in the setting of diastolic dysfunction with new acute decreased EF. The patient was started on Dobutrex - off now -Renal ultrasound reviewed without any hemodynamically significant renal artery stenosis no hydronephrosis in either kidney. -Urinalysis reviewed dark yellow cloudy 1+ protein 1+ bilirubin 2+ leuk esterase no ketones no blood. Of note she has 51-100 white cells with squamous epis 21-50. -HD started , HD done - Hold off hD today 2. metabolic acidosis, HD as above 3. Mild hyponatremia with a low urine sodium likely due to heart failure exacerbation. 6. Combined diastolic dysfunction and new acute systolic heart failure. As per cardiology 7. Monitor increased transaminitis. Renal dose medications. Monitor urine output monitor chemistries. The patient was seen and examined using audiovisual cart with the aid of a nurse. The patient consented to telehealth. PDMP PDMP Reviewed: Not Reviewed Attestations Medical Necessity Statement*: per medicine Coding Level of Care Code Acute Code for [facility] Fwd Diagnoses Acute kidney injury N17.9
[2024-12-19] MEDS: ipratropium-albuterol 3 mL Neb INHALATION ×2 (13:08→19:48)
--- NOTE | 2024-12-19 14:15 | P.PN_ITS ---
Subjective 2 Subjective: Patient was seen this morning, she tells me her taste is improving her edema is improving shortness of breath is improving no fevers, no chills Vitals/I&O/Wt Last Vital Signs Temp 98.1 F 12/19/24 12:00 Pulse 102 H 12/19/24 13:14 Resp 16 12/19/24 13:14 BP 117/53 12/19/24 12:00 Pulse Ox 92 12/19/24 13:14 O2 Del Method Room Air 12/19/24 13:14 O2 Flow Rate 2 12/18/24 13:20 FiO2 2 12/15/24 20:00 12/18/24 12/19/24 12/19/24 22:59 06:59 14:59 Intake Total 390 / 750 170 / 920 400 / 400 Output Total 400 / 400 500 / 900 250 / 250 Balance -10 / 350 -330 / 20 150 / 150 Weight last 48 hrs Weight 88.541 kg Weight 88.587 kg Weight 89.4 kg Physical Exam 2 Const: COMMON NORMALS: no acute distress and patient oriented x3 Resp: COMMON NORMALS: normal respiratory effort, No retractions, No use of accessory muscles and clear to auscultation bilaterally AUSCULTATION: clear to auscultation bilaterally Cardio: COMMON NORMALS: regular rate, regular rhythm, S1 normal heart sound present and S2 normal heart sound present RATE: regular rate RHYTHM: r egular rhythm HEART SOUNDS: S1 normal heart sound present and S2 normal heart sound present GI: COMMON NORMALS: Normal to inspection, nondistended, normoactive bowel sounds present and non-tender Extremity: COMMON NORMALS: no pedal edema Neuro: COMMON NORMALS: patient oriented x3 Psych: COMMON NORMALS: mental status grossly normal Skin: NARRATIVE SKIN EXAM: Generalized anasarca, 1+ pitting edema Urinary Catheter Management: Martin: Cath Placed During This Visit: yes Reason for Continuing Indwelling Catheter: Accurate Measurement of Urinary Output in Critically Ill Patients Urinary Catheter Date of Insertion: 12/15/24 Data 12/19/24 04:17 12/19/24 04:17 A&P Assessment and plan (1) New onset of congestive heart failure: (2) Cardiomyopathy: (3) Acute liver failure: (4) Acute renal failure: (5) Sepsis: (6) Parainfluenza: (7) Anemia: (8) Transaminitis: Plan Acute renal failure -Status post 2 sessions of dialysis so far -Urine output 300 mL, dialysis 3600 mL urine output - Etiology unclear? - Potentially component of cardiogenic shock, cardiorenal syndrome, hepatorenal syndrome -Free kappa light chain 57 -Lambda light chain 30.3 -[place] lambda at 1.88 -SPEP and UPEP ordered for consideration of amyloidosis -Leukocytosis with mild microcytic anemia, no blasts -Calcium 7.8 - Component of septic shock - Renal ultrasound no acute findings Plan - Currently on dobutamine drip, will be weaned off today - Currently on dialysis, status post 3 sessions, will hold off for today - Nephrology consulted Increased anion gap metabolic acidosis - Likely secondary to acute renal failure Hyperkalemia - Insulin, D10,, calcium gluconate, EKG - Receiving hemodialysis today Hyperglycemia, possible type 2 diabetes mellitus - A1c 7.3 - Low-dose sliding scale Pseudohyponatremia, secondary to hyperglycemia Urinary tract infection, with sepsis -Sepsis features met given leukocytosis, elevated CRP, elevated Pro-Black, elevated lactic acid - Elevated lactic acid, lactic acidosis - Follow blood cultures - Follow urine cultures - Vancomycin, aztreonam Acute liver failure - Acute hep panel within normal limits - Tylenol levels within normal limits - Ferritin within normal limits -Liver ultrasound within normal limits - Potentially congestive hepatopathy, - Monitor LFTs closely Acute systolic heart failure CONCLUSIONS Severe global hypokinesis with severely reduced LV systolic function. Estimated LVEF 30%. Moderately dilated left atrium with moderate mitral regurgitation. Thickened calcified aortic valve with reduced opening. Mild aortic regurgitation and moderate aortic stenosis. Elevated right heart and pulmonary pressure 40-45 mmHg. Compared to last echo report (07/21), LVEF has significantly reduced. -Potentially stress-induced cardiomyopathy, associated with rhinovirus, viral infection -Could be a component of amyloidosis, patient's SPEP and UPEP pending - Currently on dobutamine drip - Cardiology consulted - Continue to medically manage Has leukocytosis today, with thrombocytosis, improving - Is on antibiotics as above - CRP 68.7, Pro-Black 1.41, lactic within normal limits - Peripheral smear shows leukocytosis with microcytic anemia, no blasts EBV - EBV IgM antibody 46.1 - EBV nuclear antigen 238 - DNA PCR pending - Etiology unclear - Could be a component of patient's transaminitis Positive rhinovirus Plan for today up out of bed, into a chair, urine output but is improving after discussion with nephrology plan on holding off on dialysis for today continuing IV diuresis, white blood cell count is increasing although she is afebrile, continue vancomycin, aztreonam, encourage p.o. intake, LFTs are improving, she is off dobutamine drip PDMP PDMP Reviewed: Not Reviewed Attestations 2 Medical Necessity Statement*: Patient requires hospitalization for acute liver failure, acute kidney injury on acute liver failure, acute CHF Diagnoses New onset of congestive heart failure I50.9 Cardiomyopathy, unspecified type I42.9 Cardiomyopathy type: unspecified Acute liver failure K72.00 Acute renal failure N17.9 Sepsis A41.9 Parainfluenza B34.8 Anemia, unspecified type D64.9 Anemia type: unspecified type Transaminitis R74.01
[2024-12-19 17:03] LABS: Glucose Point of Care 247 mg/dL (70-110)
--- NOTE | 2024-12-19 17:13 | PC.NURSE ---
Shift Summary: Uneventful shift. Up to a chair for most of the day. Used prevalon mat to slide patient over. No Physical therapy today, nurse attempted to do exercises with patient and get her to stand and walk in place, but she was too weak to stand up. No dialysis today. Total Urine output: 950mL.
[2024-12-19] MEDS: budesonide 0.5 mg/2 mL Neb INHALATION (19:48)
[2024-12-19] MEDS: hyDROXYzine 25 mg Capsule 100 MG PO (20:53)
[2024-12-19] MEDS: enoxaparin 30 mg/0.3 mL Syringe SUBCUT (20:53)
[2024-12-19 21:57] LABS: Glucose Point of Care 269 mg/dL (70-110)
[2024-12-20] VITALS (33 sets, daily range): BP systolic 102–131; BP diastolic 42–73; PULSE 92–116; RESP 10–22; TEMP 36.2–36.4; O2SAT 90–96
[2024-12-20] MEDS: ipratropium-albuterol 3 mL Neb INHALATION ×4 (01:18→19:42)
[2024-12-20] MEDS: aztreonam 1,000 MG in sodium chloride 0.9% (plus) 50 ML 100 MG IV ×2 (01:56→12:11)
[2024-12-20] MEDS: morphine 4 mg/mL SDV 1 mL 2 MG IVP ×3 (02:08→13:53)
[2024-12-20] MEDS: ondansetron 2 mg/ML SDV 2 mL 4 MG IVP (04:55)
[2024-12-20 05:20] LABS: Basophils % 0.1 %; Eosinophils # 0.1 10^3/uL (0.0-0.8); Eosinophils % 0.4 %; Lymphocytes # 0.3 10^3/uL (0.8-4.8); Lymphocytes % 1.7 %; Mean Corpuscular Hemoglobin 21.4 pg (27-33); Mean Corpuscular Volume 71.4 fl (85-98); Mean Platelet Volume 10.2 fL (7.4-10.4); Monocytes # 1.2 10^3/uL (0.2-0.9); Monocytes % 5.7 %; Neutrophils # 17.93 10^3/uL (1.8-7.7); Neutrophils % 87.4 %; Nucleated Red Blood Cells # 0.4 /100WBC; Nucleated Red Blood Cells % 1.7 %; Platelet Count 161 10^3/cmm (157-399); Red Cell Distribution Width 23.2 % (12.1-15.1); White Blood Count 20.52 10^3/uL (3.29-11.43)
[2024-12-20 05:43] LABS: Alanine Aminotransferase 412 U/L (0-33); Alkaline Phosphatase 233 U/L (35-105); Aspartate Amino Transferase 73 U/L (0-32); Calcium 7.8 mg/dL (8.5-10.5); Carbon Dioxide 24 mmol/L (22-29); Chloride 93 mmol/L (98-107); Creatinine Clr Calc Pharmacy 20.6671; Globulin 2.1 g/dL (1.3-4.6); Glomerular Filtration Rate 16.1 mL/min (90-130); Glucose 163 mg/dL (65-115); Osmolality Calculated 315 mOsm/kg (285-295); Sodium 134 mmol/L (136-145); Total Bilirubin 1.6 mg/dL (0.15-1.2); Total Protein 5.1 g/dL (6.6-8.7)
[2024-12-20 05:50] LABS: C Reactive Protein 9.4 mg/L (0.0-4.9); NT Pro B Type Natriuretic Pept 16604 pg/mL (0-125); Phosphorus 5.8 mg/dL (2.5-4.5)
[2024-12-20 05:53] LABS: Blood Urea Nitrogen 105 mg/dL (8-23)
[2024-12-20 08:13] LABS: Glucose Point of Care 149 mg/dL (70-110)
[2024-12-20] MEDS: nystatin 100,000 unit/mL UDC 5 mL 100000 UNIT PO ×4 (08:28→21:00)
[2024-12-20] MEDS: insulin lispro 100 unit/1 mL SUBCUT ×4 (08:28→21:25)
[2024-12-20] MEDS: pantoprazole DR 40 mg Tablet PO (08:28)
[2024-12-20] MEDS: clopidogrel 75 mg Tablet PO (08:28)
[2024-12-20] MEDS: predniSONE 20 mg Tablet 40 MG PO (08:28)
[2024-12-20] MEDS: citalopram 20 mg Tablet PO (08:28)
[2024-12-20] MEDS: bumetanide 0.25 mg/mL SDV 4 mL 1 MG IVP ×2 (08:31→21:00)
[2024-12-20] MEDS: budesonide 0.5 mg/2 mL Neb INHALATION ×2 (08:56→19:42)
--- NOTE | 2024-12-20 09:12 | XRR_ITS ---
PROCEDURE INFORMATION: Exam: XR Abdomen Exam date and time: 12/20/2024 9:23 AM Age: 69 years old Clinical indication: Constipation TECHNIQUE: Imaging protocol: Radiologic exam of the abdomen. Views: Frontal supine view of the abdomen. 1 View. COMPARISON: MR MRCP [id number] 12/13/2024 2:26 PM FINDINGS: Gastrointestinal tract: Moderate volume stool in right colon. Minimal gaseous distension of transverse colon, measures up to 7 cm. Bones/joints: Minimal spondylotic changes. Likely catheter overlying left pelvis noted, correlate clinically. XR/XR KUB portable [id number] IMPRESSION: Moderate volume stool in right colon. Nonspecific gaseous prominence of transverse colon, measuring up to 7 cm. Recommend follow-up.
--- NOTE | 2024-12-20 09:12 | XRR_ITS ---
PROCEDURE INFORMATION: Exam: XR Chest Exam date and time: 12/20/2024 9:21 AM Age: 69 years old Clinical indication: Shortness of breath; Additional info: SOB TECHNIQUE: Imaging protocol: Radiologic exam of the chest. Views: 1 view. COMPARISON: CR XR chest 1V portable [id number] 12/15/2024 1:36 PM FINDINGS: Tubes, catheters and devices: Left-sided PICC line tip at the level of distal SVC Lungs: Interstitial prominence bilaterally, interstitial edema and/or chronic changes, similar to previous study. Calcified granuloma in right mid lateral lung again noted. Pleural spaces: No pleural effusion. No pneumothorax. Heart/Mediastinum: Cardiomegaly. Bones/joints: Unremarkable. XR/XR chest 1V portable [id number] IMPRESSION: Cardiomegaly with pulmonary vascular congestion suspected. Chronic interstitial disease changes can not be excluded.
[2024-12-20] MEDS: polyethylene glycol 3350 Pkt 17 gm PO (10:20)
[2024-12-20] MEDS: sennosides-docusate Tablet 1 TAB PO ×2 (10:20→17:42)
[2024-12-20 11:25] LABS: Glucose Point of Care 291 mg/dL (70-110)
[2024-12-20 12:26] LABS: Bilirubin Urine Negative (Negative); Blood Urine Negative (Negative); Glucose Urine UA 1+ (Normal); Ketones Urine Negative (Negative); Leukocyte Esterase Urine Negative (Negative); Nitrate Urine Negative (Negative); Protein Urine Negative (Negative); Urine Appearance Clear (CLEAR); Urine Color Yellow (Yellow); Urobilinogen Urine 0.2 mg/dL (Negative)
[2024-12-20 12:31] LABS: Add Urine Microscopic? YES; Bacteria Urine None Seen /hpf; Hyaline Casts Urine 9.91 /lpf; RBC Urine 0-2 /hpf (0-2); Squamous Epithelial Cell Urine 0-5 /hpf (0-5); WBC Urine 0-5 /hpf (0-5)
--- NOTE | 2024-12-20 13:45 | CTR_ITS ---
PROCEDURE INFORMATION: Exam: CT Abdomen And Pelvis Without Contrast Exam date and time: 12/20/2024 2:38 PM Age: 69 years old Clinical indication: Abdominal pain; Colic; Prior surgery; Surgery date: 6+ months; Surgery type: Gb; Additional info: Constipation TECHNIQUE: Imaging protocol: Computed tomography of the abdomen and pelvis without contrast. Radiation optimization: All CT scans at this facility use at least one of these dose optimization techniques: automated exposure control; mA and/or kV adjustment per patient size (includes targeted exams where dose is matched to clinical indication); or iterative reconstruction. COMPARISON: MR MRCP [id number] 12/13/2024 2:26 PM RADIATION DOSE METRICS: Total DLP (mGy-cm): 856.21 FINDINGS: Tubes, catheters and devices: Left femoral venous catheter noted. Lungs: Small pleural effusions and atelectatic changes bilaterally. Liver: Unremarkable. Gallbladder and biliary ducts: Unremarkable Pancreas: Unremarkable Spleen: Normal. No splenomegaly. Adrenal glands: Normal. Kidneys and ureters: Small exophytic cortical cyst in right kidney mid lateral cortex. No hydronephrosis. Stomach and bowel: Nonspecific minimal gaseous prominence of ascending and transverse colon without wall thickening or edema. Mzmui-[id number] volume stool also noted in the ascending and transverse colon. No obstruction. No acute inflammation. Appendix: Not identified. Cecum is located in right pelvis. No significant surrounding inflammation. Intraperitoneal space: Very small amount of fluid primarily in anterior subdiaphragmatic space on the right side. No free air. No significant fluid collection. Vasculature: Atherosclerotic calcifications in aorta and branches. No aneurysm No abdominal aortic aneurysm. Lymph nodes: No enlarged lymph nodes. Urinary bladder: Empty by Martin catheter. Reproductive: Hysterectomy. Bones/joints: No acute fracture. Soft tissues: Anasarca. CT/CT abdomen pelvis wo con [id number] IMPRESSION: 1. Small pleural effusions and atelectasis/airspace opacities in bilateral lower lungs 2. Anasarca with diffuse edema of lateral abdominal wall. Very small ascites. No loculated fluid collections. 3. No bowel obstruction or acute inflammation. Qgffz-nz-[id number] volume stool in ascending and transverse colon with mild gaseous prominence without wall thickening or edema. COMMENTS: Consistent with the [employer]'s Incidental Findings Committee white paper (J Am Emmanuel Radiol 2018): Any incidental renal lesion less than 1 cm or classified as too small to characterize, or any incidental cystic renal lesion characterized as simple-appearing, is likely benign. No follow-up imaging is recommended for these lesions per consensus recommendations based on imaging criteria.
--- NOTE | 2024-12-20 14:19 | P.PN_ITS ---
Subjective 2 Subjective: She says she is feeling better Medications: Reviewed: Yes Medication Review Details: Current Medications Albuterol Sulfate (Albuterol 2.5 Mg/3 Ml Neb) 2.5 mg INHALATION Q4H PRN PRN Reason: SHORTNESS OF BREATH Albuterol/Ipratropium (Ipratropium-Albuterol 3 Ml Neb) 3 ml INHALATION Q6H.RESP SABINO Last Admin: 12/18/24 09:04 Dose: 3 ml Budesonide (Budesonide 0.5 Mg/2 Ml Neb) 0.5 mg INHALATION BID.RESPIRATORY SABINO Last Admin: 12/18/24 09:04 Dose: 0.5 mg Bumetanide (Bumetanide 0.25 Mg/Ml Sdv 4 Ml) 1 mg IVP Q12H SABINO Last Admin: 12/18/24 07:48 Dose: 1 mg Citalopram Hydrobromide (Citalopram 20 Mg Tablet) 20 mg PO DAILY SABINO Last Admin: 12/18/24 07:47 Dose: 20 mg Clopidogrel Bisulfate (Clopidogrel 75 Mg Tablet) 75 mg PO DAILY SABINO Last Admin: 12/18/24 07:47 Dose: 75 mg Enoxaparin Sodium (Enoxaparin 30 Mg/0.3 Ml Syringe) 30 mg SUBCUT Q24H SABINO Last Admin: 12/17/24 20:51 Dose: 30 mg Glucagon (Glucagon 1 Mg/Ml Kit 1 Ml) 1 mg IM ONCE PRN; Protocol PRN Reason: Adult Acute Hypoglycemia Nursing Prot. Hydroxyzine Pamoate (Hydroxyzine 25 Mg Capsule) 100 mg PO BEDTIME SABINO Last Admin: 12/17/24 20:52 Dose: 100 mg Dobutamine HCl/Dextrose (Dobutamine Drip) 500 mg in 250 mls @ 6.957 mls/hr IV .Q24H SABINO Last Admin: 12/18/24 01:51 Dose: 5 mcg/kg/min, 13.91 mls/hr Aztreonam 1,000 mg/ Sodium (Chloride) 50 mls @ 100 mls/hr IV Q12H SABINO; Protocol Last Infusion: 12/18/24 02:23 Dose: Infused Dextrose (D5w) 500 mls @ 0 mls/hr IV ONCE PRN; Protocol PRN Reason: Adult Acute Hypoglycemia Prot Dextrose (D10w) 125 mls @ 750 mls/hr IV PRN PRN; Protocol PRN Reason: Adult Acute Hypoglycemia Nursing Protocol Dextrose (D10w) 250 mls @ 1,000 mls/hr IV PRN PRN; Protocol PRN Reason: Adult Acute Hypoglycemia Nursing Protocol Sodium Chloride (Sodium Chloride 0.9%) 1,000 mls @ 0 mls/hr IV .Q0M PRN PRN Reason: hypotension or symptomatic Albumin Human (Albumin) 12.5 gm in 50 mls @ 60 mls/hr IV PRN PRN PRN Reason: Hypotension and/or symptomatic Insulin Human Lispro (Insulin Lispro 100 Unit/1 Ml) 0 unit SUBCUT TIDWM SABINO; Protocol Last Admin: 12/18/24 07:48 Dose: 6 unit Morphine Sulfate (Morphine 4 Mg/Ml Sdv 1 Ml) 2 mg IVP Q4H PRN PRN Reason: SEVERE PAIN Naloxone HCl (Naloxone 0.4 Mg/Ml Sdv) 0.1 mg IVP Q2M PRN PRN Reason: OPIATERV Nystatin (Nystatin 100,000 Unit/Ml Udc 5 Ml) 100,000 unit PO QID SABINO Ondansetron HCl (Ondansetron 2 Mg/Ml Sdv 2 Ml) 4 mg IVP Q8H PRN PRN Reason: vomiting, or N/V if npo Last Admin: 12/14/24 20:35 Dose: 4 mg Pantoprazole Sodium (Pantoprazole Dr 40 Mg Tablet) 40 mg PO DAILY [facility] Last Admin: 12/18/24 07:47 Dose: 40 mg Prednisone (Prednisone 20 Mg Tablet) 40 mg PO DAILY [facility] Last Admin: 12/18/24 07:47 Dose: 40 mg Vancomycin HCl (Vancomycin 1,000 Mg Sdv (Pharmacy Mix)) 0 mg XX PRN PRN PRN Reason: Pharmacy to Dose Vitals/I&O/Wt Last Vital Signs Temp 97.6 F 12/20/24 13:25 Pulse 99 12/20/24 13:37 Resp 12 12/20/24 13:53 BP 115/64 12/20/24 12:00 Pulse Ox 96 12/20/24 13:53 O2 Del Method Room Air 12/20/24 13:37 O2 Flow Rate 2 12/18/24 13:20 FiO2 2 12/15/24 20:00 12/19/24 12/20/24 12/20/24 22:59 06:59 14:59 Intake Total 750 / 1150 50 / 1200 286 / 286 Output Total 700 / 950 950 / 1900 1300 / 1300 Balance 50 / 200 -900 / -700 -1014 / -1014 Weight last 48 hrs Weight 198 lb Weight 195 lb 3.2 oz Physical Exam 2 Const: OTHER: GENERAL: Patient is fatigued and lethargic but oriented x3. HEART: Regular S1 and S2. Faint [place] . LUNGS: Decreased breath sounds with basilar crackles bilaterally. CENTRAL NERVOUS SYSTEM: Grossly nonfocal. EXTREMITIES: Lower extremities with 2+ edema bilaterally. Urinary Catheter Management: Martin: Cath Placed During This Visit: yes Reason for Continuing Indwelling Catheter: Accurate Measurement of Urinary Output in Critically Ill Patients Urinary Catheter Date of Insertion: 12/15/24 Data 12/20/24 04:16 12/20/24 04:16 Micro: Microbiology 12/20/24 11:36 Blood Culture - Preliminary Blood SPECIMEN COLLECTED 12/20/24 11:30 Blood Culture - Preliminary Blood SPECIMEN COLLECTED A&P Assessment and plan (1) New onset of congestive heart failure: Status post dialysis, continue to pull fluid as suggested by nephrology (2) Cardiomyopathy: Etiology is unknown once euvolemic and creatinine improve may can consider left heart cath otherwise dobutamine stress echo to rule out pseudo aortic stenosis versus true aortic valve stenosis (3) Severe calcific aortic valve stenosis: Cannot rule out pseudo aortic stenosis once euvolemic and requiring stress test May will dobutamine stress echo to rule out pseudo aortic versus true aortic stenosis (4) Acute kidney injury: Cardiorenal possible, status post dialysis x 2 (5) Transaminitis: Possible due to decompensated CHF, she is started with dialysis hopefully it will improve (6) Parainfluenza: Treatment as per primary team (7) Iron deficiency: Continue iron supplement (8) Anemia requiring transfusions: Appear to be stable Plan As above PDMP PDMP Reviewed: Not Reviewed Attestations 2 Medical Necessity Statement*: Require continuation of hospitalization for above defined care. Coding Level of Care Code Acute Code for Chg Fwd Diagnoses New onset of congestive heart failure I50.9 Cardiomyopathy, unspecified type I42.9 Cardiomyopathy type: unspecified Severe calcific aortic valve stenosis I35.0 Acute kidney injury N17.9 Transaminitis R74.01 Parainfluenza B34.8 Iron deficiency E61.1 Anemia requiring transfusions D64.9
--- NOTE | 2024-12-20 14:51 | P.PN_ITS ---
Subjective 2 Subjective: Feels better, sitting up in a chair, on room air Medications: Reviewed: Yes Vitals/I&O/Wt Last Vital Signs Temp 97.6 F 12/20/24 13:25 Pulse 99 12/20/24 13:37 Resp 12 12/20/24 13:53 BP 115/64 12/20/24 12:00 Pulse Ox 96 12/20/24 13:53 O2 Del Method Room Air 12/20/24 13:37 O2 Flow Rate 2 12/18/24 13:20 FiO2 2 12/15/24 20:00 12/19/24 12/20/24 12/20/24 22:59 06:59 14:59 Intake Total 750 / 1150 50 / 1200 286 / 286 Output Total 700 / 950 950 / 1900 1300 / 1300 Balance 50 / 200 -900 / -700 -1014 / -1014 Weight last 48 hrs Weight 89.811 kg Weight 88.541 kg Physical Exam 2 Narrative: The patient is sitting up comfortably in bed. Vital signs noted. Patient is oxygenating well on room air. HEENT normocephalic atraumatic. She is not icteric. Neck is supple without JVP. Lungs have wheezing and dullness. Heart regular positive S1-S2. Soft positive bowel sounds. Extremities 2+ bilateral leg edema. Neuro awake alert oriented x 3, moves all extremities follows commands and interactive. Urinary Catheter Management: Martin: Cath Placed During This Visit: yes Reason for Continuing Indwelling Catheter: Accurate Measurement of Urinary Output in Critically Ill Patients Urinary Catheter Date of Insertion: 12/15/24 Data 12/20/24 04:16 12/20/24 04:16 Micro: Microbiology 12/20/24 11:36 Blood Culture - Preliminary Blood SPECIMEN COLLECTED 12/20/24 11:30 Blood Culture - Preliminary Blood SPECIMEN COLLECTED A&P Assessment and plan (1) Acute kidney injury: Plan 69-year-old lady history of hypertension COPD obesity anemia and heart failure preserved EF. Patient presents with weakness new increased LFTs, decreased EF of 30%, chronic diastolic dysfunction. Patient also has acute kidney injury and increased anion gap metabolic acidosis. 1. Acute kidney injury in the setting of diastolic dysfunction with new acute decreased EF. The patient was started on Dobutrex - off now -Renal ultrasound reviewed without any hemodynamically significant renal artery stenosis no hydronephrosis in either kidney. -Urinalysis reviewed dark yellow cloudy 1+ protein 1+ bilirubin 2+ leuk esterase no ketones no blood. Of note she has 51-100 white cells with squamous epis 21- 50. -HD started , last HD . - Creatinine and urine output improving, BUN remains high likely due to diuretics and steroid use, hold off on HD and assess for recovery 2. metabolic acidosis, HD as above 3. Mild hyponatremia with a low urine sodium likely due to heart failure exacerbation. 6. Combined diastolic dysfunction and new acute systolic heart failure. As per cardiology 7. Monitor increased transaminitis. Renal dose medications. Monitor urine output monitor chemistries. The patient was seen and examined using audiovisual cart with the aid of a nurse. The patient consented to telehealth. PDMP PDMP Reviewed: Not Reviewed Attestations 2 Medical Necessity Statement*: Per medicine team Coding Level of Care Code Acute Code for [facility] Fwd Diagnoses Acute kidney injury N17.9
[2024-12-20] MEDS: mineral oil ENEMA 133 mL PR (15:10)
[2024-12-20 15:59] LABS: Albumin,Urine Random 65 %; Alpha-1-Globulins Urine Random 3 %; Alpha-2-Globulins Urine Random 6 %; Beta-Globulin,Urine Random 12 %; Gamma Globulin,Urine Random 14 %
--- NOTE | 2024-12-20 16:55 | P.PN_ITS ---
Subjective 2 Subjective: Patient was seen this morning, currently alert oriented x 3, following all commands, denies any fevers, chills, no cough, no nausea, no vomiting, she feels better this morning Vitals/I&O/Wt Last Vital Signs Temp 97.6 F 12/20/24 13:25 Pulse 96 12/20/24 16:00 Resp 13 12/20/24 16:00 BP 112/59 12/20/24 16:00 Pulse Ox 93 12/20/24 16:00 O2 Del Method Room Air 12/20/24 16:00 O2 Flow Rate 2 12/18/24 13:20 FiO2 2 12/15/24 20:00 12/20/24 12/20/24 12/20/24 06:59 14:59 22:59 Intake Total 50 / 1200 286 / 286 400 / 686 Output Total 950 / 1900 1300 / 1300 Balance -900 / -700 -1014 / -1014 400 / -614 Weight last 48 hrs Weight 89.811 kg Weight 88.541 kg Physical Exam 2 Const: COMMON NORMALS: no acute distress and patient oriented x3 Resp: COMMON NORMALS: normal respiratory effort, No retractions, No use of accessory muscles and clear to auscultation bilaterally AUSCULTATION: clear to auscultation bilaterally Cardio: COMMON NORMALS: regular rate, regular rhythm, S1 normal heart sound present and S2 normal heart sound present RATE: regular rate RHYTHM: r egular rhythm HEART SOUNDS: S1 normal heart sound present and S2 normal heart sound present GI: COMMON NORMALS: Normal to inspection, nondistended, normoactive bowel sounds present and non-tender Extremity: COMMON NORMALS: no pedal edema Neuro: COMMON NORMALS: patient oriented x3 Psych: COMMON NORMALS: mental status grossly normal Urinary Catheter Management: Martin: Cath Placed During This Visit: yes Reason for Continuing Indwelling Catheter: Accurate Measurement of Urinary Output in Critically Ill Patients Urinary Catheter Date of Insertion: 12/15/24 Data 12/20/24 04:16 12/20/24 04:16 Micro: Microbiology 12/20/24 11:36 Blood Culture - Preliminary Blood SPECIMEN COLLECTED 12/20/24 11:30 Blood Culture - Preliminary Blood SPECIMEN COLLECTED A&P Assessment and plan (1) New onset of congestive heart failure: (2) Cardiomyopathy: (3) Acute liver failure: (4) Acute renal failure: (5) Sepsis: (6) Parainfluenza: (7) Anemia: (8) Transaminitis: Plan Acute renal failure -Status post 2 sessions of dialysis so far, dialysis has been held - Urine output is picking up at 2950 -Continue Bumex 1 mg IV every 12 hours - Etiology unclear? - Potentially component of cardiogenic shock, cardiorenal syndrome, hepatorenal syndrome -Free kappa light chain 57 -Lambda light chain 30.3 -Pixley lambda at 1.88 -SPEP are within normal limits and UPEP within normal limits -Leukocytosis with mild microcytic anemia, no blasts -Calcium 7.8 - Component of septic shock - Renal ultrasound no acute findings Plan - Currently off dialysis, status post 3 sessions, will hold off for today -Continue IV diuresis as above - Nephrology consulted Increased anion gap metabolic acidosis monitor - Likely secondary to acute renal failure Hyperkalemia, monitor - Insulin, D10,, calcium gluconate, EKG - Receiving hemodialysis today Hyperglycemia, possible type 2 diabetes mellitus - A1c 7.3 - Low-dose sliding scale Pseudohyponatremia, secondary to hyperglycemia, monitor Urinary tract infection, with sepsis, -Sepsis features met given leukocytosis, elevated CRP, elevated Pro-Black, elevated lactic acid - Elevated lactic acid, lactic acidosis - Follow blood cultures - Follow urine cultures - Vancomycin, aztreonam Acute liver failure, improving - Acute hep panel within normal limits - Tylenol levels within normal limits - Ferritin within normal limits -Liver ultrasound within normal limits - Potentially congestive hepatopathy, - Monitor LFTs closely Acute systolic heart failure CONCLUSIONS Severe global hypokinesis with severely reduced LV systolic function. Estimated LVEF 30%. Moderately dilated left atrium with moderate mitral regurgitation. Thickened calcified aortic valve with reduced opening. Mild aortic regurgitation and moderate aortic stenosis. Elevated right heart and pulmonary pressure 40-45 mmHg. Compared to last echo report (07/21), LVEF has significantly reduced. -Potentially stress-induced cardiomyopathy, associated with rhinovirus, viral infection -Could be a component of amyloidosis, patient's SPEP and UPEP so far within normal limits - Dobutamine has been turned off - Cardiology consulted - Continue to medically manage Has leukocytosis today, with thrombocytosis, -Increasing leukocytosis of undetermined etiology - Is on antibiotics as above - CRP 68.7, Pro-Black 1.41, lactic within normal limits - Peripheral smear shows leukocytosis with microcytic anemia, no blasts EBV - EBV IgM antibody 46.1 - EBV nuclear antigen 238 - DNA PCR pending - Etiology unclear - Could be a component of patient's transaminitis Positive rhinovirus Constipation, will start bowel regimen Plan for today up out of bed, into a chair, continue IV diuresis, leukocytosis of undetermined etiology, repeat UA, repeat blood cultures, repeat chest x-ray, KUB, CT abdomen pelvis PDMP PDMP Reviewed: Not Reviewed Attestations 2 Medical Necessity Statement*: Patient requires hospitalization for acute renal failure, acute liver failure, acute systolic heart failure Diagnoses New onset of congestive heart failure I50.9 Cardiomyopathy, unspecified type I42.9 Cardiomyopathy type: unspecified Acute liver failure K72.00 Acute renal failure N17.9 Sepsis A41.9 Parainfluenza B34.8 Anemia, unspecified type D64.9 Anemia type: unspecified type Transaminitis R74.01
--- NOTE | 2024-12-20 16:58 | PC.NURSE ---
No results from mineral oil enema. Dr. Carbajal notified.
[2024-12-20 17:36] LABS: Glucose Point of Care 332 mg/dL (70-110)
[2024-12-20 17:36] LABS: Glucose Point of Care 324 mg/dL (70-110)
[2024-12-20] MEDS: lactulose oral liq 20 gm/30 mL UDC 30 GM PO (17:42)
--- NOTE | 2024-12-20 18:16 | PC.NURSE ---
Shift note: Took over care of patient around 1100 AM. Patient up to chair until 1330, back to bed via air mat to transport to CT. Patient has not had a bowel movement this shift. Urine output 2,000ml. Intake 873ml, not including 400ml still in cup on bedside table. Patient reports when coughing she is able to expectorate phlegm,however unable to obtain sputum sample this shift, sample cup provided.
[2024-12-20] MEDS: enoxaparin 30 mg/0.3 mL Syringe SUBCUT (21:00)
[2024-12-20] MEDS: hyDROXYzine 25 mg Capsule 100 MG PO (21:00)
[2024-12-20 21:25] LABS: Glucose Point of Care 305 mg/dL (70-110)
[2024-12-21] VITALS (24 sets, daily range): BP systolic 103–138; BP diastolic 46–66; PULSE 90–102; RESP 11–20; TEMP 36.1–36.2; O2SAT 91–97
[2024-12-21] MEDS: ipratropium-albuterol 3 mL Neb INHALATION ×4 (01:44→20:35)
[2024-12-21] MEDS: aztreonam 1,000 MG in sodium chloride 0.9% (plus) 50 ML 100 MG IV ×2 (01:48→12:57)
[2024-12-21 04:42] LABS: Basophils # 0.1 10^3/uL (0.0-0.1); Basophils % 0.2 %; Eosinophils # 0.1 10^3/uL (0.0-0.8); Eosinophils % 0.6 %; Hematocrit 30.8 % (36-47); Lymphocytes # 0.5 10^3/uL (0.8-4.8); Lymphocytes % 1.9 %; Mean Corpuscular HGB Conc 29.9 g/dL (30-55); Mean Corpuscular Hemoglobin 20.9 pg (27-33); Mean Platelet Volume 9.9 fL (7.4-10.4); Monocytes # 1.4 10^3/uL (0.2-0.9); Neutrophils # 20.01 10^3/uL (1.8-7.7); Neutrophils % 85.7 %; Nucleated Red Blood Cells # 0.2 /100WBC; Nucleated Red Blood Cells % 0.7 %; Platelet Count 187 10^3/cmm (157-399); White Blood Count 23.34 10^3/uL (3.29-11.43)
[2024-12-21 04:55] LABS: C Reactive Protein 11.7 mg/L (0.0-4.9); Magnesium 1.9 mg/dL (1.7-2.3); Phosphorus 5.2 mg/dL (2.5-4.5)
[2024-12-21 05:05] LABS: NT Pro B Type Natriuretic Pept 13838 pg/mL (0-125)
[2024-12-21 05:26] LABS: Alanine Aminotransferase 295 U/L (0-33); Alkaline Phosphatase 231 U/L (35-105); Anion Gap 19.5 (5-19); Aspartate Amino Transferase 66 U/L (0-32); Calcium 8.1 mg/dL (8.5-10.5); Carbon Dioxide 27 mmol/L (22-29); Chloride 96 mmol/L (98-107); Globulin 2.6 g/dL (1.3-4.6); Glomerular Filtration Rate 22.1 mL/min (90-130); Glucose 122 mg/dL (65-115); Osmolality Calculated 323 mOsm/kg (285-295); Potassium 3.5 mmol/L (3.5-5.1); Sodium 139 mmol/L (136-145); Total Bilirubin 1.6 mg/dL (0.15-1.2); Total Protein 5.6 g/dL (6.6-8.7)
[2024-12-21 05:27] LABS: Blood Urea Nitrogen 106 mg/dL (8-23)
[2024-12-21] MEDS: lactulose oral liq 20 gm/30 mL UDC 30 GM PO (05:32)
--- NOTE | 2024-12-21 05:42 | PC.NURSE ---
Patient am bath done, placed in recliner chair - currently sleeping in chair.
[2024-12-21 07:56] LABS: Glucose Point of Care 174 mg/dL (70-110)
[2024-12-21] MEDS: budesonide 0.5 mg/2 mL Neb INHALATION ×2 (07:56→20:35)
[2024-12-21 07:57] LABS: Vancomycin Random 10.5 ug/mL (20.0-40.0)
[2024-12-21] MEDS: clopidogrel 75 mg Tablet PO (08:31)
[2024-12-21] MEDS: predniSONE 20 mg Tablet 40 MG PO (08:31)
[2024-12-21] MEDS: bumetanide 0.25 mg/mL SDV 4 mL 1 MG IVP (08:31)
[2024-12-21] MEDS: polyethylene glycol 3350 Pkt 17 gm PO (08:31)
[2024-12-21] MEDS: nystatin 100,000 unit/mL UDC 5 mL 100000 UNIT PO ×3 (08:31→22:23)
[2024-12-21] MEDS: citalopram 20 mg Tablet PO (08:32)
[2024-12-21] MEDS: insulin lispro 100 unit/1 mL SUBCUT ×3 (08:32→22:24)
[2024-12-21] MEDS: pantoprazole DR 40 mg Tablet PO (08:32)
[2024-12-21] MEDS: sennosides-docusate Tablet 1 TAB PO (08:32)
[2024-12-21 11:30] LABS: Glucose Point of Care 227 mg/dL (70-110)
--- NOTE | 2024-12-21 11:44 | P.PN_ITS ---
Subjective 2 Subjective: no new c/o Medications: Reviewed: Yes Vitals/I&O/Wt Last Vital Signs Temp 97 F L 12/21/24 04:00 Pulse 100 12/21/24 08:00 Resp 18 12/21/24 08:00 BP 122/59 12/21/24 08:00 Pulse Ox 92 12/21/24 08:00 O2 Del Method Room Air 12/21/24 07:59 O2 Flow Rate 2 12/18/24 13:20 FiO2 2 12/15/24 20:00 12/20/24 12/21/24 12/21/24 22:59 06:59 14:59 Intake Total 857 / 1143 200 / 1343 120 / 120 Output Total 700 / 2000 2400 / 4400 Balance 157 / -857 -2200 / -3057 120 / 120 Weight last 48 hrs Weight 85 kg Weight 89.811 kg Physical Exam 2 Narrative: The patient is sitting up comfortably in bed. Vital signs noted. Patient is oxygenating well on room air. HEENT normocephalic atraumatic. She is not icteric. Neck is supple without JVP. Lungs have wheezing and dullness. Heart regular positive S1-S2. Soft positive bowel sounds. Extremities 2+ bilateral leg edema. Neuro awake alert oriented x 3, moves all extremities follows commands and interactive. Urinary Catheter Management: Martin: Cath Placed During This Visit: yes Reason for Continuing Indwelling Catheter: Accurate Measurement of Urinary Output in Critically Ill Patients Urinary Catheter Date of Insertion: 12/15/24 Data 12/21/24 04:18 12/21/24 04:18 Micro: Microbiology 12/20/24 11:36 Blood Culture - Preliminary Blood NEGATIVE TO DATE 12/20/24 11:30 Blood Culture - Preliminary Blood NEGATIVE TO DATE 12/16/24 03:16 Blood Culture - Final Blood NO GROWTH AFTER 5 DAYS 12/16/24 03:14 Blood Culture - Final Blood NO GROWTH AFTER 5 DAYS A&P Assessment and plan (1) Acute kidney injury: Plan 69-year-old lady history of hypertension COPD obesity anemia and heart failure preserved EF. Patient presents with weakness new increased LFTs, decreased EF of 30%, chronic diastolic dysfunction. Patient also has acute kidney injury and increased anion gap metabolic acidosis. 1. Acute kidney injury in the setting of diastolic dysfunction with new acute decreased EF. The patient was started on Dobutrex - off now -Renal ultrasound reviewed without any hemodynamically significant renal artery stenosis no hydronephrosis in either kidney. -Urinalysis reviewed dark yellow cloudy 1+ protein 1+ bilirubin 2+ leuk esterase no ketones no blood. Of note she has 51-100 white cells with squamous epis 21- 50. -HD started , last HD . - Creatinine and urine output improving, BUN remains high likely due to diuretics and steroid use, hold off on HD and assess for recovery -DC bumex 2. metabolic acidosis, HD as above 3. Mild hyponatremia with a low urine sodium likely due to heart failure exacerbation. 6. Combined diastolic dysfunction and new acute systolic heart failure. As per cardiology 7. Monitor increased transaminitis. Renal dose medications. Monitor urine output monitor chemistries. The patient was seen and examined using audiovisual cart with the aid of a nurse. The patient consented to telehealth. PDMP PDMP Reviewed: Not Reviewed Attestations 2 Medical Necessity Statement*: per elsyoh Coding Level of Care Code Acute Code for [facility] Diagnoses Acute kidney injury N17.9
[2024-12-21] MEDS: mineral oil ENEMA 133 mL PR (13:31)
--- NOTE | 2024-12-21 14:02 | PC.NURSE ---
Pt transferred to CSU via bed and tolerated well. Family notified
--- NOTE | 2024-12-21 14:29 | P.PN_ITS ---
Subjective 2 Subjective: Patient was seen this morning, currently alert oriented x 3, following all commands, her edema is improving she does complain of lower back pain after spending time in her bed, does report appetite slowly improving generalized fatigue, malaise no fevers, chills she is on room air her urine output has improved she had 4 L of urine output Vitals/I&O/Wt Last Vital Signs Temp 97 F L 12/21/24 04:00 Pulse 98 12/21/24 13:22 Resp 16 12/21/24 13:14 BP 129/59 12/21/24 12:00 Pulse Ox 96 12/21/24 13:14 O2 Del Method Room Air 12/21/24 13:14 O2 Flow Rate 2 12/18/24 13:20 FiO2 2 12/15/24 20:00 12/20/24 12/21/24 12/21/24 22:59 06:59 14:59 Intake Total 857 / 1143 200 / 1343 240 / 240 Output Total 700 / 2000 2400 / 4400 Balance 157 / -857 -2200 / -3057 240 / 240 Weight last 48 hrs Weight 85 kg Weight 89.811 kg Physical Exam 2 Const: COMMON NORMALS: no acute distress and patient oriented x3 Resp: COMMON NORMALS: normal respiratory effort, No retractions, No use of accessory muscles and clear to auscultation bilaterally AUSCULTATION: clear to auscultation bilaterally Cardio: COMMON NORMALS: regular rate, regular rhythm, S1 normal heart sound present and S2 normal heart sound present RATE: regular rate RHYTHM: r egular rhythm HEART SOUNDS: S1 normal heart sound present and S2 normal heart sound present GI: COMMON NORMALS: Normal to inspection, nondistended, normoactive bowel sounds present and non-tender Extremity: COMMON NORMALS: no pedal edema NARRATIVE EXTREMITY EXAM: Anasarca, Neuro: COMMON NORMALS: patient oriented x3 Psych: COMMON NORMALS: mental status grossly normal Skin: OTHER: Dialysis catheter site looks clean and dry Urinary Catheter Management: Martin: Cath Placed During This Visit: yes Reason for Continuing Indwelling Catheter: Accurate Measurement of Urinary Output in Critically Ill Patients Urinary Catheter Date of Insertion: 12/15/24 Data 12/21/24 04:18 12/21/24 04:18 Micro: Microbiology 12/20/24 11:36 Blood Culture - Preliminary Blood NEGATIVE TO DATE 12/20/24 11:30 Blood Culture - Preliminary Blood NEGATIVE TO DATE 12/16/24 03:16 Blood Culture - Final Blood NO GROWTH AFTER 5 DAYS 12/16/24 03:14 Blood Culture - Final Blood NO GROWTH AFTER 5 DAYS A&P Assessment and plan (1) New onset of congestive heart failure: (2) Cardiomyopathy: (3) Acute liver failure: (4) Acute renal failure: (5) Sepsis: (6) Parainfluenza: (7) Anemia: (8) Transaminitis: Plan Acute renal failure -Status post 2 sessions of dialysis so far, dialysis has been held - Urine output is picking up at 4000 mL -Continue Bumex 1 mg IV every 12 hours - Etiology unclear? - Potentially component of cardiogenic shock, cardiorenal syndrome, hepatorenal syndrome -Free kappa light chain 57 -Lambda light chain 30.3 -Edson lambda at 1.88 -SPEP are within normal limits and UPEP within normal limits -Leukocytosis with mild microcytic anemia, no blasts -Calcium 7.8 - Component of septic shock - Renal ultrasound no acute findings Plan - Currently off dialysis, status post 3 sessions, will hold off for today -Continue IV diuresis as above - Nephrology consulted Increased anion gap metabolic acidosis monitor - Likely secondary to acute renal failure Hyperkalemia, monitor - Insulin, D10,, calcium gluconate, EKG - Receiving hemodialysis today Hyperglycemia, possible type 2 diabetes mellitus - A1c 7.3 - Low-dose sliding scale Pseudohyponatremia, secondary to hyperglycemia, monitor Urinary tract infection, with sepsis, -Sepsis features met given leukocytosis, elevated CRP, elevated Pro-Black, elevated lactic acid - Elevated lactic acid, lactic acidosis - Follow blood cultures, so far no growth - Follow urine cultures - Vancomycin, aztreonam Acute liver failure, improving - Acute hep panel within normal limits - Tylenol levels within normal limits - Ferritin within normal limits -Liver ultrasound within normal limits - Potentially congestive hepatopathy, - Monitor LFTs closely Acute systolic heart failure CONCLUSIONS Severe global hypokinesis with severely reduced LV systolic function. Estimated LVEF 30%. Moderately dilated left atrium with moderate mitral regurgitation. Thickened calcified aortic valve with reduced opening. Mild aortic regurgitation and moderate aortic stenosis. Elevated right heart and pulmonary pressure 40-45 mmHg. Compared to last echo report (07/21), LVEF has significantly reduced. -Potentially stress-induced cardiomyopathy, associated with rhinovirus, viral infection -Could be a component of amyloidosis, patient's SPEP and UPEP so far within normal limits - Dobutamine has been turned off - Cardiology consulted - Continue to medically manage Has leukocytosis today, with thrombocytosis, -Increasing leukocytosis of undetermined etiology? - Is on antibiotics as above -Dialysis catheter site looks clean and dry, but as urine output is improving, kidney function improving will remove dialysis catheter site, culture tip -Remove Martin catheter -Remove PICC line culture tip -Potentially steroid-induced - Pro-Black 0.95, CRP 11.7, lactic within normal limits - Peripheral smear shows leukocytosis with microcytic anemia, no blasts EBV - EBV IgM antibody 46.1 - EBV nuclear antigen 238 - DNA PCR pending - Etiology unclear - Could be a component of patient's transaminitis Positive rhinovirus Constipation, will start bowel regimen Plan for today continue IV antibiotics, continue IV diuresis, monitor respiratory status closely, remove Martin catheter, remove PICC line, dialysis catheter, culture trips, PDMP PDMP Reviewed: Not Reviewed Attestations 2 Medical Necessity Statement*: Patient requires hospitalization for persistent leukocytosis, TREVOR, acute liver failure, CHF Diagnoses New onset of congestive heart failure I50.9 Cardiomyopathy, unspecified type I42.9 Cardiomyopathy type: unspecified Acute liver failure K72.00 Acute renal failure N17.9 Sepsis A41.9 Parainfluenza B34.8 Anemia, unspecified type D64.9 Anemia type: unspecified type Transaminitis R74.01
--- NOTE | 2024-12-21 14:36 | USCV_ITS ---
Lela Crespo Age: 69 Gender: F : 1955 Exam Date: 12/21/2024 17:35 Ordering Phys: Jerman Carbajal MD Technologist: Lamonte Cohn Exam Location: [facility] – [place] Indication: EF BP: 103 / 66 HR: Rhythm: Sinus Technical Quality: Adequate MEASUREMENTS (Male / Female) Normal Values 2D ECHO LV Diastolic Diameter PLAX 5.2 cm 4.2 - 5.9 / 3.9 - 5.3 cm IVS Diastolic Thickness 1.4 cm 0.6 - 1.0 / 0.6 - 0.9 cm IVS Systolic Thickness 1.1 cm LVPW Diastolic Thickness 1.5 cm 0.6 - 1.0 / 0.6 - 0.9 cm LVPW Systolic Thickness 1.8 cm LVOT Diameter 2.0 cm LV Ejection Fraction 2D Teich 33.6 % LV Ejection Fraction MOD 4C 31.0 % LV Ejection Fraction MOD 2C 34.9 % LV Ejection Fraction 2C AL 36.4 % LA Diameter 4.3 cm RA Systolic Volume 4C AL 43.0 ml RA Systolic Volume 4C MOD 43.6 ml LA Sys Volume AL 53.5 cm cubed LA Sys Volume Index AL 25.2 cm cubed/m squared Aorta at Sinotubular Diameter 1.8 cm M-MODE LA Ao Ratio MM 1.2 AV Cusp Separation MM 0.9 cm FINDINGS Left Ventricle Moderately increased left ventricular cavity size. Severely decreased left ventricular systolic function. Left ventricular ejection fraction is estimated at 30 %. Global left ventricular hypokinesis. Right Ventricle Right Atrium Left Atrium Moderately increased left atrial size. Mitral Valve Aortic Valve Severe aortic valve calcification. Severe aortic valve stenosis, since this is a limited echo therefore aortic valve area was not calculated. Tricuspid Valve Pulmonic Valve Pericardium Aorta IVC CONCLUSIONS Moderately increased left ventricular cavity size. Severely decreased left ventricular systolic function. Left ventricular ejection fraction is estimated at 30 %. Global left ventricular hypokinesis Moderately increased left atrial size. Severe aortic valve calcification. Severe aortic valve stenosis, since this is a limited echo therefore aortic valve area was not calculated. Olga Marrufo MD (Electronically Signed) Final Date: 22 Dec 2024 08:34 S
[2024-12-21] MEDS: morphine 4 mg/mL SDV 1 mL 2 MG IVP (16:54)
[2024-12-21] MEDS: vancomycin 500 MG in sodium chloride 0.9% (plus) 100 ML 200 MG IV (16:55)
[2024-12-21 17:32] LABS: Glucose Point of Care 192 mg/dL (70-110)
[2024-12-21 19:19] LABS: C.Diff PCR (Lab) NEGATIVE (Negative)
[2024-12-21 22:17] LABS: Glucose Point of Care 187 mg/dL (70-110)
[2024-12-21] MEDS: hyDROXYzine 25 mg Capsule 100 MG PO (22:23)
[2024-12-21] MEDS: enoxaparin 30 mg/0.3 mL Syringe SUBCUT (22:23)
[2024-12-22] VITALS (15 sets, daily range): BP systolic 100–113; BP diastolic 44–57; PULSE 87–97; RESP 16–24; TEMP 36.4–36.7; O2SAT 91–98
[2024-12-22] MEDS: aztreonam 1,000 MG in sodium chloride 0.9% (plus) 50 ML 100 MG IV ×2 (00:44→13:06)
[2024-12-22] MEDS: ipratropium-albuterol 3 mL Neb INHALATION ×4 (01:58→19:55)
[2024-12-22 05:12] LABS: Alanine Aminotransferase 209 U/L (0-33); Alkaline Phosphatase 241 U/L (35-105); Aspartate Amino Transferase 54 U/L (0-32); Carbon Dioxide 31 mmol/L (22-29); Chloride 99 mmol/L (98-107); Creatinine Clr Calc Pharmacy 34.3068; Globulin 2.2 g/dL (1.3-4.6); Glomerular Filtration Rate 29.8 mL/min (90-130); Glucose 127 mg/dL (65-115); Osmolality Calculated 327 mOsm/kg (285-295); Sodium 144 mmol/L (136-145); Total Bilirubin 1.6 mg/dL (0.15-1.2); Total Protein 5.2 g/dL (6.6-8.7)
[2024-12-22 05:21] LABS: Anion Gap 17.3 (5-19); Blood Urea Nitrogen 90 mg/dL (8-23); Potassium 3.3 mmol/L (3.5-5.1)
[2024-12-22 06:08] LABS: Glucose Point of Care 140 mg/dL (70-110)
[2024-12-22 08:04] LABS: Basophils # 0.1 10^3/uL (0.0-0.1); Basophils % 0.2 %; Eosinophils # 0.1 10^3/uL (0.0-0.8); Eosinophils % 0.4 %; Lymphocytes # 0.5 10^3/uL (0.8-4.8); Lymphocytes % 1.9 %; Mean Corpuscular HGB Conc 29.1 g/dL (30-55); Mean Corpuscular Hemoglobin 21.2 pg (27-33); Mean Corpuscular Volume 73.1 fl (85-98); Mean Platelet Volume 10.3 fL (7.4-10.4); Monocytes # 1.2 10^3/uL (0.2-0.9); Monocytes % 5.1 %; Neutrophils # 20.09 10^3/uL (1.8-7.7); Nucleated Red Blood Cells # 0.1 /100WBC; Nucleated Red Blood Cells % 0.4 %; Platelet Count 203 10^3/cmm (157-399); Red Blood Count 4.38 10^6/uL (3.85-5.65); Red Cell Distribution Width 23.9 % (12.1-15.1); White Blood Count 23.11 10^3/uL (3.29-11.43)
[2024-12-22] MEDS: nystatin 100,000 unit/mL UDC 5 mL 100000 UNIT PO ×4 (08:26→21:02)
[2024-12-22] MEDS: predniSONE 20 mg Tablet 40 MG PO (08:27)
[2024-12-22] MEDS: sennosides-docusate Tablet 1 TAB PO ×2 (08:27→17:52)
[2024-12-22] MEDS: clopidogrel 75 mg Tablet PO (08:27)
[2024-12-22] MEDS: pantoprazole DR 40 mg Tablet PO (08:27)
[2024-12-22] MEDS: citalopram 20 mg Tablet PO (08:27)
[2024-12-22] MEDS: polyethylene glycol 3350 Pkt 17 gm PO (08:28)
[2024-12-22 08:33] LABS: Slide Review Slide Review Perform
--- NOTE | 2024-12-22 10:03 | P.PN_ITS ---
<Statement entered by Olga Marrufo MD - 12/28/24 09:48> Patient was evaluated and cared for in conjunction with an advanced practice practitioner. I personally examined the patient and reviewed the chart and all pertinent data including imaging, telemetry, and laboratory results. I discussed the patient in detail with the advanced practice practitioner. Please see their note for complete H&P testing result and agreed upon plan of care for the patient. Subjective 2 Subjective: She has done well overnight, breath sounds are improving. She is -1200 mL the last 24 hours, -4 L cumulative, making urine. No dialysis planned. Creatinine 1.7 today, down from 2.2. Vitals/I&O/Wt Last Vital Signs Temp 97.5 F L 12/22/24 08:00 Pulse 88 12/22/24 08:00 Resp 20 H 12/22/24 08:00 BP 113/57 12/22/24 08:00 Pulse Ox 95 12/22/24 08:00 O2 Del Method Room Air 12/22/24 08:00 O2 Flow Rate 2 12/18/24 13:20 FiO2 2 12/15/24 20:00 12/21/24 12/22/24 12/22/24 22:59 06:59 14:59 Intake Total 460 / 1040 290 / 1040 120 / 120 Output Total 900 / 2300 1400 / 2300 Balance -440 / -1260 -1110 / -1260 120 / 120 Weight last 48 hrs Weight 188 lb 7.924 oz Weight 187 lb 6.287 oz Physical Exam 2 Const: COMMON NORMALS: no acute distress and patient oriented x3 GENERAL APPEARANCE: cooperative and comfortable ORIENTATION/CONSCIOUSNESS: Yes awake, Yes oriented to person, Yes oriented to place and Yes oriented to time Chest: COMMONS NORMALS: normal inspection of the chest and normal palpation of entire chest wall CHEST: Yes Symmetrical chest wall rise Resp: COMMON NORMALS: normal respiratory effort, No retractions, No use of accessory muscles and clear to auscultation bilaterally EFFORT & INSPECTION: Yes symmetric chest movement AUSCULTATION: clear to auscultation bilaterally Cardio: COMMON NORMALS: regular rate, regular rhythm, S1 normal heart sound present, S2 normal heart sound present, No gallops present (Cardio), No clicks present (Cardio), No murmurs present (Cardio) and No rub (Cardio) RATE: r egular rate RHYTHM: regular rhythm HEART SOUNDS: S1 normal heart sound present and S2 normal heart sound present PERIPHERAL PULSES: radial pulses present Extremity: GENERAL: Yes edema (2+ pitting edema bilateral lower extremity) Neuro: COMMON NORMALS: patient oriented x3 and moves all extremities S ENSORIUM/ORIENTATION: Yes oriented to person, Yes oriented to place and Yes oriented to time Urinary Catheter Management: Martin: Cath Placed During This Visit: yes Reason for Continuing Indwelling Catheter: Acute Urinary Retention or Obstruction Urinary Catheter Date of Insertion: 12/21/24 Urinary Catheter Time of Insertion: 19:00 Data 12/22/24 04:16 12/22/24 04:16 Micro: Microbiology 12/20/24 11:36 Blood Culture - Preliminary Blood NEGATIVE TO DATE 12/20/24 11:30 Blood Culture - Preliminary Blood NEGATIVE TO DATE A&P Assessment and plan (1) New onset of congestive heart failure: (2) Cardiomyopathy: (3) Severe calcific aortic valve stenosis: (4) Acute kidney injury: (5) Transaminitis: (6) Parainfluenza: (7) Iron deficiency: (8) Anemia requiring transfusions: Plan Volume overload improving, noted nephrology plan to assess for renal recovery off dialysis and diuretics. Plan is to perform dobutamine stress echo to evaluate aortic stenosis when volume status is improved. Blood pressure and heart rate stable. PDMP PDMP Reviewed: Not Reviewed Attestations 2 Medical Necessity Statement*: Systolic CHF, aortic stenosis evaluation Coding Level of Care Code Acute Code for g Fwd Diagnoses New onset of congestive heart failure I50.9 Cardiomyopathy, unspecified type I42.9 Cardiomyopathy type: unspecified Severe calcific aortic valve stenosis I35.0 Acute kidney injury N17.9 Transaminitis R74.01 Parainfluenza B34.8 Iron deficiency E61.1 Anemia requiring transfusions D64.9
[2024-12-22] MEDS: budesonide 0.5 mg/2 mL Neb INHALATION ×2 (10:12→19:55)
[2024-12-22] MEDS: potassium chloride ER 20 mEq Tablet PO (11:39)
[2024-12-22] MEDS: insulin lispro 100 unit/1 mL SUBCUT ×3 (11:39→21:01)
--- NOTE | 2024-12-22 12:02 | P.PN_ITS ---
Subjective 2 Subjective: no new c/o Medications: Reviewed: Yes Vitals/I&O/Wt Last Vital Signs Temp 97.5 F L 12/22/24 08:00 Pulse 93 12/22/24 10:15 Resp 16 12/22/24 10:15 BP 113/57 12/22/24 08:00 Pulse Ox 93 12/22/24 10:15 O2 Del Method Room Air 12/22/24 10:15 O2 Flow Rate 2 12/18/24 13:20 FiO2 2 12/15/24 20:00 12/21/24 12/22/24 12/22/24 22:59 06:59 14:59 Intake Total 460 / 750 290 / 1040 120 / 120 Output Total 900 / 900 1400 / 2300 Balance -440 / -150 -1110 / -1260 120 / 120 Weight last 48 hrs Weight 85.5 kg Weight 85 kg Physical Exam 2 Narrative: The patient is sitting up comfortably in bed. Vital signs noted. Patient is oxygenating well on room air. HEENT normocephalic atraumatic. She is not icteric. Neck is supple without JVP. Lungs have wheezing and dullness. Heart regular positive S1-S2. Soft positive bowel sounds. Extremities 2+ bilateral leg edema. Neuro awake alert oriented x 3, moves all extremities follows commands and interactive. Urinary Catheter Management: Martin: Cath Placed During This Visit: yes Reason for Continuing Indwelling Catheter: Acute Urinary Retention or Obstruction Urinary Catheter Date of Insertion: 12/21/24 Urinary Catheter Time of Insertion: 19:00 Data 12/22/24 04:16 12/22/24 04:16 Micro: Microbiology 12/21/24 16:20 Catheter Tip Culture - Preliminary Venous Line 12/21/24 16:22 Catheter Tip Culture - Preliminary Central Line 12/20/24 11:36 Blood Culture - Preliminary Blood NEGATIVE TO DATE 12/20/24 11:30 Blood Culture - Preliminary Blood NEGATIVE TO DATE A&P Assessment and plan (1) Acute kidney injury: Plan 69-year-old lady history of hypertension COPD obesity anemia and heart failure preserved EF. Patient presents with weakness new increased LFTs, decreased EF of 30%, chronic diastolic dysfunction. Patient also has acute kidney injury and increased anion gap metabolic acidosis. 1. Acute kidney injury in the setting of diastolic dysfunction with new acute decreased EF. The patient was started on Dobutrex - off now -Renal ultrasound reviewed without any hemodynamically significant renal artery stenosis no hydronephrosis in either kidney. -Urinalysis reviewed dark yellow cloudy 1+ protein 1+ bilirubin 2+ leuk esterase no ketones no blood. Of note she has 51-100 white cells with squamous epis 21- 50. -s/p HD , renal fxn recovering , 2. metabolic acidosis,improved 3. Mild hyponatremia with a low urine sodium likely due to heart failure exacerbation. 6. Combined diastolic dysfunction and new acute systolic heart failure. As per cardiology 7. Monitor increased transaminitis. 8. replete K Renal dose medications. Monitor urine output monitor chemistries. The patient was seen and examined using audiovisual cart with the aid of a nurse. The patient consented to telehealth. PDMP PDMP Reviewed: Not Reviewed Attestations 2 Medical Necessity Statement*: PER [facility] Coding Level of Care Code Acute Code for [facility] Fwd Diagnoses Acute kidney injury N17.9
[2024-12-22 12:09] LABS: Glucose Point of Care 299 mg/dL (70-110)
--- NOTE | 2024-12-22 13:31 | P.PN_ITS ---
Subjective 2 Subjective: Patient was seen this morning, she is alert oriented x 3, following all commands she feels better this morning she had a large bowel movement she tells me, creatinine trending improving, urine output improving, LFTs improving, discussed discharge planning, to [facility], she is in agreement, Vitals/I&O/Wt Last Vital Signs Temp 97.5 F L 12/22/24 12:00 Pulse 92 12/22/24 12:00 Resp 18 12/22/24 12:00 BP 113/57 12/22/24 12:00 Pulse Ox 94 12/22/24 12:00 O2 Del Method Room Air 12/22/24 12:00 O2 Flow Rate 2 12/18/24 13:20 FiO2 2 12/15/24 20:00 12/21/24 12/22/24 12/22/24 22:59 06:59 14:59 Intake Total 460 / 750 290 / 1040 360 / 360 Output Total 900 / 900 1400 / 2300 Balance -440 / -150 -1110 / -1260 360 / 360 Weight last 48 hrs Weight 85.5 kg Weight 85 kg Physical Exam 2 Const: COMMON NORMALS: no acute distress and patient oriented x3 Resp: COMMON NORMALS: normal respiratory effort, No retractions, No use of accessory muscles and clear to auscultation bilaterally AUSCULTATION: clear to auscultation bilaterally Cardio: COMMON NORMALS: regular rate, regular rhythm, S1 normal heart sound present and S2 normal heart sound present RATE: regular rate RHYTHM: r egular rhythm HEART SOUNDS: S1 normal heart sound present and S2 normal heart sound present GI: COMMON NORMALS: Normal to inspection, nondistended, normoactive bowel sounds present and non-tender Extremity: COMMON NORMALS: no pedal edema Neuro: COMMON NORMALS: patient oriented x3 Psych: COMMON NORMALS: mental status grossly normal Skin: NARRATIVE SKIN EXAM: Anasarca Left arm midline removed, site looks clean and dry Dialysis catheter removal site looks clean and dry Urinary Catheter Management: Martin: Cath Placed During This Visit: yes Reason for Continuing Indwelling Catheter: Acute Urinary Retention or Obstruction Urinary Catheter Date of Insertion: 12/21/24 Urinary Catheter Time of Insertion: 19:00 Data 12/22/24 04:16 12/22/24 04:16 Micro: Microbiology 12/21/24 16:20 Catheter Tip Culture - Preliminary Venous Line 12/21/24 16:22 Catheter Tip Culture - Preliminary Central Line 12/20/24 11:36 Blood Culture - Preliminary Blood NEGATIVE TO DATE 12/20/24 11:30 Blood Culture - Preliminary Blood NEGATIVE TO DATE A&P Assessment and plan (1) New onset of congestive heart failure: (2) Cardiomyopathy: (3) Acute liver failure: (4) Acute renal failure: (5) Sepsis: (6) Parainfluenza: (7) Anemia: (8) Transaminitis: Plan Acute renal failure -Creatinine proving to 1.7, urine output improving -Status post 2 sessions of dialysis so far, dialysis has been held - Urine output is picking up at 4000 mL -Continue Bumex 1 mg IV every 12 hours - Etiology unclear? - Potentially component of cardiogenic shock, cardiorenal syndrome, hepatorenal syndrome -Free kappa light chain 57 -Lambda light chain 30.3 -[place] lambda at 1.88 -SPEP are within normal limits and UPEP within normal limits -Leukocytosis with mild microcytic anemia, no blasts -Calcium 7.8 - Component of septic shock - Renal ultrasound no acute findings Plan - Currently off dialysis, status post 3 sessions, dialysis catheter removed -Continue IV diuresis on hold - Nephrology consulted Increased anion gap metabolic acidosis monitor, resolving - Likely secondary to acute renal failure Hyperkalemia, monitor - Insulin, D10,, calcium gluconate, EKG - Receiving hemodialysis today Hyperglycemia, possible type 2 diabetes mellitus - A1c 7.3 - Low-dose sliding scale Pseudohyponatremia, secondary to hyperglycemia, monitor Urinary tract infection, with sepsis, -Sepsis features met given leukocytosis, elevated CRP, elevated Pro-Black, elevated lactic acid - Elevated lactic acid, lactic acidosis - Follow blood cultures, so far no growth - Follow urine cultures - Vancomycin, aztreonam Acute liver failure, improving - Acute hep panel within normal limits - Tylenol levels within normal limits - Ferritin within normal limits -Liver ultrasound within normal limits - Potentially congestive hepatopathy, - Monitor LFTs closely Acute systolic heart failure CONCLUSIONS Severe global hypokinesis with severely reduced LV systolic function. Estimated LVEF 30%. Moderately dilated left atrium with moderate mitral regurgitation. Thickened calcified aortic valve with reduced opening. Mild aortic regurgitation and moderate aortic stenosis. Elevated right heart and pulmonary pressure 40-45 mmHg. Compared to last echo report (07/21), LVEF has significantly reduced. -Potentially stress-induced cardiomyopathy, associated with rhinovirus, viral infection -Could be a component of amyloidosis, patient's SPEP and UPEP so far within normal limits - Dobutamine has been turned off - Cardiology consulted - Continue to medically manage Has leukocytosis today, with thrombocytosis, -Increasing leukocytosis of undetermined etiology? - Is on antibiotics as above -Dialysis catheter site looks clean and dry, but as urine output is improving, kidney function improving will remove dialysis catheter site, culture tip pen pain -Remove Martin catheter hopefully today, continues to be weak -Remove PICC line culture tip pending -Potentially steroid-induced - Pro-Black 0.95, CRP 11.7, lactic within normal limits - Peripheral smear shows leukocytosis with microcytic anemia, no blasts EBV - EBV IgM antibody 46.1 - EBV nuclear antigen 238 - DNA PCR pending - Etiology unclear - Could be a component of patient's transaminitis Positive rhinovirus Constipation, will start bowel regimen Plan for today continue IV antibiotics, follow cultures PDMP PDMP Reviewed: Not Reviewed Attestations 2 Medical Necessity Statement*: Patient requires hospitalization for acute renal failure, acute liver failure, systolic CHF Diagnoses New onset of congestive heart failure I50.9 Cardiomyopathy, unspecified type I42.9 Cardiomyopathy type: unspecified Acute liver failure K72.00 Acute renal failure N17.9 Sepsis A41.9 Parainfluenza B34.8 Anemia, unspecified type D64.9 Anemia type: unspecified type Transaminitis R74.01
[2024-12-22 17:32] LABS: Glucose Point of Care 204 mg/dL (70-110)
[2024-12-22] MEDS: lactulose oral liq 20 gm/30 mL UDC 30 GM PO (17:52)
[2024-12-22] MEDS: VANCOMYCIN ADD-Vantage 750 MG in 0.9% NaCl ADD-Vantage 250 ML 250 MG IV (17:54)
[2024-12-22 20:51] LABS: Glucose Point of Care 205 mg/dL (70-110)
[2024-12-22] MEDS: hyDROXYzine 25 mg Capsule 100 MG PO (21:01)
[2024-12-22] MEDS: enoxaparin 30 mg/0.3 mL Syringe SUBCUT (21:01)
[2024-12-23] VITALS (16 sets, daily range): BP systolic 100–117; BP diastolic 46–72; PULSE 86–100; RESP 14–20; TEMP 36.4–37.1; O2SAT 96–99
[2024-12-23] LABS: Interleukin 2 Receptor CD25 7287 pg/mL (532-1891)
[2024-12-23] MEDS: aztreonam 1,000 MG in sodium chloride 0.9% (plus) 50 ML 100 MG IV (00:31)
[2024-12-23] MEDS: ipratropium-albuterol 3 mL Neb INHALATION ×4 (01:59→19:26)
[2024-12-23 05:13] LABS: Alanine Aminotransferase 156 U/L (0-33); Albumin Level 2.9 g/dL (3.5-5.2); Alkaline Phosphatase 252 U/L (35-105); Anion Gap 16.2 (5-19); Aspartate Amino Transferase 48 U/L (0-32); Blood Urea Nitrogen 69 mg/dL (8-23); Calcium 8.3 mg/dL (8.5-10.5); Carbon Dioxide 31 mmol/L (22-29); Chloride 96 mmol/L (98-107); Creatinine Clr Calc Pharmacy 44.9917; Globulin 2.5 g/dL (1.3-4.6); Glomerular Filtration Rate 40.6 mL/min (90-130); Glucose 115 mg/dL (65-115); Osmolality Calculated 311 mOsm/kg (285-295); Potassium 3.2 mmol/L (3.5-5.1); Sodium 140 mmol/L (136-145); Total Bilirubin 1.6 mg/dL (0.15-1.2); Total Protein 5.4 g/dL (6.6-8.7)
[2024-12-23 06:45] LABS: Glucose Point of Care 136 mg/dL (70-110)
[2024-12-23] MEDS: budesonide 0.5 mg/2 mL Neb INHALATION ×2 (08:15→19:26)
[2024-12-23 08:32] LABS: Basophils % 0.2 %; Eosinophils # 0.2 10^3/uL (0.0-0.8); Eosinophils % 0.8 %; Hematocrit 32.1 % (36-47); Lymphocytes # 0.7 10^3/uL (0.8-4.8); Lymphocytes % 3.1 %; Mean Corpuscular Hemoglobin 21.1 pg (27-33); Mean Platelet Volume 10.1 fL (7.4-10.4); Monocytes # 1.2 10^3/uL (0.2-0.9); Monocytes % 5.7 %; Neutrophils # 18.26 10^3/uL (1.8-7.7); Nucleated Red Blood Cells % 0.1 %; Platelet Count 200 10^3/cmm (157-399); Red Cell Distribution Width 24.5 % (12.1-15.1); White Blood Count 21.22 10^3/uL (3.29-11.43)
--- NOTE | 2024-12-23 09:29 | P.PN_ITS ---
Subjective 2 Subjective: no new c/o Medications: Reviewed: Yes Vitals/I&O/Wt Last Vital Signs Temp 97.9 F 12/23/24 07:28 Pulse 91 12/23/24 08:00 Resp 16 12/23/24 08:00 BP 106/50 12/23/24 07:28 Pulse Ox 96 12/23/24 08:00 O2 Del Method Room Air 12/23/24 08:00 O2 Flow Rate 2 12/18/24 13:20 FiO2 2 12/15/24 20:00 12/22/24 12/23/24 12/23/24 22:59 06:59 14:59 Intake Total 540 / 900 290 / 1190 Output Total 900 / 900 1300 / 2200 Balance -360 / 0 -1010 / -1010 Weight last 48 hrs Weight 85.275 kg Weight 85.5 kg Physical Exam 2 Narrative: The patient is sitting up comfortably in bed. Vital signs noted. Patient is oxygenating well on room air. HEENT normocephalic atraumatic. She is not icteric. Neck is supple without JVP. Lungs have wheezing and dullness. Heart regular positive S1-S2. Soft positive bowel sounds. Extremities 2+ bilateral leg edema. Neuro awake alert oriented x 3, moves all extremities follows commands and interactive. Urinary Catheter Management: Martin: Cath Placed During This Visit: yes Reason for Continuing Indwelling Catheter: Accurate Measurement of Urinary Output in Critically Ill Patients Urinary Catheter Date of Insertion: 12/21/24 Urinary Catheter Time of Insertion: 19:00 Data 12/24/24 04:20 12/24/24 04:20 Micro: Microbiology 12/21/24 16:20 Catheter Tip Culture - Preliminary Venous Line 12/21/24 16:22 Catheter Tip Culture - Preliminary Central Line A&P Assessment and plan (1) Acute kidney injury: Plan 69-year-old lady history of hypertension COPD obesity anemia and heart failure preserved EF. Patient presents with weakness new increased LFTs, decreased EF of 30%, chronic diastolic dysfunction. Patient also has acute kidney injury and increased anion gap metabolic acidosis. 1. Acute kidney injury in the setting of diastolic dysfunction with new acute decreased EF. The patient was started on Dobutrex - off now -Renal ultrasound reviewed without any hemodynamically significant renal artery stenosis no hydronephrosis in either kidney. -Urinalysis reviewed dark yellow cloudy 1+ protein 1+ bilirubin 2+ leuk esterase no ketones no blood. Of note she has 51-100 white cells with squamous epis 21- 50. -s/p HD , renal fxn recovering , 2. metabolic acidosis,improved 3. Mild hyponatremia with a low urine sodium likely due to heart failure exacerbation. 6. Combined diastolic dysfunction and new acute systolic heart failure. As per cardiology 7. Monitor increased transaminitis. 8. replete K Renal dose medications. Monitor urine output monitor chemistries. The patient was seen and examined using audiovisual cart with the aid of a nurse. The patient consented to telehealth. PDMP PDMP Reviewed: Not Reviewed Attestations 2 Medical Necessity Statement*: per [facility] Coding Level of Care Code Acute Code for [facility] Fwd Diagnoses Acute kidney injury N17.9
[2024-12-23] MEDS: polyethylene glycol 3350 Pkt 17 gm PO (09:34)
[2024-12-23] MEDS: pantoprazole DR 40 mg Tablet PO (09:34)
[2024-12-23] MEDS: sennosides-docusate Tablet 1 TAB PO ×2 (09:34→17:40)
[2024-12-23] MEDS: nystatin 100,000 unit/mL UDC 5 mL 100000 UNIT PO ×4 (09:34→20:39)
[2024-12-23] MEDS: citalopram 20 mg Tablet PO (09:35)
[2024-12-23] MEDS: clopidogrel 75 mg Tablet PO (09:35)
[2024-12-23] MEDS: predniSONE 20 mg Tablet 40 MG PO (09:35)
--- NOTE | 2024-12-23 11:01 | P.PN_ITS ---
<Statement entered by Francis Sethi M.D - 12/26/24 13:16> Patient was cared for in conjunction with an advanced practice practitioner.? I reviewed the chart and all pertinent data including imaging, telemetry, and laboratory results.? I discussed the patient in detail with the advanced practice practitioner.? Please see? their note for progress note, testing results and agreed upon plan of care for the patient. Subjective 2 Subjective: No events overnight, shortness of breath is improving. She is 1 L negative in the last 24 hours, -5 L cumulative. Blood pressures are stable and well- controlled. Creatinine improved to 1.3 today. Vitals/I&O/Wt Last Vital Signs Temp 97.9 F 12/23/24 07:28 Pulse 91 12/23/24 08:00 Resp 16 12/23/24 08:00 BP 106/50 12/23/24 07:28 Pulse Ox 96 12/23/24 08:00 O2 Del Method Room Air 12/23/24 08:00 O2 Flow Rate 2 12/18/24 13:20 FiO2 2 12/15/24 20:00 12/22/24 12/23/24 12/23/24 22:59 06:59 14:59 Intake Total 540 / 1190 290 / 1190 120 / 120 Output Total 900 / 2200 1300 / 2200 Balance -360 / -1010 -1010 / -1010 120 / 120 Weight last 48 hrs Weight 188 lb Weight 188 lb 7.924 oz Physical Exam 2 Const: COMMON NORMALS: no acute distress and patient oriented x3 GENERAL APPEARANCE: cooperative and comfortable ORIENTATION/CONSCIOUSNESS: Yes awake, Yes oriented to person, Yes oriented to place and Yes oriented to time Chest: COMMONS NORMALS: normal inspection of the chest and normal palpation of entire chest wall CHEST: Yes Symmetrical chest wall rise Resp: COMMON NORMALS: normal respiratory effort, No retractions and No use of accessory muscles EFFORT & INSPECTION: Yes symmetric chest movement A USCULTATION: crackles (Bases) Laterality: bilateral and posterior Cardio: COMMON NORMALS: regular rate, regular rhythm, S1 normal heart sound present, S2 normal heart sound present, No gallops present (Cardio), No clicks present (Cardio) and No rub (Cardio) RATE: regular rate RHYTHM: regular rhythm HEART SOUNDS: S1 normal heart sound present, S2 normal heart sound present and Murmur heart sound present systolic Intensity: II/ PERIPHERAL PULSES: radial pulses present Extremity: GENERAL: Yes edema (2+ pitting edema bilateral lower extremity) Neuro: COMMON NORMALS: patient oriented x3 and moves all extremities S ENSORIUM/ORIENTATION: Yes oriented to person, Yes oriented to place and Yes oriented to time Urinary Catheter Management: Martin: Cath Placed During This Visit: yes Reason for Continuing Indwelling Catheter: Accurate Measurement of Urinary Output in Critically Ill Patients Urinary Catheter Date of Insertion: 12/21/24 Urinary Catheter Time of Insertion: 19:00 Data 12/23/24 04:20 12/23/24 04:20 Micro: Microbiology 12/21/24 16:20 Catheter Tip Culture - Preliminary Venous Line 12/21/24 16:22 Catheter Tip Culture - Preliminary Central Line A&P Assessment and plan (1) New onset of congestive heart failure: (2) Cardiomyopathy: (3) Severe calcific aortic valve stenosis: (4) Acute kidney injury: (5) Transaminitis: (6) Parainfluenza: (7) Iron deficiency: (8) Anemia requiring transfusions: Plan She still appears volume overloaded, appears she needs to resume IV diuretics now that renal function improved. Can discuss with nephrology. PDMP PDMP Reviewed: Not Reviewed Attestations 2 Medical Necessity Statement*: New onset CHF, aortic stenosis Coding Level of Care Code Acute Code for [facility] Fwd Diagnoses New onset of congestive heart failure I50.9 Cardiomyopathy, unspecified type I42.9 Cardiomyopathy type: unspecified Severe calcific aortic valve stenosis I35.0 Acute kidney injury N17.9 Transaminitis R74.01 Parainfluenza B34.8 Iron deficiency E61.1 Anemia requiring transfusions D64.9
[2024-12-23 11:43] LABS: Glucose Point of Care 211 mg/dL (70-110)
[2024-12-23] MEDS: insulin lispro 100 unit/1 mL SUBCUT ×3 (12:53→20:39)
--- NOTE | 2024-12-23 14:16 | P.PN_ITS ---
Subjective 2 Subjective: Patient was seen this morning, currently alert oriented x 3, following all commands, appetite is improving, Vitals/I&O/Wt Last Vital Signs Temp 98.7 F 12/23/24 12:00 Pulse 96 12/23/24 12:00 Resp 14 12/23/24 12:00 BP 117/54 12/23/24 12:00 Pulse Ox 98 12/23/24 12:00 O2 Del Method Room Air 12/23/24 12:00 O2 Flow Rate 2 12/18/24 13:20 FiO2 2 12/15/24 20:00 12/22/24 12/23/24 12/23/24 22:59 06:59 14:59 Intake Total 540 / 900 290 / 1190 360 / 360 Output Total 900 / 900 1300 / 2200 550 / 550 Balance -360 / 0 -1010 / -1010 -190 / -190 Weight last 48 hrs Weight 85.275 kg Weight 85.5 kg Physical Exam 2 Const: COMMON NORMALS: no acute distress and patient oriented x3 Neck/C-Spine: COMMON NORMALS: no JVD Resp: COMMON NORMALS: normal respiratory effort, No retractions, No use of accessory muscles and clear to auscultation bilaterally AUSCULTATION: clear to auscultation bilaterally Cardio: COMMON NORMALS: no JVD, regular rate, regular rhythm, S1 normal heart sound present and S2 normal heart sound present RATE: regular rate RHYTHM: regular rhythm HEART SOUNDS: S1 normal heart sound present and S2 normal heart sound present GI: COMMON NORMALS: Normal to inspection, nondistended, normoactive bowel sounds present and non-tender Extremity: COMMON NORMALS: no pedal edema Neuro: COMMON NORMALS: patient oriented x3 Psych: COMMON NORMALS: mental status grossly normal Urinary Catheter Management: Dent: Cath Placed During This Visit: yes Reason for Continuing Indwelling Catheter: Accurate Measurement of Urinary Output in Critically Ill Patients Urinary Catheter Date of Insertion: 12/21/24 Urinary Catheter Time of Insertion: 19:00 Data 12/23/24 04:20 12/23/24 04:20 Micro: Microbiology 12/21/24 16:20 Catheter Tip Culture - Preliminary Venous Line 12/21/24 16:22 Catheter Tip Culture - Preliminary Central Line A&P Assessment and plan (1) New onset of congestive heart failure: (2) Cardiomyopathy: (3) Acute liver failure: (4) Acute renal failure: (5) Sepsis: (6) Parainfluenza: (7) Anemia: (8) Transaminitis: Plan Physical deconditioning, protein calorie malnutrition, generalized weakness - PT OT - Is on protein drinks - Requires prison placement Acute renal failure -Creatinine proving to 1.3, urine output improving -Status post 2 sessions of dialysis so far, dialysis has been held - Urine output is picking up at 4000 mL - Etiology unclear? - Potentially component of cardiogenic shock, cardiorenal syndrome, hepatorenal syndrome -Free kappa light chain 57 -Lambda light chain 30.3 -Crest lambda at 1.88 -SPEP are within normal limits and UPEP within normal limits -Leukocytosis with mild microcytic anemia, no blasts -Calcium 7.8 - Component of septic shock - Renal ultrasound no acute findings Plan - Currently off dialysis, status post 3 sessions, dialysis catheter removed -Continue IV diuresis today - Nephrology consulted Increased anion gap metabolic acidosis monitor, resolving - Likely secondary to acute renal failure Hyperkalemia, monitor - Insulin, D10,, calcium gluconate, EKG - Receiving hemodialysis today Hyperglycemia, possible type 2 diabetes mellitus - A1c 7.3 - Low-dose sliding scale Pseudohyponatremia, secondary to hyperglycemia, monitor Urinary tract infection, with sepsis, -Sepsis features met given leukocytosis, elevated CRP, elevated Pro-Black, elevated lactic acid - Elevated lactic acid, lactic acidosis - Follow blood cultures, so far no growth - Follow urine cultures - Vancomycin, aztreonam Acute liver failure, improving - Acute hep panel within normal limits - Tylenol levels within normal limits - Ferritin within normal limits -Liver ultrasound within normal limits - Potentially congestive hepatopathy, - Monitor LFTs closely Acute systolic heart failure CONCLUSIONS Severe global hypokinesis with severely reduced LV systolic function. Estimated LVEF 30%. Moderately dilated left atrium with moderate mitral regurgitation. Thickened calcified aortic valve with reduced opening. Mild aortic regurgitation and moderate aortic stenosis. Elevated right heart and pulmonary pressure 40-45 mmHg. Compared to last echo report (07/21), LVEF has significantly reduced. -Potentially stress-induced cardiomyopathy, associated with rhinovirus, viral infection -Could be a component of amyloidosis, patient's SPEP and UPEP so far within normal limits - Dobutamine has been turned off - Cardiology consulted - Continue to medically manage - 1 dose IV Lasix today Has leukocytosis today, with thrombocytosis, -Increasing leukocytosis of undetermined etiology? - antibiotics discontinued -Dialysis catheter site looks clean and dry, but as urine output is improving, kidney function improving will remove dialysis catheter site, culture tip pen pain -Remove Dent catheter hopefully today, continues to be weak -Remove PICC line culture tip pending -Potentially steroid-induced - Pro-Black 0.95, CRP 11.7, lactic within normal limits - Peripheral smear shows leukocytosis with microcytic anemia, no blasts EBV - EBV IgM antibody 46.1 - EBV nuclear antigen 238 - DNA PCR pending - Etiology unclear - Could be a component of patient's transaminitis Positive rhinovirus Constipation, will start bowel regimen Plan for today continue IV Diureses, remove dent, pt ot PDMP PDMP Reviewed: Not Reviewed Attestations 2 Medical Necessity Statement*: patient requires hospitalization for acute CHF requiring IV diuresis, acute renal failure, acute liver failure Diagnoses New onset of congestive heart failure I50.9 Cardiomyopathy, unspecified type I42.9 Cardiomyopathy type: unspecified Acute liver failure K72.00 Acute renal failure N17.9 Sepsis A41.9 Parainfluenza B34.8 Anemia, unspecified type D64.9 Anemia type: unspecified type Transaminitis R74.01
[2024-12-23] MEDS: HYDROcodone-acetaminophen 5-325 mg Tablet 1 TAB PO (15:12)
[2024-12-23 16:33] LABS: Glucose Point of Care 223 mg/dL (70-110)
[2024-12-23] MEDS: potassium chloride ER 20 mEq Tablet 40 MEQ PO (17:40)
[2024-12-23] MEDS: bumetanide 0.25 mg/mL SDV 4 mL 1 MG IVP (17:41)
[2024-12-23] MEDS: lactulose oral liq 20 gm/30 mL UDC 30 GM PO (17:55)
[2024-12-23 20:32] LABS: Glucose Point of Care 173 mg/dL (70-110)
[2024-12-23] MEDS: hyDROXYzine 25 mg Capsule 100 MG PO (20:38)
[2024-12-23] MEDS: enoxaparin 30 mg/0.3 mL Syringe SUBCUT (20:39)
[2024-12-24] VITALS (9 sets, daily range): BP systolic 92–105; BP diastolic 42–54; PULSE 88–99; RESP 18–32; TEMP 36.4–37.1; O2SAT 94–99
[2024-12-24] MEDS: ipratropium-albuterol 3 mL Neb INHALATION ×3 (02:11→14:34)
[2024-12-24 05:01] LABS: Alanine Aminotransferase 135 U/L (0-33); Albumin Level 2.8 g/dL (3.5-5.2); Alkaline Phosphatase 274 U/L (35-105); Anion Gap 13.3 (5-19); Aspartate Amino Transferase 77 U/L (0-32); Blood Urea Nitrogen 55 mg/dL (8-23); Calcium 8.1 mg/dL (8.5-10.5); Carbon Dioxide 32 mmol/L (22-29); Chloride 97 mmol/L (98-107); Creatinine Clr Calc Pharmacy 53.1034; Globulin 2.4 g/dL (1.3-4.6); Glomerular Filtration Rate 49.2 mL/min (90-130); Glucose 91 mg/dL (65-115); Osmolality Calculated 303 mOsm/kg (285-295); Potassium 3.3 mmol/L (3.5-5.1); Sodium 139 mmol/L (136-145); Total Bilirubin 1.7 mg/dL (0.15-1.2); Total Protein 5.2 g/dL (6.6-8.7)
[2024-12-24 06:10] LABS: Glucose Point of Care 108 mg/dL (70-110)
[2024-12-24 08:05] LABS: Basophils % 0.1 %; Eosinophils # 0.2 10^3/uL (0.0-0.8); Hematocrit 30.6 % (36-47); Lymphocytes # 0.9 10^3/uL (0.8-4.8); Lymphocytes % 4.3 %; Mean Corpuscular HGB Conc 28.8 g/dL (30-55); Mean Corpuscular Hemoglobin 21.1 pg (27-33); Mean Corpuscular Volume 73.4 fl (85-98); Mean Platelet Volume 10.1 fL (7.4-10.4); Monocytes # 1.5 10^3/uL (0.2-0.9); Monocytes % 7.4 %; Neutrophils # 16.84 10^3/uL (1.8-7.7); Neutrophils % 83.8 %; Nucleated Red Blood Cells % 0 %; Platelet Count 205 10^3/cmm (157-399); Red Blood Count 4.17 10^6/uL (3.85-5.65); Red Cell Distribution Width 25.2 % (12.1-15.1); White Blood Count 20.11 10^3/uL (3.29-11.43)
[2024-12-24] MEDS: budesonide 0.5 mg/2 mL Neb INHALATION (08:15)
--- NOTE | 2024-12-24 08:46 | P.PN_ITS ---
<Statement entered by Francis Sethi M.D - 12/26/24 13:27> Patient was cared for in conjunction with an advanced practice practitioner.? I reviewed the chart and all pertinent data including imaging, telemetry, and laboratory results.? I discussed the patient in detail with the advanced practice practitioner.? Please see? their note for complete progress note, testing results and agreed upon plan of care for the patient. Subjective 2 Subjective: She is continuing to diurese, lungs are clear this morning. No shortness of breath or chest pain. Blood pressure soft running in the 90-100 systolic range. Creatinine is improved to 1.1. She is -1300 mL for the last 24 hours and -6800 mL cumulative. Vitals/I&O/Wt Last Vital Signs Temp 97.6 F 12/24/24 07:23 Pulse 92 12/24/24 08:15 Resp 18 12/24/24 08:15 BP 92/48 12/24/24 07:23 Pulse Ox 95 12/24/24 08:15 O2 Del Method Room Air 12/24/24 08:15 O2 Flow Rate 2 12/23/24 14:00 FiO2 2 12/15/24 20:00 12/23/24 12/24/24 12/24/24 22:59 06:59 14:59 Intake Total 120 / 480 Output Total 850 / 1800 400 / 1800 Balance -730 / -1320 -400 / -1320 Weight last 48 hrs Weight 181 lb Weight 188 lb Physical Exam 2 Const: COMMON NORMALS: no acute distress and patient oriented x3 GENERAL APPEARANCE: cooperative and comfortable ORIENTATION/CONSCIOUSNESS: Yes awake, Yes oriented to person, Yes oriented to place and Yes oriented to time Chest: COMMONS NORMALS: normal inspection of the chest and normal palpation of entire chest wall CHEST: Yes Symmetrical chest wall rise Resp: COMMON NORMALS: normal respiratory effort, No retractions, No use of accessory muscles and clear to auscultation bilaterally EFFORT & INSPECTION: Yes symmetric chest movement AUSCULTATION: clear to auscultation bilaterally Cardio: COMMON NORMALS: regular rate, regular rhythm, S1 normal heart sound present, S2 normal heart sound present, No gallops present (Cardio), No clicks present (Cardio) and No rub (Cardio) RATE: regular rate RHYTHM: regular rhythm HEART SOUNDS: S1 normal heart sound present, S2 normal heart sound present and Murmur heart sound present systolic Intensity: II/ PERIPHERAL PULSES: radial pulses present Extremity: GENERAL: Yes edema (2+ pitting edema bilateral lower extremities/feet) Neuro: COMMON NORMALS: patient oriented x3 and moves all extremities S ENSORIUM/ORIENTATION: Yes oriented to person, Yes oriented to place and Yes oriented to time Urinary Catheter Management: Martin: Cath Placed During This Visit: yes, but has since been removed by the nurse Reason for Continuing Indwelling Catheter: Decision to DC Catheter Urinary Catheter Date of Insertion: 12/21/24 Urinary Catheter Time of Insertion: 19:00 Date Urinary Catheter Removed: 12/24/24 Time Urinary Catheter Discontinued: 06:13 Data 12/24/24 04:20 12/24/24 04:20 Micro: Microbiology 12/21/24 16:20 Catheter Tip Culture - Preliminary Venous Line 12/21/24 16:22 Catheter Tip Culture - Final Central Line A&P Assessment and plan (1) New onset of congestive heart failure: (2) Cardiomyopathy: (3) Severe calcific aortic valve stenosis: (4) Acute kidney injury: (5) Transaminitis: (6) Parainfluenza: (7) Iron deficiency: (8) Anemia requiring transfusions: Plan Discussed plan of care with hospitalist, she is okay for discharge home to the senior care. She can have a dobutamine stress test performed as an outpatient to evaluate the aortic stenosis further. Will suggest to start metoprolol succinate 25 mg daily as her heart rate is around 90 bpm, blood pressure should improve with slower rate, if BP is too low can reduce to 12.5mg daily. If renal function remains stable as an outpatient we can consider Entresto. Continue Plavix. PDMP PDMP Reviewed: Not Reviewed Attestations 2 Medical Necessity Statement*: Possible discharge today or tomorrow Coding Level of Care Code Acute Code for g Fwd Diagnoses New onset of congestive heart failure I50.9 Cardiomyopathy, unspecified type I42.9 Cardiomyopathy type: unspecified Severe calcific aortic valve stenosis I35.0 Acute kidney injury N17.9 Transaminitis R74.01 Parainfluenza B34.8 Iron deficiency E61.1 Anemia requiring transfusions D64.9
[2024-12-24] MEDS: bumetanide 0.25 mg/mL SDV 4 mL 1 MG IVP (09:11)
[2024-12-24] MEDS: nystatin 100,000 unit/mL UDC 5 mL 100000 UNIT PO (09:11)
[2024-12-24] MEDS: lactulose oral liq 20 gm/30 mL UDC 30 GM PO (09:15)
[2024-12-24] MEDS: clopidogrel 75 mg Tablet PO (09:16)
[2024-12-24] MEDS: sennosides-docusate Tablet 1 TAB PO (09:16)
[2024-12-24] MEDS: potassium chloride ER 20 mEq Tablet 40 MEQ PO (09:16)
[2024-12-24] MEDS: HYDROcodone-acetaminophen 5-325 mg Tablet 1 TAB PO ×2 (09:16→15:46)
[2024-12-24] MEDS: pantoprazole DR 40 mg Tablet PO (09:17)
[2024-12-24] MEDS: polyethylene glycol 3350 Pkt 17 gm PO (09:17)
[2024-12-24] MEDS: citalopram 20 mg Tablet PO (09:17)
--- NOTE | 2024-12-24 10:00 | PC.NURSE ---
pt unable to urinate after removal of dent catheter this morning at 6 am. Pt tried to use bedpan but still unable to void and has been crying in pain to pee. Scanned the bladder and it has approximately 400mls resulted. Notified Dr reveles, received order to straight cath. Pt has 600mls drained from dent bag, decision made to leave the dent catheter in place to assisted.
[2024-12-24 11:20] LABS: Glucose Point of Care 276 mg/dL (70-110)
--- NOTE | 2024-12-24 12:22 | PM.DCS ---
Discharge Providers Date of Admission: 12/12/24 13:56 Date of Discharge: December 24, 2024 Attending Provider at Admission: Lorelei Mason MD Attending Provider at Discharge: Jerman Carbajal MD Primary Care Provider: Sejal Hazel DO Diagnoses at Discharge Discharge Diagnosis (1) New onset of congestive heart failure: Status: Acute (2) Cardiomyopathy: Status: Acute Qualifiers: Cardiomyopathy type: unspecified Qualified Code(s): I42.9 - Cardiomyopathy, unspecified (3) Severe calcific aortic valve stenosis: Status: Acute (4) Acute kidney injury: Status: Acute (5) Transaminitis: Status: Acute (6) Parainfluenza: Status: Acute (7) Iron deficiency: Status: Acute (8) Anemia requiring transfusions: Status: Acute Reason for Visit Reason for Visit: chest conjestion, retaining fluid Hospital Course Hospital Course This is a 69-year-old female with a past medical history of chronic anemia, hypertension, COPD, diastolic CHF who presents [facility] due to shortness of breath Patient had a prolonged hospitalization, please look at my progress note for further detail Patient was admitted to [facility] for acute renal failure, acute liver failure, acute systolic CHF, etiology likely a stress-induced cardiomyopathy from viral infection. Patient was monitored in the ICU, she had a broad spectrum workup, required 3 sessions of dialysis, liver function required and fluid support, cardiology was consulted for acute systolic CHF, patient received dobutamine for 48 hours. For acute renal failure, creatinine improving 1.3, completed 3 sessions of dialysis, as renal function improved, dialysis catheter was removed, patient will be discharged with instructions to monitor renal function at snf facility. Will be discharged with Lasix and potassium replacement therapy with close follow-up with primary care For patient's acute liver failure, liver function improving, AST 77, ALT 135, bilirubin 1.7, alk phos 274 on discharge For patient's acute systolic CHF, EF 30%, will be discharged with close follow-up with cardiology as outpatient, discharged with Lasix therapy. Blood pressures have remained soft she is not the best candidate currently for a beta-galina, nonetheless follow-up cardiology as outpatient. For patient's UTI she completed antibiotic therapy as inpatient Patient has persistent leukocytosis, white blood cell count 20, likely steroid-induced, so far cultures have been unremarkable, afebrile, inflammatory markers within normal limits Patient was discharged with Martin catheter in place, due to urinary retention, failed voiding trial, follow-up with urology for removal of Martin catheter For physical deconditioning, protein calorie malnutrition, discharge to snf facility Physical Exam Const: COMMON NORMALS: no acute distress and patient oriented x3 Resp: COMMON NORMALS: normal respiratory effort, No retractions, No use of accessory muscles and clear to auscultation bilaterally AUSCULTATION: clear to auscultation bilaterally Cardio: COMMON NORMALS: regular rate, regular rhythm, S1 normal heart sound present and S2 normal heart sound present RATE: regular rate RHYTHM: regular rhythm HEART SOUNDS: S1 normal heart sound present and S2 normal heart sound present GI: COMMON NORMALS: Normal to inspection, nondistended, normoactive bowel sounds present and non-tender Extremity: COMMON NORMALS: no pedal edema Neuro: COMMON NORMALS: patient oriented x3 Psych: COMMON NORMALS: mental status grossly normal Urinary Catheter Management: Martin: Cath Placed During This Visit: yes, but has since been removed by the nurse Reason for Continuing Indwelling Catheter: Decision to DC Catheter Urinary Catheter Date of Insertion: 12/21/24 Urinary Catheter Time of Insertion: 19:00 Date Urinary Catheter Removed: 12/24/24 Time Urinary Catheter Discontinued: 06:13 Discharge Data Studies Completed and Pending Completed Studies During Hospitalization Category Date Time Status CT abdomen pelvis wo con 43973 Stat Cat Scan 12/20/24 13:[address] angio chest PE protcl [id number] Stat Cat Scan 12/12/24 10:32 Completed CXRP [XR chest 1V portable 50167] Routine Exams 12/15/24 13:01 Completed XR KUB portable [id number] Routine Exams 12/20/24 09:12 Completed XR chest 1V portable [id number] Routine Exams 12/20/24 09:12 Completed XR chest 1V portable 21261 Stat Exams 12/12/24 09:12 Completed MR MRCP [id number] Stat MRI 12/13/24 11:44 Completed CV renal doppler 70405 Routine Ultrasound 12/15/24 14:17 Completed CV. echo complete* 11544 Routine Ultrasound 12/13/24 19:39 Completed CV. echo limited 60706 Routine Ultrasound 12/21/24 14:36 Completed US abdomen complete* [id number] Routine Ultrasound 12/15/24 11:23 Completed US liver 86375 Stat Ultrasound 12/12/24 11:26 Completed US venous duplex lower extremity LT [CV venous duplex Ultrasound 12/12/24 09:34 [place] [address]] Stat Pending at discharge Category Date Time Status Basic Metabolic Panel AM LABS Lab 12/25/24 04:00 Ordered Basic Metabolic Panel AM LABS Lab 12/26/24 04:00 Ordered Blood Culture Stat Lab 12/20/24 11:36 Results Catheter Tip Culture Stat Lab 12/21/24 16:20 Results Comprehensive Metabolic Panel AM LABS Lab 12/25/24 04:00 Ordered EBV PCR [Vladimir Arana Virus QN PCR] Routine Lab 12/15/24 13:31 Results SARS Covid-2 Antigen Routine Lab 12/24/24 12:05 Ordered Sputum Culture and Gram Stain Stat Lab 12/20/24 09:12 Uncollected Venous Blood Gas Routine Lab 12/14/24 12:25 Results Radiology Impressions Venous Duplex 12/12/24 09:34 IMPRESSION: No evidence of deep vein thrombosis. Chest CTA 12/12/24 10:32 IMPRESSION: 1. Technically limited but negative CT angiogram of the chest. No evidence of acute pulmonary embolism to major branches of the pulmonary vascular tree. 2. Cardiomegaly with evidence of right-sided cardiac decompensation and mild CHF. Liver Ultrasound 12/12/24 11:26 IMPRESSION: 1. Borderline hepatomegaly. 2. Limited assessment of the pancreas. 3. Small right renal cyst. 4. Prior cholecystectomy. Cholangiopancreatography MRI 12/13/24 11:44 IMPRESSION: 1. Motion limited examination. No signs of biliary obstruction. 2. Hepatic steatosis. COMMENTS: Consistent with the [place] [employer] [place] [employer]'s Incidental Findings Committee white paper (J Am Emmanuel Radiol 2018): Any incidental renal lesion less than 1 cm or classified as too small to characterize, or any incidental cystic renal lesion characterized as simple-appearing, is likely benign. No follow-up imaging is recommended for these lesions per consensus recommendations based on imaging criteria. Abdomen Ultrasound 12/15/24 11:23 Impression: 1. Technically very difficult and limited abdominal ultrasound. 2. Prior cholecystectomy. 3. Normal size liver but poorly visualized in its entirety. 4. No renal obstruction. 5. Common bile duct is not identified. Chest X-Ray 12/20/24 09:12 IMPRESSION: Cardiomegaly with pulmonary vascular congestion suspected. Chronic interstitial disease changes can not be excluded. KUB X-Ray 12/20/24 09:12 IMPRESSION: Moderate volume stool in right colon. Nonspecific gaseous prominence of transverse colon, measuring up to 7 cm. Recommend follow-up. Abdomen/Pelvis CT 12/20/24 13:45 IMPRESSION: 1. Small pleural effusions and atelectasis/airspace opacities in bilateral lower lungs 2. Anasarca with diffuse edema of lateral abdominal wall. Very small ascites. No loculated fluid collections. 3. No bowel obstruction or acute inflammation. Eojgx-te-ilyndkkr volume stool in ascending and transverse colon with mild gaseous prominence without wall thickening or edema. COMMENTS: Consistent with the [employer] [place] [employer]'s Incidental Findings Committee white paper (J Am Emmanuel Radiol 2018): Any incidental renal lesion less than 1 cm or classified as too small to characterize, or any incidental cystic renal lesion characterized as simple-appearing, is likely benign. No follow-up imaging is recommended for these lesions per consensus recommendations based on imaging criteria. Laboratory Results WBC 20.11 10^3/uL (3.29-11.43) H 12/24/24 04:20 RBC 4.17 10^6/uL (3.85-5.65) 12/24/24 04:20 Hgb 8.80 g/dL (11.27-16.99) L 12/24/24 04:20 Hct 30.6 % (36-47) L 12/24/24 04:20 MCV 73.4 fl (85-98) L 12/24/24 04:20 MCH 21.1 pg (27-33) L 12/24/24 04:20 MCHC 28.8 g/dL (30-55) L 12/24/24 04:20 RDW 25.2 % (12.1-15.1) H 12/24/24 04:20 Plt Count 205 10^3/cmm (157-399) 12/24/24 04:20 MPV 10.1 fL (7.4-10.4) 12/24/24 04:20 Neut % (Auto) 83.8 % 12/24/24 04:20 Lymph % (Auto) 4.3 % 12/24/24 04:20 [place] % (Auto) 7.4 % 12/24/24 04:20 Eos % (Auto) 1.0 % 12/24/24 04:20 Baso % (Auto) 0.1 % 12/24/24 04:20 Neut # (Auto) 16.84 10^3/uL (1.8-7.7) H 12/24/24 04:20 Lymph # (Auto) 0.9 10^3/uL (0.8-4.8) 12/24/24 04:20 [place] # (Auto) 1.5 10^3/uL (0.2-0.9) H 12/24/24 04:20 Eos # (Auto) 0.2 10^3/uL (0.0-0.8) 12/24/24 04:20 Baso # (Auto) 0.0 10^3/uL (0.0-0.1) 12/24/24 04:20 Nucleated RBC % (auto) 0 % 12/24/24 04:20 Nucleated RBCs # 0.0 /100WBC 12/24/24 04:20 Peripher Smr Path Cons Sent for review 12/15/24 08:15 ESR 8 mm/hr (0-15) 12/15/24 08:15 PT 25.90 SECONDS (12.1-14.9) H 12/14/24 05:17 INR 2.22 (0.8-1.2) H 12/14/24 05:17 Specimen Type Venous 12/14/24 12:25 Sample Site Lr 12/14/24 12:25 Arnaldo Test Na 12/14/24 12:25 VBG pH 7.23 (7.32-7.42) L 12/14/24 12:25 VBG pCO2 35.1 mmHg (41-51) L 12/14/24 12:25 VBG pO2 44.7 mmHg (25-40) H 12/14/24 12:25 VBG HCO3 14.5 mmol/L (24-28) L 12/14/24 12:25 VBG Base Excess -12.2 mmol/L (-3.0-3.0) L 12/14/24 12:25 O2 Delivery Device Ra 12/14/24 12:25 FiO2 21.0 % 12/14/24 12:25 Specimen Drawn By Jonathan 12/14/24 12:25 Fiberglass Container Winding Operator ID Jonathan 12/14/24 12:25 Sodium 139 mmol/L (136-145) 12/24/24 04:20 Potassium 3.3 mmol/L (3.5-5.1) L 12/24/24 04:20 Chloride 97 mmol/L (98-107) L 12/24/24 04:20 Carbon Dioxide 32 mmol/L (22-29) H 12/24/24 04:20 Anion Gap 13.3 (5-19) 12/24/24 04:20 BUN 55 mg/dL (8-23) H 12/24/24 04:20 Creatinine 1.1 mg/dL (0.5-0.9) H 12/24/24 04:20 GFR Calculation 49.2 mL/min (90-130) L 12/24/24 04:20 Glucose 91 mg/dL (65-115) 12/24/24 04:20 POC Glucose 276 mg/dL (70-110) H 12/24/24 11:11 Estimat Average Glucose Cancelled 12/16/24 03:14 Hemoglobin A1c Cancelled 12/16/24 03:14 Calculated Osmolality 303 mOsm/kg (285-295) H 12/24/24 04:20 Lactic Acid 4.0 mmol/L (0.5-2.2) H 12/15/24 11:27 Lactic Acid (Sepsis) 2.7 mmol/L (0.5-2.2) H 12/12/24 14:30 Lactate 1.5 mmol/L (0.5-2.2) 12/18/24 05:06 Calcium 8.1 mg/dL (8.5-10.5) L 12/24/24 04:20 Phosphorus 5.2 mg/dL (2.5-4.5) H 12/21/24 04:18 Magnesium 1.9 mg/dL (1.7-2.3) 12/21/24 04:18 Iron 14 ug/dL (37-145) L 12/15/24 08:15 TIBC 363 mcg/dl 12/15/24 08:15 % Saturation 3.8 % (20-50) L 12/15/24 08:15 Unsat Iron Binding 349 ug/dL (112-347) H 12/15/24 08:15 Ferritin 99 ng/mL (15-150) 12/15/24 08:15 Total Bilirubin 1.7 mg/dL (0.15-1.2) H 12/24/24 04:20 GGT 180 U/L (5-36) H 12/13/24 05:29 AST 77 U/L (0-32) H 12/24/24 04:20 ALT 135 U/L (0-33) H 12/24/24 04:20 Alkaline Phosphatase 274 U/L (35-105) H 12/24/24 04:20 Ammonia 19 umol/L (11-51) 12/13/24 13:37 Lactate Dehydrogenase 2186 U/L (135-214) H 12/13/24 05:29 Creatine Kinase 185 U/L (26-192) 12/15/24 08:15 Troponin T Baseline 56 ng/L (0-10) H 12/12/24 09:23 Troponin T 120 Minute 48.04 ng/L (0-10) H 12/12/24 11:24 Delta Troponin T -7.96 ABS# (0-10) L 12/12/24 11:24 Troponin T Hi Sens 6Hr 54.56 ng/L (0-10) H 12/12/24 14:30 Troponin T Hi Sens 6Hr Delta -1.44 ng/L (0-12) L 12/12/24 14:30 C-Reactive Protein 11.7 mg/L (0.0-4.9) H 12/21/24 04:18 NT-Pro-B Natriuret Pep 66132 pg/mL (0-125) H 12/21/24 04:18 Total Protein 5.2 g/dL (6.6-8.7) L 12/24/24 04:20 Albumin 2.8 g/dL (3.5-5.2) L 12/24/24 04:20 Globulin 2.4 g/dL (1.3-4.6) 12/24/24 04:20 Ndntt-0-Uhwtfxcgn 0.5 g/dL (0.2-0.3) H 12/13/24 05:23 Eahss-4-Ujmibkokk 0.8 g/dL (0.5-0.9) 12/13/24 05:23 Fcik-8-Dcvznvkb 0.4 g/dL (0.4-0.6) 12/13/24 05:23 Ieuk-2-Sgesxuxb 0.3 g/dL (0.2-0.5) 12/13/24 05:23 Gamma Globulins 0.8 g/dL (0.8-1.7) 12/13/24 05:23 Abnorm Protein Band 1 Not Reportable 12/13/24 05:23 Ceruloplasmin 42 mg/dL (14-48) 12/16/24 03:14 Lipase 25 U/L (13-60) 12/12/24 09:23 IL-2 Rec CD25 Soluble 7287 pg/mL (532-1891) H 12/16/24 03:14 25-OH Vitamin D Total 17 pg/mL (18-72) L 12/13/24 17:28 1,25 Dihydroxy Vit D2 <8 pg/mL 12/13/24 17:28 1,25 Dihydroxy Vit D3 17 pg/mL 12/13/24 17:28 Procalcitonin 0.95 ng/mL (0-0.5) H 12/18/24 05:06 TSH 2.79 uIU/mL (0.27-4.20) 12/12/24 14:30 Random Cortisol 48.13 ug/dL (2.47-19.5) H 12/15/24 08:15 Urine Color Yellow (Yellow) 12/20/24 11:22 Urine Appearance Clear (CLEAR) 12/20/24 11:22 Urine pH 5.0 (5-7) 12/20/24 11:22 Ur Specific [place] 1.010 (1.005-1.030) 12/20/24 11:22 Urine Protein Negative (Negative) 12/20/24 11:22 Urine Glucose (UA) 1+ (Normal) H 12/20/24 11:22 Urine Ketones Negative (Negative) 12/20/24 11:22 Urine Blood Negative (Negative) 12/20/24 11:22 Urine Nitrate Negative (Negative) 12/20/24 11:22 Urine Bilirubin Negative (Negative) 12/20/24 11:22 Urine Urobilinogen 0.2 mg/dL (Negative) 12/20/24 11:22 Ur Leukocyte Esterase Negative (Negative) 12/20/24 11:22 Urine RBC 0-2 /hpf (0-2) 12/20/24 11:22 Urine WBC 0-5 /hpf (0-5) 12/20/24 11:22 Ur Squamous Epith Cells 0-5 /hpf (0-5) 12/20/24 11:22 Amorphous Sediment Not Reportable 12/20/24 11:22 Urine Bacteria None seen /hpf (NONE) 12/20/24 11:22 Hyaline Casts 9.91 /lpf 12/20/24 11:22 Ur Random Creatinine 88 mg/dL (20-275) 12/14/24 17:39 Ur Random Albumin 65 % 12/14/24 17:39 Ur Random Microalbumin 25 ug/dL (0-20) H 12/14/24 17:39 U Random Total Protein 46 mg/dL 12/14/24 17:39 U Random Total Protein 59 mg/dL (5-24) H 12/14/24 17:39 Ur Random Sodium < 10 mmol/L 12/14/24 17:39 Ur Random Potassium 49 mmol/L 12/14/24 17:39 Ur Random Chloride 10 mmol/L 12/14/24 17:39 Urine Creatinine 91 mg/dL (28-217) 12/14/24 17:39 Urine Creatinine 93 mg/dL (28-217) 12/14/24 17:39 Microalb/Creat Ratio 275 mg/dL (0-20) H 12/14/24 17:39 Protein/Creatinin Ratio 670 mg/g creat (24-184) H 12/14/24 17:39 Protein/Creat Ratio 24h 0.670 (0.024-0.184) H 12/14/24 17:39 U Random n-4-Qvycypmr % 3 % 12/14/24 17:39 U Random k-7-Chlzldrb % 6 % 12/14/24 17:39 U Random Beta Globulin 12 % 12/14/24 17:39 U Random Gamma Glob 14 % 12/14/24 17:39 U Abnormal Prot Band 1 Not Reportable 12/14/24 17:39 U Abnormal Prot Band 2 Not Reportable 12/14/24 17:39 U Abnormal Prot Band 3 Not Reportable 12/14/24 17:39 Urine PEP Interpret See note 12/14/24 17:39 Random Vancomycin 10.5 ug/mL (20.0-40.0) L 12/21/24 04:18 Salicylates < 0.3 mg/dL (3-10) L 12/12/24 09:23 Acetaminophen < 5.0 ug/mL (10-30) L 12/12/24 09:23 Pro Electrophoresis Int See note 12/13/24 05:23 Serum Immunofixation Normal pattern. 12/13/24 05:23 LAWANDA IFA Animal Tis Res Negative (NEGATIVE) 12/13/24 05:23 ANCA Screen Negative (NEGATIVE) 12/13/24 17:28 ANCA Titer Not Reportable 12/13/24 17:28 MANUEL-1 Antibody <1.0 neg AI (<1.0 NEG) 12/13/24 05:23 SS-A Antibody <1.0 neg AI (<1.0 NEG) 12/13/24 05:23 SS-B Antibody <1.0 neg AI (<1.0 NEG) 12/13/24 05:23 Sm ([place]) Antibody <1.0 neg AI (<1.0 NEG) 12/13/24 17:28 READING COACH Antibody <1.0 neg AI (<1.0 NEG) 12/13/24 05:23 SM/READING COACH IgG Antibody <1.0 neg AI (<1.0 NEG) 12/13/24 17:28 Scl-70 Antibody <1.0 neg AI (<1.0 NEG) 12/13/24 05:23 Anti-ds DNA IgG Ab <1 IU/mL 12/13/24 05:23 Anti-ds DNA IgG ([place]) Negative (NEGATIVE) 12/13/24 05:23 Centromere B Antibody <1.0 neg AI (<1.0 NEG) 12/13/24 05:23 Thyroid Peroxidase Ab 1 IU/mL (<9) 12/13/24 05:23 Glomerular Base Mem IgG <1.0 AI 12/13/24 17:28 Complement C3 58 mg/dL (90-180) L 12/13/24 17:28 Complement C3c 71 mg/dL (83-193) L 12/13/24 05:23 Complement C4 11 mg/dL (10-40) 12/13/24 17:28 Complement C4c 15 mg/dL (15-57) 12/13/24 05:23 CH50 Classical Pathway 36 U/mL (31-60) 12/13/24 05:23 Free [place] Light Chains 57.0 mg/L (3.3-19.4) H 12/13/24 17:28 Free Lambda Light Chain 30.3 mg/L (5.7-26.3) H 12/13/24 17:28 Free [place]/Lambda Ratio 1.88 (0.26-1.65) H 12/13/24 17:28 Adenovirus (PCR) Not detected (NOT DETECT) 12/13/24 16:24 C. pneumoniae DNA (PCR) Not detected (NOT DETECT) 12/13/24 16:24 C. difficile (PCR) Negative (Negative) 12/21/24 18:19 Coronavirus 229E (PCR) Not detected (NOT DETECT) 12/13/24 16:24 CMV IgG Ab 0.80 U/mL H 12/13/24 17:28 CMV IgM Ab <30.00 AU/mL 12/13/24 17:28 EBV IgG Ab >750.00 U/mL H 12/13/24 17:28 EBV IgM Ab 46.10 U/mL H 12/13/24 17:28 EBV Nuclear Antigen 238.00 U/mL H 12/13/24 17:28 EBV DNA Not detected log IU/mL (Not Detected) 12/16/24 03:14 EBV DNA (PCR) Not detected IU/mL (Not Detected) 12/16/24 03:14 EBV Interpretation See note 12/13/24 17:28 Hepatitis A IgM Ab Non-reactive (Nonreactive) 12/12/24 09:23 Hep Bs Antigen Non-reactive (Nonreactive) 12/16/24 03:14 Hep Bs Antibody 10.4 (11.5-1000) L 12/16/24 03:14 Hep B Core Total Ab Non-reactive (Nonreactive) 12/13/24 17:28 Hepatitis C Antibody Non-reactive (Nonreactive) 12/16/24 03:14 HIV 1&2 Ab & HIV 1 Ag Non-reactive (Non-Reactiv) 12/13/24 05:29 HIV 1&2 Antibody Non-reactive (Non-Reactiv) 12/13/24 05:29 Human Metapneumovir PCR Not detected (NOT DETECT) 12/13/24 16:24 Influenza A (H1) PCR Not detected (NOT DETECT) 12/13/24 16:24 Influ A (H1/09) PCR Not detected (NOT DETECT) 12/13/24 16:24 Influenza A (H3) PCR Not detected (NOT DETECT) 12/13/24 16:24 Influenza Type A (PCR) Not detected (NOT DETECT) 12/13/24 16:24 Influenza Type B (PCR) Not detected (NOT DETECT) 12/13/24 16:24 M. pneumoniae (PCR) Not detected (NOT DETECT) 12/13/24 16:24 Parainfluenza 1 (PCR) Not detected (NOT DETECT) 12/13/24 16:24 Parainfluenza 2 (PCR) Not detected (NOT DETECT) 12/13/24 16:24 Parainfluenza 3 (PCR) Not detected (NOT DETECT) 12/13/24 16:24 Parainfluenza 4 (PCR) Not detected (NOT DETECT) 12/13/24 16:24 RSV Type A (PCR) Not detected (NOT DETECT) 12/13/24 16:24 RSV Type B (PCR) Not detected (NOT DETECT) 12/13/24 16:24 Entero/Rhino (PCR) Detected (NOT DETECT) A 12/13/24 16:24 SARS-CoV-2 (PCR) Not detected (NOT DETECT) 12/13/24 16:24 Anti-Streptolysin O Ab <20 IU/mL (<200) 12/13/24 17:28 TREY, Poly Interpret Negative 12/13/24 05:23 Vitals Last Vital Signs Temp 97.6 F 12/24/24 07:23 Pulse 89 12/24/24 12:00 Resp 32 H 12/24/24 12:00 BP 102/49 12/24/24 12:00 Pulse Ox 99 12/24/24 12:00 O2 Del Method Room Air 12/24/24 12:00 O2 Flow Rate 2 12/23/24 14:00 FiO2 2 12/15/24 20:00 Discharge Plan Discharge Patient Disposition: Home Condition: Stable Prescriptions: New nystatin 100,000 unit/mL Suspension 100,000 unit PO QID 3 Days Qty: 12 0RF polyethylene glycol 3350 17 gram Powder In Packet 17 g PO DAILY 30 Days Qty: 30 0RF sennosides-docusate sodium [Stool Softener-Laxative] 8.6-50 mg Tablet 1 tab PO BID 30 Days Qty: 60 0RF insulin lispro [Humalog U-100 Insulin] 100 unit/mL Solution See Rx Instructions .ROUTE .COMPLEX Qty: 10 0RF Rx Instructions: Inject, subcu, 3 times daily, after meals, based on low-dose insulin sliding scale potassium chloride [Klor-Con M20] 20 mEq tablet,ER particles/crystals 20 meq PO DAILY 30 Days Qty: 30 0RF hydrocodone-acetaminophen 5-325 mg Tablet 1 tab PO Q6H PRN (Reason: Moderate Pain) 5 Days Qty: 20 0RF Continued clopidogrel [Plavix] 75 mg tablet 75 mg PO DAILY hydroxyzine HCl 50 mg Tablet 100 mg PO BEDTIME citalopram [Celexa] 20 mg Tablet 20 mg PO DAILY albuterol sulfate 2.5 mg /3 mL (0.083 %) solution for nebulization See Rx Instructions .ROUTE .COMPLEX Rx Instructions: USE 1 VIAL IN NEBULIZER EVERY 4 TO 6 HOURS NEEDED FOR WHEEZING AND FOR COUGH cetirizine [Zyrtec] 10 mg tablet 10 mg PO DAILY fluticasone propion-salmeterol [Wixela Inhub] 500-50 mcg/dose blister with device 1 ea INHALATION BID fluticasone propionate 50 mcg/actuation spray,suspension 1 spray INTRANASAL BID tiotropium bromide [Spiriva with HandiHaler] 18 mcg capsule, w/inhalation device See Rx Instructions .ROUTE .COMPLEX Rx Instructions: puncture AND INHALE contents of ONE CAPSULE using device ONCE daily; one DOSE = TWO INHALATIONS furosemide 40 mg tablet 40 mg PO DAILY 30 Days Qty: 30 0RF Discontinued tramadol 50 mg tablet 50 mg PO TID Discharge Orders: Discharge Order (Routine); Ordered 12/24/24 Ordered By: Jerman Carbajal Referrals: Yasmeen Navarro MD [Hospitalist, Oncology] Referral Note: We have notified your physician's clinic of the need for a follow-up appointment to be scheduled. If you have not heard from them within the next 2 business days, please call them directly. Sejal Hazel DO [Primary Care Provider, [employer]] - 12/28/24 10:30 am Marco Guerrero MD [Referring, Urology] - 1 week Referral Note: Haylie Pantoja FNP [Nurse Practitioner, Cardiology] - 1 week Referral Note: We have notified your physician's clinic of the need for a follow-up appointment to be scheduled. If you have not heard from them within the next 2 business days, please call them directly. Discharge Diet: Cardiac Discharge Activity: Resume usual activity Patient Instructions: Potassium Chloride (By mouth) (K-Dur, K-Verena, K-Tab, Cam Mur), Nystatin/Triamcinolone (On the skin), Laxative, Stool Softeners (By mouth) (Doculax, Colace, Colace Clear, DSS), Insulin Aspart, Recombinant (By injection) (Novolog, Novolog..., Polyethylene Glycol 3350 (By mouth), Aortic Stenosis (DC), Acute Liver Failure (DC), Acute Kidney Injury (DC), Martin Catheter Placement and Care (DC), Sepsis (DC), Opioid Safety Discharge Attestations Time Spent in Discharge Care*: greater than 30 min Quality Metrics Clinical Quality Measures [ No reported AMI, CVA or VTE this stay] Coding Level of Care Code 56899 Total time (in minutes) for Discharge: 45 Diagnoses New onset of congestive heart failure I50.9 Cardiomyopathy, unspecified type I42.9 Cardiomyopathy type: unspecified Severe calcific aortic valve stenosis I35.0 Acute kidney injury N17.9 Transaminitis R74.01 Parainfluenza B34.8 Iron deficiency E61.1 Anemia requiring transfusions D64.9
[2024-12-24 13:23] LABS: Influenza A NEGATIVE (Negative); Influenza B NEGATIVE (Negative); Respiratory Syncytial Virus Ce NEGATIVE (Negative); SARS-CoV-2 PCR NEGATIVE (Negative)
--- NOTE | 2024-12-24 13:58 | PC.NURSE ---
report called to [facility] Talked to [facility], informed staff on the pt's discharge instructions, last BM was yesterday and pain controlled by hydrocodone. notified staff that pt has a dent cath in placed today due to unable to urinate by herself and retention noted via bladder scan w/ result of 400 mls/hr. dent cath emptied with 600mls drained from the bag.
[2024-12-24] MEDS: insulin lispro 100 unit/1 mL SUBCUT (14:14)
--- NOTE | 2024-12-24 15:00 | PC.NURSE ---
ilda estrada stated that they will be here to tack picker pt in 2 hrs for transport to [facility].
[2024-12-24] MEDS: ondansetron 2 mg/ML SDV 2 mL 4 MG IVP (15:48)
--- NOTE | 2024-12-24 15:57 | PC.NURSE ---
[facility] Is here to pickle maker pt.
[2025-01-01 17:25] LABS: Epstein Barr Virus Source PLASMA
== END 2024-12-24 15:57 | disposition skilled nursing facility (03) | DRG 871 ==
LOC: ER 14:35 → ER IP 16:17 → CSU 17:12 → ICU 12-15 12:30 → CSU 12-21 13:44
PROVIDERS: Internal Medicine Nephrology; Student in an Organized Health Care Education/Training Program; Admitting Provider Student in an Organized Health Care Education/Training Program; Emergency Provider Family Medicine; PCP Family Medicine; Visit Provider Family Medicine
DX: A41.9 Sepsis, unspecified organism (principal); I50.43 Acute on chronic combined systolic (congestive) and diastolic (congestive) heart failure; T80.219A Unspecified infection due to central venous catheter, initial encounter; K72.00 Acute and subacute hepatic failure without coma; N17.9 Acute kidney failure, unspecified; N39.0 Urinary tract infection, site not specified; E46 Unspecified protein-calorie malnutrition; E87.20 Acidosis, unspecified; J44.1 Chronic obstructive pulmonary disease with (acute) exacerbation; B95.8 Unspecified staphylococcus as the cause of diseases classified elsewhere; I11.0 Hypertensive heart disease with heart failure; I35.0 Nonrheumatic aortic (valve) stenosis; B97.89 Other viral agents as the cause of diseases classified elsewhere; D50.9 Iron deficiency anemia, unspecified; R33.9 Retention of urine, unspecified; Z68.29 Body mass index [BMI] 29.0-29.9, adult; K59.00 Constipation, unspecified; D75.839 Thrombocytosis, unspecified; E87.5 Hyperkalemia; Z87.891 Personal history of nicotine dependence; Z86.73 Personal history of transient ischemic attack (TIA), and cerebral infarction without residual deficits; R74.8 Abnormal levels of other serum enzymes; M17.12 Unilateral primary osteoarthritis, left knee; E11.65 Type 2 diabetes mellitus with hyperglycemia; Z79.02 Long term (current) use of antithrombotics/antiplatelets; Z79.891 Long term (current) use of opiate analgesic; Z79.4 Long term (current) use of insulin
CPT/HCPCS: 36415; 36416; 36573; 36600; 51702; 51798; 71045; 71275; 74018; 74176; 74181; 76700; 76705; 80053; 80202; 80307; 80503; 81001; 82044; 82140; 82390; 82436; 82533; 82550; 82570; 82652; 82728; 82803; 82962; 82977; 83036; 83520; 83540; 83550; 83605; 83615; 83690; 83735; 83880; 83883; 84100; 84133; 84145; 84155; 84156; 84165; 84166; 84238; 84300; 84443; 84484; 85025; 85610; 85651; 86036; 86060; 86140; 86160; 86162; 86225; 86235; 86255; 86334; 86376; 86664; 86665; 86705; 86706; 86709; 86803; 86880; 87040; 87070; 87075; 87077; 87186; 87205; 87340; 87486; 87493; 87581; 87633; 87637; 87798; 87806; 90935; 93005; 93306; 93308; 93971; 93975; 94640; 96365; 96367; 96372; 96374; 96375; 96376; 97110; 97163; 97165; 97530; 97535; 99285; A9270; C1751; J0612; J0744; J1171; J1250; J1644; J1650; J1815; J1938; J2270; J2405; J2919; J3370; J3372; J3490; J7030; J7050; J7070; J7512; J7626; J7799; J9999; Q3014

== ENCOUNTER → 2024-12-30 16:07 | Outpatient (BNVA) | payer OTHER, SELFPAY | PROVIDERS: PCP Internal Medicine; Visit Provider Nurse Practitioner Family | DX: I50.9 Heart failure, unspecified (principal) | CPT/HCPCS: 36415; 80048 ==

== ENCOUNTER 2025-01-06 09:36 | Oncology outpatient (recurring) (ONCR) | payer OTHER, SELFPAY ==
[2025-01-06 11:38] LABS: Basophils # 0.1 10^3/uL (0.0-0.1); Basophils % 0.7 %; Eosinophils # 0.3 10^3/uL (0.0-0.8); Eosinophils % 3.1 %; Hematocrit 30.9 % (36-47); Lymphocytes # 0.9 10^3/uL (0.8-4.8); Lymphocytes % 9.2 %; Mean Corpuscular HGB Conc 29.1 g/dL (30-55); Mean Corpuscular Hemoglobin 22.7 pg (27-33); Mean Corpuscular Volume 77.8 fl (85-98); Mean Platelet Volume 8.9 fL (7.4-10.4); Monocytes # 0.5 10^3/uL (0.2-0.9); Monocytes % 4.9 %; Neutrophils # 8.06 10^3/uL (1.8-7.7); Neutrophils % 81.6 %; Nucleated Red Blood Cells % 0 %; Platelet Count 192 10^3/cmm (157-399); Red Blood Count 3.97 10^6/uL (3.85-5.65); Red Cell Distribution Width 29.6 % (12.1-15.1); White Blood Count 9.88 10^3/uL (3.29-11.43)
[2025-01-06 11:56] LABS: Alanine Aminotransferase 24 U/L (0-33); Albumin Level 3.2 g/dL (3.5-5.2); Alkaline Phosphatase 188 U/L (35-105); Anion Gap 16.5 (5-19); Aspartate Amino Transferase 19 U/L (0-32); Blood Urea Nitrogen 29 mg/dL (8-23); Calcium 8.9 mg/dL (8.5-10.5); Carbon Dioxide 23 mmol/L (22-29); Chloride 102 mmol/L (98-107); Creatinine Clr Calc Pharmacy 62.2007; Ferritin 273 ng/mL (15-150); Globulin 2.7 g/dL (1.3-4.6); Glomerular Filtration Rate 62.1 mL/min (90-130); Glucose 117 mg/dL (65-115); Iron 132 ug/dL (37-145); Lactate Dehydrogenase 187 U/L (135-214); Osmolality Calculated 291 mOsm/kg (285-295); Percent Saturation 51.5 % (20-50); Potassium 4.5 mmol/L (3.5-5.1); Sodium 137 mmol/L (136-145); Total Bilirubin 0.7 mg/dL (0.15-1.2); Total Iron Binding Capacity 256 mcg/dl; Total Protein 5.9 g/dL (6.6-8.7); Unsaturated Iron Binding 124 ug/dL (112-347)
[2025-01-06 12:12] LABS: Vitamin B12 1539 pg/mL (232-1245)
[2025-01-06 12:30] LABS: Folate Level 9.8 ng/mL (4.8-37.3)
== END 2025-01-22 23:59 | disposition home or self-care (01) ==
PROVIDERS: PCP Internal Medicine; Visit Provider Internal Medicine
DX: E61.1 Iron deficiency (principal); D64.9 Anemia, unspecified; T45.4X Poisoning by, adverse effect of and underdosing of iron and its compounds; X58.XXXS Exposure to other specified factors, sequela
CPT/HCPCS: 80053; 82607; 82728; 82746; 83010; 83540; 83550; 83615; 85025

== ENCOUNTER 2025-01-20 16:20 | Emergency (ER) | payer OTHER, SELFPAY ==
[2025-01-20] VITALS (13 sets, daily range): BP systolic 46–109; BP diastolic 31–74; PULSE 111–124; RESP 6–29; TEMP 36.6; O2SAT 88–100
--- NOTE | 2025-01-20 17:00 | ECG_ITS ---
[facility] Test Date: 2025-01-20 Pat Name: Lela Crespo Department: Room: Gender: Female Qa Analyst: : 1955 Requested By: Sherrie Madrigal Order Number: [id number] Reading MD: Measurements Intervals [place] Rate: 131 P: -14 ND: 146 QRS: 64 QRSD: 112 T: 242 QT: 276 QTc: 408 Interpretive Statements SINUS TACHYCARDIA LOW QRS VOLTAGE IN PRECORDIAL LEADS [QRS DEFLECTION < 1.0 mV IN CHEST LEADS] MODERATE INTRAVENTRICULAR CONDUCTION DELAY [110+ ms QRS DURATION] ST DEVIATION AND MODERATE T-WAVE ABNORMALITY, CONSIDER LATERAL ISCHEMIA [-0.1+ mV T-WAVE IN I/aVL/V5/V6] ST DEVIATION AND MODERATE T-WAVE ABNORMALITY, CONSIDER INFERIOR ISCHEMIA [-0.1+ mV T-WAVE IN II/aVF] [email or web address]
--- NOTE | 2025-01-20 17:00 | XRR_ITS ---
PROCEDURE INFORMATION: Exam: XR Chest Exam date and time: 01/20/2025 5:03 PM Age: 69 years old Clinical indication: Other: Weakness TECHNIQUE: Imaging protocol: Radiologic exam of the chest. Views: 1 view. COMPARISON: CR (CHEST, ) 12/20/2024 9:21 AM FINDINGS: Lungs: Calcified granuloma in the right lung. Mild atelectasis in the right lung base. The left lung is clear. Pleural spaces: Small right pleural effusion. No pneumothorax. Heart/Mediastinum: Stable mild cardiomegaly. Bones/joints: Thoracolumbar scoliosis with mild degenerative changes. XR/XR chest 1V portable 64659 IMPRESSION: 1. No acute pulmonary findings. 2. Small right pleural effusion.
--- NOTE | 2025-01-20 17:07 | W.ED.GENADLT ---
HPI - General Adult General: Chief complaint: General Medical Stated complaint: pain all over / low bp Time Seen by Provider: 01/20/25 17:03 Source: patient Mode of arrival: ambulatory Limitations: no limitations History of Present Illness: 69-year-old female has a history of COPD along with CHF patient resides at retirement is bedbound had a Martin placed last week. States she been having severe lower abdominal pain over the last 2 days. States it is in her left lower quadrant and suprapubic rates the pain a 9 out of 10. She denies any vomiting or diarrhea. She denies any chest pain denies any worse improved factors Associated symptoms: Deny chest pain, dyspnea, headache(s), nausea, rash or vomiting Related Data Home Medications ?Medication ?Instructions ?Recorded ?Confirmed citalopram 20 mg tablet (Celexa) 20 mg PO DAILY 07/11/24 01/20/25 hydroxyzine HCl 50 mg tablet 100 mg PO BEDTIME 07/11/24 01/20/25 clopidogrel 75 mg tablet (Plavix) 75 mg PO DAILY 11/17/24 01/20/25 albuterol sulfate 2.5 mg/3 mL See Rx Instructions .Route .COMPLEX 12/12/24 01/20/25 (0.083 %) solution for nebulization fluticasone propionate 50 1 spray intranasal BID 12/12/24 01/20/25 mcg/actuation nasal spray,suspension famotidine 20 mg tablet (Pepcid) 20 mg PO DAILY 12/30/24 01/20/25 sodium phosphates 19 gram-7 118 ml MO DAILY PRN 12/30/24 01/20/25 gram/197 mL enema (Fleet Enema Extra) Previous Rx's ?Medication ?Instructions ?Recorded furosemide 40 mg tablet 40 mg PO DAILY 30 days #30 tabs 12/24/24 insulin lispro 100 unit/mL See Rx Instructions .Route 12/24/24 subcutaneous solution (Humalog .COMPLEX #10 mL U-100 Insulin) polyethylene glycol 3350 17 gram 17 g PO DAILY 30 days #30 ea 12/24/24 oral powder packet potassium chloride 20 mEq 20 meq PO DAILY 30 days #30 tabs 12/24/24 tablet,extended release(part/cryst) (Klor-Con M) sennosides 8.6 mg-docusate sodium 1 tab PO BID 30 days #60 tabs 12/24/24 50 mg tablet (Stool Softener-Laxative) ferrous sulfate 325 mg (65 mg 325 mg PO BID #60 tabs 01/06/25 iron) tablet Allergies Allergy/AdvReac Type Severity Reaction Status Date / Time Cephalosporins Allergy Unknown Verified 01/20/25 16:09 Penicillins Allergy ALGY-Anaphy Verified 01/20/25 16:09 laxis Sulfa (Sulfonamide Allergy Unknown Verified 01/20/25 16:09 Antibiotics) Review of Systems Const: Denies: fever(s), chills, body aches or change in appetite ENMT: Denies: throat pain or dental pain Card: Denies: chest pain Resp: Denies: dyspnea GI: Reports: abdominal pain; Denies: nausea, vomiting or diarrhea : Denies: dysuria Musc: Denies: neck pain or back pain Skin/Breast: Denies: rash Neuro: Denies: headache(s) PFSH ED PFSH: Medical History CVA (cerebral vascular accident) Hypertension Surgical History H/O knee surgery Social History Smoking and tobacco/nicotine status: former use of tobacco/nicotine Physical Exam Const: COMMON NORMALS: patient oriented x3 GENERAL APPEARANCE: ill appearing HENMT: COMMON NORMALS: normocephalic and atraumatic HEAD & SCALP: normocephalic and atraumatic Eye: COMMON NORMALS: Equal, round and reactive pupils present and EOMs intact bilaterally PUPIL: Yes Equal, round and reactive pupils present Neck/C-Spine: COMMON NORMALS: full ROM and supple Chest: COMMONS NORMALS: normal inspection of the chest Resp: COMMON NORMALS: normal respiratory effort, No retractions, No use of accessory muscles and clear to auscultation bilaterally AUSCULTATION: clear to auscultation bilaterally Cardio: COMMON NORMALS: regular rate, regular rhythm and No murmurs present (Cardio) RATE: regular rate RHYTHM: regular rhythm GI: COMMON NORMALS: Normal to inspection, nondistended, normoactive bowel sounds present, Soft to palpation and no masses PALPATION: Yes Soft to palpation OTHER: diffuse tenderness Extremity: COMMON NORMALS: normal to inspection and full ROM Neuro: COMMON NORMALS: patient oriented x3, moves all extremities and no focal motor deficits Psych: COMMON NORMALS: mental status grossly normal, Normal thought process present and cooperative THOUGHT PROCESS: Normal thought process present Skin: COMMON NORMALS: no rashes or lesions noted and no wounds GENERAL SKIN EXAM: no rashes or lesions noted Course Reevaluation(s): Reevaluation #1: When patient returned from CT she is unresponsive guppy breathing she was hypotensive to getting her calcium as she is hyperkalemic. Am starting Levophed her blood pressures improved I spoke to her daughter who is her power of patent prosecution attorney who states she is DNR/DNI. Patient's creatinine is elevated as well I had the CT done before the labs are back due to fear of ischemic bowel or ruptured bowel with her abdominal exam and elevated lactate. Time: 18:26 Vital Signs: Vital signs: Vital Signs Temperature 97.8 F 01/20/25 16:25 Pulse Rate 118 H 01/20/25 19:15 Respiratory Rate 13 01/20/25 19:15 Blood Pressure 108/67 01/20/25 19:15 Pulse Oximetry 100 01/20/25 19:15 Oxygen Delivery Me thod Room Air 01/20/25 16:25 [facility] - General Adult Medical Decision Making Patient presented here with abdominal pain she was also hypotensive found to have an elevated lactate with metabolic acidosis CHF along with hyperkalemia acute renal failure. I had a long discussion with patient's power of patent prosecution attorney and we are going to place her on comfort care at this time Medical Records I reviewed the patient's medical records. Lab Data I reviewed the patient's lab results. 01/20/25 17:20 01/20/25 17:20 Radiology Impressions Chest X-Ray 01/20/25 17:00 IMPRESSION: 1. No acute pulmonary findings. 2. Small right pleural effusion. Abdomen/Pelvis CT 01/20/25 17:57 IMPRESSION: 1. Inhomogeneous perfusion in both kidneys, suspicious for pyelonephritis. Clinical correlation recommended. 2. 2 new fluid density lesions along the anterior pancreas measuring 2.9 cm and 2.1 cm. 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 Reimaging every 6 months for 2 years is recommended. (Reference: Nathalie, 2017) 3. Small bilateral pleural effusions. COMMENTS: Consistent with the [place] [employer]'s Incidental Findings Committee white paper (J Am Emmanuel Radiol 2018): Any incidental renal lesion less than 1 cm or classified as too small to characterize, or any incidental cystic renal lesion characterized as simple-appearing, is likely benign. No follow-up imaging is recommended for these lesions per consensus recommendations based on imaging criteria. REFERENCES: Nathalie LEI, et al. Management of Incidental Pancreatic Cysts: A White Paper of the ACR Incidental Findings Committee. J Am Emmanuel Radiol. 2017;14(7):911-923. Laboratory Results WBC 21.57 10^3/uL (3.29-11.43) H 01/20/25 17:20 RBC 3.22 10^6/uL (3.85-5.65) L 01/20/25 17:20 Hgb 7.50 g/dL (11.27-16.99) L 01/20/25 17:20 Hct 25.7 % (36-47) L 01/20/25 17:20 MCV 79.8 fl (85-98) L 01/20/25 17:20 MCH 23.3 pg (27-33) L 01/20/25 17:20 MCHC 29.2 g/dL (30-55) L 01/20/25 17:20 RDW 32.2 % (12.1-15.1) H 01/20/25 17:20 Plt Count 533 10^3/cmm (157-399) H 01/20/25 17:20 MPV 9.9 fL (7.4-10.4) 01/20/25 17:20 Neut % (Auto) 87.1 % 01/20/25 17:20 Lymph % (Auto) 3.5 % 01/20/25 17:20 [place] % (Auto) 7.4 % 01/20/25 17:20 Eos % (Auto) 0.0 % 01/20/25 17:20 Baso % (Auto) 0.1 % 01/20/25 17:20 Neut # (Auto) 18.77 10^3/uL (1.8-7.7) H 01/20/25 17:20 Lymph # (Auto) 0.8 10^3/uL (0.8-4.8) 01/20/25 17:20 [place] # (Auto) 1.6 10^3/uL (0.2-0.9) H 01/20/25 17:20 Eos # (Auto) 0.0 10^3/uL (0.0-0.8) 01/20/25 17:20 Baso # (Auto) 0.0 10^3/uL (0.0-0.1) 01/20/25 17:20 Nucleated RBC % (auto) 1.0 % 01/20/25 17:20 Nucleated RBCs # 0.2 /100WBC 01/20/25 17:20 Specimen Type Arterial 01/20/25 18:34 Sample Site Brachial, left 01/20/25 18:34 ABG pH 7.14 (7.35-7.45) L* 01/20/25 18:34 ABG pCO2 21.4 mmHg (35-45) L 01/20/25 18:34 ABG pO2 152.0 mmHg (80.0-100.0) H 01/20/25 18:34 ABG PO2/FiO2 Ratio 337 01/20/25 18:34 ABG HCO3 7.2 mmol/L (22-26) L 01/20/25 18:34 ABG Base Excess -20.1 mmol/L (-2.0-2.0) L 01/20/25 18:34 Arnaldo Test Pos 01/20/25 18:34 Hematocrit 21.8 % (37-47) L 01/20/25 18:34 O2 Delivery Device Nc 01/20/25 18:34 O2 Liters/Min 6.0 % 01/20/25 18:34 FiO2 45.0 % 01/20/25 18:34 Debrander ID Mon[place] 01/20/25 18:34 Sodium 131 mmol/L (136-145) L 01/20/25 17:20 Potassium 6.5 mmol/L (3.5-5.1) H* 01/20/25 17:20 Chloride 89 mmol/L (98-107) L 01/20/25 17:20 Carbon Dioxide 12 mmol/L (22-29) L 01/20/25 17:20 Anion Gap 36.5 (5-19) H 01/20/25 17:20 BUN 75 mg/dL (8-23) H 01/20/25 17:20 Creatinine 2.6 mg/dL (0.5-0.9) H 01/20/25 17:20 GFR Calculation 18.3 mL/min (90-130) L 01/20/25 17:20 Glucose 133 mg/dL (65-115) H 01/20/25 17:20 POC Glucose 165 mg/dL (70-110) H 01/20/25 18:26 Calculated Osmolality 296 mOsm/kg (285-295) H 01/20/25 17:20 Lactic Acid 8.0 mmol/L (0.5-2.2) H* 01/20/25 17:24 Calcium 8.8 mg/dL (8.5-10.5) 01/20/25 17:20 Total Bilirubin 2.3 mg/dL (0.15-1.2) H 01/20/25 17:20 AST 626 U/L (0-32) H 01/20/25 17:20 ALT 420 U/L (0-33) H 01/20/25 17:20 Alkaline Phosphatase 400 U/L (35-105) H 01/20/25 17:20 Troponin T Baseline 82 ng/L (0-10) H 01/20/25 17:20 NT-Pro-B Natriuret Pep 68456 pg/mL (0-125) H 01/20/25 17:20 Total Protein 5.9 g/dL (6.6-8.7) L 01/20/25 17:20 Albumin 3.6 g/dL (3.5-5.2) 01/20/25 17:20 Globulin 2.3 g/dL (1.3-4.6) 01/20/25 17:20 All radiology interpretation(s) finalized by discharge EKG Data EKG 1: I personally reviewed and interpreted this EKG as follows: EKG interpretation date: 01/20/25 EKG interpretation time: 17:39 Interpretation: sinus tach hr [address] elevation qrs 117 qtc 357 Computer generated interpretation: Chest X-Ray 01/20/25 17:00 IMPRESSION: 1. No acute pulmonary findings. 2. Small right pleural effusion. Abdomen/Pelvis CT 01/20/25 17:57 IMPRESSION: 1. Inhomogeneous perfusion in both kidneys, suspicious for pyelonephritis. Clinical correlation recommended. 2. 2 new fluid density lesions along the anterior pancreas measuring 2.9 cm and 2.1 cm. 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 Reimaging every 6 months for 2 years is recommended. (Reference: Nathalie, 2017) 3. Small bilateral pleural effusions. COMMENTS: Consistent with the [place] [employer]'s Incidental Findings Committee white paper (J Am Emmanuel Radiol 2018): Any incidental renal lesion less than 1 cm or classified as too small to characterize, or any incidental cystic renal lesion characterized as simple-appearing, is likely benign. No follow-up imaging is recommended for these lesions per consensus recommendations based on imaging criteria. REFERENCES: Nathalie LEI, et al. Management of Incidental Pancreatic Cysts: A White Paper of the ACR Incidental Findings Committee. J Am Emmanuel Radiol. 2017;14(7):911-923. Discharge Plan Discharge Patient Disposition: Admitted As Inpatient Clinical Impression: Metabolic acidosis, TREVOR (acute kidney injury), CHF (congestive heart failure), Abdominal pain, Hyperkalemia Condition: Stable Coding Level of Care Code ED Superintendent Custodian Janitor for Sarah Kat
[2025-01-20] MEDS: sodium chloride 0.9% 1,000 ML 999 ML IV ×2 (17:27→18:01)
[2025-01-20] MEDS: ondansetron 2 mg/ML SDV 2 mL 4 MG IVP (17:27)
[2025-01-20] MEDS: morphine 4 mg/mL SDV 1 mL IVP (17:27)
[2025-01-20 17:32] LABS: Basophils % 0.1 %; Hematocrit 25.7 % (36-47); Lymphocytes # 0.8 10^3/uL (0.8-4.8); Lymphocytes % 3.5 %; Mean Corpuscular HGB Conc 29.2 g/dL (30-55); Mean Corpuscular Hemoglobin 23.3 pg (27-33); Mean Corpuscular Volume 79.8 fl (85-98); Mean Platelet Volume 9.9 fL (7.4-10.4); Monocytes # 1.6 10^3/uL (0.2-0.9); Monocytes % 7.4 %; Neutrophils # 18.77 10^3/uL (1.8-7.7); Neutrophils % 87.1 %; Nucleated Red Blood Cells # 0.2 /100WBC; Platelet Count 533 10^3/cmm (157-399); Red Blood Count 3.22 10^6/uL (3.85-5.65); Red Cell Distribution Width 32.2 % (12.1-15.1); White Blood Count 21.57 10^3/uL (3.29-11.43)
--- NOTE | 2025-01-20 17:57 | CTR_ITS ---
PROCEDURE INFORMATION: Exam: CT Abdomen And Pelvis With Contrast Exam date and time: 01/20/2025 6:07 PM Age: 69 years old Clinical indication: Abdominal pain; Generalized; Additional info: Abd pain TECHNIQUE: Imaging protocol: Computed tomography of the abdomen and pelvis with contrast. Radiation optimization: All CT scans at this facility use at least one of these dose optimization techniques: automated exposure control; mA and/or kV adjustment per patient size (includes targeted exams where dose is matched to clinical indication); or iterative reconstruction. Contrast material: OMNIPAQUE 350; Contrast volume: 100 ml; Contrast route: INTRAVENOUS (IV); COMPARISON: CT abdomen pelvis wo con [id number] 12/20/2024 2:38 PM RADIATION DOSE METRICS: Total DLP (mGy-cm): 780.78 FINDINGS: Lungs: Dependent atelectasis in the lower lobes. Pleural spaces: Small bilateral pleural effusions. Heart: Mild cardiomegaly. Liver: Diffuse fatty infiltration of the liver. Gallbladder and biliary ducts: Cholecystectomy. The bile ducts are normal. Pancreas: New lobulated fluid density lesions along the anterior pancreatic head and body measuring 2.9 cm and 2.1 cm. Spleen: Normal. No splenomegaly. Adrenal glands: Normal. No mass. Kidneys and ureters: Small right renal cortical cyst, less than 20 Hounsfield units. No follow-up imaging recommended. Inhomogeneous enhancement/perfusion both kidneys. No calculus or hydronephrosis. Stomach and bowel: Mild diverticulosis of the colon. No diverticulitis. The stomach and small bowel are unremarkable. No wall thickening or obstruction. Appendix: The appendix is not visualized. No secondary signs of appendicitis. Intraperitoneal space: Unremarkable. No free air. No significant fluid collection. Vasculature: Calcified arterial plaque. No aortic aneurysm. Lymph nodes: Unremarkable. No enlarged lymph nodes. Urinary bladder: Martin catheter in a decompressed urinary bladder. Reproductive: Hysterectomy. The ovaries are not visualized and are likely surgically absent. Bones/joints: Mild degenerative changes and curvature in the lumbar spine. No fracture. Soft tissues: Lipomatous hypertrophy of the intra-atrial septum. Mild body wall edema. CT/CT abdomen pelvis w con* [id number] IMPRESSION: 1. Inhomogeneous perfusion in both kidneys, suspicious for pyelonephritis. Clinical correlation recommended. 2. 2 new fluid density lesions along the anterior pancreas measuring 2.9 cm and 2.1 cm. 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 Reimaging every 6 months for 2 years is recommended. (Reference: Nathalie, 2017) 3. Small bilateral pleural effusions. COMMENTS: Consistent with the [place] [employer]'s Incidental Findings Committee white paper (J Am Emmanuel Radiol 2018): Any incidental renal lesion less than 1 cm or classified as too small to characterize, or any incidental cystic renal lesion characterized as simple-appearing, is likely benign. No follow-up imaging is recommended for these lesions per consensus recommendations based on imaging criteria. REFERENCES: Nathalie LEI, et al. Management of Incidental Pancreatic Cysts: A White Paper of the ACR Incidental Findings Committee. J Am Emmanuel Radiol. 2017;14(7):911-923.
[2025-01-20 18:07] LABS: Alanine Aminotransferase 420 U/L (0-33); Albumin Level 3.6 g/dL (3.5-5.2); Alkaline Phosphatase 400 U/L (35-105); Anion Gap 36.5 (5-19); Aspartate Amino Transferase 626 U/L (0-32); Blood Urea Nitrogen 75 mg/dL (8-23); Calcium 8.8 mg/dL (8.5-10.5); Carbon Dioxide 12 mmol/L (22-29); Chloride 89 mmol/L (98-107); Globulin 2.3 g/dL (1.3-4.6); Glomerular Filtration Rate 18.3 mL/min (90-130); Glucose 133 mg/dL (65-115); Osmolality Calculated 296 mOsm/kg (285-295); Sodium 131 mmol/L (136-145); Total Bilirubin 2.3 mg/dL (0.15-1.2); Total Protein 5.9 g/dL (6.6-8.7)
[2025-01-20 18:13] LABS: Potassium 6.5 mmol/L (3.5-5.1)
[2025-01-20] MEDS: iohexol 350 mg/mL 500 mL Btl (per mL) IV (18:21)
[2025-01-20] MEDS: calcium gluconate 0.1 gm/mL 10% SDV 10mL 1 GM IVP (18:28)
[2025-01-20] MEDS: norepinephrine 4 MG/250 ML BAG 30 MG IV (18:29)
--- NOTE | 2025-01-20 18:35 | ECG_ITS ---
[employer] Test Date: 2025-01-20 Pat Name: Lela Crespo Department: Room: Gender: Female Administrative Coordinator: : 1955 Requested By: Sherrie Madrigal Order Number: [id number] Reading MD: Measurements Intervals [place] Rate: 115 P: 27 MI: 144 QRS: 24 QRSD: 117 T: 197 QT: 289 QTc: 400 Interpretive Statements SINUS TACHYCARDIA MODERATE INTRAVENTRICULAR CONDUCTION DELAY [110+ ms QRS DURATION] ST DEVIATION AND MODERATE T-WAVE ABNORMALITY, CONSIDER LATERAL ISCHEMIA [-0.1+ mV T-WAVE IN I/aVL/V5/V6] ST DEVIATION AND MODERATE T-WAVE ABNORMALITY, CONSIDER INFERIOR ISCHEMIA [-0.1+ mV T-WAVE IN II/aVF] INTERPRETATION BASED ON A DEFAULT AGE OF 40 YEARS No previous ECG available for comparison [email or web address]
[2025-01-20] MEDS: aztreonam 2,000 MG in sodium chloride 0.9% (plus) 100 ML 200 MG IV (18:37)
[2025-01-20 18:42] LABS: Glucose Point of Care 165 mg/dL (70-110)
[2025-01-20 18:44] LABS: ABG PCO2 21.4 mmHg (35-45); Arterial Blood Gas Hematocrit 21.8 % (37-47); Base Excess ABG -20.1 mmol/L (-2.0-2.0); Blood Gas Allen Test Pos; Blood Gas Operator Identificat MONRO; Blood Gas Sample Site Brachial, left; Blood Gas Sample Type Arterial; HCO3 ABG 7.2 mmol/L (22-26); Oxygen Device NC; PO2 FiO2 Ratio Arterial Blood 337
[2025-01-20 18:45] LABS: ABG PH Result 7.14 (7.35-7.45)
--- NOTE | 2025-01-20 18:51 | PC.NURSE ---
Per Dr. Madrigal, this nurse was instructed to turn off all drips and all interventions except for oxygen for the purpose of placing the pt on comfort care.
[2025-01-20 19:05] LABS: Troponin(5th) Baseline 82 ng/L (0-10)
[2025-01-20 19:14] LABS: Reflex Lactate Order REFLEX LACTIC ORDERD
[2025-01-20] MEDS: HYDROmorphone 0.5 MG/0.5 ML INJ 1 MG IVP (19:21)
[2025-01-20] MEDS: LORazepam 1 MG/0.5 ML injection 2 MG IVP (19:22)
--- NOTE | 2025-01-20 21:38 | PM.CONSULT ---
Providers/Reason For Consult Consulting Physician/Specialty*: Internal Medicine Hospitalist Reason for Consult*: Hoscpice care Requesting Physician: Sherrie Madrigal MD Primary Care Provider: Cem Romano DO History of Present Illness History of Present Illness Lela Crespo is a 69 year old female with history of CVA at age 20 lives with her cousin Kelsi Crowder and is also accompanied by Tracy Meyer another cousin who is sister to Kelsi. The patient has recently been discharged from the hospital to [facility] facility on 12/24/2024. She has had liver failure, acute kidney injury, congestive heart failure and cardiomyopathy. Patient has not been eating well and has been losing weight with low quality of life. She was initially aggressively treated in the emergency department and then Dr. Quintero spoke with the power of corporate associate attorney who elected for comfort care. Patient's power of corporate associate attorney is Kelsi Crowder who is her cousin patient does not have any parents siblings or children. Because the patient is from sn[facility] facility she can go back to the nursing facility for end-of-life care and family is agreeable to that. halfway is excepted her back Medications/Allergies Home Medications ?Medication ?Instructions ?Recorded ?Confirmed ?Last Taken ?Type citalopram 20 mg tablet (Celexa) 20 mg PO DAILY 07/11/24 01/20/25 12/11/24 History hydroxyzine HCl 50 mg tablet 100 mg PO BEDTIME 07/11/24 01/20/25 12/11/24 History clopidogrel 75 mg tablet (Plavix) 75 mg PO DAILY 11/17/24 01/20/25 12/11/24 History albuterol sulfate 2.5 mg/3 mL See Rx Instructions .Route .COMPLEX 12/12/24 01/20/25 Unknown History (0.083 %) solution for nebulization fluticasone propionate 50 1 spray intranasal BID 12/12/24 01/20/25 12/11/24 History mcg/actuation nasal spray,suspension furosemide 40 mg tablet 40 mg PO DAILY 30 days #30 tabs 12/24/24 01/20/25 12/11/24 Rx insulin lispro 100 unit/mL See Rx Instructions .Route 12/24/24 01/20/25 Unknown Rx subcutaneous solution (Humalog .COMPLEX #10 mL U-100 Insulin) polyethylene glycol 3350 17 gram 17 g PO DAILY 30 days #30 ea 12/24/24 01/20/25 Unknown Rx oral powder packet potassium chloride 20 mEq 20 meq PO DAILY 30 days #30 tabs 12/24/24 01/20/25 Unknown Rx tablet,extended release(part/cryst) (Klor-Con M) sennosides 8.6 mg-docusate sodium 1 tab PO BID 30 days #60 tabs 12/24/24 01/20/25 Unknown Rx 50 mg tablet (Stool Softener-Laxative) famotidine 20 mg tablet (Pepcid) 20 mg PO DAILY 12/30/24 01/20/25 Unknown History sodium phosphates 19 gram-7 118 ml [place] DAILY PRN 12/30/24 01/20/25 Unknown History gram/197 mL enema (Fleet Enema Extra) ferrous sulfate 325 mg (65 mg 325 mg PO BID #60 tabs 01/06/25 01/20/25 Unknown Rx iron) tablet Allergies Allergy/AdvReac Type Severity Reaction Status Date / Time Cephalosporins Allergy Unknown Verified 01/20/25 16:09 Penicillins Allergy ALGY-Anaphy Verified 01/20/25 16:09 laxis Sulfa (Sulfonamide Allergy Unknown Verified 01/20/25 16:09 Antibiotics) PFSH Acute PFSH: Medical History CVA (cerebral vascular accident) Hypertension Surgical History H/O knee surgery Social History Smoking and tobacco/nicotine status: former use of tobacco/nicotine Vitals/I&O/Wt Last Vital Signs Temp 97.8 F 01/20/25 16:25 Pulse 117 H 01/20/25 20:41 Resp 7 L 01/20/25 20:15 BP 103/55 01/20/25 20:41 Pulse Ox 95 01/20/25 20:41 O2 Del Method Room Air 01/20/25 16:25 01/20/25 01/20/25 01/20/25 06:59 14:59 22:59 Intake Total 1597.633 / 1597.633 Balance 1597.633 / 1597.633 Weight last 48 hrs Weight 73.936 kg Physical Exam Narrative: General well-developed well-nourished female sleeping hard to arouse CV regular rate and rhythm with a 4/6 to 5/6 systolic ejection murmur best heard at the left sternal border Lungs diminished at bases Abdomen soft nontender Neuro patient is weakly arousing but not to opening eyes or speaking. Data 01/20/25 17:20 01/20/25 17:20 Micro: Microbiology 01/20/25 17:24 Blood Culture - Preliminary Blood SPECIMEN COLLECTED 01/20/25 17:20 Blood Culture - Preliminary Blood SPECIMEN COLLECTED A&P Assessment and plan (1) Pyelonephritis: CT scan shows pyelonephritis bilaterally there is also a fluid collection on the anterior pancreas suspicious for pseudocysts (2) Sepsis: Patient with tachycardia and initial tachypnea now hypopneic. Labs noted for white count 21.57 pH 7.14 pCO2 21.4, potassium 6.5 and lactic acid 8. LFTs elevated. Patient is actively dying and family has elected for comfort care. She will go back to the sn[facility] facility PDMP PDMP Reviewed: Not Reviewed Coding Level of Care Code 85497 Diagnoses Pyelonephritis N12 Sepsis A41.9 Time Spent (min) 35
--- NOTE | 2025-01-20 21:47 | PC.NURSE ---
Pt DC to [facility] by primary nurse. Discharge papers were not sent with pt upon DC. This nurse attempted to print discharge papers, the meds were not finalized by Dr. Madrigal to enable printing. Dr. Mckeon finalized discharge medications. This nurse printed discharge papers for [facility] to fax to [facility]. Dr. Madrigal called by this nurse, Dr. Madrigal stated there is a comfort care set that can be ordered. Dr. Mckeon ordered discharge medications for pt.
== END 2025-01-20 21:27 | disposition home or self-care (01) ==
PROVIDERS: Emergency Provider Emergency Medicine; PCP Internal Medicine
DX: E87.20 Acidosis, unspecified (principal); N17.9 Acute kidney failure, unspecified; R10.30 Lower abdominal pain, unspecified; E87.5 Hyperkalemia; I11.0 Hypertensive heart disease with heart failure; I50.9 Heart failure, unspecified; Z86.73 Personal history of transient ischemic attack (TIA), and cerebral infarction without residual deficits
CPT/HCPCS: 36415; 36416; 36600; 71045; 74177; 80053; 82803; 82962; 83605; 83880; 84484; 85025; 87040; 93005; 96365; 96367; 96375; 99285; J0612; J1171; J2060; J2270; J2405; J3490; J7030; J9999